=== PATIENT | female | born 1965 | race African-American/Black ===

== ENCOUNTER → 2017-08-03 15:04 | Outpatient (CLI) | payer MEDICARE, MEDICAID ==
[2016-04-09 09:20] VITALS: BMI 46.3
[~2017-08-03 15:04] MED LIST: ALDACTONE25 MG PO; ASPIRIN EC81 M1 PO; ATROVENT 0.02%2.5 ML UPD; BAYER CHEWABLE81 MG PO; BETAPACE 120 M120 MG PO; BYSTOLIC10 MG PO; CARDURA2 MG PO; CARDURA4 MG PO; COREG12.5 MG PO; COREG25 MG PO; COUMADIN2 MG PO; COUMADIN5 MG PO; COUMADIN7.5 MG PO; ELAVIL25 MG PO; K-DUR20 MEQ PO; LASIX20 MG PO; LASIX40 MG; LASIX40 MG PO; LEVOTHROID112 MCG PO; LIPITOR80 MG PO; METOPROLOL TART50 MG PO; MUCINEX600 MG PO; NITROQUICK0.4 MG SL; PLAVIX75 MG PO; PRINIVIL10 MG PO; PROAIR HFA8.5 GM INH; PROTONIX40 MG PO; PULMICORT0.5 MG/21 INH; SYNTHROID137 MCG PO; SYNTHROID75 MCG PO; TYLENOL W/CODEI1 TAB PO; VENTOLIN HFA18 GM INH; ZPAK PO
== END | disposition home or self-care (01) ==
LOC: D.CT 08-02 10:30
DX: G04 Encephalitis, myelitis and encephalomyelitis (principal)

== ENCOUNTER 2019-04-29 09:13 | Observation (INO) | payer MEDICARE, MEDICAID ==
[~2019-04-29] VITALS: Ht 162.6 cm; Wt 81.6 kg
[2019-04-29] VITALS (8 sets, daily range): BP systolic 144–171; BP diastolic 86–106; BMI 30.9
--- NOTE | ~2019-04-29 | HEMODYNAMI ---
PATIENT:AVTAR AMIN MEDICAL RECORD: [id number] : 61 [id number] ADMISSION DATE: 04/29/19 Generatedon:05/01/201916:38 Patient name: AVTAR AMIN Patient #: [id number] SSN: : 1965 Date of study: 05/01/2019 Page: Of Hemodynamic Procedure Report Patient Data Patient Demographics Procedure consent was obtained First Name: AVTAR Gender: Female Last Name: BRENNAN : 1965 Middle Initial: EDITH Age: 53 year(s) Patient #: [id number] Race: Black Additional ID: [id number] Contact details [address]: [address] [place] [address] State: [place] City: [facility] Zip code: [address] Past Medical History Allergies Allergen Reaction Date Comments Reported Other allergy 04/08/2016 Percocett, Darvocett, Oxycodone Iodine 04/08/2016 Other allergy 05/01/2019 IODINATE CONTRAST, OXYCODONE, PROPOXYPHENE Admission Admission Data Admission Date: 04/29/2019 Admission Time: 11:55 Arrival Date: 04/29/2019 Arrival Time: 11:55 Admit Source: Other Insurance Payor: Medicare Room #: D.2127 Height (in.): 64.17 BSA: 1.88 (m2) Height (cm.): 163 BMI: 30.86 (kg/m2) Weight (lbs.): 180.78 Weight (kg.): 82 Lab Results Lab Result Date: 04/30/2019 Lab Result Time: 0:00 Biochemistry Name Units Result Min Max BUN mg/dl 19 --(----)*- 7 18 Creatinine mg/dl 1.8 --(----)-* 0.6 1.3 CBC Name Units Result Min Max Hemoglobin g/dl 10.8 *-(----)-- 13.5 17.5 Procedure Procedure Types Cath Procedure Diagnostic Procedure [facility] w/Coronaries Procedure Description Procedure Date Procedure Date: 05/01/2019 Procedure Start Time: 16:24 Procedure End Time: 16:36 Procedure Staff Name Function J Luis Villegas MD Performing Physician Kerri Martinez RT Monitor Lemuel Das RT Scrub Odalys Noyola RN Nurse Procedure Data Cath Procedure Fluoroscopy Diagnostic fluoroscopy Total fluoroscopy Time: 1.2 time: 1.2 min min Diagnostic fluoroscopy Total fluoroscopy dose: 451 dose: 451 mGy mGy Contrast Material Contrast Material Type Amount (ml) Isovue 300 62 Entry Location Entry Primary Successful Side Size Upsize Upsize Entry Closure Succes sful Closure Location (Fr) 1 (Fr) 2 (Fr) Remarks Device Remarks Femoral Right 5 Fr Exoseal artery Estimated blood loss: 5 ml Diagnostic catheters Device Type Used For End Catheter Placement MULTIPACK JL 4.0 5Fr Procedure catheter MULTIPACK 3DRC 5Fr Procedure catheter MULTIPACK Pigtail 5 Fr Procedure catheter Procedure Complications No complications Procedure Medications Medication Administration Route Dosage Oxygen etCO2 Nasal cannula 2 l/min Lidocaine 2% added to field 20 Heparin Flush Bag added to field 2 bags (1000units/500ml NS) 0.9% NaCl I.V. 200 ml/hr Versed I.V. 1 mg Fentanyl I.V. 50 mcg Versed I.V. 1 mg Hemodynamics Rest BSA: 1.88 (m2) HGB: 10.8 (g/dl) O2 Consumption: Estimated: 184.15 (ml/min) O2 Co nsumption indexed: Estimated:97.95 (ml/min/m) Heart Rate: 74 (bpm) Pressure Samples Time Site Value (mmHg) Purpose Heart Use Rate(bpm) 16:30 LV 110/12,20 Snapshot 90 16:30 AO 114/77(90) Pullback 77 16:30 LV 105/8,21 Pullback 77 Gradients Valve Time Site 1 Site 2 Mean SEP/DFP Peak To Heart Use (mmHg) (sec/min) Peak Rate (mmHg) (bpm) Aortic 16:30 LV AO 0 6 0 77 105/8,21 114/77(90) Calculations Valve P-P Mean Valve Index Valve Source Name Gradient Area Flow (cm2) Aortic 0 0 0 0 Snapshots Pre Cath Intra NCS Post Cath Vital Signs Time Heart Resp SPO2 etCO2 NIBP (mmHg) Rhythm Pain Sedation Rate (ipm) (%) (mmHg) Status Level (bpm) 16:11:09 75 14 97 0 158/102(118) NSR 0 (11) 10(A) , No pain 16:15:33 73 18 98 35.9 158/96(117) NSR 0 (11) 10(A) , No pain 16:19:53 73 11 97 26.9 144/89(103) NSR 0 (11) 10(A) , No pain 16:24:19 74 13 94 29.9 139/77(104) NSR 0 (11) 9(A) , No pain 16:28:39 73 16 95 29.2 130/84(97) NSR 0 (11) 9(A) , No pain 16:32:55 71 13 94 30 137/80(104) NSR 0 (11) 10(A) , No pain 16:37:16 72 19 95 30.7 133/77(109) NSR 0 (11) 10(A) , No pain Medications Time Medication Route Dose Verified Delivered Reason Notes Eff ectiveness by by 16:15:41 Oxygen etCO2 2 J Luis J Luis used for Nasal l/min Bakari Villegas MD procedure cannula 16:22:50 Lidocaine 2% added 20ml J Luis J Luis for local to vial Bakari Villegas MD anesthetic field 16:22:56 Heparin Flush added 2 J Luis J Luis used for Bag to bags Bakari Villegas MD procedure (1000units/500ml field NS) 16:23:04 0.9% NaCl I.V. 200 J Luis J Luis Per ml/hr Bakari Villegas MD physician 16:23:13 Versed I.V. 1 mg J Luis J Luis Per Bakari Villegas MD physician 16:23:22 Fentanyl I.V. 50 J Luis J Luis for mcg Bakari Villegas MD sedation 16:28:37 Versed I.V. 1 mg J Luis J Luis Per Bakari Villegas MD physician Procedure Log Time Note 15:51:13 Signed procedure consent form obtained from patient. 15:51:14 Diagnostic Cath status Urgent 15:51:15 Time tracking: Regular hours (M-F 7:00 - 5:00) 15:51:19 Plan of Care:Hemodynamics will remain stable., Cardiac rhythm will remain stable., Comfort level will be maintained., Respiratory function will remain adequate., Patient/ family verbilizes understanding of procedure., Procedure tolerated without complication., Recovers from procedure without complications.. 15:51:20 Patient Height : 64.17 inches 15:51:20 Patient Weight : 180.78 lbs 15:51:21 Lemuel Das RT(R) sent for patient. Start room use. 16:04:56 Patient received from Med II to CCL 1 Alert and oriented. Tansferred to table in Supine position. 16:04:59 Warm blankets applied, and anastasia hugger turned on for patient comfort. 16:05:00 Correct patient and procedure confirmed by team. 16:05:01 ECG and BP/O2 sat monitors applied to patient. 16:09:46 Vital chart was started 16:11:43 Baseline sample Acquired. 16:11:47 Rhythm: sinus rhythm 16:11:48 Full Disclosure recording started 16:11:49 Pre-procedure instructions explained to patient. 16:11:49 Pre-op teaching completed and patient verbalized understanding. 16:11:51 Family in patients room. 16:11:53 Patient NPO since Midnight. 16:12:21 Patient allergic to Other allergyIODINATE CONTRAST, OXYCODONE, PROPOXYPHENE 16:12:23 Is patient on blood thinner?Yes 16:12:25 ACC The patient was administered the following blood thiners within the last 24 hours: ACCPlavix 16:12:28 Patient diabetic? No. 16:12:32 Patient not . Patient is over age 55. 16:12:35 Previous problem with sedation/anesthesia? No ? 16:12:37 Snore? Yes 16:12:38 Sleep apnea? Yes 16:12:39 Deviated septum? No 16:12:39 Opens mouth fully? Yes 16:12:41 Sticks out tongue? Yes 16:12:44 Airway obstruction? Yes ASTHMA 16:12:47 Dentures? No ? 16:12:53 Pre procedure: right dorsailis pedis pulse 1+ Palpable, but thready & weak; easily obliterated 16:12:56 Patient pain scale 0/10 ?. 16:13:00 IV patent on arrival in right hand with 0.9% NaCl at [facility]. 16:13:23 Lab results completed and on chart. 16:13:26 Right groin area was prepped with chlora-prep and draped in sterile fashion 16:13:27 Alarms reviewed by R. N. 16:13:27 Sharps counted by scrub and verified by R.N. 16:13:32 Use device set Femoral Dx 16:13:34 ACIST Syringe (23177) opened to sterile field. 16:13:34 Bag Decanter (2002S) opened to sterile field. 16:13:35 ACIST Hand Control (58541) opened to sterile field. 16:13:36 ACIST Manifold (16596) opened to sterile field. 16:13:37 Tegaderm 4 x 4 (1626W) opened to sterile field. 16:13:38 Medline Cath Pack ([id number]) opened to sterile field. 16:13:39 DIAGNOSTIC WIRE .035 260cm J wire (630151) opened to sterile field. 16:13:41 DIAGNOSTIC Multipack 5Fr catheter set ([id number]) opened to sterile field. 16:13:43 SHEATH 5FR [place] (DOE555) opened to sterile field. 16:15:41 Oxygen 2 l/min etCO2 Nasal cannula was administered by J Luis Villegas MD; used for procedure; 16:18:36 --------ALL STOP TIME OUT------ 16:18:37 Final Timeout: patient, procedure, and site verified with staff and physician. All members of the team are in agreement. 16:18:38 Right groin site verified by team. 16:18:41 Maximum allowable Isovue 300 dose 205ml. Physician notified. (300ml for normal creatinines. For patients with creatinine of 1.7 or higher multiply weight(kg) x 5 divided by creatinine.) 16:18:51 Fire Safety Assessment: A--An alcohol-based skin anteseptic being used preoperatively., C--Open oxygen or nitrous oxide is being used., D--An ESU, laser, or fiber-optic light is being used. 16:18:56 Physical assessment completed. ASA score P 3 - A patient with severe systemic disease as per J Luis Villegas MD. 16:18:59 Sedation plan: IV Moderate Sedation Medication:Versed, Fentanyl 16:22:50 Lidocaine 2% 20ml vial added to field was administered by J Luis Villegas MD; for local anesthetic; 16:22:56 Heparin Flush Bag (1000units/500ml NS) 2 bags added to field was administered by J Luis Villegas MD; used for procedure; 16:23:04 0.9% NaCl 200 ml/hr I.V. was administered by J Luis Villegas MD; Per physician; 16:23:13 Versed 1 mg I.V. was administered by J Luis Villegas MD; Per physician; 16:23:15 Procedure started. 16:23:17 Zero performed for pressure channel P1 16::22 Fentanyl 50 mcg I.V. was administered by J Luis Villegas MD; for sedation; 16:24:07 Local anesthetic to right femoral artery with Lidocaine 2% by J Luis Villegas MD.INITIAL ACCESS ONLY 16:24:40 A 5 Fr sheath was inserted into the Right Femoral artery 16:25:24 A MULTIPACK JL 4.0 5Fr catheter was advanced over the wire and used for Procedure. 16:27:04 LCA angiography performed. 16:27:07 Catheter exchanged over wire. 16:27:57 A MULTIPACK 3DRC 5Fr catheter was advanced over the wire and used for Procedure. 16:28:37 Versed 1 mg I.V. was administered by J Luis Villegas MD; Per physician; 16:28:38 RCA angiography performed. 16:28:39 Catheter exchanged over wire. 16:29:36 A MULTIPACK Pigtail 5 Fr catheter was advanced over the wire and used for Procedure. 16:30:04 LV gram done using GERBER 16:30:10 Injector settings: Ml/sec: 10, Volume: 20, 16:30:12 LV hemodynamics recorded. 16:30:27 EF : 20 % 16:30:50 Catheter removed. 16:30:52 EXOSEAL 5Fr (EX500) opened to sterile field. 16:32:04 Sheath removed intact; hemostasis achieved with Exoseal to the Right Femoral artery. 16:32:47 Procedure ended.(Physican Out) 16:33:43 Fluoroscopy time 01.20 minutes. 16:33:49 Fluoroscopy dose: 451 mGy 16:33:49 Flurop Dose total: 451 16:33:53 Contrast amount:Isovue 300 62ml. 16:33:55 Sharps counted by scrub and verified by R.N. 16:33:58 Post-op/insertion site Right Femoral artery dressed using a 4 x 4 and Tegaderm. 16:34:00 Post-procedure physical assessment completed. ASA score P 2 - A patient with mild systemic disease as per J Luis Villegas MD. 16:34:11 Post procedure rhythm: sinus rhythm 16:34:14 Estimated blood loss: 5 ml 16:34:15 Post procedure instruction explained to patient.Patient verbalizes understanding. 16:34:16 Patient needs reinforcement of post procedure teaching. 16:34:45 Procedure and supply charges have been captured, reviewed, submitted and are correct. 16:34:48 Procedure Complication : No complications 16:36:33 Vital chart was stopped 16:36:33 See physician's report for complete and final results. 16:36:35 Report given to PCU. 16:36:38 Patient transfered to PCU with Bed. 16:36:40 Procedure ended. 16:36:40 Full Disclosure recording stopped 16:36:50 End room use (Document Last) Device Usage Item Name Manufacture Quantity Catalog Hospital Part Current Minimal L ot# / Number Charge Number Stock Stock Serial# Code ACIST Acist 1 36465 431523 816639 998829 20 Syringe Medical (54228) Systems Inc Bag Microtek 1 2001S 893717 56180 378666 5 Decanter Medical Inc. (2001S) ACIST Hand Acist 1 81567 161559 848403 315341 5 Control Medical (93186) Systems Inc ACIST Acist 1 61297 825598 366741 565592 5 Manifold Medical (39693) Systems Inc Tegaderm 4 3M 1 1626W 103391 178619 964703 5 x 4 (1626W) Medline Medline 1 [id number] 435614 13378 521899 5 Cath Pack ([id number]) DIAGNOSTIC St Yung 1 868953 707376 376430 937595 30 WIRE .035 260cm J wire (522710) DIAGNOSTIC Cardinal 1 KD1619 988271 17628 170877 30 Multipack Health 5Fr catheter set (ZV7485) SHEATH 5FR Terumo 1 MPQ269 045046 153406 104117 5 [place] (RZB676) MULTIPACK Cardinal 1 886546 5 JL 4.0 5Fr Health catheter MULTIPACK Cardinal 1 894957 5 3DRC 5Fr Health catheter MULTIPACK Cardinal 1 342975 5 Pigtail 5 Health Fr catheter EXOSEAL 5Fr Cardinal 1 EX500 913914 155318 908263 10 (EX500) Health Signature Audit [place] Stage Time Signature Unsigned Intra-Procedure 05/01/2019 Kerri Martinez 4:38:16 PM RT(R) Signatures Monitor : Kerri Martienz Signature : RT Date : Time : [id number] [place] [address]
--- NOTE | 2019-04-29 09:45 | NUR ---
CP 05/16
--- NOTE | 2019-04-29 09:50 | NUR ---
CP 03/16
--- NOTE | 2019-04-29 10:00 | NUR ---
CP 01/14
[2019-04-29] MEDS ORDERED: METOPROLOL TART50 MG PO ×2 (10:01→14:38)
[2019-04-29] MEDS ORDERED: PLAVIX75 MG PO (10:01)
[2019-04-29 10:16] LABS: BASOPHILS 1.2 % (0-2); EOSINOPHILS 3.3 % (0-7); HEMATOCRIT 37.6 % (36.0-48.0); HEMOGLOBIN 11.9 g/dL (12-16); IMMATURE GRANULOCYTES 0.1 % (0-5); LYMPHOCYTES 21.8 % (15-50); MCH 25.8 pg (26.0-34.0); MCHC 31.6 g/dL (31.0-37.0); MCV 81.4 fL (80.0-100.0); MEAN PLATELET VOLUME 11.8 fL (7.4-10.4); MONOCYTES 4.4 % (2-11); NEUTROPHILS 69.2 % (40-80); RBC 4.62 10x6/uL (4.00-5.40); RDW 13.9 % (11.5-14.5); WBC 6.9 10x3/uL (4.8-10.8)
[2019-04-29 10:19] LABS: PLATELET COUNT 155 10x3/uL (130-400)
[2019-04-29 10:25] LABS: APTT 25.6 SECONDS (22.8-39.4); INR 1.14 (0.85-1.17); PROTIME 14.1 SECONDS (11.6-15.0)
[2019-04-29 10:32] LABS: ALBUMIN 3.5 g/dL (3.4-5.0); ALKALINE PHOSPHATASE 78 U/L (46-116); ALT (SGPT) 35 U/L (10-68); BILIRUBIN - TOTAL 0.62 mg/dL (0.2-1.3); CALC OSMOLALITY 282 mosm/kg (275-300); CALCIUM 9.3 mg/dL (8.5-10.1); CARBON DIOXIDE 30.1 mmol/L (21.0-32.0); CHLORIDE - SERUM 104 mmol/L (98-107); CREATININE - SERUM 1.7 mg/dL (0.6-1.3); GLUCOSE 84 mg/dL (74-106); POTASSIUM - SERUM 4.1 mmol/L (3.5-5.1); PROTEIN - SERUM 8.1 g/dL (6.4-8.2); SODIUM 142 mmol/L (136-145); UREA NITROGEN 16 mg/dL (7-18); eGFR NON AFRICAN AMERICAN 33 mL/min (90-120)
[2019-04-29 10:46] LABS: CKMB 1.9 U/L (0.0-3.6); CREATINE KINASE 387 UL (21-215)
[2019-04-29 10:49] LABS: TROPONIN-I 0.535 ng/mL (0.000-0.060)
--- NOTE | 2019-04-29 10:49 | NUR ---
ELEVATED TROPONIN CALLED BY LAB. GRACIELA HOOVER, INFORMED AT THIS TIME.
--- NOTE | 2019-04-29 11:23 | NUR ---
PT AND FAMILY UPDATED ON POC AT THIS. TIME.
[2019-04-29 12:57] LABS: CKMB 1.8 U/L (0.0-3.6); CREATINE KINASE 367 UL (21-215)
[2019-04-29 13:07] LABS: TROPONIN-I 0.547 ng/mL (0.000-0.060)
--- NOTE | 2019-04-29 13:54 | NUR ---
TRANSFER FROM ER BY W/C. SEBASTIANINTED TO ROOM. CALL LIGHT IN REACH. WILL CONT. PLAN OF CARE.
[2019-04-29] MEDS ORDERED: MELATONIN10 M1 PO (14:39)
--- NOTE | 2019-04-29 14:44 | NUR ---
RECIVED FROM ER TO ROOM 2126. ADMIT ASSESSMENT PER RN
--- NOTE | 2019-04-29 17:39 | NUR ---
WITHOUT CHANGES OR DISTRESS NOTED AT THIS TIME. DENIES NEEDS.
[2019-04-29 19:36] LABS: CREATINE KINASE 423 UL (21-215)
[2019-04-29 19:38] LABS: TROPONIN-I 0.516 ng/mL (0.000-0.060)
--- NOTE | 2019-04-29 19:59 | NUR ---
RECIEVED UP IN BED WITH SEVERAL FAMILY MEMBERS AT BEDSIDE. ALERT AND ORIENTED X4. IV TO RIGHT HAND SL.. PACEMAKER TO LEFT CHEST. TELEMETRY IN PLACE. DENIES ANY NEEDS AT THIS TIME.
[2019-04-30 00:11] VITALS: BP 133/78
[2019-04-30 00:55] LABS: CKMB 2.1 U/L (0.0-3.6); CREATINE KINASE 349 UL (21-215)
[2019-04-30 00:57] LABS: TROPONIN-I 0.481 ng/mL (0.000-0.060)
[2019-04-30 04:00] VITALS: BP 153/89
[2019-04-30 06:48] LABS: ALBUMIN 3.1 g/dL (3.4-5.0); ANION GAP 9.1 mmol/L (8-16); BILIRUBIN - TOTAL 0.49 mg/dL (0.2-1.3); CALCIUM 8.8 mg/dL (8.5-10.1); CARBON DIOXIDE 31.7 mmol/L (21.0-32.0); CREATININE - SERUM 1.8 mg/dL (0.6-1.3); MAGNESIUM - SERUM 1.9 mg/dL (1.8-2.4); POTASSIUM - SERUM 3.8 mmol/L (3.5-5.1); PROTEIN - SERUM 7.2 g/dL (6.4-8.2)
--- NOTE | 2019-04-30 07:10 | NUR ---
REPORT RECEIVED FORM VALVE REPAIRER AND PATIENT CARE ASSUMED. PATIENT IS LAYING ON RIGHT SIDE WITH EYES CLOSED AND BREATHING EVENLY. PATIENT IS STABLE AND VSS. WILL CONTINUE WITH PLAN OF CARE. SR UP X 2 BED IN LOW POSITION AND CALL LIGHT IN EACH.
[2019-04-30 07:35] LABS: BASOPHILS 1.1 % (0-2); EOSINOPHILS 5.9 % (0-7); HEMATOCRIT 34.7 % (36.0-48.0); HEMOGLOBIN 10.8 g/dL (12-16); IMMATURE GRANULOCYTES 0.1 % (0-5); LYMPHOCYTES 27.4 % (15-50); MCH 25.4 pg (26.0-34.0); MCHC 31.1 g/dL (31.0-37.0); MCV 81.6 fL (80.0-100.0); MEAN PLATELET VOLUME 11.9 fL (7.4-10.4); MONOCYTES 5.5 % (2-11); PLATELET COUNT 145 10x3/uL (130-400); RBC 4.25 10x6/uL (4.00-5.40); RDW 13.9 % (11.5-14.5); WBC 7.2 10x3/uL (4.8-10.8)
[2019-04-30 09:01] VITALS: BP 140/85
--- NOTE | 2019-04-30 10:58 | NUR ---
PATIENT RESTING QUIETLY IN BED . PATIENT DENIES ANY NEEDS OR PAIN. ASSESSMENT COMPLETED. WILL CONTINUE TO MONITOR. SR UP X 2 BED IN LOW POSITION AND CALL LIGHT IN REACH.
[2019-04-30 11:41] VITALS: BP 117/64
--- NOTE | 2019-04-30 13:45 | NUR ---
RECIEVED CALL TO PREOP. PATIENT IS STABLE AND VSS. PATIENT DENIES ANY NEEDS OR PAIN. PATIENT HAS SEVERE ALLERGY TO IODINE DYE. PATIENT HAD NOT RECEIVED SOLU-MEDROL PROPHYLACTICALLY. DR GREEN MADE THE DECISION TO CX CATH FOR TODAY AND START PROPHYLACTICE TREATMENT. PATIENT AND FAMILY VERBALIZED UNDERSTANDING. GAVE PATIENT SOLU MEDROL 60MG IV PER ORDER. WILL CONTINUE TO MONITOR PATIENT.
[2019-04-30 19:22] LABS: % SATURATION 15 % (15-55); IRON 43 ug/dl (35-150); TOTAL IRON BIND CAPACITY 271 ug/dl (260-445); UNSAT IRON BIND CAPACITY 228 ug/dl (150-375)
--- NOTE | 2019-04-30 19:32 | NUR ---
RECIEVED RESTING IN BED WITH EYES CLOSED. EASILY AROUSES WITH VERBAL STIMULI. IV TO LEFT HAND SL. PACEMAKER TO LEFT CHEST. TELEMETRY IN PLACE. DENIES ANY NEEDS AT THIS TIME.
[2019-04-30 20:00] VITALS: BP 107/78
[2019-05-01] VITALS (7 sets, daily range): BP systolic 100–155; BP diastolic 70–94
[2019-05-01 05:55] LABS: BASOPHILS 0 % (0-2); EOSINOPHILS 0.1 % (0-7); HEMATOCRIT 36.9 % (36.0-48.0); HEMOGLOBIN 11.7 g/dL (12-16); IMMATURE GRANULOCYTES 0.1 % (0-5); LYMPHOCYTES 9.9 % (15-50); MCH 25.4 pg (26.0-34.0); MCHC 31.7 g/dL (31.0-37.0); MCV 80.2 fL (80.0-100.0); MEAN PLATELET VOLUME 11.8 fL (7.4-10.4); MONOCYTES 0.9 % (2-11); PLATELET COUNT 153 10x3/uL (130-400); RDW 13.7 % (11.5-14.5); WBC 7.8 10x3/uL (4.8-10.8)
[2019-05-01 06:05] LABS: ALBUMIN 3.1 g/dL (3.4-5.0); ANION GAP 12.7 mmol/L (8-16); BILIRUBIN - TOTAL 0.58 mg/dL (0.2-1.3); CALCIUM 9.1 mg/dL (8.5-10.1); CARBON DIOXIDE 26.4 mmol/L (21.0-32.0); MAGNESIUM - SERUM 1.9 mg/dL (1.8-2.4); POTASSIUM - SERUM 4.1 mmol/L (3.5-5.1); PROTEIN - SERUM 7.4 g/dL (6.4-8.2)
--- NOTE | 2019-05-01 07:00 | NUR ---
RECEIVED REPORT. ASSUMED CARE OF PATIENT. PATIENT RESTING IN BED. RESP EVEN AND UNLABORD. CALL LIGHT WITHIN REACH. DENIES NEEDS. ASKED PATIENT IF SHE WOULD LIKE A LIGHT BREAKFAST SINCE HER CATH IS NOT UNTIL THIS AFTERNOON SO SHE WOULD NOT HAVE TO BE NPO ALL DAY. PATIENT AGREED. NO DISTRESS.
--- NOTE | 2019-05-01 07:15 | NUR ---
ABLE TO GET PATIENT DIET CHANGED TO CLEAR LIQUIDS SINCE HEART CATH IS NOT UNTIL AFTERNOON.
--- NOTE | 2019-05-01 10:42 | NUR ---
MEDICATED FOR HEADACHE AFTER RECEIVING NEW ORDER FOR TYLENOL.
--- NOTE | 2019-05-01 14:10 | NUR ---
RESTING IN BED. SOLUMEDROL ADMINISTERED. CALL LIGHT WITHIN REACH. PATIENT WONDERING WHAT TIME HER CATH WITH BE. THIS MICROBIOLOGICAL LABORATORY TECHNICIAN IS NOT SURE. NO DISTRESS. FAMILY AT BEDSIDE.
--- NOTE | 2019-05-01 15:49 | NUR ---
PREOP MEDS ADMINISTERED AT THIS TIME ORDERED.
--- NOTE | 2019-05-01 16:00 | NUR ---
PATIENT LEFT VIA BED FOR CLOTH SPREADER AT THIS TIME. NO DISTRESS.
--- NOTE | 2019-05-01 16:57 | NUR ---
RECEIVED BACK TO UNIT FROM CORPORATION SECRETARY. NO DISTRESS. PERIPHERAL PULSES PATENT. NO S/S HEMATOMA TO RIGHT GROIN. NO FAMILY AT BEDSIDE AT THIS TIME. SAYS HER ARTERIES ARE CLEAR, IT IS THE EF OF 20% THAT IS CAUSING PROBLEMS AND HE WILL ADJUST MEDICATIONS IN HOPES OF IMPROVING EF. BP 120/84, PULSE 70. NO DISTRESS.
--- NOTE | 2019-05-01 17:15 | NUR ---
RESTING WELL. VS STABLE. NO S/S HEMATOMA FORMATION. PERIPHERAL PULSES PATENT. NO DISTRESS. EYES CLOSED. RESP EVEN AND UNLABORED. NO FAMILY AT BEDSIDE.
--- NOTE | 2019-05-01 17:45 | NUR ---
CONTINUE RESTING WITH EYES CLOSED IN STABLE CONDITTION. NO HEMATOMA FORMATION TO RIGHT GROIN. PERIPHERAL PULSES PATENT. BP 138/86. IV FLUIDS INFUSING ORDERED. NO DISTRESS. CALL LIGHT WITHIN REACH.
--- NOTE | 2019-05-01 18:15 | NUR ---
PATIENT AWAKE AND LYING IN SUPINE. PATIENT SIPPING WATER. CALL LIGHT WITHIN REACH. NO DISTRESS. DENIES NEEDS. NO FAMILY AT BEDSIDE. INFORMED PATIENT SHE WOULD BE ABLE TO GET UP IN ABOUT 45 MINUTES AND SHE WOULD BE ABLE TO GO HOME TONIGHT ABOUT 8PM. PATIENT VERBALIZED HER UNDERSTANDING.
--- NOTE | 2019-05-01 19:35 | NUR ---
REPORT RECIEVED AND ROUNDING COMPLETE. PT LAYING IN BED SLIGHTLY ELEVATED. SIT UP TIME IS AT 1900. RIGHT CATH GROIN SOFT AND DRESSING CLEAN DRY AND INTACT. PRINCE WARNER STATES PT CAN NO GO HOME TONIGHT. AUSTEN VARELA EXPLAINED THIS TO PT AND FAMILY. PT HAS NO OTHER NEEDS AT THIS TIME, CALL LIGHT WITHIN REACH AND BED IN LOWEST POSITION.
--- NOTE | 2019-05-01 23:23 | NUR ---
I have reviewed this patient and I concur with the Shift Assessment completed by the Licensed Practical Nurse today this shift.
[2019-05-02 04:00] VITALS: BP 141/81
--- NOTE | 2019-05-02 04:57 | NUR ---
I have reviewed this patient and I concur with the Shift Assessment completed by the Licensed Practical Nurse today this shift.
[2019-05-02 06:49] LABS: BASOPHILS 0 % (0-2); EOSINOPHILS 0 % (0-7); HEMATOCRIT 34.7 % (36.0-48.0); HEMOGLOBIN 11.1 g/dL (12-16); IMMATURE GRANULOCYTES 0.3 % (0-5); LYMPHOCYTES 5.8 % (15-50); MCH 25.7 pg (26.0-34.0); MCV 80.3 fL (80.0-100.0); MEAN PLATELET VOLUME 11.3 fL (7.4-10.4); MONOCYTES 2.7 % (2-11); NEUTROPHILS 91.2 % (40-80); PLATELET COUNT 156 10x3/uL (130-400); RBC 4.32 10x6/uL (4.00-5.40); RDW 13.9 % (11.5-14.5)
[2019-05-02 06:54] LABS: WBC 14.6 10x3/uL (4.8-10.8)
[2019-05-02 07:27] LABS: ALBUMIN 3.2 g/dL (3.4-5.0); ANION GAP 12.7 mmol/L (8-16); BILIRUBIN - TOTAL 0.68 mg/dL (0.2-1.3); CALCIUM 8.6 mg/dL (8.5-10.1); CARBON DIOXIDE 26.2 mmol/L (21.0-32.0); PHOSPHOROUS 3.9 mg/dL (2.5-4.9); POTASSIUM - SERUM 3.9 mmol/L (3.5-5.1); PROTEIN - SERUM 7.4 g/dL (6.4-8.2)
--- NOTE | 2019-05-02 07:29 | NUR ---
ROUNDING DONE WITH PATIENT AROUSEING EASILY WE WALK IN. LAYING ON LEFT SIDE, RIGHT GROIN DRESSING FROM [facility] YESTERDAY, C/D/I AND SITE IS SOFT. ON ROOM AIR. ON HEART MONITOR SHOWING SR, HR 64. PATIENT HAS A LEFT PACEMAKER. RIGHT HAND PIV SEEN WITH SALINE LOCK. WILL MONITOR.
--- NOTE | 2019-05-02 07:37 | NUR ---
ON EP, K+ IS 4.3.
[2019-05-02 09:14] LABS: FOLATE (FOLIC ACID) - SERUM 5.7 ng/mL (>3.0)
[2019-05-02 09:47] VITALS: BP 138/73
[2019-05-02 14:07] VITALS: Ht 162.6 cm; Wt 81.6 kg
--- NOTE | 2019-05-02 14:48 | NUR ---
SITTING ON SIDE OF BED VISITNG WITH FAMILY.
[2019-05-02 17:47] VITALS: BP 140/61
[2019-05-02 17:56] VITALS: BP 109/55
--- NOTE | 2019-05-02 18:39 | NUR ---
NO STOOL FOR THIS SHIFT. WILL LET THE NEXT ONE KNOW.
--- NOTE | 2019-05-02 18:43 | MORECARE ---
CASE MANAGEMENT DISCHARGE SUMMARY PATIENT: AVTAR AMIN UNIT: [id number] ADM DATE: 04/29/19 AGE: 53 : [birth year] SEX: F ROOM/BED: D.2899 AUTHOR: KADE DELONG PHYSICIAN: REFERRING PHYSICIAN: VLAD VELASCO MD DATE OF SERVICE: 05/02/19 Discharge Plan Patient Name: AVTAR AMIN Facility: [facility]:[place] : 1965 Planned Disposition: Home Anticipated Discharge Date: Discharge Date: Expected LOS: Initial Reviewer: [email or web address] Initial Review Date: 04/29/2019 Generated: 05/02/19 7:43 pm Coverage Notice Reviewer: [email or web address] Andrea Delcid Notice Issued Date-Time: 04/30/2019 15:06 Notice Type: Medicare Outpatient Observation Notice Notice Delivered To: Patient Relationship to Patient: Self Operator Cavity Pump Name: Delivery Method: HAND - Hand Delivered Christine Days: Prior Verbal Notification: Recipient Understood Notice: Yes Recipient Signature: Med Rec Note Co-signed by Attending: Coverage Notice Comment: Patient Name: AVTAR AMIN Page [phone] at 1843 All edits/amendments must be made on the electronic document DICTATION DATE: 05/02/191841 DATABASE DESIGNER: LAY 05/02/191841 RPT#: [id number] DC DATE: STATUS: ADM IN [place] [address] [place] [address] END OF REPORT
--- NOTE | 2019-05-02 18:50 | MORECARE ---
CASE MANAGEMENT DISCHARGE SUMMARY PATIENT: AVTAR AMIN UNIT: [id number] ADM DATE: 04/29/19 AGE: 53 : 61 SEX: F ROOM/BED: D.7399 AUTHOR: KADE DELONG PHYSICIAN: REFERRING PHYSICIAN: VLAD VELASCO MD DATE OF SERVICE: 05/02/19 Discharge Plan Patient Name: AVTAR AMIN Facility: [facility]:[place] : 1965 Planned Disposition: Home Anticipated Discharge Date: Discharge Date: Expected LOS: Initial Reviewer: [email or web address] Initial Review Date: 04/29/2019 Generated: 05/02/19 7:50 pm Comments DCP- Discharge Planning Updated by [email or web address]: Kassandracathleen Haile on 05/02/19 5:[address] CM VISITED WITH THE PATIENT AFTER RECEIVING AN ORDER FOR HOME HEALTH FOR PHYSICAL THERAPY. THE PATIENT WAS RESTING IN BED. HER ROOM IS DARK. SHE HAD NOT EATEN HER DINNER SHE STATES SHE DID NOT FEEL WELL. CM ADVISED THE DOCTOR HAD ORDERED HOME HEALTH FOR PHYSICAL THERAPY. SHE STATED SHE WAS NOT AWARE. SHE WILL ACCEPT HOME HEALTH. SHE WANTS TO DISCUSS WITH HER DAUGHTER. CM LEFT THE HOME HEALTH PROVIDER LIST WITH THE PATIENT. EXPLAINED I WOULD REVISIT WHEN SHE FELT BETTER. SHE LIVES W/ HER DAUGHTER CHRISTINA LINDSEY. THERE IS ONE STEP TO ENTER THE HOME. THE PATIENT NEEDS ASSIST TO ENTER THE HOUSE. THERE IS NO RAILING. SHE HAS A STANDARD WALKER AND SHOWER CHAIR. SHE IS EXPECTING TO GET A WHEELCHAIR WHEN SHE CHANGES INSURANCE NEXT MONTH. SHE WILL HAVE A NEW PCP-SHE CAN NOT REMEMBER HIS NAME AT THIS TIME. PHARMACY- [facility] TO FOLLOW UP FOR HOME HEALTH AND TO COMPLETE THE ASSESSMENT. Coverage Notice Reviewer: [email or web address] - Carolina Delcid Notice Issued Date-Time: 04/30/2019 15:06 Notice Type: Medicare Outpatient Observation Notice Notice Delivered To: Patient Relationship to Patient: Self Food Services Director Name: Delivery Method: HAND - Hand Delivered Christine Days: Prior Verbal Notification: Recipient Understood Notice: Yes Recipient Signature: Med Rec Note Co-signed by Attending: Coverage Notice Comment: Last DP export: 05/02/19 5:43 p Patient Name: AVTAR AMIN Page [phone] at 1850 All edits/amendments must be made on the electronic document DICTATION DATE: 05/02/191849 BARK SCALER: LAY 05/02/191849 RPT#: [id number] DC DATE: STATUS: ADM IN [facility] [address] [place] [address] END OF REPORT
--- NOTE | 2019-05-02 19:17 | NUR ---
EVENING ROUNDS MADE. PT LAYING IN BED RESTING. PT DENIES PAIN AT THIS TIME. NO FURTHER CONCERNS. BED LOWERED AND LOCKED. CL IN REACH. WILL CTM.
[2019-05-02 20:00] VITALS: BP 115/76
--- NOTE | 2019-05-02 22:50 | NUR ---
PT C/O PAIN IN HEAD AND NECK. TYLENOL GIVEN PO. NO FURTHER COMPLAINTS AT THIS TIME. WILL CTM.
[2019-05-03 00:30] VITALS: BP 127/73
--- NOTE | 2019-05-03 04:21 | NUR ---
I have reviewed this patient and I concur with the Shift Assessment completed by the Licensed Practical Nurse today this shift.
[2019-05-03 04:30] VITALS: BP 118/72
[2019-05-03 05:12] LABS: BASOPHILS 0 % (0-2); EOSINOPHILS 0 % (0-7); HEMATOCRIT 36.8 % (36.0-48.0); HEMOGLOBIN 11.5 g/dL (12-16); IMMATURE GRANULOCYTES 0.2 % (0-5); LYMPHOCYTES 9.6 % (15-50); MCH 25.4 pg (26.0-34.0); MCHC 31.3 g/dL (31.0-37.0); MCV 81.4 fL (80.0-100.0); MONOCYTES 1.1 % (2-11); NEUTROPHILS 89.1 % (40-80); PLATELET COUNT 160 10x3/uL (130-400); RBC 4.52 10x6/uL (4.00-5.40); RDW 14.3 % (11.5-14.5)
[2019-05-03 05:27] LABS: WBC 10.8 10x3/uL (4.8-10.8)
[2019-05-03 05:47] LABS: ALBUMIN 3.4 g/dL (3.4-5.0); ANION GAP 13.2 mmol/L (8-16); BILIRUBIN - TOTAL 0.42 mg/dL (0.2-1.3); CALCIUM 8.5 mg/dL (8.5-10.1); PHOSPHOROUS 3.9 mg/dL (2.5-4.9); POTASSIUM - SERUM 4.2 mmol/L (3.5-5.1); PROTEIN - SERUM 7.8 g/dL (6.4-8.2)
[2019-05-03 07:31] VITALS: BP 131/84
[2019-05-03] MEDS ORDERED: PREDNISONE10 MG PO (10:33)
--- NOTE | 2019-05-03 16:03 | MORECARE ---
CASE MANAGEMENT DISCHARGE SUMMARY PATIENT: AVTAR AMIN UNIT: [id number] ADM DATE: 04/29/19 AGE: 53 : 61 SEX: F ROOM/BED: D.9006 AUTHOR: BALJEET,DOC PHYSICIAN: REFERRING PHYSICIAN: VLAD VELASCO MD DATE OF SERVICE: 05/03/19 Discharge Plan Patient Name: AVTAR AMIN Facility: [facility]:[place] : 1965 Planned Disposition: Home Anticipated Discharge Date: 05/03/19 Discharge Date: 05/03/2019 Expected LOS: 4 Initial Reviewer: [id number] Initial Review Date: 04/29/2019 Generated: 05/03/19 5:02 pm Comments DCP- Discharge Planning Updated by [id number]: Christo Duckworth on 05/03/19 3:[address] Patient Name: AVTAR AMIN Encounter No: [id number] : 1965 Primary Insurance: [facility] MEDICARE SOLUTIONS Anticipated DC Date: 05-03-2019 Planned Disposition: Home DCP follow-up note: CM RECEIVED HOME HEALTH ORDER, MET WITH PT IN ROOM AND DISCUSSED HOME HEALTH. PT HAS NO PRIMARY DOCTOR AND HOPES TO ESTABLISH WITH A NEW DOCTOR IN MAY WHEN HER NEW INSURANCE IS IN EFFECT. PT CANNOT TELL CM NAME OR DOCTORS LOCATION. CM EXPLAINED THAT HOME HEALTH CANNOT BE ORDERED PT DOES NOT HAVE A DOCTOR TO FOLLOW THE HOME HEALTH. PT REPORTS UNDERSTANDING, DENIES NEEDS, REPROTS FAMILY TO PICK HER UP SHORTLY. CM NOTIFIED SUPERVISING ARCHITECT NURSE. Christo Duckworth, CASE MANAGEMENT DCP- Discharge Planning Updated by [id number]: Kassandra Haile on 05/02/19 5:[address] CM VISITED WITH THE PATIENT AFTER RECEIVING AN ORDER FOR HOME HEALTH FOR PHYSICAL THERAPY. THE PATIENT WAS RESTING IN BED. HER ROOM IS DARK. SHE HAD NOT EATEN HER DINNER SHE STATES SHE DID NOT FEEL WELL. CM ADVISED THE DOCTOR HAD ORDERED HOME HEALTH FOR PHYSICAL THERAPY. SHE STATED SHE WAS NOT AWARE. SHE WILL ACCEPT HOME HEALTH. SHE WANTS TO DISCUSS WITH HER DAUGHTER. CM LEFT THE HOME HEALTH PROVIDER LIST WITH THE PATIENT. EXPLAINED I WOULD REVISIT WHEN SHE FELT BETTER. SHE LIVES W/ HER DAUGHTER CHRISTINA LINDSEY. THERE IS ONE STEP TO ENTER THE HOME. THE PATIENT NEEDS ASSIST TO ENTER THE HOUSE. THERE IS NO RAILING. SHE HAS A STANDARD WALKER AND SHOWER CHAIR. SHE IS EXPECTING TO GET A WHEELCHAIR WHEN SHE CHANGES INSURANCE NEXT MONTH. SHE WILL HAVE A NEW PCP-SHE CAN NOT REMEMBER HIS NAME AT THIS TIME. [facility]ARMACY- [facility] TO FOLLOW UP FOR HOME HEALTH AND TO COMPLETE THE ASSESSMENT. Coverage Notice Reviewer: [id number] Andrea Delcid Notice Issued Date-Time: 04/30/2019 15:06 Notice Type: Medicare Outpatient Observation Notice Notice Delivered To: Patient Relationship to Patient: Self Keyboard Instrument Repairer Name: Delivery Method: HAND - Hand Delivered Christine Days: Prior Verbal Notification: Recipient Understood Notice: Yes Recipient Signature: Med Rec Note Co-signed by Attending: Coverage Notice Comment: Last DP export: 05/02/19 5:50 p Patient Name: AVTAR AMIN Page [id number] at 1603 All edits/amendments must be made on the electronic document DICTATION DATE: 05/03/19 160 HEDGE TRIMMER: LAY 05/03/19 160 RPT#: [id number] DC DATE:05/03/19 STATUS: DIS IN [facility] [address] [place] [address] END OF REPORT
== END 2019-05-03 14:02 | disposition home or self-care (01) ==
LOC: D.ER 09:13 → OBSVTIME 11:55 → D.M2 11:55
PROVIDERS: Emergency Medicine; Family Medicine; ADMIT Internal Medicine Nephrology; ATTEND Internal Medicine Nephrology
DX: I21.4 Non-ST elevation (NSTEMI) myocardial infarction (principal); I25.110 Atherosclerotic heart disease of native coronary artery with unstable angina pectoris; I10 Essential (primary) hypertension; E78.5 Hyperlipidemia, unspecified; N17.9 Acute kidney failure, unspecified; G47.33 Obstructive sleep apnea (adult) (pediatric); E03.9 Hypothyroidism, unspecified; D64.9 Anemia, unspecified; M79.7 Fibromyalgia; Z95.0 Presence of cardiac pacemaker; I48.91 Unspecified atrial fibrillation

== ENCOUNTER 2019-05-04 23:28 | Inpatient (IN) | payer MEDICARE, MEDICAID ==
[~2019-05-04] VITALS: Ht 162.6 cm; Wt 82.5 kg
[~2019-05-04 23:28] MED LIST changes: +MELATONIN10 M1 PO; +PREDNISONE10 MG PO
[2019-05-04 23:56] LABS: BASOPHILS 0.3 % (0-2); EOSINOPHILS 1.4 % (0-7); HEMATOCRIT 34.8 % (36.0-48.0); IMMATURE GRANULOCYTES 0.3 % (0-5); LYMPHOCYTES 30.6 % (15-50); MCH 25.8 pg (26.0-34.0); MCHC 31.6 g/dL (31.0-37.0); MCV 81.5 fL (80.0-100.0); MEAN PLATELET VOLUME 11.6 fL (7.4-10.4); MONOCYTES 6.4 % (2-11); PLATELET COUNT 140 10x3/uL (130-400); RBC 4.27 10x6/uL (4.00-5.40); RDW 14.6 % (11.5-14.5); WBC 10.1 10x3/uL (4.8-10.8)
[2019-05-05 00:08] LABS: APTT 23.6 SECONDS (22.8-39.4); INR 1.2 (0.85-1.17); PROTIME 14.6 SECONDS (11.6-15.0)
[2019-05-05 00:09] LABS: D-DIMER-QUANTITATIVE 1.95 ug/mLFEU (0.20-0.54)
[2019-05-05 00:18] LABS: ALBUMIN 3.1 g/dL (3.4-5.0); ALKALINE PHOSPHATASE 61 U/L (46-116); ALT (SGPT) 76 U/L (10-68); BILIRUBIN - TOTAL 0.26 mg/dL (0.2-1.3); CALC OSMOLALITY 291 mosm/kg (275-300); CALCIUM 8.2 mg/dL (8.5-10.1); CARBON DIOXIDE 27.5 mmol/L (21.0-32.0); CHLORIDE - SERUM 110 mmol/L (98-107); CREATININE - SERUM 1.6 mg/dL (0.6-1.3); GLUCOSE 88 mg/dL (74-106); PROTEIN - SERUM 6.9 g/dL (6.4-8.2); SODIUM 144 mmol/L (136-145); UREA NITROGEN 28 mg/dL (7-18); eGFR NON AFRICAN AMERICAN 35 mL/min (90-120)
[2019-05-05 00:22] LABS: POTASSIUM - SERUM 3.5 mmol/L (3.5-5.1)
--- NOTE | 2019-05-05 00:22 | NUR ---
PT ASSISTED UP TO BEDSIDE COMMODE.
[2019-05-05 00:35] LABS: CREATINE KINASE 209 UL (21-215); PRO BNP 1855 pg/mL (0-125)
[2019-05-05 00:41] LABS: TROPONIN-I 0.945 ng/mL (0.000-0.060)
[2019-05-05] MEDS ORDERED: NORVASC5 MG PO (01:05)
[2019-05-05 01:30] VITALS: BP 147/83
--- NOTE | 2019-05-05 01:33 | NUR ---
PT TO RADIOLOGY
--- NOTE | 2019-05-05 02:20 | NUR ---
PT RETURNED FROM RADIOLOGY.
--- NOTE | 2019-05-05 03:21 | NUR ---
PT ASSISTED UP TO BEDSIDE COMMODE.
[2019-05-05 03:30] VITALS: BP 135/93
[2019-05-05 04:45] VITALS: BP 156/90
[2019-05-05 08:03] VITALS: BP 151/90
--- NOTE | 2019-05-05 08:30 | NUR ---
ROUNDING DONE WITH PATIENT GETTING OFF BSC, DENIES NEEDS. OBESE ABDOMEN. RIGHT FA PIV SEEN WITH SALINE LOCK. ON HEART MONITOR SHOWING SR, HR 77. ON ROOM AIR. LEFT PACEMAKER SITE SEEN.
--- NOTE | 2019-05-05 10:00 | NUR ---
BILATERAL SCD'S ARE PLACED ON PATIENT AND EXPLAINED IN USE.
[2019-05-05 11:45] VITALS: BP 148/82
[2019-05-05 12:30] VITALS: Ht 162.6 cm; Wt 82.5 kg
--- NOTE | 2019-05-05 12:38 | NUR ---
PAGE INTO ROMANA LEAHY APN TO SEE ABOUT RE-STARTING PATIENT HOME MEDS R/T HTN. AWAITING CALL BACK.
--- NOTE | 2019-05-05 12:51 | NUR ---
YUNIER SANTIAGO TO CALL BACK AND STATES SHE WILL LOOK AT THE HOME MEDS.
[2019-05-05 15:43] VITALS: BP 126/85
--- NOTE | 2019-05-05 16:53 | NUR ---
DENIES NEEDS AT THIS TIME. SUPPER TRAY AT BEDSIDE.
[2019-05-05 18:56] LABS: CKMB 1.6 U/L (0.0-3.6); CREATINE KINASE 217 UL (21-215)
[2019-05-05 18:58] LABS: TROPONIN-I 0.944 ng/mL (0.000-0.060)
--- NOTE | 2019-05-05 19:25 | NUR ---
PATIENT RESTING IN BED WITH NO S/S OF DISTRESS AND DENIES NEEDS AT THIS TIME. BED IN LOWEST POSITION AND CL WITHIN REACH. ENCOURAGED THE PATIENT TO CALL IF SHE HAS NEEDS. WILL CONTINUE TO MONITOR.
[2019-05-05 22:37] LABS: CKMB 1.3 U/L (0.0-3.6); CREATINE KINASE 198 UL (21-215)
[2019-05-06] VITALS: BP 121/79
[2019-05-06 04:35] LABS: BASOPHILS 0.6 % (0-2); EOSINOPHILS 3.6 % (0-7); HEMATOCRIT 38.4 % (36.0-48.0); HEMOGLOBIN 12.3 g/dL (12-16); IMMATURE GRANULOCYTES 0.3 % (0-5); LYMPHOCYTES 28.5 % (15-50); MCH 25.8 pg (26.0-34.0); MCV 80.5 fL (80.0-100.0); MEAN PLATELET VOLUME 11.6 fL (7.4-10.4); MONOCYTES 6.2 % (2-11); NEUTROPHILS 60.8 % (40-80); PLATELET COUNT 142 10x3/uL (130-400); RBC 4.77 10x6/uL (4.00-5.40); RDW 14.2 % (11.5-14.5); WBC 10.1 10x3/uL (4.8-10.8)
[2019-05-06 05:08] LABS: ALBUMIN 3.1 g/dL (3.4-5.0); ALKALINE PHOSPHATASE 65 U/L (46-116); ALT (SGPT) 63 U/L (10-68); BILIRUBIN - TOTAL 0.55 mg/dL (0.2-1.3); CALC OSMOLALITY 286 mosm/kg (275-300); CALCIUM 8.8 mg/dL (8.5-10.1); CARBON DIOXIDE 30.3 mmol/L (21.0-32.0); CHLORIDE - SERUM 104 mmol/L (98-107); CKMB 1.5 U/L (0.0-3.6); CREATINE KINASE 181 UL (21-215); CREATININE - SERUM 1.6 mg/dL (0.6-1.3); GLUCOSE 99 mg/dL (74-106); MAGNESIUM - SERUM 1.7 mg/dL (1.8-2.4); POTASSIUM - SERUM 3.7 mmol/L (3.5-5.1); PROTEIN - SERUM 7.2 g/dL (6.4-8.2); SODIUM 142 mmol/L (136-145); TROPONIN-I 0.898 ng/mL (0.000-0.060); UREA NITROGEN 23 mg/dL (7-18); eGFR NON AFRICAN AMERICAN 35 mL/min (90-120)
--- NOTE | 2019-05-06 07:01 | NUR ---
AM ROUNDING DONE WITH NO COMPLAINTS FROM PATIENT. LEFT PACEMAKER SITE SEEN, ON HEART MONITOR SHOWING SR, HR 71. ON ROOM AIR. OBESE. RIGHT FA PIV SEEN WITH SALINE LOCK, ORANGE SWAB CAP IN PLACE. BILATERAL SCD'S ON AND IN USE. CALL LIGHT AT SIDE. WILL CPOC.
[2019-05-06 07:28] VITALS: BP 120/77
--- NOTE | 2019-05-06 08:43 | NUR ---
ASSSITED PATIENT OFF BSC AND INTO CHAIR FOR AM CARE OF WASHING UP AND LINEN CHANGE.
--- NOTE | 2019-05-06 09:25 | NUR ---
BACK TO BED PAST WASHING UP.
[2019-05-06 11:12] VITALS: BP 126/75
--- NOTE | 2019-05-06 12:06 | NUR ---
ASSSITED PATIENT TO CHAIR FOR LUNCH.
--- NOTE | 2019-05-06 12:49 | NUR ---
[facility]
--- NOTE | 2019-05-06 14:24 | NUR ---
ASSSITED BACK TO BED, SCD'S PLACED ON PATIENT.
[2019-05-06 15:37] VITALS: BP 127/78
--- NOTE | 2019-05-06 16:55 | NUR ---
THERE IS A DISCHARGE ORDER FOR [facility] BUT C.M. HAS ALREADY LEFT FOR THE DAY AND SO HOME HEALTH CAN NOT BE SET UP. I CALLED NICHOLE GARZACOMMUNITY ASSISTANT AND MADE HER AWARE OF THIS AND THAT ALSO PATIENT'S DAUGHTER IS ALSO 80 MILES AWAY. PATIENT IS TO SPEND THE NIGHT AND CAN BE DISCHARGED IN AM PER BIOTECHNICIAN.
--- NOTE | 2019-05-06 19:10 | NUR ---
PATIENT RESTING IN BED WITH NO S/S OF AND DENIES NEEDS AT THIS TIME. BED IN LOWEST POSITION AND CALL LIGHT WITHIN REACH. WILL CONTINUE TO MONITOR.
--- NOTE | 2019-05-06 20:16 | NUR ---
ASSISTED PATIENT TO AND FROM THE BSC WITH MINIMAL ASSISTANCE. BROUGHT PATIENT A BEDTIME SNACK PER HER REQUEST. PATIENT DENIES OTHER NEEDS AT THIS TIME. BED IN LOWEST POSITION AND CALL LIGHT WITHIN REACH. ENCOURAGED THE PATIENT TO CALL IF SHE HAS NEEDS. WILL CONTINUE TO MONITOR.
[2019-05-06 20:19] VITALS: BP 132/85
[2019-05-07] VITALS: BP 132/85
[2019-05-07 04:47] VITALS: BP 132/85
[2019-05-07 06:56] LABS: BASOPHILS 0.5 % (0-2); EOSINOPHILS 3.9 % (0-7); HEMATOCRIT 36.9 % (36.0-48.0); HEMOGLOBIN 11.6 g/dL (12-16); IMMATURE GRANULOCYTES 0.2 % (0-5); LYMPHOCYTES 22.8 % (15-50); MCH 25.6 pg (26.0-34.0); MCHC 31.4 g/dL (31.0-37.0); MCV 81.3 fL (80.0-100.0); MEAN PLATELET VOLUME 11.7 fL (7.4-10.4); MONOCYTES 6.3 % (2-11); NEUTROPHILS 66.3 % (40-80); RBC 4.54 10x6/uL (4.00-5.40); RDW 14.1 % (11.5-14.5); WBC 8.3 10x3/uL (4.8-10.8)
[2019-05-07 06:58] LABS: PLATELET COUNT 174 10x3/uL (130-400)
--- NOTE | 2019-05-07 07:03 | NUR ---
ROUNDING DONE WITH PATIENT LAYING ON LEFT SIDE, AROUSES EASILY. DENIES NEEDS AT THIS TIME. FOR DISCHARGE TODAY PAST HOME HEALTH SET UP WITH CM. LEFT PACEMAKER SITE SEEN. ON HEART MONITOR SHOWING PACED, HR 73. ON ROOM AIR. RIGHT FA PIV SEEN WITH SALINE LOCK. OBESE ABDOMEN. BILATERAL SCD'S ON AND IN USE.
[2019-05-07 07:08] LABS: ALBUMIN 3.2 g/dL (3.4-5.0); ANION GAP 10.3 mmol/L (8-16); BILIRUBIN - TOTAL 0.46 mg/dL (0.2-1.3); CALCIUM 9.1 mg/dL (8.5-10.1); CARBON DIOXIDE 31.6 mmol/L (21.0-32.0); CREATININE - SERUM 1.6 mg/dL (0.6-1.3); MAGNESIUM - SERUM 1.9 mg/dL (1.8-2.4); POTASSIUM - SERUM 3.9 mmol/L (3.5-5.1); PROTEIN - SERUM 7.3 g/dL (6.4-8.2)
[2019-05-07 07:42] VITALS: BP 119/80
--- NOTE | 2019-05-07 08:59 | MORECARE ---
CASE MANAGEMENT DISCHARGE SUMMARY PATIENT: AVTAR AMIN UNIT: [id number] ADM DATE: 05/05/19 AGE: 53 : 61 SEX: F ROOM/BED: D.1210 AUTHOR: KADE DELONG PHYSICIAN: REFERRING PHYSICIAN: MOE WALLACE DO DATE OF SERVICE: 05/07/19 Discharge Plan Patient Name: AVTAR AMIN Facility: [facility]:[place] : 1965 Planned Disposition: Home Anticipated Discharge Date: Discharge Date: Expected LOS: Initial Reviewer: DIANE Initial Review Date: 05/07/2019 Generated: 05/07/19 9:59 am Comments DCP- Discharge Planning Updated by DIANE: Tara Ellison on 05/07/19 7:[address] Patient Name: AVTAR AMIN Admission Status: ER Accout number: [id number] Admission Date: 05-05-2019 : 1965 Admission Diagnosis: Attending: MOE WALLACE Current LOS: 2 Anticipated DC Date: Planned Disposition: Primary Insurance: [facility] MEDICARE SOLUTIONS Discharge Planning Comments: PT ELIZ SIGNED FOR [facility] . INFORMATION SENT TO PROVIDER. DAUGHTER WILL PERSONAL CARE HOME ADMINISTRATOR TODAY AT DC Placement Interviewer: Tara Ellison Coverage Notice Reviewer: DIANE Ellison Notice Issued Date-Time: 05/07/2019 8:40 Notice Type: Patient Choice Letter Notice Delivered To: Patient Relationship to Patient: Self Assistant Business Manager Name: Delivery Method: HAND - Hand Delivered Christine Days: Prior Verbal Notification: Recipient Understood Notice: Yes Recipient Signature: Yes Med Rec Note Co-signed by Attending: Coverage Notice Comment: Reviewer: [id number] Ellison Notice Issued Date-Time: 05/07/2019 8:40 Notice Type: IM Discharge Notice Notice Delivered To: Patient Relationship to Patient: Self Assistant Business Manager Name: Delivery Method: HAND - Hand Delivered Christine Days: Prior Verbal Notification: Recipient Understood Notice: Yes Recipient Signature: Yes Med Rec Note Co-signed by Attending: Coverage Notice Comment: Patient Name: AVTAR AMIN Page 18719 at 0859 All edits/amendments must be made on the electronic document DICTATION DATE: 05/07/19858 DIRECTOR EQUIPMENT: LAY 05/07/1961 RPT#: [id number] DC DATE: STATUS: ADM IN [facility] [address] [place] [address] END OF REPORT
--- NOTE | 2019-05-07 10:21 | NUR ---
SALINE LOCK REMOVED WITH CATH TIP INTACT. VERBAL AND WRITTEN DISCHARGE INSTRUCTIONS GIVEN TO PATIENT AND DAUGHTER. DAUGHTER IS ASKING WHEN HOME HEALTH WILL TAKE EFFECT SINCE SHE IS NO LONGER A PATIENT WITH DR WHALEN. I TOLD HER THAT SHE NEEDED TO TALK TO DR WALLACE SHE STATES SHE WILL ESTABLISH WITH HIM. I ASKED WHY SHE NEEDED HOME HEALTH AND SHE STATES, "TO HELP GET HER UP AND MAKE HER MEALS". I TOLD THE DAUGHTER THAT I DID NOT THINK THAT HOME HEALTH DID THAT. DISCHARGED HOME VIA WHEELCHAIR.
--- NOTE | 2019-05-07 11:23 | MORECARE ---
CASE MANAGEMENT DISCHARGE SUMMARY PATIENT: AVTAR AMIN UNIT: [id number] ADM DATE: 05/05/19 AGE: 53 : 61 SEX: F ROOM/BED: D.1210 AUTHOR: KADE DELONG PHYSICIAN: REFERRING PHYSICIAN: MOE WALLACE DO DATE OF SERVICE: 05/07/19 Discharge Plan Patient Name: AVTAR AMIN Facility: [facility]:[place] : 1965 Planned Disposition: Home Anticipated Discharge Date: Discharge Date: 05/07/2019 Expected LOS: Initial Reviewer: [id number] Initial Review Date: 05/07/2019 Generated: 05/07/19 12:23 pm Comments DCP- Discharge Planning Updated by DIANE: Tara Ellison on 05/07/19 7:[address] Patient Name: AVTAR AMIN Admission Status: ER Accout number: [id number] Admission Date: 05-05-2019 : 1965 Admission Diagnosis: Attending: MOE WALLACE Current LOS: 2 Anticipated DC Date: Planned Disposition: Primary Insurance: [facility] MEDICARE SOLUTIONS Discharge Planning Comments: PT ELIZ SIGNED FOR [facility] . INFORMATION SENT TO PROVIDER. DAUGHTER WILL AUTOMOTIVE DESIGNER TODAY AT DC Explosive Expert: Tara Ellison Coverage Notice Reviewer: [id number] Ellison Notice Issued Date-Time: 05/07/2019 8:40 Notice Type: Patient Choice Letter Notice Delivered To: Patient Relationship to Patient: Self Accounts Payable Lead Name: Delivery Method: HAND - Hand Delivered Christine Days: Prior Verbal Notification: Recipient Understood Notice: Yes Recipient Signature: Yes Med Rec Note Co-signed by Attending: Coverage Notice Comment: Reviewer: [id number] Andrea Ellison Notice Issued Date-Time: 05/07/2019 8:40 Notice Type: IM Discharge Notice Notice Delivered To: Patient Relationship to Patient: Self Accounts Payable Lead Name: Delivery Method: HAND - Hand Delivered Christine Days: Prior Verbal Notification: Recipient Understood Notice: Yes Recipient Signature: Yes Med Rec Note Co-signed by Attending: Coverage Notice Comment: Last DP export: 05/07/19 7:59 am Patient Name: AVTAR AMIN Page [phone] at 1123 All edits/amendments must be made on the electronic document DICTATION DATE: 05/07/19 112 MAMMOGRAPHY SUPERVISOR: LAY 05/07/19 112 RPT#: [id number] DC DATE:05/07/19 STATUS: DIS [facility] [address] [place] [address] END OF REPORT
== END 2019-05-07 10:35 | disposition home health service (06) | DRG 292 ==
LOC: D.ER 23:28 → D.M3 05-05 03:27
PROVIDERS: Family Medicine; ADMIT Family Medicine; ATTEND Family Medicine
DX: I11.0 Hypertensive heart disease with heart failure (principal); N17.9 Acute kidney failure, unspecified; J44.1 Chronic obstructive pulmonary disease with (acute) exacerbation; I42.9 Cardiomyopathy, unspecified; I50.23 Acute on chronic systolic (congestive) heart failure; E78.5 Hyperlipidemia, unspecified; Z95.0 Presence of cardiac pacemaker; G47.33 Obstructive sleep apnea (adult) (pediatric); E03.9 Hypothyroidism, unspecified; D64.9 Anemia, unspecified; M79.7 Fibromyalgia; I07.1 Rheumatic tricuspid insufficiency; E83.42 Hypomagnesemia; I48.0 Paroxysmal atrial fibrillation; I25.10 Atherosclerotic heart disease of native coronary artery without angina pectoris

== ENCOUNTER 2019-06-05 21:24 | Emergency (ER) | payer MEDICARE, MEDICAID ==
[~2019-06-05] VITALS: Ht 162.6 cm; Wt 81.8 kg
[~2019-06-05 21:24] MED LIST changes: +NORVASC5 MG PO
[2019-06-05 21:34] VITALS: Ht 162.6 cm; Wt 81.8 kg
[2019-06-05 22:24] LABS: BASOPHILS 0.9 % (0-2); EOSINOPHILS 2.1 % (0-7); HEMATOCRIT 34.3 % (36.0-48.0); HEMOGLOBIN 10.9 g/dL (12-16); IMMATURE GRANULOCYTES 0.1 % (0-5); LYMPHOCYTES 22.9 % (15-50); MCH 25.7 pg (26.0-34.0); MCHC 31.8 g/dL (31.0-37.0); MCV 80.9 fL (80.0-100.0); MEAN PLATELET VOLUME 12.2 fL (7.4-10.4); MONOCYTES 6.8 % (2-11); NEUTROPHILS 67.2 % (40-80); PLATELET COUNT 175 10x3/uL (130-400); RBC 4.24 10x6/uL (4.00-5.40); RDW 16.1 % (11.5-14.5); WBC 6.8 10x3/uL (4.8-10.8)
[2019-06-05 22:42] LABS: ALBUMIN 3.1 g/dL (3.4-5.0); BILIRUBIN - TOTAL 0.81 mg/dL (0.2-1.3); CALCIUM 8.2 mg/dL (8.5-10.1); CARBON DIOXIDE 26.5 mmol/L (21.0-32.0); CREATININE - SERUM 2.2 mg/dL (0.6-1.3); POTASSIUM - SERUM 3.5 mmol/L (3.5-5.1); PROTEIN - SERUM 6.6 g/dL (6.4-8.2)
[2019-06-05 22:59] LABS: TROPONIN-I 0.567 ng/mL (0.000-0.060)
[2019-06-05 23:36] LABS: APPEARANCE CLEAR (CLEAR); BILIRUBIN NEGATIVE (NEGATIVE); COLOR YELLOW (YELLOW); GLUCOSE NEGATIVE (NEGATIVE); KETONE NEGATIVE (NEGATIVE); NITRITE NEGATIVE (NEGATIVE); PROTEIN 3+ mg/dL (NEGATIVE); UROBILINOGEN NORMAL (NORMAL)
[2019-06-05 23:41] LABS: BACTERIA MODERATE /hpf (NONE SEEN); EPITHELIAL CELLS 0-5 /hpf (0-5); HYALINE CAST 0-5 /lpf (NONE SEEN); MUCUS <1+ /lpf (NONE SEEN); RED CELLS - URINE NONE SEEN /hpf (0-5); WHITE CELLS - URINE 0-5 /hpf (0-5)
[2019-06-05] MEDS ORDERED: PROTONIX40 MG PO (23:43)
[2019-06-06 01:11] VITALS: BP 151/95
== END 2019-06-06 00:53 | disposition home or self-care (01) ==
LOC: D.ER 21:24
PROVIDERS: Family Medicine
DX: K21.9 Gastro-esophageal reflux disease without esophagitis (principal)

== ENCOUNTER 2019-06-17 20:06 | Inpatient (IN) | payer MEDICARE, MEDICAID ==
[~2019-06-17] VITALS: Ht 162.6 cm; Wt 10182.7 kg
[2019-06-17 20:48] LABS: BASOPHILS 1.1 % (0-2); EOSINOPHILS 1.7 % (0-7); HEMATOCRIT 36.3 % (36.0-48.0); HEMOGLOBIN 11.5 g/dL (12-16); IMMATURE GRANULOCYTES 0.1 % (0-5); LYMPHOCYTES 25.4 % (15-50); MCH 25.8 pg (26.0-34.0); MCHC 31.7 g/dL (31.0-37.0); MCV 81.4 fL (80.0-100.0); MEAN PLATELET VOLUME 11.5 fL (7.4-10.4); MONOCYTES 7.6 % (2-11); NEUTROPHILS 64.1 % (40-80); PLATELET COUNT 147 10x3/uL (130-400); RBC 4.46 10x6/uL (4.00-5.40); RDW 16.7 % (11.5-14.5); WBC 8.4 10x3/uL (4.8-10.8)
[2019-06-17 21:12] LABS: ALBUMIN 3.2 g/dL (3.4-5.0); ANION GAP 11.9 mmol/L (8-16); BILIRUBIN - TOTAL 0.79 mg/dL (0.2-1.3); CALCIUM 8.7 mg/dL (8.5-10.1); CARBON DIOXIDE 25.1 mmol/L (21.0-32.0); CREATININE - SERUM 1.8 mg/dL (0.6-1.3); PROTEIN - SERUM 6.8 g/dL (6.4-8.2)
[2019-06-17 21:29] LABS: TROPONIN-I 0.469 ng/mL (0.000-0.060)
--- NOTE | 2019-06-17 22:51 | NUR ---
DAUGHTER RAYMOND [phone]
--- NOTE | 2019-06-17 23:24 | NUR ---
PT ARRIVED TO FLOOR BY BED, REPORT TAKEN FROM RAHEL NEWMAN RN. PT STATES SHE HAS HAD INCREASING WEAKNESS OVER THE PAST SEVERAL DAYS. PT STATES SHE IS A PRIOR SMOKER AND ALSO HAS A HISTORY OF ASTHMA. THE PT APPEARS TO BE SHORT OF BREATH WITH EXERTION BUT DENIES HAVING DIFFICULTY BREATHING WHILE AT REST. PT WAS ORIENTED TO ROOM AND INTRODUCED TO THE NURSE. BEDSIDE COMMODE WAS BROUGHT INTO THE ROOM. VITALS CURRENTLY STABLE. CALL LIGHT IS IN REACH. WILL CTM.
[2019-06-18] VITALS: BP 107/60
[2019-06-18 00:17] LABS: APPEARANCE HAZY (CLEAR); BILIRUBIN NEGATIVE (NEGATIVE); COLOR YELLOW (YELLOW); GLUCOSE NEGATIVE (NEGATIVE); KETONE NEGATIVE (NEGATIVE); NITRITE NEGATIVE (NEGATIVE); PROTEIN NEGATIVE (NEGATIVE); SPECIFIC GRAVITY 1.005 (1.005-1.020); UROBILINOGEN NORMAL (NORMAL)
[2019-06-18 01:56] VITALS: BP 154/96; BMI 34.4
--- NOTE | 2019-06-18 02:21 | NUR ---
ORDERED ECG PERFORMED AND PLACED ON CHART.
[2019-06-18 02:42] LABS: CKMB 1.5 U/L (0.0-3.6); CREATINE KINASE 312 UL (21-215)
[2019-06-18 02:49] LABS: TROPONIN-I 0.623 ng/mL (0.000-0.060)
--- NOTE | 2019-06-18 02:55 | NUR ---
ADMISSION ASSESSMENT COMPLETED. BUMEX DRIP INFUSING. PT ALERT/ORIENTED. PLAN OF CARE INITIATED.
[2019-06-18 04:00] VITALS: BP 139/93
[2019-06-18 06:16] LABS: PROTIME 15.5 SECONDS (11.6-15.0)
[2019-06-18 06:17] LABS: APTT 24.9 SECONDS (22.8-39.4); D-DIMER-QUANTITATIVE < 0.27 ug/mLFEU (0.20-0.54); INR 1.24 (0.85-1.17)
[2019-06-18 08:30] VITALS: BP 161/94
[2019-06-18 10:21] LABS: CKMB 1.7 U/L (0.0-3.6); CREATINE KINASE 333 UL (21-215)
[2019-06-18 10:24] LABS: TROPONIN-I 0.534 ng/mL (0.000-0.060)
[2019-06-18 12:06] VITALS: BP 138/78
[2019-06-18 15:18] LABS: % SATURATION 22 % (15-55); IRON 71 ug/dl (35-150); TOTAL IRON BIND CAPACITY 317 ug/dl (260-445); UNSAT IRON BIND CAPACITY 246 ug/dl (150-375)
[2019-06-18 16:04] VITALS: BP 121/82
--- NOTE | 2019-06-18 19:47 | NUR ---
PT SITTING UP IN BED WATCHING TV. CL IN REACH. DENIES NEEDS OR PAIN AT THIS TIME. BED IN LOW SIDE RAILS X2. A/O X4. LUNGS CLEAR. BOWEL ACTIVE X4. RESP EVEN AND UNLABORED. WILL CONTINUE TO MONITOR.
--- NOTE | 2019-06-19 03:28 | NUR ---
I have reviewed this patient and I concur with the Shift Assessment completed by the Licensed Practical Nurse today this shift.
[2019-06-19 04:00] VITALS: BP 109/83
--- NOTE | 2019-06-19 05:40 | NUR ---
PT DETECTIVE INVESTIGATOR LIGHT NEEDING TO USE BATHROOM. ASSISTED TO SIDE OF BED BUT PT WAS HAVING MUSCLE JERKS AND STATED SHE COULD NOT STAND. PT URINATED IN BED WHILE TRYING TO GET OUT OF BED. THEN PT TRIED ONE MORE TIME AND HAD EXTREME MUSCLE JERKS THAT WERE UNCONTROLABLE AT THIS TIME AND LASTED LONGER THEN PREVIOUS ONES. PT STATED SHE NEVER HAD THIS BEFORE UNTIL THE LAST 24 HRS. WILL LEAVE NOTE FOR DOC. PT THINKS IT WAS FROM THE AMBIEN SHE RECIEVED YESTERDAY DUE TO NEVER TAKING IT PREVIOUSLY.
[2019-06-19 07:57] VITALS: BP 123/57
[2019-06-19 08:19] LABS: CALCIUM 8.1 mg/dL (8.5-10.1)
[2019-06-19 08:23] LABS: ANION GAP 9.2 mmol/L (8-16); CARBON DIOXIDE 36.5 mmol/L (21.0-32.0)
[2019-06-19 08:26] LABS: POTASSIUM - SERUM 2.7 mmol/L (3.5-5.1)
[2019-06-19 08:42] LABS: HEMATOCRIT 37.1 % (36.0-48.0); MCH 25.5 pg (26.0-34.0); MCHC 32.3 g/dL (31.0-37.0); PLATELET COUNT 144 10x3/uL (130-400); RBC 4.71 10x6/uL (4.00-5.40); RDW 15.7 % (11.5-14.5); WBC 7.4 10x3/uL (4.8-10.8)
[2019-06-19 08:43] LABS: MCV 78.8 fL (80.0-100.0)
--- NOTE | 2019-06-19 09:50 | NUR ---
PT AND HER DAUGHTER ARE REFUSING COREG. DAUGHTER STATES DR IN LR TOLD THEM THAT IS WHAT CAUSED HER HEART ATTACK. DR. MENJIVAR NOTIFIED.
[2019-06-19 10:12] LABS: ANISOCYTOSIS 1+; EOSINOPHILS 4 % (0-7); LYMPHOCYTES 14 % (15-50); MONOCYTES 7 % (2-11); NEUTROPHILS 74 % (40-80); PLATELET ESTIMATE NORMAL; ROULEAUX OCC
--- NOTE | 2019-06-19 12:34 | NUR ---
I have reviewed this patient and I concur with the Shift Assessment completed by the Licensed Practical Nurse today this shift.
[2019-06-19 13:25] VITALS: Ht 162.6 cm; Wt 10182.7 kg
[2019-06-19 16:52] VITALS: BP 98/54
--- NOTE | 2019-06-19 17:24 | NUR ---
I have reviewed this patient and I concur with the Shift Assessment completed by the Licensed Practical Nurse today this shift.
--- NOTE | 2019-06-19 19:05 | NUR ---
AWAKE AND WATCHES ME WITHOUT ANSWERING MY QUESTIONS. LCTA SKIN WARM AND DRY BED LOW AND LOCKED AND CALL LIGHT IS WITH PT IV TO LEFT FA AT KEEP OPEN RATE
[2019-06-19 20:00] VITALS: BP 114/68
--- NOTE | 2019-06-19 21:11 | NUR ---
FAMILY IS IN ROOM DEMANDING A BOTELLO CATH SO PT WILL NOT HAVE TO GET UP AND ALSO UPSET THAT PT RECIEVED SLEEPING AID FAMILY IS INFORMING ME THAT I WAS TO CALL THEM BEFORE I DO ANY MEDS OR TREATMENTS ON PT PT IS A AND OX4 WITH NO POA. IM GOING TO ALERT LITHOGRAPHIC PLATE MAKER APPRENTICE OF SITUATION
--- NOTE | 2019-06-19 23:05 | NUR ---
FAMILY HAS LEFT AND PT IS RESTING WITH EYES CLOSED NO MUSCLE TWITCH AT ALL OBSERVED DURING SLEEP
[2019-06-20 04:00] VITALS: BP 120/70
[2019-06-20 05:34] LABS: BASOPHILS 0.6 % (0-2); EOSINOPHILS 2.3 % (0-7); HEMATOCRIT 37.8 % (36.0-48.0); IMMATURE GRANULOCYTES 0.1 % (0-5); LYMPHOCYTES 23.3 % (15-50); MCH 25.3 pg (26.0-34.0); MCHC 31.7 g/dL (31.0-37.0); MCV 79.7 fL (80.0-100.0); MEAN PLATELET VOLUME 11.6 fL (7.4-10.4); NEUTROPHILS 65.7 % (40-80); PLATELET COUNT 170 10x3/uL (130-400); RBC 4.74 10x6/uL (4.00-5.40); RDW 15.7 % (11.5-14.5); WBC 7.3 10x3/uL (4.8-10.8)
[2019-06-20 06:15] LABS: ANION GAP 12.4 mmol/L (8-16); CALCIUM 8.4 mg/dL (8.5-10.1); CARBON DIOXIDE 35.7 mmol/L (21.0-32.0); CREATININE - SERUM 2.2 mg/dL (0.6-1.3); MAGNESIUM - SERUM 1.4 mg/dL (1.8-2.4)
[2019-06-20 06:21] LABS: POTASSIUM - SERUM 3.1 mmol/L (3.5-5.1)
--- NOTE | 2019-06-20 07:20 | NUR ---
INITIAL ROUNDING, BEDSIDE SHIFT REPORT COMPLETED. PATIENT HAS STATED "I FEEL LIKE I AM GOING TO PASS OUT, SECOND TIME SHE SAID THIS SINCE 704. VITAL SIGNS TAKEN AGAIN, ALL WNL AND O2 AT 100% ON ROOM AIR. MYA, PANEL ASSEMBLER IN THE ROOM TALKING WITH THE PATIENT. WHITE BOARD UPDATED. CALL LIGHT IN REACH
[2019-06-20 08:30] VITALS: BP 115/58
--- NOTE | 2019-06-20 09:00 | NUR ---
THE HAMMER HEATERSONIYA Black JUST CLEANED THE PATIENT AND CHANGED THE LINENS, POSITIONED THE PATIENT FOR BREAKFAST AND THEN ASSISTED THE PATIENT WITH EATING THE MEAL. THE PATIENT IS CURRENTLY WATCHING CARTOONS ON THE TV WHILE HOUSE KEEPING IS CLEANING THE ROOM
--- NOTE | 2019-06-20 11:09 | NUR ---
CALLED AND SPOKE WITH DR VELASCO TO CONFIRM THE NEW MAG 2 GM IV DOSE. THIS NURSE INFORMED HIM THAT THE PATIENT HAD RECIEVED 800 MG OF MAG SINCE 629 TODAY. VERBAL ORDER TO GIVE THE ORDERED 2 GM MAG IV DOSE NOW.
[2019-06-20 11:57] LABS: CREATINE KINASE 572 UL (21-215); T4 THYROXIN - FREE 0.62 ng/dL (0.76-1.46)
[2019-06-20 11:59] LABS: CKMB 1.2 U/L (0.0-3.6)
[2019-06-20 12:30] LABS: THYROID STIMULATING HORMONE 175.11 uIU/mL (0.36-3.74)
[2019-06-20 12:59] VITALS: BP 118/62
--- NOTE | 2019-06-20 14:23 | NUR ---
UNABLE TO COLLECT THE URINE SAMPLE, THE PATIENT HAS BEEN INCONT THREE TIME THUS FAR ON THIS SHIFT.
[2019-06-20 16:04] VITALS: BP 107/80
[2019-06-20 17:34] LABS: MAGNESIUM - SERUM 2.3 mg/dL (1.8-2.4); POTASSIUM - SERUM 3.6 mmol/L (3.5-5.1)
--- NOTE | 2019-06-20 17:53 | NUR ---
REPOSITIONED THE PATIENT ONTO HER LEFT SIDE USING PILLOWS FOR SUPPORT
--- NOTE | 2019-06-20 19:51 | NUR ---
ROUND COMPLETED. AAOX3, WITH FREQUENT GENERALIZED JERKING. PT STATES SHE HAS HAD THIS EPISODES AT HOME COUPLE OF TIME, BUT ITS NOT INTENSE THIS. SHE STATES SHE BELIEVES A MEDICATION SHE WAS GIVEN IN "[place]" MUST HAVE TRIGGERED THE JERKING/TWITCHES. LEGS APPEARS SWOLLEN, BUT PROPPED UP IN BED. BUMEX AND DOBUTAMIN INFUSING AT THIS TIME. WILL CTM. CL WITHIN REACH. BED IN LOW. SR UP X2.
[2019-06-21] VITALS: BP 114/66
--- NOTE | 2019-06-21 00:30 | NUR ---
NOTIFIED EXPLOSIVE EXPERT PRINCE ABOUT PT'S UNCONTROLLED JERKING. EXPLOSIVE EXPERT STATES ELECTROLYTES HAVE WILEY EVALUATED AND TSH LEVEL APPEARS HIGH. STATES HE FEELS THATS WHAT IS CAUSING THE JERKING. PO SYNTYHROID WAS ORDERED BY PT'S PROVIDER. PT IN BED AT THIS TIME. DENIES ANY FURTHER NEEDS. WILL CTM.
[2019-06-21 04:00] VITALS: BP 106/64
[2019-06-21 05:39] LABS: BASOPHILS 0.6 % (0-2); EOSINOPHILS 1.9 % (0-7); HEMATOCRIT 38.8 % (36.0-48.0); HEMOGLOBIN 12.5 g/dL (12-16); IMMATURE GRANULOCYTES 0.3 % (0-5); LYMPHOCYTES 20.8 % (15-50); MCH 25.7 pg (26.0-34.0); MCHC 32.2 g/dL (31.0-37.0); MCV 79.8 fL (80.0-100.0); MEAN PLATELET VOLUME 11.9 fL (7.4-10.4); MONOCYTES 6.6 % (2-11); NEUTROPHILS 69.8 % (40-80); PLATELET COUNT 151 10x3/uL (130-400); RBC 4.86 10x6/uL (4.00-5.40); RDW 15.7 % (11.5-14.5)
[2019-06-21 05:45] LABS: WBC 10.4 10x3/uL (4.8-10.8)
[2019-06-21 05:54] LABS: ANION GAP 11.3 mmol/L (8-16); CARBON DIOXIDE 35.3 mmol/L (21.0-32.0); CREATININE - SERUM 2.5 mg/dL (0.6-1.3); POTASSIUM - SERUM 3.6 mmol/L (3.5-5.1)
--- NOTE | 2019-06-21 07:24 | NUR ---
PT RESTING SUPINE IN BED WITH EYES CLOSED, BREATHING EVEN AND UNLABORED. NO S/S OF DISTRESS NOTED. WILL CTM.
--- NOTE | 2019-06-21 08:19 | NUR ---
ADMNISTERED MEDICATION AT THIS TIME. NO TROUBLE SWALLOWING. HELPED PT RE-POSITION IN BED. DENIES OTHER NEEDS AT THIS TIME. WILL CTM.
--- NOTE | 2019-06-21 08:43 | NUR ---
PT MOVED TO A BED THAT HAS A SCALE BUILT IN. BED ZEROED OUT WITH SCD MACHINE ON. WEIGHT IS 243.9.
--- NOTE | 2019-06-21 08:44 | NUR ---
MOVED PT TO WEIGHT BED TO GET DAILY ACCURATE WEIGHT. BED WAS ZEROED OUT WITH SCD MACHINE ON IT. PT WAS MOVED TO BED AND WEIGHED, PT WIEGHT IS 243.9LBS.
[2019-06-21 09:23] VITALS: BP 166/92; BP 99/47
--- NOTE | 2019-06-21 11:21 | NUR ---
PT RESTING COMFORTABLY IN BED WITH EYES CLOSED. BREATHING EVEN AND UNLABORED. NO S/S OF DISTRESS. PT HAS UNCONTROLLABLE JERKING THROUGHOUT HER BODY. BED IN LOWEST POSITION, BED RAILS X2, CALL LIGHT WITHIN REACH. WILL CTM.
[2019-06-21 13:30] VITALS: BP 122/104
--- NOTE | 2019-06-21 13:43 | NUR ---
PT IV OUT WITH CATHETER TIP INTACT. 2X2 AND TAPE PLACED OVER INCISION SITE. PT SHEETS AND GOWN CHANGED. RELIABILITY TECHNICIANS AT BEDSIDE BATHING PT. DENIES ANY NEEDS AT THIS TIME. WILL CTM.
--- NOTE | 2019-06-21 14:01 | NUR ---
Rehab Note- Acute Inpatient Rehab prescreen order received. Spoke with ARLEEN Stacy. Will need an OT Eval for preAuth process due to the patient's insurnace being [employer]. Will continue to follow at this time. Thank you for this referral! Shynan Feliciano RN Clinical Liaison, [facility]
--- NOTE | 2019-06-21 16:02 | NUR ---
PT RESTING UP RIGHT IN BED. NO S/S OF DISTRESS. VERY MINIMAL JERKING NOTED AT THIS TIME. BED DENIES ANY NEEDS AT THIS TIME. WILL CTM.
--- NOTE | 2019-06-21 17:08 | MORECARE ---
CASE MANAGEMENT DISCHARGE SUMMARY PATIENT: AVTAR AMIN UNIT: [id number] ADM DATE: 06/17/19 AGE: 53 : 61 SEX: F ROOM/BED: D.2103 AUTHOR: KADE DELONG PHYSICIAN: REFERRING PHYSICIAN: VLAD VELASCO MD DATE OF SERVICE: 06/21/19 Discharge Plan Patient Name: AVTAR AMIN Facility: [facility]:[place] : 1965 Planned Disposition: Inpatient Rehab Anticipated Discharge Date: Discharge Date: Expected LOS: 0 Initial Reviewer: [id number] Initial Review Date: 06/21/2019 Generated: 06/21/19 6:07 pm DCPIA - Discharge Planning Initial Assessment Updated by CAM: Christo Duckworth on 06/21/19 5:02 pm * Is the patient Alert and Oriented? Yes * How many steps to enter\exit or inside your home? 1 BIG ONE * PCP CANNOT REMEMBER 'S NAME * Pharmacy [facility] * Preadmission Environment Home with Family * ADLs Independent * Equipment Cane Walker * Other Equipment NO MEDICAL EQUIPMENT PROVIDER PREFERNECE * List name and contact numbers for known caregivers / representatives who currently or will assist patient after discharge: SHERRY GRAHAMR, * Verbal permission to speak to the caregivers and representatives has been obtained from the patient. Yes * Community resources currently utilized None * Please name any agencies selected above. NONE * Additional services required to return to the preadmission environment? Yes * Can the patient safely return to the preadmission environment? Yes * Has this patient been hospitalized within the prior 30 days at any hospital? No Coverage Notice Reviewer: [id number] - Christo Duckworth Notice Issued Date-Time: 06/21/2019 9:40 Notice Type: IM Discharge Notice Notice Delivered To: Patient Relationship to Patient: Tree Planter Name: Delivery Method: HAND - Hand Delivered Christine Days: Prior Verbal Notification: Recipient Understood Notice: Yes Recipient Signature: Yes Med Rec Note Co-signed by Attending: Coverage Notice Comment: Patient Name: AVTAR AMIN Page [phone] at 1708 All edits/amendments must be made on the electronic document DICTATION DATE: 06/21/191706 ADMITTING COUNSELOR: LAY 06/21/191706 RPT#: [id number] DC DATE: STATUS: ADM IN [facility] [address] [place] [address] END OF REPORT
--- NOTE | 2019-06-21 17:16 | MORECARE ---
CASE MANAGEMENT DISCHARGE SUMMARY PATIENT: AVTAR AMIN UNIT: [id number] ADM DATE: 06/17/19 AGE: 53 : 61 SEX: F ROOM/BED: D.2103 AUTHOR: BALJEET,DOC PHYSICIAN: REFERRING PHYSICIAN: VLAD VELASCO MD DATE OF SERVICE: 06/21/19 Discharge Plan Patient Name: AVTAR AMIN Facility: [facility]:[place] : 1965 Planned Disposition: Inpatient Rehab Anticipated Discharge Date: Discharge Date: Expected LOS: 0 Initial Reviewer: [id number] Initial Review Date: 06/21/2019 Generated: 06/21/19 6:15 pm Comments DCP- Discharge Planning Updated by [id number]: Christo Duckworth on 06/21/19 4:[address] Patient Name: AVTAR AMIN Admission Status: ER Accout number: [id number] Admission Date: 06-17-2019 : 1965 Admission Diagnosis:SHORTNESS OF BREATH Attending: VLAD VELASCO Current LOS: 4 Anticipated DC Date: Planned Disposition: Inpatient Rehab Primary Insurance: [employer] CHOICE PPO MCR [employer] PLANNED EXTERNAL PROVIDER: [facility] Discharge Planning Comments: CM MET WITH PT IN ROOM TO DISCUSS DISCHARGE PLANNING AND NEEDS. PT REPORTS LIVING AT HOME INDEPENDENTLY WITH ADULT DAUGHTER WHO HAS TO HELP PT UP INTO THE HOUSE THEY HAVE ONE BIG STEP UP WITH NO HAND RAIL. PT HAS A STANDARD WALKER AND CANE WITH NO MEDICAL EQUIPMENT PROVIDER PREFERNCE. PT HAS NO OUTSIDE SERVICES ASSISTING IN THE HOME. CM DISCUSSED AVAILABILITY OF HOME HEALTH, REHAB SERVICES AND MEDICAL EQUIPMENT. PT WOULD LIKE REHAB AT [facility] IF POSSIBLE. PT REPORTS HER DAUGHTER WILL PICK HER UP FOR DISCHARGE HOME. IMPORTANT MESSAGE FROM MEDICARE PROVIDED AND EXPLAINED. CM SPOKE TO MARY OF [facility] WHO WILL SCREEN PT FOR ADMISSION AND SUBMIT TO PT'S INSURANCE FOR AUTHORIZATION ONCE THE OCCUPATIONAL THERAPY EVALUATION IS COMPLETED AND DOCUMENTED. CM TO CONTINUE TO FOLLOW AND ASSIST NEEDED. Shellac Polisher: Christo Duckworth DCPIA - Discharge Planning Initial Assessment Updated by [id number]: Christo Duckworth on 06/21/19 5:02 pm * Is the patient Alert and Oriented? Yes * How many steps to enter\exit or inside your home? 1 BIG ONE * PCP CANNOT REMEMBER DR'S NAME * Pharmacy [facility]. * Preadmission Environment Home with Family * ADLs Independent * Equipment Cane Walker * Other Equipment NO MEDICAL EQUIPMENT PROVIDER PREFERNECE * List name and contact numbers for known caregivers / representatives who currently or will assist patient after discharge: VANDANA LINDSEY, DTR, * Verbal permission to speak to the caregivers and representatives has been obtained from the patient. Yes * Community resources currently utilized None * Please name any agencies selected above. NONE * Additional services required to return to the preadmission environment? Yes * Can the patient safely return to the preadmission environment? Yes * Has this patient been hospitalized within the prior 30 days at any hospital? No Coverage Notice Reviewer: [id number] Andrea Duckworth Notice Issued Date-Time: 06/21/2019 9:40 Notice Type: IM Discharge Notice Notice Delivered To: Patient Relationship to Patient: College Sports Assistant Name: Delivery Method: HAND - Hand Delivered Christine Days: Prior Verbal Notification: Recipient Understood Notice: Yes Recipient Signature: Yes Med Rec Note Co-signed by Attending: Coverage Notice Comment: Last DP export: 06/21/19 4:08 p Patient Name: AVTAR AMIN Page [id number] at 1716 All edits/amendments must be made on the electronic document DICTATION DATE: 06/21/191714 SOLAR SALES ESTIMATOR: LAY 06/21/191714 RPT#: [id number] DC DATE: STATUS: ADM IN [facility] [address] [place] [address] END OF REPORT
[2019-06-21 17:29] VITALS: BP 109/60
--- NOTE | 2019-06-21 19:10 | NUR ---
REPORT RECEIVED, WILL CONTINUE POC. PATIENT IS A&OX4. SHE'S JERKING QUITE A BIT ESPECIALLY WHEN TOUCHED. NO S/SX OF DISTRESS NOTED. PATIENT SAID SHE IS REFUSING KLONOPINE LATER DUE TO HER BELIEVEING IT CAUSES BLURRED VISION. SHE DOES NOT HAVE AN IV BUT WILL NEED ONE FOR MEDS DURING THE NIGHT. PATIENT DENIES FURTHER NEEDS AT THIS TIME. CL IN REACH, BED LOCKED AND LOWERED. WILL CTM.
[2019-06-21 20:00] VITALS: BP 103/66
[2019-06-22] VITALS: BP 126/66
--- NOTE | 2019-06-22 02:05 | NUR ---
22G IV TO LT HAND INSERTED X4 ATTEMPTS. IV PATENT, SL, DRSG C/D/I. PATIENT TOLERATED IT WELL CAN BE EXPECTED. IV BUMEX ADMINISTER PER ORDERS. PATIENT REQUESTED ICE CREAM, PROMPTLY GIVEN. PATIENT DENIES FURTHER NEEDS AT THIS TIME. WILL CTM.
--- NOTE | 2019-06-22 02:37 | NUR ---
DOBUTAMINE RESTARTED PER ORDERS (DECREASED BY 1/2) SINCE AN IV WAS SUCCESSFULLY STARTED. PATIENT WAS A HARD STICK. PATIENT DENIES FURTHER NEEDS AT THIS TIME. CL IN REACH, BED LOCKED AND LOWERED. WILL CTM.
[2019-06-22 04:00] VITALS: BP 109/63
[2019-06-22 05:44] LABS: BASOPHILS 0.9 % (0-2); HEMATOCRIT 38.1 % (36.0-48.0); HEMOGLOBIN 12.2 g/dL (12-16); IMMATURE GRANULOCYTES 0.1 % (0-5); LYMPHOCYTES 26.6 % (15-50); MCH 25.5 pg (26.0-34.0); MCV 79.5 fL (80.0-100.0); MEAN PLATELET VOLUME 11.8 fL (7.4-10.4); MONOCYTES 7.6 % (2-11); NEUTROPHILS 61.8 % (40-80); PLATELET COUNT 171 10x3/uL (130-400); RBC 4.79 10x6/uL (4.00-5.40); RDW 15.3 % (11.5-14.5); WBC 7.9 10x3/uL (4.8-10.8)
[2019-06-22 05:49] LABS: ANION GAP 9.6 mmol/L (8-16); CALCIUM 8.6 mg/dL (8.5-10.1); CARBON DIOXIDE 34.4 mmol/L (21.0-32.0); CREATININE - SERUM 2.7 mg/dL (0.6-1.3); MAGNESIUM - SERUM 1.9 mg/dL (1.8-2.4)
--- NOTE | 2019-06-22 08:21 | NUR ---
REQUESTS MED FOR PAIN IN LOWER BACK 05/16. MEDICATED WITH TYLENOL 325MG X 2. NO OTHER REQUESTS VOICED. IV OF DOBUTAMINE INFUSING WELL TO RIGHT HAND WITH NO REDNESS OR EDEMA NOTED. ASSESSMENT COMPLETED AND WILL CONTINUE POC. BED IN LOW POSITION AND CALL LIGHT IN REACH.
[2019-06-22 09:58] VITALS: BP 97/67
--- NOTE | 2019-06-22 12:41 | NUR ---
Nutrition Follow-up: Pt reports decreased PO intake 2/2 hands shaking. Does not want Ensure. 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 Encouraged pt to alert staff if she needs assistance eating; pt v/u. Micro food preferences within diet restrictions. RD following.
[2019-06-22 13:46] VITALS: BP 84/56
--- NOTE | 2019-06-22 15:52 | NUR ---
Rehab Note- Awaiting OT Eval for PreAuth process with [employer] insurance. Will continue to follow at this time. THank you for this referral! Shyann Feliciano RN Clinical Liaison, [facility] Rehab
--- NOTE | 2019-06-22 16:42 | NUR ---
I have reviewed this patient and I concur with the Shift Assessment completed by the Licensed Practical Nurse today this shift.
[2019-06-22 17:59] VITALS: BP 91/58
--- NOTE | 2019-06-22 19:16 | NUR ---
RECEIVED REPORT FROM DAY SHIFT. PT CARE ASSUMED. PT LYING IN BED WITH EYES CLOSED, RR EVEN AND NONLABORED, NO S/S OF DISTRESS, EASILY AROUSED BY VOICE. INTRODUCED SELF AND WROTE NAME ON BOARD. DENIES PAIN AND ANY OTHER NEEDS AT THIS TIME. BED IN LOWEST POSITION, SR X2, CALL LIGHT WITHIN REACH. WILL CONTINUE TO MONITOR.
[2019-06-22 20:00] VITALS: BP 98/58
--- NOTE | 2019-06-22 20:00 | NUR ---
EVENING ROUNDS COMPLETED. VSS, AAOX3, NO S/S OF DISTRESS. AT THE TIME PT HAD MINIMAL OF NO JERKING. STATES SHE IS FEELING A LITTLE BETTER TONIGHT. DENIES ANY FURTHER NEEDS AT THIS TIME. WILL CTM. CL WITHIN REACH.
[2019-06-23] VITALS: BP 95/51
--- NOTE | 2019-06-23 00:35 | NUR ---
PT BP HAS BEEN RUNNING LOW. R.ARM BP 77/44, R.LEG 95/64, L.ARM 79/35. NOTIFIED JUSTIN MORRISON. HE ORDERED 250CC'S NS BOLUS NOW, AND TO REASSESS BP, THEN GIVE HIM A CALL BACK. PT IN NO FORM DISTRESS @ THIS TIME, ONLY STATES SHE FEELS WEAK. WILL CTM.
--- NOTE | 2019-06-23 01:34 | NUR ---
AFTER 250CC BOLUS NS WAS ADMINISTRED BP IS NOW 117/59. JUSTIN MORRISON NOTIED. PT CURRENTLY RESTING IN BED WITH NO S/S OF DISTRESS. WILL CTM.
[2019-06-23 03:43] LABS: BASOPHILS 1.4 % (0-2); EOSINOPHILS 4.6 % (0-7); HEMATOCRIT 37.2 % (36.0-48.0); HEMOGLOBIN 11.7 g/dL (12-16); IMMATURE GRANULOCYTES 0.1 % (0-5); LYMPHOCYTES 28.9 % (15-50); MCH 25.4 pg (26.0-34.0); MCHC 31.5 g/dL (31.0-37.0); MCV 80.9 fL (80.0-100.0); MEAN PLATELET VOLUME 11.7 fL (7.4-10.4); MONOCYTES 7.6 % (2-11); NEUTROPHILS 57.4 % (40-80); PLATELET COUNT 155 10x3/uL (130-400); RDW 15.8 % (11.5-14.5); WBC 7.4 10x3/uL (4.8-10.8)
[2019-06-23 03:51] LABS: ANION GAP 11.1 mmol/L (8-16); CALCIUM 8.9 mg/dL (8.5-10.1); CARBON DIOXIDE 33.3 mmol/L (21.0-32.0); CREATININE - SERUM 2.7 mg/dL (0.6-1.3); MAGNESIUM - SERUM 1.9 mg/dL (1.8-2.4); POTASSIUM - SERUM 3.4 mmol/L (3.5-5.1)
[2019-06-23 04:00] VITALS: BP 97/58
--- NOTE | 2019-06-23 07:00 | NUR ---
RECEIVED REPORT. ASSUMED CARE OF PATIENT. CALL LIGHT WITHIN REACH. RESTING WITH EYES CLOSED, SOFT SNORING NOTED.RESP EVEN AND UNLABORED. NO DISTRESS.
--- NOTE | 2019-06-23 08:56 | NUR ---
K+ ADMINISTERED PER ELECTROLYTE PROTOCOL AT THIS TIME. ORDER PLACED FOR LAB TO REDRAW AT 1300.
[2019-06-23 09:58] VITALS: BP 91/66
[2019-06-23 14:51] VITALS: BP 91/55
--- NOTE | 2019-06-23 16:36 | NUR ---
ASSISTED PATIENT OOB TO BED SIDE COMMODE. NO DISTRESS. LINEN CHANGED AT THIS TIME. ASSISTED PATIENT BACK TO BED. PATIENT ATTENTION TOWARD CELLPHONE AT THIS TIME.
[2019-06-23 17:15] VITALS: BP 100/66
--- NOTE | 2019-06-23 19:58 | NUR ---
EVENING ROUNDS COMPLETED. REPORT RECEIVED. PT SITTING UP IN BED WITH EYES CLOSED, RR EVEN AND UNLABORED. NO S/S OF DISTRESS NOTED. 79 SINUS ON TELEMETRY. BED IN LOW POSITION. CALL LIGHT IN REACH. WILL CTM.
[2019-06-23 20:00] VITALS: BP 104/63
[2019-06-24] VITALS: BP 102/63
--- NOTE | 2019-06-24 02:01 | NUR ---
I have reviewed this patient and I concur with the Shift Assessment completed by the Licensed Practical Nurse today this shift.
[2019-06-24 03:41] LABS: BASOPHILS 1.2 % (0-2); HEMATOCRIT 36.3 % (36.0-48.0); HEMOGLOBIN 11.3 g/dL (12-16); IMMATURE GRANULOCYTES 0.1 % (0-5); LYMPHOCYTES 37.2 % (15-50); MCH 25.5 pg (26.0-34.0); MCHC 31.1 g/dL (31.0-37.0); MCV 81.8 fL (80.0-100.0); MEAN PLATELET VOLUME 11.3 fL (7.4-10.4); MONOCYTES 8.7 % (2-11); NEUTROPHILS 47.8 % (40-80); PLATELET COUNT 147 10x3/uL (130-400); RBC 4.44 10x6/uL (4.00-5.40); RDW 15.8 % (11.5-14.5); WBC 7.6 10x3/uL (4.8-10.8)
[2019-06-24 03:45] LABS: ANION GAP 9.2 mmol/L (8-16); CALCIUM 8.8 mg/dL (8.5-10.1); CARBON DIOXIDE 33.7 mmol/L (21.0-32.0); CREATININE - SERUM 2.6 mg/dL (0.6-1.3); MAGNESIUM - SERUM 1.9 mg/dL (1.8-2.4); POTASSIUM - SERUM 3.9 mmol/L (3.5-5.1)
[2019-06-24 04:00] VITALS: BP 99/65
--- NOTE | 2019-06-24 04:00 | NUR ---
I have reviewed this patient and I concur with the Shift Assessment completed by the Licensed Practical Nurse today this shift.
--- NOTE | 2019-06-24 07:00 | NUR ---
RECEIVED REPORT. ASSUMED CARE OF PATIENT. CALL LIGHT WITHIN REACH. RESTING PEACEFULLY WITH EYES CLOSED. RESP EVEN AND UNLABORED. NO DISTRESS.
[2019-06-24 08:47] VITALS: BP 106/67
--- NOTE | 2019-06-24 09:24 | EC ---
PATIENT:AVTAR AMIN DATE OF SERVICE: 06/17/19 SEX: F MEDICAL RECORD: [id number] DATE OF : [birth year] LOCATION:D.M2 D.210 AGE OF PATIENT: 53 ADMISSION DATE: 06/17/19 REFERRING PHYSICIAN: INTERPRETING PHYSICIAN: BROOK MENJIVAR MD ECHOCARDIOGRAM REPORT ECHO CHARGES 5 ECHO LIMITED Date: 06/18/19 1 DOPPLER ECHO COLOR FLOW 2 DOPPLER ECHO PULSE CLINICAL DIAGNOSIS: CHF - H/O MVR ECHOCARDIOGRAPHIC MEASUREMENTS (adult normal given) AC root (d.<3.7cm) 0 cm LV Septum d (<1.2 cm> 0 cm Valve Excursion 0 cm LV Septum (systole) 0 cm Left Atria (s.<4.0cm> 0 cm LVPW d(<1.2cm) 0 cm RV (d.<2.3cm) 0 cm LVPW (sytole) 0 cm LV diastole(<5.6CM) 0 cm MV E-F(>70mm/sec) 0 cm LV systole 0 cm LVOT Diameter 0 cm MV exc.(>10mm) 0 cm Est.ejection fraction (50-75%) % DOPPLER: LVIT 0 cm/sec A 0 cm/sec E 0 cm/sec LA 0 cm/sec RVSP 48.0 mmHg LVOT 0 cm/sec AOP1/2T 0 m/s Asc. Ao 0 cm/sec RVOT 0 cm/sec RA 0 cm/sec PA 0 cm/sec AV Gradient Peak 0 mmHg AV Mean 0 mmHg AV Area 0 cm MV Gradient Peak 0 mmHg MV Mean 0 mmHg MV Area 0 cm COMMENTS: LIMITED STUDY (2-D,COLOR,DOPPLER) COMPLETE ECHO DONE ON 04/30/19 Dealmaker: 1 MARY ELLEN MEDINAOE Pediatric Licensed Practical Nurse: 3 Dr. Mata TAPE# PACS Pericardial Effusion N DATE OF SERVICE: This is a limited 2D, color flow only. No LVH. LV internal dimensions appeared dilated. LV is globally hypokinetic with reduced EF, estimated EF 20% to 25%. Aortic valve is tricuspid with good valve excursion. 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 Right-sided chambers appear upper limits of normal to about to mildly dilated. Moderate TR. RV systolic pressure is estimated greater than or equal to 48 mmHg via the continuity equation. TRANSINT:[id number] Voice Confirmation ID: [id number] DOCUMENT ID: [id number] ECHOCARDIOGRAM REPORT [id number] AVTAR MAIN,BROOK Black MD at 0924 CC: [id number] DICTATION DATE: 06/19/19 0846 ENERGY EFFICIENCY FINANCE MANAGER: 06/19/19 1135 ADM IN [place] [id number] [place] [address]
--- NOTE | 2019-06-24 11:15 | NUR ---
PATIENT SITTING TO CHAIR AT BEDSIDE, AWAITING NOON MEAL. NO DISTRESS. CALL LIGHT WITHIN REACH.
--- NOTE | 2019-06-24 11:57 | NUR ---
DIETARY REQUEST PLACED FOR PATIENT AT THIS TIME. NO DISTRESS.
[2019-06-24 12:20] VITALS: BP 121/71
--- NOTE | 2019-06-24 13:40 | NUR ---
ASSISTED PATIENT BACK TO BED FROM BEDSIDE CHAIR. PATIENT IS TIRED. SODA PROVIDED UPON REQUEST. CALL LIGHT WITHIN REACH. NO DISTRESS.
--- NOTE | 2019-06-24 16:35 | NUR ---
SITTING IN BED WITH ATTENTION TOWARD CELL PHONE. JUICE PROVIDED UPON REQUEST, CRANAPPLE. NO DISTRESS. CALL LIGHT WITHIN REACH.
[2019-06-24 17:33] VITALS: BP 116/77
[2019-06-24 20:00] VITALS: BP 101/61
--- NOTE | 2019-06-24 20:16 | NUR ---
EVENING ROUNDS COMPLETED. REPORT RECEIVED. PT SITTING UP IN BED WITH EYES OPEN, RR EVEN AND UNLABORED. BED IN LOW POSITION. NO S/S OF DISTRESS NOTED. 82 NS ON TELEMETRY. INTRODUCED SELF TO PT. PT DENIES FURTHER NEEDS AT THIS TIME. PT'S DAUGHTER APPROACHED ME OUTSIDE OF ROOM AND ASKED IF SHE WAS BEING GIVEN KLONOPIN TO WHICH I REPLIED IT WAS ORDERED. THE DAUGHTER THEN STATED TO ME THAT SHE WAS NOT TO BE GIVEN THIS MEDICATION SHE WAS CONCERNED THAT IT WOULD SEND HER MOTHER INTO PREMATURE DEMENTIA. I STATED THAT I WAS NOT AWARE OF THIS BUT THAT I WOULD HOLD THE MEDICATION AND PASS ON THIS MESSAGE TO THE ONCOMING SHIFT.
[2019-06-25] VITALS: BP 97/53
--- NOTE | 2019-06-25 02:56 | NUR ---
I have reviewed this patient and I concur with the Shift Assessment completed by the Licensed Practical Nurse today this shift.
[2019-06-25 04:00] VITALS: BP 107/66
[2019-06-25 04:04] LABS: BASOPHILS 1.1 % (0-2); EOSINOPHILS 4.9 % (0-7); HEMATOCRIT 35.8 % (36.0-48.0); HEMOGLOBIN 11.2 g/dL (12-16); IMMATURE GRANULOCYTES 0.1 % (0-5); LYMPHOCYTES 31.8 % (15-50); MCH 25.5 pg (26.0-34.0); MCHC 31.3 g/dL (31.0-37.0); MCV 81.5 fL (80.0-100.0); MEAN PLATELET VOLUME 11.5 fL (7.4-10.4); MONOCYTES 7.3 % (2-11); NEUTROPHILS 54.8 % (40-80); PLATELET COUNT 161 10x3/uL (130-400); RBC 4.39 10x6/uL (4.00-5.40); RDW 15.6 % (11.5-14.5)
[2019-06-25 04:09] LABS: ANION GAP 9.4 mmol/L (8-16); CALCIUM 8.9 mg/dL (8.5-10.1); CARBON DIOXIDE 32.2 mmol/L (21.0-32.0); CREATININE - SERUM 2.3 mg/dL (0.6-1.3); MAGNESIUM - SERUM 1.7 mg/dL (1.8-2.4); POTASSIUM - SERUM 3.6 mmol/L (3.5-5.1)
--- NOTE | 2019-06-25 05:22 | NUR ---
1.7 SERUM MAGNESIUM TREATED ORDERED PER ELECTROLYTE PROTOCOL.
[2019-06-25 08:44] VITALS: BP 101/61
[2019-06-25 13:50] VITALS: BP 93/52
--- NOTE | 2019-06-25 14:51 | NUR ---
REhab Note- Received call back from Kassandra with [facility] for a denial for an inpatient acute rehab stay. Spoke with ARLEEN Stacy. A peer to peer can be set up prior to Jun 29 @ 1100CST by calling [phone]. Thank you for this referral! Shyann Feliciano RN Clinical Liaison, [facility] Rehab
--- NOTE | 2019-06-25 15:07 | NUR ---
OT NOTE: PT COMPLETED ADL MOB WITH SBA/CGA. PT COMPLETED SIT TO STAND WITH SBA/CGA. PT COMPLETED TOILETING WITH SPV. PT COMPLETED HYGIENE TASKS WITH SPV/SBA. PT DID VERY WELL. PT EXHIBITED INCREASED POTENTIAL FOR INDEPENDENT FUNCTIONING. THANK YOU,JAREK SAMS
--- NOTE | 2019-06-25 16:54 | MORECARE ---
CASE MANAGEMENT DISCHARGE SUMMARY PATIENT: AVTAR AMIN UNIT: [id number] ADM DATE: 06/17/19 AGE: 53 : 61 SEX: F ROOM/BED: D.2100 AUTHOR: KADE DELONG PHYSICIAN: REFERRING PHYSICIAN: VLAD VELASCO MD DATE OF SERVICE: 06/25/19 Discharge Plan Patient Name: AVTAR AMIN Facility: [facility]:[place] : 1965 Planned Disposition: Home with Home Health Anticipated Discharge Date: 06/26/19 Discharge Date: Expected LOS: 9 Initial Reviewer: [id number] Initial Review Date: 06/21/2019 Generated: 06/25/19 5:54 pm Comments DCP- Discharge Planning Updated by CAM: Christo Duckworth on 06/25/19 3:[address] Patient Name: AVTAR AMIN Encounter No: [id number] : 1965 Primary Insurance: [employer] PPO [facility] Anticipated DC Date: 06-26-2019 Planned Disposition: Home with Home Health External Planned Provider: [facility] DCP follow-up note: CM RECEIVED CALL FROM MARY OF INPATIENT REHAB, PT'S INSURANCE DECLINED INPATIENT REHAB PT HAS NO NEED OF DAILY MEDICAL CARE. CM SPOKE TO PT IN ROOM, DISCUSSED [facility], MEDICAL EQUIPMENT FOR HOME USE AND HOME HEALTH. PT WOULD LIKE HOME HEALTH WITH [facility] IN THAT ORDER; PT DENIES FURTHER DISCHARGE NEEDS AT THIS TIME AND PLANS TO DISCHARGE HOME WITH DAUGHTER. PT DECLINES [facility], REPORTS PRIMARY CARE IS DR. WALLACE. CHOICE FOR [facility] AND [facility] SIGNED. IMPORTANT MESSAGE FROM MEDICARE PROVIDED AND EXPLAINED. PT PLANS TO DISCHARGE HOME WITH DAUGHTER AND [facility]. CM TO ARRANGE HOME HEALTH WITH PHYSICIAN AGREEMENT AND ORDERS. Christo Duckworth. CASE MANAGEMENT DCP- Discharge Planning Updated by [id number]: Christo Duckworth on 06/21/19 4:[address] Patient Name: AVTAR AMNI Admission Status: ER Accout number: [id number] Admission Date: 06-17-2019 : 1965 Admission Diagnosis:SHORTNESS OF BREATH Attending: VLAD VELASCO Current LOS: 4 Anticipated DC Date: Planned Disposition: Inpatient Rehab Primary Insurance: [employer] CHOICE PPO [employer] PLANNED EXTERNAL PROVIDER: [facility] INPATIENT [facility] Discharge Planning Comments: CM MET WITH PT IN ROOM TO DISCUSS DISCHARGE PLANNING AND NEEDS. PT REPORTS LIVING AT HOME INDEPENDENTLY WITH ADULT DAUGHTER WHO HAS TO HELP PT UP INTO THE HOUSE THEY HAVE ONE BIG STEP UP WITH NO HAND RAIL. PT HAS A STANDARD WALKER AND CANE WITH NO MEDICAL EQUIPMENT PROVIDER PREFERNCE. PT HAS NO OUTSIDE SERVICES ASSISTING IN THE HOME. CM DISCUSSED AVAILABILITY OF HOME HEALTH, REHAB SERVICES AND MEDICAL EQUIPMENT. PT WOULD LIKE REHAB AT [place] IF POSSIBLE. PT REPORTS HER DAUGHTER WILL PICK HER UP FOR DISCHARGE HOME. IMPORTANT MESSAGE FROM MEDICARE PROVIDED AND EXPLAINED. CM SPOKE TO MARY OF [facility] INPATIENT REH[facility] WHO WILL SCREEN PT FOR ADMISSION AND SUBMIT TO PT'S INSURANCE FOR AUTHORIZATION ONCE THE OCCUPATIONAL THERAPY EVALUATION IS COMPLETED AND DOCUMENTED. CM TO CONTINUE TO FOLLOW AND ASSIST NEEDED. Fitter Mechanic: Christo Duckworth DCPIA - Discharge Planning Initial Assessment Updated by [id number]: Christo Duckworth on 06/21/19 5:02 pm * Is the patient Alert and Oriented? Yes * How many steps to enter\exit or inside your home? 1 BIG ONE * PCP CANNOT REMEMBER DR'S NAME * [facility]acy [email or web address]. * Preadmission Environment Home with Family * ADLs Independent * Equipment Cane Walker * Other Equipment NO MEDICAL EQUIPMENT PROVIDER PREFERNECE * List name and contact numbers for known caregivers / representatives who currently or will assist patient after discharge: VANDANA LINDSEY, DTR, * Verbal permission to speak to the caregivers and representatives has been obtained from the patient. Yes * Community resources currently utilized None * Please name any agencies selected above. NONE * Additional services required to return to the preadmission environment? Yes * Can the patient safely return to the preadmission environment? Yes * Has this patient been hospitalized within the prior 30 days at any hospital? No Coverage Notice Reviewer: [id number] Andrea Duckworth Notice Issued Date-Time: 06/21/2019 9:40 Notice Type: IM Discharge Notice Notice Delivered To: Patient Relationship to Patient: Home Sales Consultant Name: Delivery Method: HAND - Hand Delivered Christine Days: Prior Verbal Notification: Recipient Understood Notice: Yes Recipient Signature: Yes Med Rec Note Co-signed by Attending: Coverage Notice Comment: Reviewer: [id number] Duckworth Notice Issued Date-Time: 06/25/2019 16:30 Notice Type: Patient Choice Letter Notice Delivered To: Patient Relationship to Patient: Home Sales Consultant Name: Delivery Method: HAND - Hand Delivered Christine Days: Prior Verbal Notification: Recipient Understood Notice: Yes Recipient Signature: Med Rec Note Co-signed by Attending: Coverage Notice Comment: [facility] Reviewer: [id number] Andrea Duckworth Notice Issued Date-Time: 06/25/2019 16:30 Notice Type: IM Discharge Notice Notice Delivered To: Patient Relationship to Patient: Home Sales Consultant Name: Delivery Method: HAND - Hand Delivered Christine Days: Prior Verbal Notification: Recipient Understood Notice: Yes Recipient Signature: Yes Med Rec Note Co-signed by Attending: Coverage Notice Comment: Last DP export: 06/21/19 4:16 p Patient Name: AVTAR AMIN Page [id number] at 1654 All edits/amendments must be made on the electronic document DICTATION DATE: 06/25/191652 SPORTS ANCHOR: LAY 06/25/191652 RPT#: [id number] DC DATE: STATUS: ADM IN [facility] [address] [place] [address] END OF REPORT
--- NOTE | 2019-06-25 19:00 | NUR ---
PATIENT LAYING IN BED. NO COMPLAINTS AT THIS TIME. NO DISTRESS NOTED.
[2019-06-25 20:00] VITALS: BP 101/66
[2019-06-26 00:10] VITALS: BP 114/61
[2019-06-26 04:00] VITALS: BP 110/56
[2019-06-26 05:17] LABS: EOSINOPHILS 5.9 % (0-7); HEMATOCRIT 35.2 % (36.0-48.0); IMMATURE GRANULOCYTES 0.2 % (0-5); LYMPHOCYTES 38.5 % (15-50); MCH 25.3 pg (26.0-34.0); MCHC 31.3 g/dL (31.0-37.0); MCV 81.1 fL (80.0-100.0); MEAN PLATELET VOLUME 11.9 fL (7.4-10.4); NEUTROPHILS 47.4 % (40-80); PLATELET COUNT 163 10x3/uL (130-400); RBC 4.34 10x6/uL (4.00-5.40); RDW 15.4 % (11.5-14.5); WBC 6.3 10x3/uL (4.8-10.8)
[2019-06-26 05:36] LABS: ANION GAP 11.6 mmol/L (8-16); CARBON DIOXIDE 32.2 mmol/L (21.0-32.0); CREATININE - SERUM 2.1 mg/dL (0.6-1.3); MAGNESIUM - SERUM 1.7 mg/dL (1.8-2.4); POTASSIUM - SERUM 3.8 mmol/L (3.5-5.1)
--- NOTE | 2019-06-26 07:56 | NUR ---
RESTING NO C/O PAIN. RESP EVEM AND UNLABORED. CL IN REACH.
[2019-06-26 07:59] VITALS: BP 120/65
[2019-06-26 09:21] VITALS: BP 91/62
--- NOTE | 2019-06-26 09:46 | NUR ---
AMBULATING IN ODOM WITH PT.
--- NOTE | 2019-06-26 10:30 | NUR ---
SITING UP IN ROOM IN CHAIR.
[2019-06-26] MEDS ORDERED: COREG12.5 MG PO (11:51)
[2019-06-26] MEDS ORDERED: LISINOPRIL5 MG PO (11:51)
[2019-06-26] MEDS ORDERED: BUMEX2 MG PO (11:52)
[2019-06-26] MEDS ORDERED: LEVOTHYROXINE150 MCG PO (11:52)
[2019-06-26] MEDS ORDERED: K-TAB10 MEQ PO (11:53)
[2019-06-26 13:54] VITALS: BP 99/56
--- NOTE | 2019-06-26 13:56 | NUR ---
DC'D SL WITH CATH INTACT. NO CHANGE IN ASSESSMENT. WILL DC HOME TODAY.
--- NOTE | 2019-06-26 15:03 | NUR ---
OT NOTE: PT COMPLETED BED MOB WITH SBA. PT COMPLETED EOB SITTING WITH SPV. PT COMPLETED SIT TO STAND WITH SBA. PT CONPLETED HYGIENE TASKS WITH SBA. PT STATED SHE IS GOING HOME TODAY. THANK YOU, JAREK SAMS
--- NOTE | 2019-06-26 15:19 | MORECARE ---
CASE MANAGEMENT DISCHARGE SUMMARY PATIENT: AVTAR AMIN UNIT: [id number] ADM DATE: 06/17/19 AGE: 53 : 61 SEX: F ROOM/BED: D.2103 AUTHOR: KADE DELONG PHYSICIAN: REFERRING PHYSICIAN: VLAD VELASCO MD DATE OF SERVICE: 06/26/19 Discharge Plan Patient Name: AVTAR AMIN Facility: [facility]:[place] : 1965 Planned Disposition: Home Anticipated Discharge Date: 06/26/19 Discharge Date: Expected LOS: 9 Initial Reviewer: [id number] Initial Review Date: 06/21/2019 Generated: 06/26/19 4:19 pm Comments DCP- Discharge Planning Updated by CAM: Christo Duckworth on 06/25/19 3:[address] Patient Name: AVTAR AMIN Encounter No: [id number] : 1965 Primary Insurance: [employer] PPO [facility] Anticipated DC Date: 06-26-2019 Planned Disposition: Home with Home Health External Planned Provider: [facility] DCP follow-up note: CM RECEIVED CALL FROM MARY OF INPATIENT REHAB, PT'S INSURANCE DECLINED INPATIENT REHAB PT HAS NO NEED OF DAILY MEDICAL CARE. CM SPOKE TO PT IN ROOM, DISCUSSED NURSING HOME REHAB, MEDICAL EQUIPMENT FOR HOME USE AND HOME HEALTH. PT WOULD LIKE HOME HEALTH WITH [facility] OR [facility] IN THAT ORDER; PT DENIES FURTHER DISCHARGE NEEDS AT THIS TIME AND PLANS TO DISCHARGE HOME WITH DAUGHTER. PT DECLINES NURSING HOME REHAB SERVICES, REPORTS PRIMARY CARE IS DR. WALLACE. CHOICE FOR [facility] SIGNED. IMPORTANT MESSAGE FROM MEDICARE PROVIDED AND EXPLAINED. PT PLANS TO DISCHARGE HOME WITH DAUGHTER AND [facility]. CM TO ARRANGE HOME HEALTH WITH PHYSICIAN AGREEMENT AND ORDERS. Christo Duckworth. CASE MANAGEMENT DCP- Discharge Planning Updated by [id number]: Christo Duckworth on 06/21/19 4:[address] Patient Name: AVTAR AMIN Admission Status: ER Accout number: [id number] Admission Date: 06-17-2019 : 1965 Admission Diagnosis:SHORTNESS OF BREATH Attending: VLAD VELASCO Current LOS: 4 Anticipated DC Date: Planned Disposition: Inpatient Rehab Primary Insurance: [employer] CHOICE PPO [employer] PLANNED EXTERNAL PROVIDER: [facility] Discharge Planning Comments: CM MET WITH PT IN ROOM TO DISCUSS DISCHARGE PLANNING AND NEEDS. PT REPORTS LIVING AT HOME INDEPENDENTLY WITH ADULT DAUGHTER WHO HAS TO HELP PT UP INTO THE HOUSE THEY HAVE ONE BIG STEP UP WITH NO HAND RAIL. PT HAS A STANDARD WALKER AND CANE WITH NO MEDICAL EQUIPMENT PROVIDER PREFERNCE. PT HAS NO OUTSIDE SERVICES ASSISTING IN THE HOME. CM DISCUSSED AVAILABILITY OF HOME HEALTH, REHAB SERVICES AND MEDICAL EQUIPMENT. PT WOULD LIKE REHAB AT [place] IF POSSIBLE. PT REPORTS HER DAUGHTER WILL PICK HER UP FOR DISCHARGE HOME. IMPORTANT MESSAGE FROM MEDICARE PROVIDED AND EXPLAINED. CM SPOKE TO MARY OF [facility] INPATIENT [facility] WHO WILL SCREEN PT FOR ADMISSION AND SUBMIT TO PT'S INSURANCE FOR AUTHORIZATION ONCE THE OCCUPATIONAL THERAPY EVALUATION IS COMPLETED AND DOCUMENTED. CM TO CONTINUE TO FOLLOW AND ASSIST NEEDED. Study Director: Christo Duckworth DCPIA - Discharge Planning Initial Assessment Updated by [id number]: Christo Duckworth on 06/21/19 5:02 pm * Is the patient Alert and Oriented? Yes * How many steps to enter\exit or inside your home? 1 BIG ONE * PCP CANNOT REMEMBER 'S NAME * Pharmacy [facility]. * Preadmission Environment Home with Family * ADLs Independent * Equipment Cane Walker * Other Equipment NO MEDICAL EQUIPMENT PROVIDER PREFERNECE * List name and contact numbers for known caregivers / representatives who currently or will assist patient after discharge: VANDANA LINDSEY, DTR, * Verbal permission to speak to the caregivers and representatives has been obtained from the patient. Yes * Community resources currently utilized None * Please name any agencies selected above. NONE * Additional services required to return to the preadmission environment? Yes * Can the patient safely return to the preadmission environment? Yes * Has this patient been hospitalized within the prior 30 days at any hospital? No Coverage Notice Reviewer: [id number] Duckworth Notice Issued Date-Time: 06/21/2019 9:40 Notice Type: IM Discharge Notice Notice Delivered To: Patient Relationship to Patient: Tissue Recovery Technician Name: Delivery Method: HAND - Hand Delivered Christine Days: Prior Verbal Notification: Recipient Understood Notice: Yes Recipient Signature: Yes Med Rec Note Co-signed by Attending: Coverage Notice Comment: Reviewer: [id number] Duckworth Notice Issued Date-Time: 06/25/2019 16:30 Notice Type: Patient Choice Letter Notice Delivered To: Patient Relationship to Patient: Tissue Recovery Technician Name: Delivery Method: HAND - Hand Delivered Christine Days: Prior Verbal Notification: Recipient Understood Notice: Yes Recipient Signature: Med Rec Note Co-signed by Attending: Coverage Notice Comment: [facility] Reviewer: [id number] Andrea Duckworth Notice Issued Date-Time: 06/25/2019 16:30 Notice Type: IM Discharge Notice Notice Delivered To: Patient Relationship to Patient: Tissue Recovery Technician Name: Delivery Method: HAND - Hand Delivered Christine Days: Prior Verbal Notification: Recipient Understood Notice: Yes Recipient Signature: Yes Med Rec Note Co-signed by Attending: Coverage Notice Comment: Last DP export: 06/25/19 3:54 p Patient Name: AVTAR AMIN Page [id number] at 1519 All edits/amendments must be made on the electronic document DICTATION DATE: 06/26/191518 BALL ROLLING MACHINE OPERATOR: LAY 06/26/199 RPT#: [id number] DC DATE: STATUS: ADM IN [facility] [address] [place] [address] END OF REPORT
--- NOTE | 2019-06-26 15:30 | MORECARE ---
CASE MANAGEMENT DISCHARGE SUMMARY PATIENT: AVTAR AMIN UNIT: [id number] ADM DATE: 06/17/19 AGE: 53 : 61 SEX: F ROOM/BED: D.2103 AUTHOR: KADE DELONG PHYSICIAN: REFERRING PHYSICIAN: VLAD VELASCO MD DATE OF SERVICE: 06/26/19 Discharge Plan Patient Name: AVTAR AMIN Facility: [facility]:[place] : 1965 Planned Disposition: Home Anticipated Discharge Date: 06/26/19 Discharge Date: Expected LOS: 9 Initial Reviewer: [id number] Initial Review Date: 06/21/2019 Generated: 06/26/19 4:29 pm Comments DCP- Discharge Planning Updated by CAM: Christo Duckworth on 06/25/19 3:[address] Patient Name: AVTAR AMIN Encounter No: [id number] : 1965 Primary Insurance: [employer] PPO [facility] Anticipated DC Date: 06-26-2019 Planned Disposition: Home with Home Health External Planned Provider: [facility] DCP follow-up note: CM RECEIVED CALL FROM MARY OF INPATIENT REHAB, PT'S INSURANCE DECLINED INPATIENT REHAB PT HAS NO NEED OF DAILY MEDICAL CARE. CM SPOKE TO PT IN ROOM, DISCUSSED ASSISTED REHAB, MEDICAL EQUIPMENT FOR HOME USE AND HOME HEALTH. PT WOULD LIKE HOME HEALTH WITH [facility] IN THAT ORDER; PT DENIES FURTHER DISCHARGE NEEDS AT THIS TIME AND PLANS TO DISCHARGE HOME WITH DAUGHTER. PT DECLINES ASSISTED REHAB SERVICES, REPORTS PRIMARY CARE IS DR. WALLACE. CHOICE FOR [facility] SIGNED. IMPORTANT MESSAGE FROM MEDICARE PROVIDED AND EXPLAINED. PT PLANS TO DISCHARGE HOME WITH DAUGHTER AND [facility]. CM TO ARRANGE HOME HEALTH WITH PHYSICIAN AGREEMENT AND ORDERS. Christo Duckworth. CASE MANAGEMENT DCP- Discharge Planning Updated by [id number]: Christo Duckworth on 06/21/19 4:[address] Patient Name: AVTAR AMIN Admission Status: ER Accout number: [id number] Admission Date: 06-17-2019 : 1965 Admission Diagnosis:SHORTNESS OF BREATH Attending: VLAD VELASCO Current LOS: 4 Anticipated DC Date: Planned Disposition: Inpatient Rehab Primary Insurance: [employer] CHOICE PPO [facility] [facility] PLANNED EXTERNAL PROVIDER: [facility] Discharge Planning Comments: CM MET WITH PT IN ROOM TO DISCUSS DISCHARGE PLANNING AND NEEDS. PT REPORTS LIVING AT HOME INDEPENDENTLY WITH ADULT DAUGHTER WHO HAS TO HELP PT UP INTO THE HOUSE THEY HAVE ONE BIG STEP UP WITH NO HAND RAIL. PT HAS A STANDARD WALKER AND CANE WITH NO MEDICAL EQUIPMENT PROVIDER PREFERNCE. PT HAS NO OUTSIDE SERVICES ASSISTING IN THE HOME. CM DISCUSSED AVAILABILITY OF HOME HEALTH, REHAB SERVICES AND MEDICAL EQUIPMENT. PT WOULD LIKE REHAB AT [place] IF POSSIBLE. PT REPORTS HER DAUGHTER WILL PICK HER UP FOR DISCHARGE HOME. IMPORTANT MESSAGE FROM MEDICARE PROVIDED AND EXPLAINED. CM SPOKE TO MARY OF [facility] WHO WILL SCREEN PT FOR ADMISSION AND SUBMIT TO PT'S INSURANCE FOR AUTHORIZATION ONCE THE OCCUPATIONAL THERAPY EVALUATION IS COMPLETED AND DOCUMENTED. CM TO CONTINUE TO FOLLOW AND ASSIST NEEDED. Tire Service Technician: Christo Duckworth DCPIA - Discharge Planning Initial Assessment Updated by [email or web address]: Christo Duckworth on 06/21/19 5:02 pm * Is the patient Alert and Oriented? Yes * How many steps to enter\exit or inside your home? 1 BIG ONE * PCP CANNOT REMEMBER 'S NAME * Pharmacy [facility]. * Preadmission Environment Home with Family * ADLs Independent * Equipment Cane Walker * Other Equipment NO MEDICAL EQUIPMENT PROVIDER PREFERNECE * List name and contact numbers for known caregivers / representatives who currently or will assist patient after discharge: VANDANA LINDSEY, DTR, * Verbal permission to speak to the caregivers and representatives has been obtained from the patient. Yes * Community resources currently utilized None * Please name any agencies selected above. NONE * Additional services required to return to the preadmission environment? Yes * Can the patient safely return to the preadmission environment? Yes * Has this patient been hospitalized within the prior 30 days at any hospital? No Coverage Notice Reviewer: [id number] Duckworth Notice Issued Date-Time: 06/21/2019 9:40 Notice Type: IM Discharge Notice Notice Delivered To: Patient Relationship to Patient: Small Business Director Name: Delivery Method: HAND - Hand Delivered Christine Days: Prior Verbal Notification: Recipient Understood Notice: Yes Recipient Signature: Yes Med Rec Note Co-signed by Attending: Coverage Notice Comment: Reviewer: [id number] Duckworth Notice Issued Date-Time: 06/25/2019 16:30 Notice Type: Patient Choice Letter Notice Delivered To: Patient Relationship to Patient: Small Business Director Name: Delivery Method: HAND - Hand Delivered Christine Days: Prior Verbal Notification: Recipient Understood Notice: Yes Recipient Signature: Med Rec Note Co-signed by Attending: Coverage Notice Comment: [facility] Reviewer: [id number] Andrea Duckworth Notice Issued Date-Time: 06/25/2019 16:30 Notice Type: IM Discharge Notice Notice Delivered To: Patient Relationship to Patient: Small Business Director Name: Delivery Method: HAND - Hand Delivered Christine Days: Prior Verbal Notification: Recipient Understood Notice: Yes Recipient Signature: Yes Med Rec Note Co-signed by Attending: Coverage Notice Comment: Last DP export: 06/26/19 2:19 p Patient Name: AVTAR AMIN Page 64931 at 1530 All edits/amendments must be made on the electronic document DICTATION DATE: 06/26/19 1529 COMMUNITY DEVELOPMENT PLANNER: LAY 06/26/19 1529 RPT#: [id number] DC DATE: STATUS: ADM IN [facility] [address] [place] [address] END OF REPORT
--- NOTE | 2019-06-26 16:55 | MORECARE ---
CASE MANAGEMENT DISCHARGE SUMMARY PATIENT: AVTAR AMIN UNIT: [id number] ADM DATE: 06/17/19 AGE: 53 : 61 SEX: F ROOM/BED: D.2103 AUTHOR: BALJEET,DOC PHYSICIAN: REFERRING PHYSICIAN: VLAD VELASCO MD DATE OF SERVICE: 06/26/19 Discharge Plan Patient Name: AVTAR AMIN Facility: [facility]:[place] : 1965 Planned Disposition: Home Anticipated Discharge Date: 06/26/19 Discharge Date: Expected LOS: 9 Initial Reviewer: [id number] Initial Review Date: 06/21/2019 Generated: 06/26/19 5:55 pm Comments DCP- Discharge Planning Updated by [id number]: Christo Duckworth on 06/26/19 3:[address] Patient Name: AVTAR AMIN Encounter No: [id number] : 1965 Primary Insurance: [employer] CHOICE PPO [facility] [facility] Anticipated DC Date: 06-26-2019 Planned Disposition: Home DCP follow-up note: CM RECEIVED DISCHARGE ORDER, PT DOES NOT HAVE PRIMARY CARE DOCTOR TO SIGN ORDERS FOR HOME HEALTH. CM MET WITH PT IN ROOM, SPOKE TO RAYMOND, PT'S DAUGHTER VIA PHONE AT PT'S DIRECTION. PT'S DAUGHTER REPORTS PT HAS NO PRIMARY DOCTOR AND IS TRYING TO GET IN WITH DR. WALLACE. PT'S LAST DOCTOR IN [place] WAS DR. SANZ OVER ONE YEAR AGO. CM DISCUSSED [facility], PT CONTINUES TO DECLINE AND WANTS TO GO HOME. PT'S DAUGHTER WILL GRUBBER PT AND TRY TO GET HER IN TO A PRIMARY CARE DOCTOR. PRIVATE WEALTH ADVISOR NURSE NOTIFIED. Christo Duckworth, CASE MANAGEMENT DCP- Discharge Planning Updated by [id number]: Christo Duckworth on 06/25/19 3:[address] Patient Name: AVTAR AMIN Encounter No: [id number] : 1965 Primary Insurance: [employer] CHOICE PPO [facility] [facility] Anticipated DC Date: 06-26-2019 Planned Disposition: Home with Home Health External Planned Provider: [facility] DCP follow-up note: CM RECEIVED CALL FROM MARY OF INPATIENT REHAB, PT'S INSURANCE DECLINED INPATIENT REHAB PT HAS NO NEED OF DAILY MEDICAL CARE. CM SPOKE TO PT IN ROOM, DISCUSSED [facility], MEDICAL EQUIPMENT FOR HOME USE AND HOME HEALTH. PT WOULD LIKE HOME HEALTH WITH [facility] IN THAT ORDER; PT DENIES FURTHER DISCHARGE NEEDS AT THIS TIME AND PLANS TO DISCHARGE HOME WITH DAUGHTER. PT DECLINES [facility], REPORTS PRIMARY CARE IS DR. WALLACE. CHOICE FOR [facility] SIGNED. IMPORTANT MESSAGE FROM MEDICARE PROVIDED AND EXPLAINED. PT PLANS TO DISCHARGE HOME WITH DAUGHTER AND [facility]. CM TO ARRANGE HOME HEALTH WITH PHYSICIAN AGREEMENT AND ORDERS. Christo Duckworth. CASE MANAGEMENT DCP- Discharge Planning Updated by [email or web address]: Christo Duckworth on 06/21/19 4:[address] Patient Name: AVTAR AMIN Admission Status: ER Accout number: [id number] Admission Date: 06-17-2019 : 1965 Admission Diagnosis:SHORTNESS OF BREATH Attending: VLAD VELASCO Current LOS: 4 Anticipated DC Date: Planned Disposition: Inpatient Rehab Primary Insurance: [employer] CHOICE PPO [facility] PLANNED EXTERNAL PROVIDER: [facility] Discharge Planning Comments: CM MET WITH PT IN ROOM TO DISCUSS DISCHARGE PLANNING AND NEEDS. PT REPORTS LIVING AT HOME INDEPENDENTLY WITH ADULT DAUGHTER WHO HAS TO HELP PT UP INTO THE HOUSE THEY HAVE ONE BIG STEP UP WITH NO HAND RAIL. PT HAS A STANDARD WALKER AND CANE WITH NO MEDICAL EQUIPMENT PROVIDER PREFERNCE. PT HAS NO OUTSIDE SERVICES ASSISTING IN THE HOME. CM DISCUSSED AVAILABILITY OF HOME HEALTH, REHAB SERVICES AND MEDICAL EQUIPMENT. PT WOULD LIKE REHAB AT [place] IF POSSIBLE. PT REPORTS HER DAUGHTER WILL PICK HER UP FOR DISCHARGE HOME. IMPORTANT MESSAGE FROM MEDICARE PROVIDED AND EXPLAINED. CM SPOKE TO MARY OF [facility] WHO WILL SCREEN PT FOR ADMISSION AND SUBMIT TO PT'S INSURANCE FOR AUTHORIZATION ONCE THE OCCUPATIONAL THERAPY EVALUATION IS COMPLETED AND DOCUMENTED. CM TO CONTINUE TO FOLLOW AND ASSIST NEEDED. Pecan Gatherer: Christo Duckworth DCPIA - Discharge Planning Initial Assessment Updated by [email or web address]: Christo Duckworth on 06/21/19 5:02 pm * Is the patient Alert and Oriented? Yes * How many steps to enter\exit or inside your home? 1 BIG ONE * PCP CANNOT REMEMBER 'S NAME * Pharmacy [facility]. * Preadmission Environment Home with Family * ADLs Independent * Equipment Cane Walker * Other Equipment NO MEDICAL EQUIPMENT PROVIDER PREFERNECE * List name and contact numbers for known caregivers / representatives who currently or will assist patient after discharge: VANDANA LINDSEY, DTR, * Verbal permission to speak to the caregivers and representatives has been obtained from the patient. Yes * Community resources currently utilized None * Please name any agencies selected above. NONE * Additional services required to return to the preadmission environment? Yes * Can the patient safely return to the preadmission environment? Yes * Has this patient been hospitalized within the prior 30 days at any hospital? No Coverage Notice Reviewer: CAM Duckworth Notice Issued Date-Time: 06/21/2019 9:40 Notice Type: IM Discharge Notice Notice Delivered To: Patient Relationship to Patient: Assembler Dc Field Yoke Name: Delivery Method: HAND - Hand Delivered Christine Days: Prior Verbal Notification: Recipient Understood Notice: Yes Recipient Signature: Yes Med Rec Note Co-signed by Attending: Coverage Notice Comment: Reviewer: CAM Dcukworth Notice Issued Date-Time: 06/25/2019 16:30 Notice Type: Patient Choice Letter Notice Delivered To: Patient Relationship to Patient: Assembler Dc Field Yoke Name: Delivery Method: HAND - Hand Delivered Christine Days: Prior Verbal Notification: Recipient Understood Notice: Yes Recipient Signature: Med Rec Note Co-signed by Attending: Coverage Notice Comment: [facility] Reviewer: CAM Duckworth Notice Issued Date-Time: 06/25/2019 16:30 Notice Type: IM Discharge Notice Notice Delivered To: Patient Relationship to Patient: Assembler Dc Field Yoke Name: Delivery Method: HAND - Hand Delivered Christine Days: Prior Verbal Notification: Recipient Understood Notice: Yes Recipient Signature: Yes Med Rec Note Co-signed by Attending: Coverage Notice Comment: Last DP export: 06/26/19 2:30 p Patient Name: AVTAR AMIN Page 22700 at 1655 All edits/amendments must be made on the electronic document DICTATION DATE: 06/26/191654 SEWER SYSTEM SUPERVISOR: LAY 06/26/191654 RPT#: [id number] DC DATE: STATUS: ADM IN [facility] [address] [place] [address] END OF REPORT
--- NOTE | 2019-06-26 17:11 | NUR ---
NO CHANGE IN ASSESSMENT. DAUGHTER HAS BEEN CALLED TO COME PICK PATIENT UP FOR DC HOME.
== END 2019-06-26 18:28 | disposition home health service (06) | DRG 292 ==
LOC: D.ER 20:06 → D.M2 22:15
PROVIDERS: Emergency Medicine; ADMIT Internal Medicine Nephrology; ATTEND Internal Medicine Nephrology
DX: I11.0 Hypertensive heart disease with heart failure (principal); N39.0 Urinary tract infection, site not specified; J44.1 Chronic obstructive pulmonary disease with (acute) exacerbation; N17.9 Acute kidney failure, unspecified; I16.1 Hypertensive emergency; I50.23 Acute on chronic systolic (congestive) heart failure; I25.10 Atherosclerotic heart disease of native coronary artery without angina pectoris; I25.5 Ischemic cardiomyopathy; D50.9 Iron deficiency anemia, unspecified; E83.42 Hypomagnesemia; E78.5 Hyperlipidemia, unspecified; I48.0 Paroxysmal atrial fibrillation; E03.9 Hypothyroidism, unspecified; M79.7 Fibromyalgia; Z86.711 Personal history of pulmonary embolism; Z86.73 Personal history of transient ischemic attack (TIA), and cerebral infarction without residual deficits

== ENCOUNTER → 2019-07-11 12:57 | Outpatient (CLI) | payer MEDICARE, MEDICAID ==
[2019-06-19 13:25] VITALS: BMI 45.1
[~2019-07-11 12:57] MED LIST changes: +BUMEX2 MG PO; +K-TAB10 MEQ PO; +LEVOTHYROXINE150 MCG PO; +LISINOPRIL5 MG PO
[2019-07-11 13:34] LABS: ANION GAP 11.7 mmol/L (8-16); CALCIUM 8.8 mg/dL (8.5-10.1); CARBON DIOXIDE 32.1 mmol/L (21.0-32.0); CREATININE - SERUM 1.8 mg/dL (0.6-1.3); POTASSIUM - SERUM 3.8 mmol/L (3.5-5.1)
== END | disposition home or self-care (01) ==
LOC: D.LABREF 12:57
PROVIDERS: ATTEND Family Medicine Adult Medicine
DX: I50.9 Heart failure, unspecified (principal); N17.9 Acute kidney failure, unspecified

== ENCOUNTER 2019-12-05 16:40 | Inpatient (IN) | payer MEDICARE, MEDICAID ==
[~2019-12-05] VITALS: Ht 162.6 cm; Wt 105.9 kg
[2019-12-05 18:07] LABS: BASOPHILS 0.9 % (0-2); EOSINOPHILS 5.5 % (0-7); HEMATOCRIT 36.4 % (36.0-48.0); HEMOGLOBIN 11.1 g/dL (12-16); IMMATURE GRANULOCYTES 0.2 % (0-5); LYMPHOCYTES 20.4 % (15-50); MCH 24.1 pg (26.0-34.0); MCHC 30.5 g/dL (31.0-37.0); MCV 79.1 fL (80.0-100.0); MEAN PLATELET VOLUME 10.8 fL (7.4-10.4); MONOCYTES 7.1 % (2-11); NEUTROPHILS 65.9 % (40-80); PLATELET COUNT 186 10x3/uL (130-400); RDW 15.3 % (11.5-14.5); WBC 8.2 10x3/uL (4.8-10.8)
[2019-12-05 18:19] LABS: CALC OSMOLALITY 291 mosm/kg (275-300); CALCIUM 8.3 mg/dL (8.5-10.1); CHLORIDE - SERUM 111 mmol/L (98-107); CREATININE - SERUM 1.4 mg/dL (0.6-1.3); GLUCOSE 91 mg/dL (74-106); SODIUM 145 mmol/L (136-145); UREA NITROGEN 21 mg/dL (7-18); eGFR NON AFRICAN AMERICAN 41 mL/min (90-120)
[2019-12-05 18:20] LABS: APTT 26.5 SECONDS (22.8-39.4); INR 1.15 (0.85-1.17); PROTIME 14.6 SECONDS (11.6-15.0)
[2019-12-05 18:26] VITALS: BP 173/101
[2019-12-05 18:39] VITALS: BP 170/99
[2019-12-05 18:49] LABS: ALBUMIN 3.2 g/dL (3.4-5.0); ALKALINE PHOSPHATASE 110 U/L (30-120); ALT (SGPT) 33 U/L (10-68); CKMB 1.8 U/L (0.0-3.6); CREATINE KINASE 200 UL (21-215); PROTEIN - SERUM 7.7 g/dL (6.4-8.2)
[2019-12-05 18:54] LABS: TROPONIN-I 0.612 ng/mL (0.000-0.060)
[2019-12-05 21:53] LABS: CREATINE KINASE 132 UL (21-215)
[2019-12-05 21:54] LABS: TROPONIN-I 0.508 ng/mL (0.000-0.060)
[2019-12-05] MEDS ORDERED: LEVOXYL137 MCG PO (22:16)
[2019-12-05 23:38] VITALS: BP 137/71; BMI 40.2
[2019-12-06] VITALS: BP 113/70
--- NOTE | 2019-12-06 01:16 | NUR ---
SPOKE WITH QUALITY CONTROL MICROBIOLOGIST REGARDING MEDICATIONS NEEDING TO BE PULLED FROM PYXIS.
[2019-12-06 04:00] VITALS: BP 148/88
[2019-12-06 04:37] LABS: BASOPHILS 0.8 % (0-2); EOSINOPHILS 5.4 % (0-7); HEMATOCRIT 32.6 % (36.0-48.0); HEMOGLOBIN 9.7 g/dL (12-16); IMMATURE GRANULOCYTES 0.3 % (0-5); LYMPHOCYTES 27.2 % (15-50); MCH 23.7 pg (26.0-34.0); MCHC 29.8 g/dL (31.0-37.0); MCV 79.7 fL (80.0-100.0); MEAN PLATELET VOLUME 10.7 fL (7.4-10.4); MONOCYTES 7.3 % (2-11); PLATELET COUNT 157 10x3/uL (130-400); RBC 4.09 10x6/uL (4.00-5.40); RDW 15.4 % (11.5-14.5); WBC 6.4 10x3/uL (4.8-10.8)
[2019-12-06 05:24] LABS: ALBUMIN 2.7 g/dL (3.4-5.0); ALKALINE PHOSPHATASE 100 U/L (30-120); ALT (SGPT) 27 U/L (10-68); BILIRUBIN - TOTAL 0.32 mg/dL (0.2-1.3); CALC OSMOLALITY 287 mosm/kg (275-300); CALCIUM 8.1 mg/dL (8.5-10.1); CARBON DIOXIDE 29.8 mmol/L (21.0-32.0); CHLORIDE - SERUM 109 mmol/L (98-107); CKMB 1.4 U/L (0.0-3.6); CREATINE KINASE 156 UL (21-215); CREATININE - SERUM 1.4 mg/dL (0.6-1.3); GLUCOSE 85 mg/dL (74-106); MAGNESIUM - SERUM 1.9 mg/dL (1.8-2.4); PHOSPHOROUS 3.8 mg/dL (2.5-4.9); POTASSIUM - SERUM 3.8 mmol/L (3.5-5.1); PRO BNP 1622 pg/mL (0-125); PROTEIN - SERUM 6.5 g/dL (6.4-8.2); SODIUM 144 mmol/L (136-145); UREA NITROGEN 18 mg/dL (7-18); eGFR NON AFRICAN AMERICAN 41 mL/min (90-120)
[2019-12-06 05:32] LABS: TROPONIN-I 0.603 ng/mL (0.000-0.060)
--- NOTE | 2019-12-06 08:09 | NUR ---
ASSESSMENT DONE. DENIES NEEDS
[2019-12-06 09:08] VITALS: BP 147/92
[2019-12-06 09:55] LABS: CKMB 1.5 U/L (0.0-3.6); CREATINE KINASE 166 UL (21-215)
[2019-12-06 09:58] LABS: TROPONIN-I 0.569 ng/mL (0.000-0.060)
--- NOTE | 2019-12-06 10:23 | NUR ---
I have reviewed this patient and I concur with the Shift Assessment completed by the Licensed Practical Nurse today this shift.
[2019-12-06 10:49] VITALS: Ht 162.6 cm; Wt 105.9 kg
[2019-12-06 12:51] VITALS: BP 127/84
[2019-12-06 13:28] LABS: % SATURATION 13 % (15-55); IRON 34 ug/dl (35-150); TOTAL IRON BIND CAPACITY 244 ug/dl (260-445); UNSAT IRON BIND CAPACITY 210 ug/dl (150-375)
--- NOTE | 2019-12-06 14:33 | NUR ---
PT HAS HAD RESP. CUP AND URINE CUP IN ROOM TOLD WE NEED SAMPLES. 4 TIMES. TOLD WE WILL HAVE TO CATH IF CANT GET SAMPLE.
[2019-12-06 16:40] VITALS: BP 140/89
[2019-12-06 19:33] LABS: APPEARANCE CLEAR (CLEAR); COLOR STRAW (YELLOW)
[2019-12-06 19:34] LABS: BILIRUBIN NEGATIVE (NEGATIVE); GLUCOSE NEGATIVE (NEGATIVE); KETONE NEGATIVE (NEGATIVE); NITRITE NEGATIVE (NEGATIVE); PROTEIN NEGATIVE (NEGATIVE); SPECIFIC GRAVITY 1.015 (1.005-1.020); UROBILINOGEN NORMAL (NORMAL)
[2019-12-06 20:30] VITALS: BP 152/81
[2019-12-07 00:45] VITALS: BP 133/91
[2019-12-07 04:48] VITALS: BP 149/94
[2019-12-07 06:38] LABS: BASOPHILS 0.8 % (0-2); EOSINOPHILS 3.9 % (0-7); HEMATOCRIT 37.3 % (36.0-48.0); HEMOGLOBIN 11.3 g/dL (12-16); IMMATURE GRANULOCYTES 0.3 % (0-5); LYMPHOCYTES 24.2 % (15-50); MCH 23.8 pg (26.0-34.0); MCHC 30.3 g/dL (31.0-37.0); MCV 78.5 fL (80.0-100.0); MEAN PLATELET VOLUME 11.7 fL (7.4-10.4); MONOCYTES 6.1 % (2-11); NEUTROPHILS 64.7 % (40-80); PLATELET COUNT 188 10x3/uL (130-400); RBC 4.75 10x6/uL (4.00-5.40); RDW 15.3 % (11.5-14.5); WBC 6.6 10x3/uL (4.8-10.8)
[2019-12-07 07:10] LABS: ANION GAP 14.8 mmol/L (8-16); CALCIUM 8.3 mg/dL (8.5-10.1); CARBON DIOXIDE 25.6 mmol/L (21.0-32.0); CREATININE - SERUM 1.7 mg/dL (0.6-1.3)
[2019-12-07 07:12] LABS: POTASSIUM - SERUM 4.4 mmol/L (3.5-5.1)
[2019-12-07 09:18] VITALS: BP 168/97
[2019-12-07 13:18] VITALS: BP 142/84
[2019-12-07 17:12] VITALS: BP 159/93
--- NOTE | 2019-12-07 20:00 | NUR ---
IV INFILITRATED. ATTEMPTED IV ACCESS X 2. UNSUCCESSFUL. CALLED ER FOR HELP WITH IV. 2 ANTIBIOTIC UNABLE TO INFUSE AT THIS TIME
[2019-12-07 20:19] VITALS: BP 136/97
--- NOTE | 2019-12-08 | NUR ---
RECEIVED REPORT, WILL ASSUME CARE OF PT, SLEEPING, BED IS LOW, SRX2, CALL LIGHT IN REACH, WILL CONTINUE PLAN OF CARE
[2019-12-08 00:21] VITALS: BP 151/78
--- NOTE | 2019-12-08 02:20 | NUR ---
CYRIL RN RESITED 22G, LHAND, GAVE ROCEPHIN AND ZITHROMAX
[2019-12-08 05:29] VITALS: BP 129/81
[2019-12-08 06:27] LABS: EOSINOPHILS 4.9 % (0-7); HEMATOCRIT 34.3 % (36.0-48.0); HEMOGLOBIN 10.3 g/dL (12-16); LYMPHOCYTES 23.1 % (15-50); MCH 23.4 pg (26.0-34.0); MCV 77.8 fL (80.0-100.0); MEAN PLATELET VOLUME 10.7 fL (7.4-10.4); MONOCYTES 7.9 % (2-11); NEUTROPHILS 63.1 % (40-80); PLATELET COUNT 181 10x3/uL (130-400); RBC 4.41 10x6/uL (4.00-5.40); WBC 6.7 10x3/uL (4.8-10.8)
[2019-12-08 06:53] LABS: ANION GAP 17.4 mmol/L (8-16); CALCIUM 8.3 mg/dL (8.5-10.1); CARBON DIOXIDE 23.4 mmol/L (21.0-32.0); CREATININE - SERUM 1.6 mg/dL (0.6-1.3); POTASSIUM - SERUM 3.8 mmol/L (3.5-5.1)
--- NOTE | 2019-12-08 07:00 | NUR ---
RECEIVED REPORT. ASSUMED CARE OF PATIENT. RESTING WITH EYES CLOSED. EASILY AROUSED. DENIES NEEDS. CALL LIGHT WITHIN REACH. SR ON TELEMETRY WITH RATE OF 67. NO DISTRESS.
[2019-12-08 09:15] VITALS: BP 141/79
[2019-12-08] MEDS ORDERED: ZITHROMAX500 MG PO (09:36)
[2019-12-08] MEDS ORDERED: COREG12.5 MG PO (09:37)
[2019-12-08] MEDS ORDERED: OMNICEF300 MG PO (09:37)
--- NOTE | 2019-12-08 11:05 | NUR ---
TELEMERTY REMOVED. 22 GAUGE IV REMOVED FROM RIGHT HAND. PRESSURE HELD. NO BLEEDING FROM SITE. 2X2 GAUZE APPLIED AND SECURED WITH BANDAID. CATHETER TIP INTACT. TOLERATED IV REMOVAL WELL.
--- NOTE | 2019-12-08 11:54 | NUR ---
PATIENT LEFT UNIT VIA WHEELCHAIR IN NO DISTRESS. PATIENT DISCHARGED TO HOME. PATIENT LEFT UNIT WITH ALL PERSONAL BELONGINGS INCLUDING HER CELL PHONE.
[2019-12-08 12:06] VITALS: BP 134/71
--- NOTE | 2019-12-08 16:51 | MORECARE ---
CASE MANAGEMENT DISCHARGE SUMMARY PATIENT: AVTAR AMIN UNIT: [id number] ADM DATE: 12/05/19 AGE: 54 : 61 SEX: F ROOM/BED: D.2126 AUTHOR: KADE DELONG PHYSICIAN: REFERRING PHYSICIAN: VLAD VELASCO MD DATE OF SERVICE: 12/08/19 Discharge Plan Patient Name: AVTAR AMIN Facility: [facility]:[place] : 1965 Planned Disposition: Home or Self Care Anticipated Discharge Date: Discharge Date: 12/08/2019 Expected LOS: Initial Reviewer: [id number] Initial Review Date: 12/05/2019 Generated: 12/08/19 5:51 pm Patient Name: AVTAR AMIN Page 73526 at 1651 All edits/amendments must be made on the electronic document DICTATION DATE: 12/08/191650 AUTO DAMAGE TRAINEE: LAY 12/08/191650 RPT#: [id number] DC DATE:12/08/19 STATUS: DIS IN [facility] [address] [place] [address] END OF REPORT
--- NOTE | 2019-12-08 17:04 | MORECARE ---
CASE MANAGEMENT DISCHARGE SUMMARY PATIENT: AVTAR AMIN UNIT: [id number] ADM DATE: 12/05/19 AGE: 54 : 61 SEX: F ROOM/BED: D.6206 AUTHOR: BALJEET,DOC PHYSICIAN: REFERRING PHYSICIAN: VLAD VELASCO MD DATE OF SERVICE: 12/08/19 Discharge Plan Patient Name: AVTAR AMIN Facility: [facility]:[place] : 1965 Planned Disposition: Home or Self Care Anticipated Discharge Date: Discharge Date: 12/08/2019 Expected LOS: Initial Reviewer: [email or web address] Initial Review Date: 12/05/2019 Generated: 12/08/19 6:04 pm Comments DCP- Discharge Planning Updated by [id number]: Ban Hernández on 12/08/19 4:[address] Patient Name: AVTAR AMIN Admission Status: ER Accout number: [id number] Admission Date: 12-05-2019 : 1965 Admission Diagnosis: Attending: VLAD VELASCO Current LOS: 3 Anticipated DC Date: Planned Disposition: Home or Self Care Primary Insurance: [employer] CHOICE PPO MCR [facility] Discharge Planning Comments: CM met with patient to complete initial dc planning assessment. CM educated patient on the CM role and verbal consent given by patient to complete assessment. Patient lives at home with her daughter where she is independent with her care. At discharge patient plans to return home and feels this is a safe discharge. CM discussed availability of home health, rehab services, and medical equipment. Her daughter will be her sweeper driver home. Patient has a walker. Patient denied known discharge needs at this time. D/C IMM signed 12/08/19 @ 0955 CM will continue to follow and will assist as needed with dc plans/needs. Car Tracer: Ban Hernández DCPIA - Discharge Planning Initial Assessment Updated by [email or web address]: Ban Hernández on 12/08/19 5:00 pm * Is the patient Alert and Oriented? Yes * How many steps to enter\exit or inside your home? * PCP CAN'T REMEMBER NAME * Pharmacy [facility] * Preadmission Environment Home with Family * ADLs Independent * Other Equipment WALKER * List name and contact numbers for known caregivers / representatives who currently or will assist patient after discharge: RAYMOND LINDSEY - SOHA - [phone] * Verbal permission to speak to the caregivers and representatives has been obtained from the patient. Yes * Community resources currently utilized None * Additional services required to return to the preadmission environment? No * Can the patient safely return to the preadmission environment? Yes * Has this patient been hospitalized within the prior 30 days at any hospital? No Last DP export: 12/08/19 3:51 pm Patient Name: AVTAR AMIN Page 72389 at 1704 All edits/amendments must be made on the electronic document DICTATION DATE: 12/08/191703 TUB ATTENDANT: LAY 12/08/191703 RPT#: [id number] DC DATE:12/08/19 STATUS: DIS IN [facility] [address] [place] [address] END OF REPORT
== END 2019-12-08 12:00 | disposition home or self-care (01) | DRG 193 ==
LOC: D.ER 16:40 → D.M2 19:51
PROVIDERS: Family Medicine; ADMIT Internal Medicine Nephrology; ATTEND Internal Medicine Nephrology
DX: J18.9 Pneumonia, unspecified organism (principal); I50.23 Acute on chronic systolic (congestive) heart failure; J44.1 Chronic obstructive pulmonary disease with (acute) exacerbation; J44.0 Chronic obstructive pulmonary disease with (acute) lower respiratory infection; N17.9 Acute kidney failure, unspecified; J98.11 Atelectasis; I25.10 Atherosclerotic heart disease of native coronary artery without angina pectoris; I07.1 Rheumatic tricuspid insufficiency; I11.0 Hypertensive heart disease with heart failure; E87.6 Hypokalemia; D50.9 Iron deficiency anemia, unspecified; E78.5 Hyperlipidemia, unspecified; I48.0 Paroxysmal atrial fibrillation; E03.9 Hypothyroidism, unspecified; I25.5 Ischemic cardiomyopathy; Z95.0 Presence of cardiac pacemaker; Z86.711 Personal history of pulmonary embolism

== ENCOUNTER 2020-02-06 20:41 | Inpatient (IN) | payer MEDICARE, MEDICAID ==
[~2020-02-06] VITALS: Ht 162.6 cm; Wt 101.2 kg
[~2020-02-06 20:41] MED LIST changes: +LEVOXYL137 MCG PO; +OMNICEF300 MG PO; +ZITHROMAX500 MG PO
[2020-02-06 22:26] LABS: EOSINOPHILS 2.5 % (0-7); HEMATOCRIT 39.7 % (36.0-48.0); IMMATURE GRANULOCYTES 0.4 % (0-5); LYMPHOCYTES 18.9 % (15-50); MCH 24.3 pg (26.0-34.0); MCHC 30.2 g/dL (31.0-37.0); MCV 80.5 fL (80.0-100.0); MEAN PLATELET VOLUME 10.9 fL (7.4-10.4); MONOCYTES 5.4 % (2-11); NEUTROPHILS 71.8 % (40-80); PLATELET COUNT 204 10x3/uL (130-400); RBC 4.93 10x6/uL (4.00-5.40); RDW 16.4 % (11.5-14.5); WBC 8.3 10x3/uL (4.8-10.8)
[2020-02-06 22:43] LABS: CALC OSMOLALITY 285 mosm/kg (275-300); CALCIUM 8.6 mg/dL (8.5-10.1); CARBON DIOXIDE 23.8 mmol/L (21.0-32.0); CHLORIDE - SERUM 107 mmol/L (98-107); CREATININE - SERUM 2.1 mg/dL (0.6-1.3); GLUCOSE 102 mg/dL (74-106); POTASSIUM - SERUM 4.2 mmol/L (3.5-5.1); SODIUM 141 mmol/L (136-145); UREA NITROGEN 27 mg/dL (7-18); eGFR NON AFRICAN AMERICAN 26 mL/min (90-120)
[2020-02-06 22:45] LABS: BILIRUBIN NEGATIVE (NEGATIVE); GLUCOSE NEGATIVE (NEGATIVE); KETONE NEGATIVE (NEGATIVE); NITRITE NEGATIVE (NEGATIVE); UROBILINOGEN NORMAL (NORMAL)
[2020-02-06 22:48] LABS: BACTERIA FEW /hpf (NEGATIVE); RED CELLS - URINE 0-5 /hpf (0-5)
[2020-02-06 22:49] LABS: APTT 25.8 SECONDS (22.8-39.4); INR 1.26 (0.85-1.17); PROTIME 15.7 SECONDS (11.6-15.0)
[2020-02-06 22:57] LABS: D-DIMER-QUANTITATIVE 4.62 ug/mLFEU (0.20-0.54)
[2020-02-06 23:04] LABS: ALBUMIN 3.4 g/dL (3.4-5.0); ALKALINE PHOSPHATASE 120 U/L (30-120); ALT (SGPT) 41 U/L (10-68); BILIRUBIN - TOTAL 1.51 mg/dL (0.2-1.3); C-REACTIVE PROTEIN 1.4 mg/dL (0.0-0.9); CKMB 1.4 U/L (0.0-3.6); CREATINE KINASE 190 UL (21-215); FERRITIN 38 ng/mL (3-244); PRO BNP 5784 pg/mL (0-125); PROTEIN - SERUM 7.4 g/dL (6.4-8.2)
[2020-02-06 23:37] LABS: ERYTHROCYTE SEDIMENTATION RATE 2 mm/hr (0-30)
[2020-02-07 00:52] VITALS: BP 134/98; BMI 38.3
[2020-02-07 04:00] VITALS: BP 142/104
--- NOTE | 2020-02-07 05:32 | NUR ---
REPORTED TO RN THAT PATIENT BP WAS 145/105 L ARM. AWAITING CALL BACK FROM [facility].
--- NOTE | 2020-02-07 05:43 | NUR ---
MANUAL BP TAKEN 128/90.
[2020-02-07 06:23] LABS: EOSINOPHILS 2.1 % (0-7); HEMATOCRIT 40.6 % (36.0-48.0); IMMATURE GRANULOCYTES 0.1 % (0-5); LYMPHOCYTES 28.8 % (15-50); MCHC 29.6 g/dL (31.0-37.0); MCV 81.4 fL (80.0-100.0); MEAN PLATELET VOLUME 11.4 fL (7.4-10.4); MONOCYTES 6.3 % (2-11); NEUTROPHILS 61.7 % (40-80); PLATELET COUNT 206 10x3/uL (130-400); RBC 4.99 10x6/uL (4.00-5.40); RDW 16.7 % (11.5-14.5); WBC 7.3 10x3/uL (4.8-10.8)
[2020-02-07 07:00] LABS: ALBUMIN 3.6 g/dL (3.4-5.0); ALKALINE PHOSPHATASE 123 U/L (30-120); ALT (SGPT) 42 U/L (10-68); BILIRUBIN - TOTAL 1.79 mg/dL (0.2-1.3); CALC OSMOLALITY 285 mosm/kg (275-300); CALCIUM 8.6 mg/dL (8.5-10.1); CARBON DIOXIDE 25.1 mmol/L (21.0-32.0); CHLORIDE - SERUM 107 mmol/L (98-107); CKMB 1.8 U/L (0.0-3.6); CREATINE KINASE 203 UL (21-215); CREATININE - SERUM 2.2 mg/dL (0.6-1.3); GLUCOSE 91 mg/dL (74-106); MAGNESIUM - SERUM 1.9 mg/dL (1.8-2.4); POTASSIUM - SERUM 4.3 mmol/L (3.5-5.1); PRO BNP 6402 pg/mL (0-125); PROTEIN - SERUM 7.2 g/dL (6.4-8.2); SODIUM 141 mmol/L (136-145); UREA NITROGEN 27 mg/dL (7-18); eGFR NON AFRICAN AMERICAN 24 mL/min (90-120)
[2020-02-07 07:01] LABS: THYROID STIMULATING HORMONE 63.08 uIU/mL (0.36-3.74); TROPONIN-I 0.831 ng/mL (0.000-0.060)
[2020-02-07 10:54] VITALS: BP 125/86
[2020-02-07 11:56] LABS: CKMB 1.4 U/L (0.0-3.6); CREATINE KINASE 189 UL (21-215)
[2020-02-07 12:00] LABS: TROPONIN-I 0.752 ng/mL (0.000-0.060)
[2020-02-07 13:32] VITALS: Ht 162.6 cm; Wt 101.2 kg
--- NOTE | 2020-02-07 14:15 | MORECARE ---
CASE MANAGEMENT DISCHARGE SUMMARY PATIENT: AVTAR AMIN UNIT: [id number] ADM DATE: 02/06/20 AGE: 54 : 61 SEX: F ROOM/BED: D.2489 AUTHOR: KADE DELONG PHYSICIAN: REFERRING PHYSICIAN: BROOK SPARKS MD DATE OF SERVICE: 02/07/20 Discharge Plan Patient Name: AVTAR AMIN Facility: [facility]:[place] : 1965 Planned Disposition: Home Anticipated Discharge Date: Discharge Date: Expected LOS: Initial Reviewer: [email or web address] Initial Review Date: 02/07/2020 Generated: 02/07/20 3:15 pm Patient Name: AVTAR AMIN Page 53173 at 1415 All edits/amendments must be made on the electronic document DICTATION DATE: 02/07/20 1415 EDITORIAL DIRECTOR: LAY 02/07/20 1415 RPT#: [id number] DC DATE: STATUS: ADM IN [facility] [address] [place] [address] END OF REPORT
--- NOTE | 2020-02-07 14:23 | MORECARE ---
CASE MANAGEMENT DISCHARGE SUMMARY PATIENT: AVTAR AMIN UNIT: [id number] ADM DATE: 02/06/20 AGE: 54 : 61 SEX: F ROOM/BED: D.9134 AUTHOR: KADE DELONG PHYSICIAN: REFERRING PHYSICIAN: BROOK SPARKS MD DATE OF SERVICE: 02/07/20 Discharge Plan Patient Name: AVTAR AMIN Facility: [facility]:[place] : 1965 Planned Disposition: Home Anticipated Discharge Date: Discharge Date: Expected LOS: Initial Reviewer: [email or web address] Initial Review Date: 02/07/2020 Generated: 02/07/20 3:23 pm Last DP export: 02/07/20 1:15 pm Patient Name: AVTAR AMIN Page 28109 at 1423 All edits/amendments must be made on the electronic document DICTATION DATE: 02/07/20 1423 CRIMINAL JUSTICE DEPARTMENT CHAIR: DM 02/07/20 1423 RPT#: [id number] DC DATE: STATUS: ADM IN [facility] [address] [place] [address] END OF REPORT
--- NOTE | 2020-02-07 14:30 | MORECARE ---
CASE MANAGEMENT DISCHARGE SUMMARY PATIENT: AVTAR AMIN UNIT: [id number] ADM DATE: 02/06/20 AGE: 54 : 61 SEX: F ROOM/BED: D.3035 AUTHOR: KADE DELONG PHYSICIAN: REFERRING PHYSICIAN: BROOK SPARKS MD DATE OF SERVICE: 02/07/20 Discharge Plan Patient Name: AVTAR AMIN Facility: [facility]:[place] : 1965 Planned Disposition: Home Anticipated Discharge Date: Discharge Date: Expected LOS: Initial Reviewer: [email or web address] Initial Review Date: 02/07/2020 Generated: 02/07/20 3:30 pm DCPIA - Discharge Planning Initial Assessment Updated by [email or web address]: Christo Duckworth on 02/07/20 2:27 pm * Is the patient Alert and Oriented? Yes * How many steps to enter\exit or inside your home? * PCP DR PACHECO * Pharmacy [facility] ON [address] * Preadmission Environment Home with Family * ADLs Independent * Equipment Shower Chair Walker * Other Equipment NO MEDICAL EQUIPMENT PROVIDER PREFERENCE * List name and contact numbers for known caregivers / representatives who currently or will assist patient after discharge: SLY LINDSEY, MARISOL LINDSEY R, * Verbal permission to speak to the caregivers and representatives has been obtained from the patient. Yes * Community resources currently utilized None * Please name any agencies selected above. NONE * Additional services required to return to the preadmission environment? No * Can the patient safely return to the preadmission environment? Yes * Has this patient been hospitalized within the prior 30 days at any hospital? Yes Last DP export: 02/07/20 1:23 pm Patient Name: AVTAR AMIN Page 67717 at 1430 All edits/amendments must be made on the electronic document DICTATION DATE: 02/07/20 1430 SILVICULTURE TEACHER: LAY 02/07/20 1430 RPT#: [id number] DC DATE: STATUS: ADM IN [facility] [address] [place] [address] END OF REPORT
--- NOTE | 2020-02-07 14:53 | MORECARE ---
CASE MANAGEMENT DISCHARGE SUMMARY PATIENT: AVTAR AMIN UNIT: [id number] ADM DATE: 02/06/20 AGE: 54 : 61 SEX: F ROOM/BED: D.8516 AUTHOR: BALJEET,DOC PHYSICIAN: REFERRING PHYSICIAN: BROOK SPARKS MD DATE OF SERVICE: 02/07/20 Discharge Plan Patient Name: AVTAR AMIN Facility: [facility]:[place] : 1965 Planned Disposition: Home Anticipated Discharge Date: Discharge Date: Expected LOS: Initial Reviewer: [email or web address] Initial Review Date: 02/07/2020 Generated: 02/07/20 3:53 pm Comments DCP- Discharge Planning Updated by [email or web address]: Christo Duckworth on 02/07/20 1:[address] Patient Name: AVTAR AMIN Admission Status: ER Accout number: [id number] Admission Date: 02-06-2020 : 1965 Admission Diagnosis:WEAKNESS Attending: DOLORES Current LOS: 1 Anticipated DC Date: Planned Disposition: Home Primary Insurance: [employer] CHOICE PPO [employer] Discharge Planning Comments: CM MET WITH PT IN ROOM TO DISCUSS DISCHARGE PLANNING AND NEEDS. PT REPORTS LIVING AT HOME INDEPENDENTLY WITH HER ADULT DAUGHTER. PT HAS STANDARD WALKER AND SHOWER CHAIR WITH NO MEDICAL EQUIPMENT PROVIDEER. PT HAS NO OUTSIDE SERVICES ASSISTING IN THE HOME. CM DISCUSSED AVAILABILITY OF HOME HEALTH, REHAB SERVICES AND MEDICAL EQUIPMENT. PT DENIES DISCHARGE NEEDS, REPORTS HER DAUGHTER WILL PICK HER UP FOR DISCHARGE HOME. PT PLANS TO DISCHARGE HOME WITH FAMILY, HAS NO ANTICIPATED DISCHARGE NEEDS. FAMILY TO TRANSPORT HOME. CM TO FOLLOW AND ASSIST IF NEEDED. Power Engineer: Christo Duckworth DCPIA - Discharge Planning Initial Assessment Updated by [email or web address]: Christo Duckworth on 02/07/20 2:27 pm * Is the patient Alert and Oriented? Yes * How many steps to enter\exit or inside your home? * PCP DR PACHECO * Pharmacy [facility] [address] * Preadmission Environment Home with Family * ADLs Independent * Equipment Shower Chair Walker * Other Equipment NO MEDICAL EQUIPMENT PROVIDER PREFERENCE * List name and contact numbers for known caregivers / representatives who currently or will assist patient after discharge: SLY LINDSEY, MARISOL CÉSAR, DTR, * Verbal permission to speak to the caregivers and representatives has been obtained from the patient. Yes * Community resources currently utilized None * Please name any agencies selected above. NONE * Additional services required to return to the preadmission environment? No * Can the patient safely return to the preadmission environment? Yes * Has this patient been hospitalized within the prior 30 days at any hospital? Yes Last DP export: 02/07/20 1:30 pm Patient Name: AVTAR AMIN Page 62161 at 1453 All edits/amendments must be made on the electronic document DICTATION DATE: 02/07/201452 FRYLINE ATTENDANT: LAY 02/07/201452 RPT#: [id number] DC DATE: STATUS: ADM IN [facility] [address] [place] [address] END OF REPORT
--- NOTE | 2020-02-07 18:58 | NUR ---
PO DILTIZEM GIVEN PER DR. MIRANDA. WILL D/C CARDIZEN DRIP IN 2 HOURS PER ORDER.
--- NOTE | 2020-02-07 19:45 | NUR ---
D/C CARDIZEM DRIP BP 89/57 HR 54.
[2020-02-07 20:00] VITALS: BP 89/57
--- NOTE | 2020-02-07 20:20 | NUR ---
PATIENT C/O UPPER GASTRIC PAIN. NOTIFIED PRINCE DOWNS APN. GI COCKTAIL ORDERED.
--- NOTE | 2020-02-07 20:30 | NUR ---
PATIENT C/O PAIN. NOTIFIED PRINCE DOWNS APN. MOM, MORPHINE, AND CE ORDERED.
[2020-02-08] VITALS: BP 112/57
[2020-02-08 00:28] LABS: CKMB 1.2 U/L (0.0-3.6); CREATINE KINASE 152 UL (21-215)
[2020-02-08 00:29] LABS: TROPONIN-I 0.658 ng/mL (0.000-0.060)
[2020-02-08 04:00] VITALS: BP 99/63
[2020-02-08 05:29] LABS: ALBUMIN 2.8 g/dL (3.4-5.0); ANION GAP 12.1 mmol/L (8-16); BILIRUBIN - TOTAL 1.12 mg/dL (0.2-1.3); CALCIUM 8.1 mg/dL (8.5-10.1); CARBON DIOXIDE 24.6 mmol/L (21.0-32.0); MAGNESIUM - SERUM 1.9 mg/dL (1.8-2.4); PHOSPHOROUS 5.3 mg/dL (2.5-4.9); POTASSIUM - SERUM 4.7 mmol/L (3.5-5.1); PROTEIN - SERUM 6.3 g/dL (6.4-8.2)
[2020-02-08 05:31] LABS: CREATININE - SERUM 3.5 mg/dL (0.6-1.3)
[2020-02-08 05:33] LABS: BASOPHILS 0.7 % (0-2); EOSINOPHILS 1.6 % (0-7); HEMATOCRIT 36.8 % (36.0-48.0); HEMOGLOBIN 10.8 g/dL (12-16); IMMATURE GRANULOCYTES 0.3 % (0-5); LYMPHOCYTES 14.8 % (15-50); MCH 23.9 pg (26.0-34.0); MCHC 29.3 g/dL (31.0-37.0); MCV 81.4 fL (80.0-100.0); MEAN PLATELET VOLUME 10.6 fL (7.4-10.4); MONOCYTES 6.8 % (2-11); NEUTROPHILS 75.8 % (40-80); PLATELET COUNT 175 10x3/uL (130-400); RBC 4.52 10x6/uL (4.00-5.40); WBC 7.7 10x3/uL (4.8-10.8)
--- NOTE | 2020-02-08 07:15 | NUR ---
RECEIVED PT IN BED EYES CLOSED RESP UNLABORED SKIN W/D COLOR WNL NAD NOTED WILL CONTINUE TO MONITOR
[2020-02-08 09:00] VITALS: BP 89/65
[2020-02-08 12:00] VITALS: BP 98/60
--- NOTE | 2020-02-08 12:33 | NUR ---
IN BED HOB 50 DEGREES PT EATING LUNCH MORPHINE 2 MG AND ZOFRAN 4 MG GIVEN SIVP FOR C/O OF LOW BACK PAIN 06/16
--- NOTE | 2020-02-08 14:15 | NUR ---
RESTING QUIETLY EYES CLOSED RESP UNLABORED SKIN W/D NAD NOTED
--- NOTE | 2020-02-08 14:37 | MORECARE ---
CASE MANAGEMENT DISCHARGE SUMMARY PATIENT: AVTAR AMIN UNIT: [id number] ADM DATE: 02/06/20 AGE: 54 : 61 SEX: F ROOM/BED: D.1398 AUTHOR: BALJEET,DOC PHYSICIAN: REFERRING PHYSICIAN: BROOK SPARKS MD DATE OF SERVICE: 02/08/20 Discharge Plan Patient Name: AVTAR AMIN Facility: [facility]:[place] : 1965 Planned Disposition: Home Anticipated Discharge Date: Discharge Date: Expected LOS: Initial Reviewer: [email or web address] Initial Review Date: 02/07/2020 Generated: 02/08/20 3:37 pm Comments DCP- Discharge Planning Updated by [email or web address]: Christo Duckworth on 02/08/20 1:[address] Interdisciplinary Team Meeting Note: Patient was admitted on 02-06-2020 with a diagnosis of WEAKNESS. Interdisciplinary Team Meetings were held . In attendance were: Manager Gift Dietary Provider Nursing Physical Therapy Post Acute Occupational Therapy Speech Therapy IDT recommendation for Discharge Plan: DISCONTINUED CARDIZEM DRIP, CREATINE ELEVATED, NEPHROLOGY CONSULTED. ROOM AIR. PLAN DISCHARGE HOME WITH DAUGHTER, NO ANTICIPATED NEEDS. Anticipated Discharge date: ALETHEA PISANO DCP- Discharge Planning Updated by [email or web address]: Christo Duckworth on 02/07/20 1:[address] Patient Name: AVTAR AMIN Admission Status: ER Accout number: [id number] Admission Date: 02-06-2020 : 1965 Admission Diagnosis:WEAKNESS Attending: DOLORES Current LOS: 1 Anticipated DC Date: Planned Disposition: Home Primary Insurance: [employer] CHOICE PPO MCR ADVANT Discharge Planning Comments: CM MET WITH PT IN ROOM TO DISCUSS DISCHARGE PLANNING AND NEEDS. PT REPORTS LIVING AT HOME INDEPENDENTLY WITH HER ADULT DAUGHTER. PT HAS STANDARD WALKER AND SHOWER CHAIR WITH NO MEDICAL EQUIPMENT PROVIDEER. PT HAS NO OUTSIDE SERVICES ASSISTING IN THE HOME. CM DISCUSSED AVAILABILITY OF HOME HEALTH, REHAB SERVICES AND MEDICAL EQUIPMENT. PT DENIES DISCHARGE NEEDS, REPORTS HER DAUGHTER WILL PICK HER UP FOR DISCHARGE HOME. PT PLANS TO DISCHARGE HOME WITH FAMILY, HAS NO ANTICIPATED DISCHARGE NEEDS. FAMILY TO TRANSPORT HOME. CM TO FOLLOW AND ASSIST IF NEEDED. Manager Gift: Christo Duckworth DCPIA - Discharge Planning Initial Assessment Updated by [id number]: Christo Duckworth on 02/07/20 2:27 pm * Is the patient Alert and Oriented? Yes * How many steps to enter\exit or inside your home? * PCP DR PACHECO * Pharmacy [facility] [address] * Preadmission Environment Home with Family * ADLs Independent * Equipment Shower Chair Walker * Other Equipment NO MEDICAL EQUIPMENT PROVIDER PREFERENCE * List name and contact numbers for known caregivers / representatives who currently or will assist patient after discharge: SLY LINDSEY, MARISOL LINDSEY DTR, * Verbal permission to speak to the caregivers and representatives has been obtained from the patient. Yes * Community resources currently utilized None * Please name any agencies selected above. NONE * Additional services required to return to the preadmission environment? No * Can the patient safely return to the preadmission environment? Yes * Has this patient been hospitalized within the prior 30 days at any hospital? Yes Last DP export: 02/07/20 1:53 pm Patient Name: AVTAR AMIN Page 15307 at 1437 All edits/amendments must be made on the electronic document DICTATION DATE: 02/08/20 1437 BREAKER OFF: LAY 02/08/20 1437 RPT#: [id number] DC DATE: STATUS: ADM IN [facility] [address] [place] [address] END OF REPORT
[2020-02-08 17:21] VITALS: BP 90/65
--- NOTE | 2020-02-08 20:10 | NUR ---
REPORT RECIEVED AND INITIAL ROUNDS COMPLETED. PT RESTING IN BED WITH FLAT AFFECT. PACED/60 PER TELEMETRY. NS @ 50ML/HR INFUSING TO LEFT A/C. NONLABORED RESPIRATIONS ON ROOM AIR. MONITOR BP AND CPOC. NO REPORTS OF CHEST PAIN.
[2020-02-08 20:30] VITALS: BP 92/61
--- NOTE | 2020-02-08 22:03 | NUR ---
HOLDING MELATONIN, PT HAS BEEN SLEEPING SOUNDLY SINCE INITIAL ROUNDS, WILL AROUSE TO VERBAL STIMULI. NO C/O PAIN OR DISCOMFORT. WILL MONITOR.
[2020-02-09 01:00] VITALS: BP 101/72
--- NOTE | 2020-02-09 01:11 | NUR ---
RESTING IN BED. VERY LITTLE TO SAY. BP STABLE. PACED 60 PER TELEMETRY. IVF INFUSING.
[2020-02-09 04:30] VITALS: BP 98/64
--- NOTE | 2020-02-09 04:35 | NUR ---
AWAKE AND NOW TALKING TO NURSE. C/O NAUSEA AND FEELING POORLY. MEDICATED WITH ZOFRAN IV. ASSISTED UP TO VOID IN BSC. URINE SPECIMEN COLLECTED AND SENT TO LAB. PT ASSISTED BACK TO BED. SHEETS STRAIGHTENED AND PT NOW RESTING. WILL MONITOR RESPONSE TO ZOFRAN.
[2020-02-09 05:49] LABS: PROTEIN - URINE 71.2 mg/dL (0.0-11.9)
[2020-02-09 05:51] LABS: CREATININE - URINE 284.3 mg/dL (30-125); PRO/CRE RATIO URINE 0.3 mg/g
[2020-02-09 06:59] LABS: BASOPHILS 0.4 % (0-2); HEMATOCRIT 37.4 % (36.0-48.0); HEMOGLOBIN 10.8 g/dL (12-16); IMMATURE GRANULOCYTES 0.1 % (0-5); LYMPHOCYTES 12.2 % (15-50); MCH 23.7 pg (26.0-34.0); MCHC 28.9 g/dL (31.0-37.0); MCV 82.2 fL (80.0-100.0); MEAN PLATELET VOLUME 10.3 fL (7.4-10.4); NEUTROPHILS 78.3 % (40-80); PLATELET COUNT 171 10x3/uL (130-400); RBC 4.55 10x6/uL (4.00-5.40); RDW 17.8 % (11.5-14.5); WBC 6.7 10x3/uL (4.8-10.8)
[2020-02-09 07:15] LABS: ALBUMIN 2.8 g/dL (3.4-5.0); BILIRUBIN - TOTAL 0.82 mg/dL (0.2-1.3); CARBON DIOXIDE 24.7 mmol/L (21.0-32.0); MAGNESIUM - SERUM 2.2 mg/dL (1.8-2.4); PHOSPHOROUS 6.5 mg/dL (2.5-4.9); POTASSIUM - SERUM 4.7 mmol/L (3.5-5.1); PROTEIN - SERUM 6.5 g/dL (6.4-8.2); URIC ACID 10.3 mg/dL (2.6-7.2)
--- NOTE | 2020-02-09 07:15 | NUR ---
RECEIVED PT IN BED EYES CLOSED RESP UNLABORED SKIN W/D COLOR WNL NAD NOTED
[2020-02-09 07:16] LABS: CREATININE - SERUM 4.6 mg/dL (0.6-1.3)
[2020-02-09 08:00] VITALS: BP 94/68
[2020-02-09 12:00] VITALS: BP 98/64
[2020-02-09 16:00] VITALS: BP 100/62
--- NOTE | 2020-02-09 18:38 | NUR ---
22 GAUGE IV PLACED TO RIGHT THUMB X 1 STICK. GOOD BLOOD RETURN, EASY FLUSH. TAPED, DATED AND SECURED. TOLERATED IV PLACEMENT WELL.
[2020-02-09 20:00] VITALS: BP 96/75
--- NOTE | 2020-02-09 20:00 | NUR ---
REPORT RECIEVED AND INITIAL ROUNDS COMPLETED. PT ALERT/ORIENTED AND MORE VERBAL AND INTERACTIVE TODAY THAN YESTERDAY. IVF INCREASED TO 75ML/HR TO NEW IV SITE IN RIGHT THUMB AREA. ASSISTED PT UP TO USE BSC TO VOID. PERSONAL CARE PROVIDED, THEN PATIENT BACK TO BED. CALL LIGHT IN REACH.
--- NOTE | 2020-02-09 21:37 | NUR ---
BEDTIME MED GIVEN. REVIEW PLAN OF CARE. FALL PRECAUTIONS IN PLACE. PT SAYING SHE IS TIRED AND READY TO GO TO SLEEP. CALL LIGHT IN REACH.
--- NOTE | 2020-02-09 22:00 | NUR ---
ASSISTED PATIENT TO TAKE SHOWER/WASH HAIR, CHANGE INTO NEW GOWN. COMPLETE LINEN CHANGE AND ROOM LABORER WRECKING AND SALVAGING DONE AT THIS TIME.
[2020-02-10 04:00] VITALS: BP 107/70
--- NOTE | 2020-02-10 04:17 | NUR ---
ASSISTED UP TO BSC TO VOID. VSS. IVF INFUSING. NO OTHER NEEDS. CPOC.
[2020-02-10 06:24] LABS: BASOPHILS 0.7 % (0-2); EOSINOPHILS 1.2 % (0-7); HEMOGLOBIN 10.6 g/dL (12-16); IMMATURE GRANULOCYTES 0.3 % (0-5); LYMPHOCYTES 18.1 % (15-50); MCH 24.1 pg (26.0-34.0); MCHC 29.4 g/dL (31.0-37.0); MCV 81.8 fL (80.0-100.0); MEAN PLATELET VOLUME 10.2 fL (7.4-10.4); MONOCYTES 8.9 % (2-11); NEUTROPHILS 70.8 % (40-80); PLATELET COUNT 170 10x3/uL (130-400); RDW 17.5 % (11.5-14.5); WBC 6.7 10x3/uL (4.8-10.8)
[2020-02-10 06:39] LABS: ALBUMIN 2.8 g/dL (3.4-5.0); ANION GAP 13.7 mmol/L (8-16); BILIRUBIN - TOTAL 0.68 mg/dL (0.2-1.3); CALCIUM 8.2 mg/dL (8.5-10.1); CARBON DIOXIDE 22.8 mmol/L (21.0-32.0); CREATININE - SERUM 4.4 mg/dL (0.6-1.3); MAGNESIUM - SERUM 2.3 mg/dL (1.8-2.4); PHOSPHOROUS 5.3 mg/dL (2.5-4.9); POTASSIUM - SERUM 4.5 mmol/L (3.5-5.1); PROTEIN - SERUM 6.3 g/dL (6.4-8.2)
--- NOTE | 2020-02-10 07:49 | NUR ---
RECIEVE REPORT. RESTING IN BED WITH EYES CLOSED. NO SIGNS OF DISTRESS. CONTINUE PLAN OF CARE AND SAFETY PRECAUTIONS.
[2020-02-10 08:37] VITALS: BP 112/66
--- NOTE | 2020-02-10 15:13 | NUR ---
ALERT AND ORIENTED X4. SITTING UP IN BED WATCHING TV. SINUS PACED 61 ON TELEMETRY. ASSIST OOB TO BEDSIDE COMMODE. MINIMAL ASSISTANCE REQUIRED. LINEN CHANGE COMPLETE. DENIES ANY NEEDS AT THIS TIME. CONTINUE PLAN OF CARE AND SAFETY PRECAUTIONS.
[2020-02-10 16:34] VITALS: BP 127/73
[2020-02-10 17:07] LABS: BILIRUBIN NEGATIVE (NEGATIVE); GLUCOSE NEGATIVE (NEGATIVE); KETONE NEGATIVE (NEGATIVE); NITRITE NEGATIVE (NEGATIVE); UROBILINOGEN NORMAL (NORMAL)
[2020-02-10 17:09] LABS: BACTERIA MODERATE /hpf (NEGATIVE); HYALINE CAST 0-5 /lpf (NONE SEEN); RED CELLS - URINE 0-5 /hpf (0-5); WHITE CELLS - URINE 0-5 /hpf (NEGATIVE)
--- NOTE | 2020-02-10 19:30 | NUR ---
REPORT RECIEVED AND INITIAL ROUNDS COMPLETED. PT RESTING IN BED. NO DISTRESS. IVF INFUSING. CPOC.
--- NOTE | 2020-02-10 20:50 | NUR ---
BEDTIME MEDS GIVEN. TYLENOL GIVEN FOR GENERALIZED PAIN. CALL LIGHT IN REACH.
[2020-02-10 21:00] VITALS: BP 130/64
[2020-02-11 04:00] VITALS: BP 134/68
[2020-02-11 05:35] LABS: ALBUMIN 2.9 g/dL (3.4-5.0); ANION GAP 13.5 mmol/L (8-16); BILIRUBIN - TOTAL 0.42 mg/dL (0.2-1.3); CALCIUM 8.2 mg/dL (8.5-10.1); CREATININE - SERUM 3.5 mg/dL (0.6-1.3); MAGNESIUM - SERUM 2.4 mg/dL (1.8-2.4); PHOSPHOROUS 4.2 mg/dL (2.5-4.9); POTASSIUM - SERUM 4.5 mmol/L (3.5-5.1); PROTEIN - SERUM 6.5 g/dL (6.4-8.2)
[2020-02-11 06:06] LABS: HEMATOCRIT 34.9 % (36.0-48.0); HEMOGLOBIN 10.6 g/dL (12-16); MCH 24.4 pg (26.0-34.0); MCHC 30.4 g/dL (31.0-37.0); MCV 80.2 fL (80.0-100.0); MEAN PLATELET VOLUME 10.9 fL (7.4-10.4); PLATELET COUNT 197 10x3/uL (130-400); RBC 4.35 10x6/uL (4.00-5.40); RDW 16.7 % (11.5-14.5)
[2020-02-11 06:59] LABS: LYMPHOCYTES 20 % (15-50); MONOCYTES 2 % (2-11); NEUTROPHILS 78 % (40-80); PLATELET ESTIMATE NORMAL
[2020-02-11 08:00] VITALS: BP 128/89
[2020-02-11 12:00] VITALS: BP 136/90
--- NOTE | 2020-02-11 14:49 | NUR ---
Nutrition follow-up: Diet: Low sodium PO intake ~50% of last 6 meals Labs reviewed Wt: 222# Renal function improving per physician Will continue to provide food choices and honor food preferences within diet restrictions. RDN following.
[2020-02-11 16:00] VITALS: BP 123/88
--- NOTE | 2020-02-11 19:27 | NUR ---
PATIENT IS ALERT AND ORIENTED, RESTING COMFORTABLY IN CHAIR. PATIENT REQUESTED ASSISTANCE TO BEDSIDE COMMODE. PATIENT ASSISTED. RESPIRATIONS ARE EVEN AND UNLABORED. NO S/S OF DISTRESS. CALL LIGHT WITHIN REACH. WILL CPOC.
[2020-02-11 20:43] VITALS: BP 123/71
[2020-02-12 05:29] LABS: BASOPHILS 1.3 % (0-2); EOSINOPHILS 2.9 % (0-7); HEMATOCRIT 35.5 % (36.0-48.0); HEMOGLOBIN 10.5 g/dL (12-16); IMMATURE GRANULOCYTES 0.1 % (0-5); LYMPHOCYTES 19.5 % (15-50); MCH 24.2 pg (26.0-34.0); MCHC 29.6 g/dL (31.0-37.0); MEAN PLATELET VOLUME 10.1 fL (7.4-10.4); MONOCYTES 10.9 % (2-11); NEUTROPHILS 65.3 % (40-80); PLATELET COUNT 180 10x3/uL (130-400); RBC 4.33 10x6/uL (4.00-5.40); RDW 17.9 % (11.5-14.5); WBC 6.9 10x3/uL (4.8-10.8)
[2020-02-12 05:54] LABS: ALBUMIN 2.8 g/dL (3.4-5.0); ANION GAP 13.8 mmol/L (8-16); BILIRUBIN - TOTAL 0.47 mg/dL (0.2-1.3); CARBON DIOXIDE 22.4 mmol/L (21.0-32.0); MAGNESIUM - SERUM 2.2 mg/dL (1.8-2.4); PHOSPHOROUS 3.6 mg/dL (2.5-4.9); POTASSIUM - SERUM 4.2 mmol/L (3.5-5.1); PROTEIN - SERUM 6.5 g/dL (6.4-8.2)
[2020-02-12 05:58] LABS: CREATININE - SERUM 2.6 mg/dL (0.6-1.3)
--- NOTE | 2020-02-12 08:23 | NUR ---
ADMINISTERED MORNING MEDICATIONS, NO DIFFICULTY SWALLOWING. ADMINSTRED LOVENOX TO LOWER LEFT ABDOMINAL QUADRANT. TOLERATED WELL. PT IS UP RIGHT EATING BREAKFAST. DENIES ANY NEEDS AT THIS TIME.
[2020-02-12 09:42] VITALS: BP 146/87
[2020-02-12 11:21] VITALS: BP 103/73
[2020-02-12] MEDS ORDERED: OMNICEF300 MG PO (14:15)
[2020-02-12] MEDS ORDERED: COREG 3.1253.125 MG PO (14:15)
[2020-02-12] MEDS ORDERED: CARDIZEM CD240 MG PO (14:15)
--- NOTE | 2020-02-12 16:28 | NUR ---
IV AND TELEMETRY DCD. DC PLANS GIVEN. UNDERSTANDING VOICED. ESCORTED TO CAR BY W/C.
--- NOTE | 2020-02-12 17:28 | MORECARE ---
CASE MANAGEMENT DISCHARGE SUMMARY PATIENT: AVTAR AMIN UNIT: [id number] ADM DATE: 02/06/20 AGE: 54 : 61 SEX: F ROOM/BED: D.3917 AUTHOR: BALJEET,DOC PHYSICIAN: REFERRING PHYSICIAN: BROOK SPARKS MD DATE OF SERVICE: 02/12/20 Discharge Plan Patient Name: AVTAR AMIN Facility: [facility]:[place] : 1965 Planned Disposition: Home Anticipated Discharge Date: Discharge Date: 02/12/2020 Expected LOS: Initial Reviewer: [email or web address] Initial Review Date: 02/07/2020 Generated: 02/12/20 6:27 pm DCP- Discharge Planning Updated by [email or web address]: Christo Duckworth on 02/08/20 1:[address] Interdisciplinary Team Meeting Note: Patient was admitted on 02-06-2020 with a diagnosis of WEAKNESS. Interdisciplinary Team Meetings were held . In attendance were: Hoop Driving Machine Operator Helper Dietary Provider Nursing Physical Therapy Post Acute Occupational Therapy Speech Therapy IDT recommendation for Discharge Plan: DISCONTINUED CARDIZEM DRIP, CREATINE ELEVATED, NEPHROLOGY CONSULTED. ROOM AIR. PLAN DISCHARGE HOME WITH DAUGHTER, NO ANTICIPATED NEEDS. Anticipated Discharge date: ALETHEA PISANO DCP- Discharge Planning Updated by [email or web address]: Christo Duckworth on 02/07/20 1:[address] Patient Name: AVTAR AMIN Admission Status: ER Accout number: [id number] Admission Date: 02-06-2020 : 1965 Admission Diagnosis:WEAKNESS Attending: DOLORES Current LOS: 1 Anticipated DC Date: Planned Disposition: Home Primary Insurance: [employer] CHOICE PPO MCR ADVANT Discharge Planning Comments: CM MET WITH PT IN ROOM TO DISCUSS DISCHARGE PLANNING AND NEEDS. PT REPORTS LIVING AT HOME INDEPENDENTLY WITH HER ADULT DAUGHTER. PT HAS STANDARD WALKER AND SHOWER CHAIR WITH NO MEDICAL EQUIPMENT PROVIDEER. PT HAS NO OUTSIDE SERVICES ASSISTING IN THE HOME. CM DISCUSSED AVAILABILITY OF HOME HEALTH, REHAB SERVICES AND MEDICAL EQUIPMENT. PT DENIES DISCHARGE NEEDS, REPORTS HER DAUGHTER WILL PICK HER UP FOR DISCHARGE HOME. PT PLANS TO DISCHARGE HOME WITH FAMILY, HAS NO ANTICIPATED DISCHARGE NEEDS. FAMILY TO TRANSPORT HOME. CM TO FOLLOW AND ASSIST IF NEEDED. Hoop Driving Machine Operator Helper: Christo Duckworth DCPIA - Discharge Planning Initial Assessment Updated by [email or web address]: Christo Duckworth on 02/07/20 2:27 pm * Is the patient Alert and Oriented? Yes * How many steps to enter\exit or inside your home? * PCP DR PACHECO * Pharmacy [facility] [address] * Preadmission Environment Home with Family * ADLs Independent * Equipment Shower Chair Walker * Other Equipment NO MEDICAL EQUIPMENT PROVIDER PREFERENCE * List name and contact numbers for known caregivers / representatives who currently or will assist patient after discharge: SLY LINDSEY, MARISOL LINDSEY DTR, * Verbal permission to speak to the caregivers and representatives has been obtained from the patient. Yes * Community resources currently utilized None * Please name any agencies selected above. NONE * Additional services required to return to the preadmission environment? No * Can the patient safely return to the preadmission environment? Yes * Has this patient been hospitalized within the prior 30 days at any hospital? Yes Last DP export: 02/08/20 1:37 pm Patient Name: AVTAR AMIN Page 99813 at 1728 All edits/amendments must be made on the electronic document DICTATION DATE: 02/12/201726 PASSENGER BRAKEMAN: LAY 02/12/201726 RPT#: [id number] MA DATE:02/12/20 STATUS: DIS IN [facility] [address] [place] [address] END OF REPORT
== END 2020-02-12 16:29 | disposition home or self-care (01) | DRG 280 ==
LOC: D.ER 20:41 → D.M2 23:33
PROVIDERS: Family Medicine; Internal Medicine Nephrology; ADMIT Family Medicine; ATTEND Family Medicine
DX: I21.4 Non-ST elevation (NSTEMI) myocardial infarction (principal); N17.0 Acute kidney failure with tubular necrosis; I50.23 Acute on chronic systolic (congestive) heart failure; I48.0 Paroxysmal atrial fibrillation; I24.8 Other forms of acute ischemic heart disease; I11.0 Hypertensive heart disease with heart failure; E80.6 Other disorders of bilirubin metabolism; E78.5 Hyperlipidemia, unspecified; J44.9 Chronic obstructive pulmonary disease, unspecified; G47.33 Obstructive sleep apnea (adult) (pediatric); E03.9 Hypothyroidism, unspecified; K21.9 Gastro-esophageal reflux disease without esophagitis; Z95.0 Presence of cardiac pacemaker; Z86.73 Personal history of transient ischemic attack (TIA), and cerebral infarction without residual deficits; R82.81 Pyuria; M79.7 Fibromyalgia; I95.9 Hypotension, unspecified

== ENCOUNTER 2020-02-14 00:32 | Inpatient (IN) | payer MEDICARE, MEDICAID ==
[~2020-02-14] VITALS: Ht 162.6 cm; Wt 117.9 kg
[2020-02-14] VITALS (8 sets, daily range): BP systolic 133–172; BP diastolic 84–101; Ht 162.6 cm; Wt 117.9 kg
[~2020-02-14 00:32] MED LIST changes: +CARDIZEM CD240 MG PO; +COREG 3.1253.125 MG PO
[2020-02-14 01:01] LABS: BASOPHILS 0.8 % (0-2); HEMATOCRIT 35.6 % (36.0-48.0); HEMOGLOBIN 10.4 g/dL (12-16); IMMATURE GRANULOCYTES 0.1 % (0-5); LYMPHOCYTES 16.3 % (15-50); MCH 24.2 pg (26.0-34.0); MCHC 29.2 g/dL (31.0-37.0); MEAN PLATELET VOLUME 9.9 fL (7.4-10.4); MONOCYTES 9.9 % (2-11); NEUTROPHILS 68.9 % (40-80); PLATELET COUNT 177 10x3/uL (130-400); RBC 4.29 10x6/uL (4.00-5.40); RDW 18.6 % (11.5-14.5); WBC 7.5 10x3/uL (4.8-10.8)
[2020-02-14 01:11] LABS: CHLORIDE - SERUM 109 mmol/L (98-107); GLUCOSE 90 mg/dL (74-106); POTASSIUM - SERUM 4.3 mmol/L (3.5-5.1); SODIUM 141 mmol/L (136-145)
[2020-02-14 01:13] LABS: APTT 26.3 SECONDS (22.8-39.4); CALC OSMOLALITY 284 mosm/kg (275-300); CARBON DIOXIDE 28.3 mmol/L (21.0-32.0); CREATININE - SERUM 1.9 mg/dL (0.6-1.3); INR 1.37 (0.85-1.17); PROTIME 16.8 SECONDS (11.6-15.0); UREA NITROGEN 23 mg/dL (7-18); eGFR NON AFRICAN AMERICAN 29 mL/min (90-120)
[2020-02-14 01:32] LABS: ALBUMIN 2.8 g/dL (3.4-5.0); ALKALINE PHOSPHATASE 99 U/L (30-120); ALT (SGPT) 38 U/L (10-68); BILIRUBIN - TOTAL 0.41 mg/dL (0.2-1.3); CKMB 1.2 U/L (0.0-3.6); CREATINE KINASE 136 UL (21-215); PRO BNP 2164 pg/mL (0-125); PROTEIN - SERUM 6.6 g/dL (6.4-8.2)
[2020-02-14 01:38] LABS: TROPONIN-I 0.542 ng/mL (0.000-0.060)
--- NOTE | 2020-02-14 01:45 | NUR ---
PT STATES CP 5/10 LEFT SIDED CHEST AND SOB BEFORE 1ST SL NITRO.
--- NOTE | 2020-02-14 01:51 | NUR ---
PT RATES CP 0/10 AT THIS TIME AFTER 1ST SL NITRO. PT REPORTS SOSA. EDP NOTIFIED.
--- NOTE | 2020-02-14 02:35 | NUR ---
BLANKET PROVIDED FOR COMFORT, VSS. DENIES NEEDS AT THIS TIME. WILL CONTINUE TO MONITOR.
--- NOTE | 2020-02-14 04:00 | NUR ---
REC'D PT FROM ER, PT ASSISTED INTO BATHROOM IN PTS ROOM, PT TOLERATED WELL AND ASSISTED INTO CV BED. MONITORS HOOKED UP, ON AND WORKING, PT AWAKE AND ALERT. SEE FLOW SHEET FOR FURTHER DETAILS. WILL CONTINUE TO OBSERVE.
--- NOTE | 2020-02-14 05:50 | NUR ---
PATIENT TRANSFERED TO [facility]. PATIENT IS ALERT AND ORIENTED, RESTING COMFORTABLY IN BED. RESPIRATIONS ARE EVEN AND UNLABORED. PATIENT REMAINS ON 2 L NC FOR COMFORT. NO S/S OF DISTRESS. NO C/O PAIN. CALL LIGHT WITHIN REACH. WILL CPOC.
--- NOTE | 2020-02-14 13:00 | NUR ---
ECHO COMPLETED AT BS.
[2020-02-14 13:01] LABS: T4 THYROXIN - FREE 1.06 ng/dL (0.76-1.46); THYROID STIMULATING HORMONE 49.82 uIU/mL (0.36-3.74)
[2020-02-14 16:50] LABS: BILIRUBIN NEGATIVE (NEGATIVE); GLUCOSE NEGATIVE (NEGATIVE); KETONE NEGATIVE (NEGATIVE); NITRITE NEGATIVE (NEGATIVE); SPECIFIC GRAVITY 1.005 (1.005-1.020); UROBILINOGEN NORMAL (NORMAL)
--- NOTE | 2020-02-14 16:56 | NUR ---
URINE SPECIMEN COLLECTED AND TAKEN TO LAB. WILL MONITOR.
--- NOTE | 2020-02-14 19:16 | NUR ---
RECEIVED BEDSIDE REPORT. PATIENT IS ALERT AND ORIENTED, RESTING COMFORTABLY IN BED. RESPIRATIONS ARE EVEN AND UNLABORED. NO S/S OF DISTRESS. NO C/O PAIN. CALL LIGHT WITHIN REACH. WILL CPOC.
[2020-02-15 04:00] VITALS: BP 174/89
[2020-02-15 07:26] LABS: HEMATOCRIT 35.6 % (36.0-48.0); HEMOGLOBIN 10.4 g/dL (12-16); IMMATURE GRANULOCYTES 0.1 % (0-5); LYMPHOCYTES 18.2 % (15-50); MCH 24.2 pg (26.0-34.0); MCHC 29.2 g/dL (31.0-37.0); MCV 82.8 fL (80.0-100.0); MEAN PLATELET VOLUME 9.8 fL (7.4-10.4); MONOCYTES 10.5 % (2-11); NEUTROPHILS 65.2 % (40-80); PLATELET COUNT 174 10x3/uL (130-400); RDW 17.6 % (11.5-14.5); WBC 7.3 10x3/uL (4.8-10.8)
[2020-02-15 07:40] LABS: ANION GAP 10.9 mmol/L (8-16); CALCIUM 8.6 mg/dL (8.5-10.1); CARBON DIOXIDE 29.4 mmol/L (21.0-32.0); CREATININE - SERUM 1.6 mg/dL (0.6-1.3); POTASSIUM - SERUM 4.3 mmol/L (3.5-5.1)
--- NOTE | 2020-02-15 08:58 | EC ---
PATIENT:AVTAR AMIN DATE OF SERVICE: 02/14/20 SEX: F MEDICAL RECORD: [id number] DATE OF : [birth year] LOCATION:D.M2 D.212 AGE OF PATIENT: 54 ADMISSION DATE: 02/14/20 REFERRING PHYSICIAN: INTERPRETING PHYSICIAN: BROOK MENJIVAR MD ECHOCARDIOGRAM REPORT ECHO CHARGES 4 ECHO COMPLETE Date: 02/14/20 CLINICAL DIAGNOSIS: CHF H/O MVR ECHOCARDIOGRAPHIC MEASUREMENTS (adult normal given) AC root (d.<3.7cm) 3.1 cm LV Septum d (<1.2 cm> 1.6 cm Valve Excursion 1.6 cm LV Septum (systole) 1.9 cm Left Atria (s.<4.0cm> 4.7 cm LVPW d(<1.2cm) 1.3 cm RV (d.<2.3cm) 4.0 cm LVPW (sytole) 1.9 cm LV diastole(<5.6CM) 6.8 cm MV E-F(>70mm/sec) cm LV systole 3.7 cm LVOT Diameter 1.7 cm MV exc.(>10mm) cm Est.ejection fraction (50-75%) % DOPPLER: LVIT cm/sec A cm/sec E 187 cm/sec LA cm/sec RVSP 48.0 mmHg LVOT 83.0 cm/sec AOP1/2T m/s Asc. Ao 146 cm/sec RVOT 81.0 cm/sec RA cm/sec PA 64.0 cm/sec AV Gradient Peak 8.5 mmHg AV Mean 5.1 mmHg AV Area 1.3 cm MV Gradient Peak 20.0 mmHg MV Mean 7.5 mmHg MV Area cm COMMENTS: Executive Compensation Analyst: Bhumika MEDINAOE Performance Improvement Consultant: 3 Dr. Mata TAPE# PACS Pericardial Effusion N DATE OF SERVICE: Adequate 2D, color flow imaging, spectral Doppler, and M-Mode. No LVH. LV internal dimension is dilated. LV is globally hypokinetic with reduced EF, estimated EF 20% to 25%. Aortic valve is tricuspid. No evidence of stenosis by Doppler interrogation. Left atrium is dilated. 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 Right-sided chambers appear dilated as well. Severe TR. RV systolic pressure is estimated greater than or equal to 48 mmHg via the continuity equation. ECHOCARDIOGRAM REPORT [id number] AVTAR AMIN TRANSINT:[id number] Voice Confirmation ID: [id number] DOCUMENT ID: [id number] BROOK MENJIVAR MD at 0858 CC: [id number] DICTATION DATE: 02/14/20 1533 REDEVELOPMENT MANAGER: 02/14/20 1559 ADM IN [place] [place] [id number] [place] [address]
[2020-02-15 10:08] VITALS: BP 157/64
[2020-02-15] MEDS ORDERED: XARELTO20 MG PO (14:03)
[2020-02-15] MEDS ORDERED: AMIODARONE HCL200 MG PO (14:04)
[2020-02-15] MEDS ORDERED: ALDACTONE25 MG PO (14:04)
[2020-02-15] MEDS ORDERED: COREG6.25 MG PO (14:05)
--- NOTE | 2020-02-15 17:25 | MORECARE ---
CASE MANAGEMENT DISCHARGE SUMMARY PATIENT: AVTAR AMIN UNIT: [id number] ADM DATE: 02/14/20 AGE: 54 : 61 SEX: F ROOM/BED: D.5787 AUTHOR: BALJEET,DOC PHYSICIAN: REFERRING PHYSICIAN: VLAD VELASCO MD DATE OF SERVICE: 02/15/20 Discharge Plan Patient Name: AVTAR AMIN Facility: [facility]:[place] : 1965 Planned Disposition: Home Anticipated Discharge Date: 02/15/20 Discharge Date: Expected LOS: 1 Initial Reviewer: [email or web address] Initial Review Date: 02/15/2020 Generated: 02/15/20 6:24 pm Comments DCP- Discharge Planning Updated by [id number]: Christo Duckworth on 02/15/20 4:[address] Patient Name: AVTAR AMIN Admission Status: ER Accout number: [id number] Admission Date: 02-14-2020 : 1965 Admission Diagnosis: Attending: VLAD VELASCO Current LOS: 1 Anticipated DC Date: 02-15-2020 Planned Disposition: Home Primary Insurance: [employer] CHOICE PPO MCR ADVANT Discharge Planning Comments: CM MET WITH PT IN ROOM TO DISCUSS DISCHARGE PLANNING AND NEEDS. PT REPORTS LIVING AT HOME INDEPENDENTLY WITH HER ADULT DAUGHTER. PT HAS SHOWER CHAIR AND WALKER WITH NO MEDICAL EQUIPMENT PROVIDER PREFERENCE. PT HAS NO OUTSIDE SERVICES ASSISTING IN THE HOME. CM DISCUSSED AVAILABILITY OF HOME HEALTH, REHAB SERVICES AND MEDICAL EQUIPMENT. PT DENIES DISCHARGE NEEDS, REPORTS HER DAUGHTER WILL PICK HER UP FOR DISCHARGE HOME. Electronic Data Interchange Specialist: Christo Duckworth DCPIA - Discharge Planning Initial Assessment Updated by [email or web address]: Christo Duckworth on 02/15/20 5:18 pm * Is the patient Alert and Oriented? Yes * How many steps to enter\exit or inside your home? NONE * PCP DR. PACHECO * Pharmacy [facility] [address] * Preadmission Environment Home with Family * ADLs Independent * Equipment Shower Chair Walker * Other Equipment NO MEDICAL EQUIPMENT PROVIDER PREFERENCE * List name and contact numbers for known caregivers / representatives who currently or will assist patient after discharge: RAYMOND LINDSEY DTR, * Verbal permission to speak to the caregivers and representatives has been obtained from the patient. N/A * Community resources currently utilized None * Please name any agencies selected above. NONE * Additional services required to return to the preadmission environment? No * Can the patient safely return to the preadmission environment? Yes * Has this patient been hospitalized within the prior 30 days at any hospital? Yes Patient Name: AVTAR AMIN Page 42701 at 1725 All edits/amendments must be made on the electronic document DICTATION DATE: 02/15/201723 WIRE TEMPERER: LAY 02/15/201723 RPT#: [id number] DC DATE: STATUS: ADM IN [facility] [address] [place] [address] END OF REPORT
--- NOTE | 2020-02-15 18:10 | NUR ---
REVIEWED DISCHARGE INSTRUCTIONS WITH PT STATES UNDERSTANDING COPY GIVEN DCD SALINE LOCK TO RFA WITH IV CATHETER INTCT SITE FREE OF REDNESS OR EDEMA PT DISCHARGED HOME IN STABLE CONDITION WITH ALL PERSONAL BELONGINGS LEFT UNIT VIA W/C
== END 2020-02-15 18:10 | disposition home or self-care (01) | DRG 280 ==
LOC: D.ER 00:32 → D.M2 02:07 → D.CVICU 02:07 → D.M2 05:49
PROVIDERS: Emergency Medicine; ADMIT Internal Medicine Nephrology; ATTEND Internal Medicine Nephrology
DX: I48.20 Chronic atrial fibrillation, unspecified (principal); I21.4 Non-ST elevation (NSTEMI) myocardial infarction; I50.23 Acute on chronic systolic (congestive) heart failure; N17.9 Acute kidney failure, unspecified; Z68.41 Body mass index [BMI] 40.0-44.9, adult; I11.0 Hypertensive heart disease with heart failure; I25.5 Ischemic cardiomyopathy; D50.9 Iron deficiency anemia, unspecified; I25.10 Atherosclerotic heart disease of native coronary artery without angina pectoris; J44.9 Chronic obstructive pulmonary disease, unspecified; E03.9 Hypothyroidism, unspecified; K21.9 Gastro-esophageal reflux disease without esophagitis; E78.5 Hyperlipidemia, unspecified; E66.01 Morbid (severe) obesity due to excess calories; Z79.01 Long term (current) use of anticoagulants; Z95.0 Presence of cardiac pacemaker; Z86.73 Personal history of transient ischemic attack (TIA), and cerebral infarction without residual deficits

== ENCOUNTER 2020-02-25 11:36 | Inpatient (IN) | payer MEDICARE, MEDICAID ==
[~2020-02-25] VITALS: Ht 162.6 cm; Wt 103.0 kg
--- NOTE | ~2020-02-25 | HEMODYNAMI ---
PATIENT:AVTAR AMIN MEDICAL RECORD: [id number] : 61 LOCATION:[facility] [id number] ADMISSION DATE: 02/26/20 Generatedon:02/26/202014:34 Patient name: AVTAR AMIN Patient #: [id number] SSN: : 1965 Date of study: 02/26/2020 Page: Of Hemodynamic Procedure Report Patient Data Patient Demographics Procedure consent was obtained First Name: AVTAR Gender: Female Last Name: BRENNAN : 1965 Middle Initial: EDITH Age: 54 year(s) Patient #: [id number] Race: Black Additional ID: [id number] Contact details Address: [address] [place] [address] State: [place] City: [facility] [place] Zip code: [address] Past Medical History Allergies Allergen Reaction Date Comments Reported Other allergy 04/08/2016 Percocett, Darvocett, Oxycodone Iodine 04/08/2016 Other allergy 05/01/2019 IODINATE CONTRAST, OXYCODONE, PROPOXYPHENE Other allergy 02/26/2020 IODINATED CONTRAST, OXYCODONE Admission Admission Data Admission Date: 02/26/2020 Admission Time: 13:33 Room #: D.2121 Height (in.): 64 BSA: 2.06 (m2) Height (cm.): 162.56 BMI: 38.98 (kg/m2) Weight (lbs.): 227.08 Weight (kg.): 103 Lab Results Lab Result Date: 02/26/2020 Lab Result Time: 0:00 Biochemistry Name Units Result Min Max BUN mg/dl 38 --(----)-* 7 18 Creatinine mg/dl 2.3 --(----)-* 0.6 1.3 eGFR ml/min 28 *-(----)-- 90 120 AM CBC Name Units Result Min Max Hematocrit % 36.8 *-(----)-- 42 54 Hemoglobin g/dl 10.8 *-(----)-- 13.5 17.5 Procedure Procedure Types Cath Procedure Diagnostic Procedure JESSICA Procedure Description Procedure Date Procedure Date: 02/26/2020 Procedure Start Time: 14:08 Procedure End Time: 14:33 Procedure Staff Name Function Pb Castro MD Performing Physician Kerri Martinez RT Monitor Kamlesh Heath RN Nurse Kyle Boswell Heel Finisher Agustín Dickinson Jr, CRNA Additional personnel Procedure Data Cath Procedure Fluoroscopy Diagnostic fluoroscopy Total fluoroscopy Time: 0 time: 0 min min Diagnostic fluoroscopy Total fluoroscopy dose: 0 dose: 0 mGy mGy Estimated blood loss: 0 ml Procedure Complications No complications Hemodynamics Rest BSA: 2.06 (m2) HGB: 10.8 (g/dl) O2 Consumption: Estimated: 227.69 (ml/min) O2 Consumption indexed: Estimated:110.53 (ml/min/m) Heart Rate: 109 (bpm) Snapshots Pre Cath Intra NCS Post Cath Vital Signs Time Heart Resp SPO2 etCO2 NIBP (mmHg) Rhythm Pain Sedation Rate (ipm) (%) (mmHg) Status Level (bpm) 13:21:51 108 25 37.4 Measuring NSR 0 (11) 10(A) , No pain 13:23:15 108 25 54 38.1 Time NSR 0 (11) 10(A) Exceeded , No pain 13:28:06 109 22 100 38.2 143/99(127) NSR 0 (11) 10(A) , No pain 13:32:24 109 14 99 38.2 151/102(137) NSR 0 (11) 10(A) , No pain 13:36:46 109 15 99 30.7 157/100(122) NSR 0 (11) 10(A) , No pain 13:41:04 108 32 98 32.2 157/95(122) NSR 0 (11) 10(A) , No pain 13:45:29 107 19 98 35.9 157/107(121) NSR 0 (11) 10(A) , No pain 13:49:53 108 13 98 36.7 159/106(125) NSR 0 (11) 10(A) , No pain 13:54:15 108 13 98 35.2 164/104(124) NSR 0 (11) 10(A) , No pain 13:58:37 107 13 99 34.4 153/104(131) NSR 0 (11) 10(A) , No pain 14:03:01 107 13 100 35.2 159/100(136) NSR 0 (11) 10(A) , No pain 14:07:23 107 13 100 29.2 151/97(120) NSR 0 (11) 10(A) , No pain 14:11:46 104 20 100 0 125/83(104) NSR 0 (11) 10(A) , No pain 14:15:58 97 46 82 0 99/79(92) NSR 0 (11) 10(A) , No pain 14:20:05 98 17 95 35.2 98/74(91) NSR 0 (11) 10(A) , No pain 14:24:03 102 19 98 33.7 108/73(87) NSR 0 (11) 10(A) , No pain 14:28:17 102 20 92 32.2 96/71(81) NSR 0 (11) 10(A) , No pain 14:32:25 103 22 90 29.2 108/74(91) NSR 0 (11) 10(A) , No pain Procedure Log Time Note 12:43:45 Informed consent obtained and on chart 12:45:06 Procedure Status Cardioversion, JESSICA. 12:45:08 Time tracking: Regular hours (M-F 7:00 - 5:00) 12:45:13 Plan of Care:Hemodynamics will remain stable., Cardiac rhythm will remain stable., Comfort level will be maintained., Respiratory function will remain adequate., Patient/ family verbilizes understanding of procedure., Procedure tolerated without complication., Recovers from procedure without complications.. 12:45:54 H&P Date Dictated: 02/25/2020 ER History on chart.. 13:05:51 Kamlesh Heath RN sent for patient. Start room use. 13:16:08 Patient arrived from Med II to CCL 1. Patient remains on bed/stretcher for procedure. 13:16:09 Warm blankets applied, and anastasia hugger turned on for patient comfort. 13:16:10 Correct patient and procedure confirmed by team. 13:16:11 ECG and BP/O2 sat monitors applied to patient. 13:20:02 Vital chart was started 13:21:20 Baseline sample Acquired. 13:21:29 Rhythm: atrial fibrillation 13:22:16 Full Disclosure recording started 13:22:17 Pre-procedure instructions explained to patient. 13:22:17 Pre-op teaching completed and patient verbalized understanding. 13:22:19 Family unavailable. 13:23:33 Patient NPO since Midnight. 13:24:01 Patient allergic to Other allergyIODINATED CONTRAST, OXYCODONE 13:24:04 Is patient on blood thinner?Yes 13:24:07 ACC The patient was administered the following blood thiners within the last 24 hours: Xarelto 13:24:14 Patient not . Patient is over age 55. 13:24:16 Previous problem with sedation/anesthesia? No ? 13:24:18 Snore? Yes 13:24:19 Sleep apnea? Yes 13:24:20 Deviated septum? No 13:24:21 Opens mouth fully? Yes 13:24:23 Sticks out tongue? Yes 13:24:25 Airway obstruction? No ? 13:24:27 Dentures? No ? 13:24:40 IV patent on arrival in right forearm with 0.9% NaCl at [facility]. 13:25:13 Lab Result : BUN 38 mg/dl 13:25:13 Lab Result : Creatinine 2.3 mg/dl 13:25:13 Lab Result : eGFR AM 28 ml/min 13:25:13 Lab Result : Hemoglobin 10.8 g/dl 13:25:13 Lab Result : Hematocrit 36.8 % 13:25:17 Lab results completed and on chart. 13:25:26 Alarms reviewed by Payam Zaldivar 13:25:39 Patient Height : 64 inches 13:25:43 Patient Weight : 227.08 lbs 13:35:17 Agustín Dickinson Jr, CRNA present and monitoring patient for TIVA. 14:07:54 --------ALL STOP TIME OUT------ 14:07:55 Final Timeout: patient, procedure, and site verified with staff and physician. All members of the team are in agreement. 14:08:00 Physical assessment completed. ASA score P 2 - A patient with mild systemic disease as per Pb Castro MD. 14:08:05 Sedation plan: TIVA Medication:Propofol 14:08:23 Kyle Boswell Guest Services Director present for JESSICA. 14:08:44 Procedure started. 14:10:34 JESSICA started. 14:18:41 JESSICA completed. 14:19:09 Procedure ended.(Physican Out) 14:19:21 Fluoroscopy time 00.00 minutes. 14:20:06 Fluoroscopy dose: 0 mGy 14:20:06 Flurop Dose total: 0 14:20:08 Dose Area Product 0 mGy/cm. 14:20:14 Post-procedure physical assessment completed. ASA score P 2 - A patient with mild systemic disease as per Pb Castro MD. 14:20:17 Post procedure rhythm: unchanged. 14:20:21 JESSICA Findings: JESSICA w/ cardioversion: left atrial clot noted (will not proceed with cardioversion) 14:20:29 Estimated blood loss: 0 ml 14:20:30 Post procedure instruction explained to patient.Patient verbalizes understanding. 14:20:31 Patient needs reinforcement of post procedure teaching. 14:20:36 Procedure type changed to Cath procedure, Diagnostic procedure, JESSICA 14:21:21 Procedure and supply charges have been captured, reviewed, submitted and are correct. 14:21:25 Procedure Complication : No complications 14:21:29 Operative report dictated upon procedure completion. 14:21:29 See physician's report for complete and final results. 14:22:07 Report given to Med II. 14:22:09 Patient transfered to Med II with Bed. 14:33:50 Vital chart was stopped 14:33:51 Procedure ended. 14:33:51 Full Disclosure recording stopped 14:33:57 End room use (Document Last) Signature Audit [place] Stage Time Signature Unsigned Intra-Procedure 02/26/2020 Kerri Martinez 2:34:08 PM RT(R) Intra-Procedure 02/26/2020 Kamlesh Heath 2:34:31 PM RN Intra-Procedure 02/26/2020 Pb Palumbo 2:34:54 PM Filipe DICKINSON [facility] [address] [facility] [place] [address]
[~2020-02-25 11:36] MED LIST changes: +AMIODARONE HCL200 MG PO; +COREG6.25 MG PO; +XARELTO20 MG PO
[2020-02-25 12:05] LABS: BASOPHILS 1.2 % (0-2); EOSINOPHILS 2.3 % (0-7); HEMATOCRIT 39.8 % (36.0-48.0); HEMOGLOBIN 11.8 g/dL (12-16); IMMATURE GRANULOCYTES 0.1 % (0-5); LYMPHOCYTES 17.3 % (15-50); MCH 24.2 pg (26.0-34.0); MCHC 29.6 g/dL (31.0-37.0); MCV 81.7 fL (80.0-100.0); MEAN PLATELET VOLUME 10.4 fL (7.4-10.4); MONOCYTES 7.9 % (2-11); NEUTROPHILS 71.2 % (40-80); PLATELET COUNT 160 10x3/uL (130-400); RBC 4.87 10x6/uL (4.00-5.40); RDW 17.1 % (11.5-14.5); WBC 7.4 10x3/uL (4.8-10.8)
[2020-02-25 12:13] LABS: ANION GAP 12.2 mmol/L (8-16); CALCIUM 9.4 mg/dL (8.5-10.1); CARBON DIOXIDE 26.4 mmol/L (21.0-32.0); CREATININE - SERUM 2.1 mg/dL (0.6-1.3); POTASSIUM - SERUM 4.6 mmol/L (3.5-5.1)
[2020-02-25 12:34] LABS: ALBUMIN 3.4 g/dL (3.4-5.0); BILIRUBIN - TOTAL 1.22 mg/dL (0.2-1.3); PROTEIN - SERUM 7.6 g/dL (6.4-8.2)
[2020-02-25 12:35] LABS: TROPONIN-I 0.693 ng/mL (0.000-0.060)
[2020-02-25 13:33] LABS: BILIRUBIN NEGATIVE (NEGATIVE); GLUCOSE NEGATIVE (NEGATIVE); KETONE NEGATIVE (NEGATIVE); NITRITE NEGATIVE (NEGATIVE); SPECIFIC GRAVITY 1.025 (1.005-1.020); UROBILINOGEN NORMAL (NORMAL)
[2020-02-25 13:36] LABS: BACTERIA MODERATE /hpf (NEGATIVE); EPITHELIAL CELLS 0-5 /hpf (0-5); HYALINE CAST 0-5 /lpf (NONE SEEN); RED CELLS - URINE 0-5 /hpf (0-5); WHITE CELLS - URINE 0-5 /hpf (NEGATIVE)
[2020-02-25 15:51] LABS: MAGNESIUM - SERUM 1.9 mg/dL (1.8-2.4)
[2020-02-25 15:54] LABS: THYROID STIMULATING HORMONE 65.89 uIU/mL (0.36-3.74)
--- NOTE | 2020-02-25 16:30 | NUR ---
BEKAH COMPLETE 1630PM.
--- NOTE | 2020-02-25 17:37 | NUR ---
ARRIVE TO ROOM VIA STRETCHER FROM ER. ALERT AND ORIENTED X4. REFUSE SCDs. TAKES XARELTO. 111 A-FLUTTER ON TELEMETRY. CONSENTS FOR CARDIOVERSION SIGNED ON CHART. CONTINUE ADMISSION PROCESS AND SAFETY PRECAUTIONS.
[2020-02-25 17:45] VITALS: BP 151/404; BMI 39.0
[2020-02-25 18:27] VITALS: BP 124/95
[2020-02-25 19:14] LABS: CKMB 1.8 U/L (0.0-3.6); CREATINE KINASE 116 UL (21-215)
--- NOTE | 2020-02-25 19:28 | NUR ---
RECEIVED BEDSIDE REPORT. PATIENT IS ALERT AND ORIENTED, RESTING COMFORTABLY IN BED. RESPIRATION ARE EVEN AND UNLABORED. NO S/S OF DISTRESS. NO C/O PAIN. NEEDS MET. CALL LIGHT WITHIN REACH. WILL CPOC.
[2020-02-25 22:09] VITALS: BP 136/94
[2020-02-26 00:54] VITALS: BP 141/100
--- NOTE | 2020-02-26 01:03 | NUR ---
IV IN RIGHT HAND INFILTRATED. NEW IV RIGHT FOREARM.
[2020-02-26 01:35] LABS: CKMB 1.9 U/L (0.0-3.6); CREATINE KINASE 112 UL (21-215)
[2020-02-26 01:36] LABS: TROPONIN-I 0.691 ng/mL (0.000-0.060)
[2020-02-26 04:32] LABS: BASOPHILS 1.5 % (0-2); EOSINOPHILS 2.8 % (0-7); HEMATOCRIT 36.8 % (36.0-48.0); HEMOGLOBIN 10.8 g/dL (12-16); IMMATURE GRANULOCYTES 0.2 % (0-5); MCH 24.2 pg (26.0-34.0); MCHC 29.3 g/dL (31.0-37.0); MCV 82.5 fL (80.0-100.0); MEAN PLATELET VOLUME 11.2 fL (7.4-10.4); MONOCYTES 9.3 % (2-11); NEUTROPHILS 60.2 % (40-80); PLATELET COUNT 155 10x3/uL (130-400); RBC 4.46 10x6/uL (4.00-5.40); RDW 17.4 % (11.5-14.5); WBC 6.1 10x3/uL (4.8-10.8)
[2020-02-26 04:42] LABS: ANION GAP 14.4 mmol/L (8-16); CALCIUM 8.5 mg/dL (8.5-10.1); CARBON DIOXIDE 23.7 mmol/L (21.0-32.0); CREATININE - SERUM 2.3 mg/dL (0.6-1.3); POTASSIUM - SERUM 5.1 mmol/L (3.5-5.1)
[2020-02-26 05:05] VITALS: BP 131/74
[2020-02-26 09:31] VITALS: BP 112/73
[2020-02-26 12:23] VITALS: BP 149/86
--- NOTE | 2020-02-26 13:09 | NUR ---
CONSENTS SIGNED. LEAVING FOR FIRE CAPTAIN BY BED.
--- NOTE | 2020-02-26 15:12 | NUR ---
BACK FROM JESSICA. VS WNL. WILL MONITOR.
[2020-02-26 19:40] VITALS: BP 140/90
[2020-02-27] VITALS: BP 137/98
[2020-02-27 04:00] VITALS: BP 146/91
[2020-02-27 05:31] LABS: BASOPHILS 1.5 % (0-2); EOSINOPHILS 2.5 % (0-7); HEMATOCRIT 36.3 % (36.0-48.0); HEMOGLOBIN 10.6 g/dL (12-16); IMMATURE GRANULOCYTES 0.3 % (0-5); LYMPHOCYTES 15.7 % (15-50); MCH 24.3 pg (26.0-34.0); MCHC 29.2 g/dL (31.0-37.0); MCV 83.1 fL (80.0-100.0); MEAN PLATELET VOLUME 11.3 fL (7.4-10.4); MONOCYTES 8.6 % (2-11); NEUTROPHILS 71.4 % (40-80); PLATELET COUNT 178 10x3/uL (130-400); RBC 4.37 10x6/uL (4.00-5.40); RDW 17.6 % (11.5-14.5); WBC 7.2 10x3/uL (4.8-10.8)
[2020-02-27 06:00] LABS: ANION GAP 14.4 mmol/L (8-16); CALCIUM 8.4 mg/dL (8.5-10.1); CARBON DIOXIDE 24.7 mmol/L (21.0-32.0); CREATININE - SERUM 2.5 mg/dL (0.6-1.3); POTASSIUM - SERUM 5.1 mmol/L (3.5-5.1)
[2020-02-27 09:11] VITALS: BP 139/83
[2020-02-27 10:15] VITALS: Ht 162.6 cm; Wt 103.0 kg
[2020-02-27 17:12] VITALS: BP 137/57
--- NOTE | 2020-02-27 19:04 | NUR ---
REPORT RECIEVED AND ROUNDING COMPLETE. PATIENT LAYING ON BED IN SUPINE POSITION. PATIENT HAS NO PIV AND DAY NURSE STATES DR. QUINTANA AND CHANGED MEDS TO PO. PATIENT STATES SOB BUT THAT IS NOTHING NEW FOR HER, STATES ITS A LITTLE BETTER. PATIENT SHOWS NO S/SX OF DISTRESS AT THIS TIME. STATES SHE HAS NO NEEDS AND ASKED ME TO AUTOMOBILE LIGHTS ASSEMBLER HER LIGHTS. CALL LIGHT WITHIN REACH AND BED IN LOWEST LOCKED POSITION.
[2020-02-27 20:00] VITALS: BP 134/100
--- NOTE | 2020-02-27 21:19 | NUR ---
PATIENT COMPLAINS OF ITCHING AND IRRATION IN GROIN FOLDS TALKED WITH PRINCE ANDERSON AND HE GAVE NEW ORDERS, WILL FOLLOW ORDERS.
[2020-02-27 23:44] VITALS: BP 131/89
[2020-02-28 04:00] VITALS: BP 149/106
[2020-02-28 05:59] LABS: BASOPHILS 0.8 % (0-2); EOSINOPHILS 2.4 % (0-7); HEMATOCRIT 35.6 % (36.0-48.0); HEMOGLOBIN 10.7 g/dL (12-16); IMMATURE GRANULOCYTES 0.2 % (0-5); LYMPHOCYTES 18.5 % (15-50); MCH 24.7 pg (26.0-34.0); MCHC 30.1 g/dL (31.0-37.0); MEAN PLATELET VOLUME 10.6 fL (7.4-10.4); MONOCYTES 10.5 % (2-11); NEUTROPHILS 67.6 % (40-80); PLATELET COUNT 185 10x3/uL (130-400); RBC 4.34 10x6/uL (4.00-5.40); RDW 17.5 % (11.5-14.5); WBC 6.3 10x3/uL (4.8-10.8)
[2020-02-28 06:19] LABS: ANION GAP 15.8 mmol/L (8-16); CALCIUM 8.5 mg/dL (8.5-10.1); CARBON DIOXIDE 23.8 mmol/L (21.0-32.0); CREATININE - SERUM 2.4 mg/dL (0.6-1.3); POTASSIUM - SERUM 4.6 mmol/L (3.5-5.1)
--- NOTE | 2020-02-28 07:10 | NUR ---
REPORT RECEIVED FROM VENDING MACHINE ATTENDANT AND PATIENT CARE ASSUMED. PATIENT LAYING IN BED ON BACK AWAKE ALERT AND ORIENTED X 4. PATIENT IS STABLE AND VSS. PATIENT DENIES ANY NEEDS OR PAIN. WILL CONTINUE WITH PLAN OF CARE. SR UP X 2 BED IN LOW POSITION AND CALL LIGHT IN REACH.
[2020-02-28 08:45] VITALS: BP 150/97
--- NOTE | 2020-02-28 11:10 | NUR ---
PATIENT UP TO SHOWER AND COMPLETE LINEN CHANGE. PATIENT TO BS CHAIR FOR LUNCH. CALL LIGHT IN REACH.
--- NOTE | 2020-02-28 13:00 | NUR ---
PATIENT BCK TO BED WITH ASSISTANCE. PATIENT IS STABLE AND VSS. PATIENT DENIES ANY NEEDS OR PAIN. WILL CONTINUE TO MONITOR. SR UP X 2 BED IN LOW POSITION AND CALL LIGHT IN REACH.
--- NOTE | 2020-02-28 13:35 | TEE ---
PATIENT:AVTAR AMIN MEDICAL RECORD: [id number] LOCATION:D. D.212 AGE OF PATIENT: 54 ADMISSION DATE: 02/26/20 SEX: F REFERRING PHYSICIAN: INTERPRETING PHYSICIAN: BROOK MENJIVAR MD TRANSESOPHAGEAL ECHOCARDIOGRAM Date: 02/26/20 JESSICA CHARGE Y INDICATIONS: PRE CARDIOVERSION R/O LA APPENDAGE CLOT PREMEDICATIONS: PATIENT'S RESPONSE PROCEDURE DOPPLER MEASUREMENTS: LVIT LA PA RA LVOT RVOT Asc. Ao AV Gradient Peak AV Mean AV Area MV Gradient Peak MV Mean MV Area INTERPRETATION: (PROBE DEPTH 30 AND ZERO DEGREE) Doppler: 2-D: COLOR FLOW DOPPLER NORMAL SALINE STUDY: MISCELLANOUS: DIAGNOSIS: PLAN: Hop Worker:3 Dr. Mata Rag Inspector: Bhumika LICEA COMMENTS: DATE OF SERVICE: 02/26/2020 TRANSESOPHAGEAL NOTE DESCRIPTION OF PROCEDURE: After general sedation via TIVA via anesthesia, transesophageal Omniplane probe was placed in the esophagus and proximal stomach without difficulty. FINDINGS: LVH is present. LV internal dimensions appear normal. LV is TRANSESOPHAGEAL ECHOCARDIOGRAM REPORT [id number] AVTAR AMIN LY globally hypokinetic with more marked septal hypokinesis. Overall, LV function reduced 20% to 25%. Prosthetic tissue mitral valve is noted with good valve excursion and no significant MR. Left atrium appears dilated. Left atrial appendage is well visualized and this does appear to show thrombus in several different views. Aortic valve is tricuspid. No significant stenosis. Right side chambers are dilated. Her pacemaker lead noted in the RV apex in good position. There is a probable severe TR by color flow imaging. At the end of procedure, probe was turned posteriorly. This showed no atherosclerotic debris in the descending aorta. TRANSINT:[id number] Voice Confirmation ID: [id number] DOCUMENT ID: [id number] at 1335 CC: [id number] DICTATION DATE: 02/26/20 1440 COLLECTIONS REPRESENTATIVE: 02/26/[address] [facility] [address] [place] [address]
--- NOTE | 2020-02-28 13:51 | MORECARE ---
CASE MANAGEMENT DISCHARGE SUMMARY PATIENT: AVTAR AMIN UNIT: [id number] ADM DATE: 02/26/20 AGE: 54 : 61 SEX: F ROOM/BED: D.[facility] AUTHOR: KADE DELONG PHYSICIAN: REFERRING PHYSICIAN: VLAD VELASCO MD DATE OF SERVICE: 02/28/20 Discharge Plan Patient Name: AVTAR AMIN Facility: [facility]:[place] : 1965 Planned Disposition: Home Anticipated Discharge Date: Discharge Date: Expected LOS: Initial Reviewer: [email or web address] Initial Review Date: 02/28/2020 Generated: 02/28/20 2:51 pm Patient Name: AVTAR AMIN Page 16751 at 1351 All edits/amendments must be made on the electronic document DICTATION DATE: 02/28/20 1351 SILK SCREEN ETCHER: LAY 02/28/20 1351 RPT#: [id number] DC DATE: STATUS: ADM IN [facility] [address] [place] [address] END OF REPORT
--- NOTE | 2020-02-28 13:59 | MORECARE ---
CASE MANAGEMENT DISCHARGE SUMMARY PATIENT: AVTAR AMIN UNIT: [id number] ADM DATE: 02/26/20 AGE: 54 : 61 SEX: F ROOM/BED: D.4190 AUTHOR: BALJEET,DOC PHYSICIAN: REFERRING PHYSICIAN: VLAD VELASCO MD DATE OF SERVICE: 02/28/20 Discharge Plan Patient Name: AVTAR AMIN Facility: [facility]:[place] : 1965 Planned Disposition: Home Anticipated Discharge Date: Discharge Date: Expected LOS: Initial Reviewer: [email or web address] Initial Review Date: 02/28/2020 Generated: 02/28/20 2:58 pm Comments DCP- Discharge Planning Updated by [email or web address]: Milagro Childers on 02/28/20 12:[address] Patient Name: AVTAR AMIN Admission Status: ER Accout number: [id number] Admission Date: 02-26-2020 : 1965 Admission Diagnosis: Attending: VLAD VELASCO Current LOS: 2 Anticipated DC Date: Planned Disposition: Home Primary Insurance: [employer] CHOICE PPO MCR ADVANT Discharge Planning Comments: CM met with patient to complete initial dc planning assessment. CM educated patient on the CM role and verbal consent given by patient to complete assessment. Patient lives at home with an adult daughter. At discharge patient plans to return and feels this is a safe discharge. CM discussed availability of home health, rehab services, and medical equipment. Patient denied known discharge needs at this time. CM will continue to follow and will assist as needed with dc plans/needs. Sap Senior Developer: Milagro Childers DCPIA - Discharge Planning Initial Assessment Updated by [email or web address]: Milagro Childers on 02/28/20 1:54 pm * Is the patient Alert and Oriented? Yes * How many steps to enter\exit or inside your home? 0/0 * PCP Dr. Calles * Pharmacy [facility] on [address] * Preadmission Environment Home with Family * ADLs Partial Dependent * Partial ADLs (Assistance needed) Ambulation * Equipment Shower Chair Walker * List name and contact numbers for known caregivers / representatives who currently or will assist patient after discharge: Felice [facility] - [phone] * Verbal permission to speak to the caregivers and representatives has been obtained from the patient. Yes * Community resources currently utilized None * Additional services required to return to the preadmission environment? No * Can the patient safely return to the preadmission environment? Yes * Has this patient been hospitalized within the prior 30 days at any hospital? Yes Last DP export: 02/28/20 12:51 p Patient Name: AVTAR AMIN Page 21307 at 1359 All edits/amendments must be made on the electronic document DICTATION DATE: 02/28/20 1358 TEAROOM HOSTESS: DM 02/28/20 1358 RPT#: [id number] DC DATE: STATUS: ADM IN [facility] [address] [place] [address] END OF REPORT
[2020-02-28 14:15] VITALS: BP 137/77
[2020-02-28 18:16] VITALS: BP 143/72
[2020-02-28 20:00] VITALS: BP 135/90
[2020-02-29] VITALS: BP 122/87
--- NOTE | 2020-02-29 02:57 | NUR ---
I have reviewed this patient and I concur with the Shift Assessment completed by the Licensed Practical Nurse today this shift.
[2020-02-29 04:00] VITALS: BP 147/90
--- NOTE | 2020-02-29 04:14 | NUR ---
RESTING WITH EYES CLOSED, RESPERATIONS EVEN, NO S/S DISTRESS NOTED.
[2020-02-29 05:56] LABS: BASOPHILS 0.7 % (0-2); EOSINOPHILS 3.3 % (0-7); HEMATOCRIT 36.4 % (36.0-48.0); HEMOGLOBIN 10.6 g/dL (12-16); IMMATURE GRANULOCYTES 0.2 % (0-5); LYMPHOCYTES 20.3 % (15-50); MCHC 29.1 g/dL (31.0-37.0); MCV 82.5 fL (80.0-100.0); MEAN PLATELET VOLUME 10.6 fL (7.4-10.4); MONOCYTES 12.4 % (2-11); NEUTROPHILS 63.1 % (40-80); PLATELET COUNT 214 10x3/uL (130-400); RBC 4.41 10x6/uL (4.00-5.40); RDW 17.9 % (11.5-14.5); WBC 6.1 10x3/uL (4.8-10.8)
[2020-02-29 06:26] LABS: ANION GAP 14.5 mmol/L (8-16); CALCIUM 8.1 mg/dL (8.5-10.1); CARBON DIOXIDE 23.9 mmol/L (21.0-32.0); CREATININE - SERUM 2.2 mg/dL (0.6-1.3); POTASSIUM - SERUM 4.4 mmol/L (3.5-5.1)
--- NOTE | 2020-02-29 07:00 | NUR ---
BEDSIDE REPORT RECEIVED. SHIFT ASSESSMENT COMPLETED PER FLOWSHEET, SEE FLOWSHEET FOR INFORMATION. PT C/O OF PAIN IN BACK RATING8/10. PAIN MEDICATION GIVEN PER ORDER. WILL CONT TO MONITOR.
[2020-02-29 08:36] VITALS: BP 165/106
[2020-02-29] MEDS ORDERED: TIAZAC/CARDIZEM CD PO (12:09)
--- NOTE | 2020-02-29 13:11 | MORECARE ---
CASE MANAGEMENT DISCHARGE SUMMARY PATIENT: AVTAR AMIN UNIT: [id number] ADM DATE: 02/26/20 AGE: 54 : 61 SEX: F ROOM/BED: D.9472 AUTHOR: KADE DELONG PHYSICIAN: REFERRING PHYSICIAN: VLAD VELASCO MD DATE OF SERVICE: 02/29/20 Discharge Plan Patient Name: AVTAR AMIN Facility: [facility]:[place] : 1965 Planned Disposition: Home Anticipated Discharge Date: Discharge Date: Expected LOS: Initial Reviewer: [email or web address] Initial Review Date: 02/28/2020 Generated: 02/29/20 2:11 pm Comments DCP- Discharge Planning Updated by [email or web address]: Milagro Childers on 02/29/20 12:[address] Patient Name: AVTAR AMIN Encounter No: [id number] : 1965 Primary Insurance: [employer] CHOICE PPO MCR ADVANT Anticipated DC Date: Planned Disposition: Home External Planned Provider: : DCP follow-up note: Patient in agreement with discharge plan. No changes to plan. Case management will follow and assist as needed. Milagro Childers DCP- Discharge Planning Updated by [email or web address]: Milagro Childers on 02/28/20 12:[address] Patient Name: AVTAR AMIN Admission Status: ER Accout number: [id number] Admission Date: 02-26-2020 : 1965 Admission Diagnosis: Attending: VLAD VELASCO Current LOS: 2 Anticipated DC Date: Planned Disposition: Home Primary Insurance: HU[employer] CHOICE PPO MCR ADVANT Discharge Planning Comments: CM met with patient to complete initial dc planning assessment. CM educated patient on the CM role and verbal consent given by patient to complete assessment. Patient lives at home with an adult daughter. At discharge patient plans to return and feels this is a safe discharge. CM discussed availability of home health, rehab services, and medical equipment. Patient denied known discharge needs at this time. CM will continue to follow and will assist as needed with dc plans/needs. Oil Transport Driver: Milagro Childers DCPIA - Discharge Planning Initial Assessment Updated by [email or web address]: Milagro Childers on 02/28/20 1:54 pm * Is the patient Alert and Oriented? Yes * How many steps to enter\exit or inside your home? 0/0 * PCP Dr. Calles * Pharmacy [facility] on [address] * Preadmission Environment Home with Family * ADLs Partial Dependent * Partial ADLs (Assistance needed) Ambulation * Equipment Shower Chair Walker * List name and contact numbers for known caregivers / representatives who currently or will assist patient after discharge: Felice [facility] - [phone] * Verbal permission to speak to the caregivers and representatives has been obtained from the patient. Yes * Community resources currently utilized None * Additional services required to return to the preadmission environment? No * Can the patient safely return to the preadmission environment? Yes * Has this patient been hospitalized within the prior 30 days at any hospital? Yes Coverage Notice Reviewer: [email or web address] Andrea Childers Notice Issued Date-Time: 02/29/2020 13:05 Notice Type: IM Discharge Notice Notice Delivered To: Patient Relationship to Patient: Self Humid System Operator Name: Delivery Method: HAND - Hand Delivered Christine Days: Prior Verbal Notification: Recipient Understood Notice: Yes Recipient Signature: Yes Med Rec Note Co-signed by Attending: Coverage Notice Comment: IMM explained, signed, given, copy placed in Mr Last DP export: 02/28/20 12:59 p Patient Name: AVTAR AMIN Page 89096 at 1311 All edits/amendments must be made on the electronic document DICTATION DATE: 02/29/20 1311 SUPERVISOR AUDIT CLERKS: LAY 02/29/20 1311 RPT#: [id number] DC DATE: STATUS: ADM IN [facility] [address] [place] [address] END OF REPORT
[2020-02-29 13:18] VITALS: BP 154/98
--- NOTE | 2020-02-29 17:00 | NUR ---
PT DISCHARGED TO PERSONAL VEHICLE VIA WHEELCHAIR. PT DENIES ANY ACUTE NEEDS OR DISTRESS AT THIS TIME. PT DENIED ANY QUESTIONS ABOUT DISCHARGE TEACHING.
--- NOTE | 2020-03-02 16:10 | MORECARE ---
CASE MANAGEMENT DISCHARGE SUMMARY PATIENT: AVTAR AMIN UNIT: [id number] ADM DATE: 02/26/20 AGE: 54 : 61 SEX: F ROOM/BED: D.1085 AUTHOR: KADE DELONG PHYSICIAN: REFERRING PHYSICIAN: VLAD VELASCO MD DATE OF SERVICE: 03/02/20 Discharge Plan Patient Name: AVTAR AMIN Facility: [facility]:[place] : 1965 Planned Disposition: Home Anticipated Discharge Date: Discharge Date: 02/29/2020 Expected LOS: Initial Reviewer: [email or web address] Initial Review Date: 02/28/2020 Generated: 03/02/20 5:09 pm Comments DCP- Discharge Planning Updated by [email or web address]: Milagro Childers on 02/29/20 12:[address] Patient Name: AVTAR AMIN Encounter No: [id number] : 1965 Primary Insurance: [employer] CHOICE PPO MCR ADVANT Anticipated DC Date: Planned Disposition: Home External Planned Provider: : DCP follow-up note: Patient in agreement with discharge plan. No changes to plan. Case management will follow and assist as needed. Milagro Childers DCP- Discharge Planning Updated by [email or web address]: Milagro Childers on 02/28/20 12:[address] Patient Name: AVTAR AMIN Admission Status: ER Accout number: [id number] Admission Date: 02-26-2020 : 1965 Admission Diagnosis: Attending: VLAD VELASCO Current LOS: 2 Anticipated DC Date: Planned Disposition: Home Primary Insurance: HU[employer]NA CHOICE PPO MCR ADVANT Discharge Planning Comments: CM met with patient to complete initial dc planning assessment. CM educated patient on the CM role and verbal consent given by patient to complete assessment. Patient lives at home with an adult daughter. At discharge patient plans to return and feels this is a safe discharge. CM discussed availability of home health, rehab services, and medical equipment. Patient denied known discharge needs at this time. CM will continue to follow and will assist as needed with dc plans/needs. Learning Coach: Milagro Childers DCPIA - Discharge Planning Initial Assessment Updated by [email or web address]: Milagro Childers on 02/28/20 1:54 pm * Is the patient Alert and Oriented? Yes * How many steps to enter\exit or inside your home? 0/0 * PCP Dr. Calles * Pharmacy [facility] on [address] * Preadmission Environment Home with Family * ADLs Partial Dependent * Partial ADLs (Assistance needed) Ambulation * Equipment Shower Chair Walker * List name and contact numbers for known caregivers / representatives who currently or will assist patient after discharge: Felice [facility] - [phone] * Verbal permission to speak to the caregivers and representatives has been obtained from the patient. Yes * Community resources currently utilized None * Additional services required to return to the preadmission environment? No * Can the patient safely return to the preadmission environment? Yes * Has this patient been hospitalized within the prior 30 days at any hospital? Yes Coverage Notice Reviewer: [email or web address] Andrea Childers Notice Issued Date-Time: 02/29/2020 13:05 Notice Type: IM Discharge Notice Notice Delivered To: Patient Relationship to Patient: Self Private Branch Exchange Installer Name: Delivery Method: HAND - Hand Delivered Christine Days: Prior Verbal Notification: Recipient Understood Notice: Yes Recipient Signature: Yes Med Rec Note Co-signed by Attending: Coverage Notice Comment: IMM explained, signed, given, copy placed in Mr Last DP export: 02/29/20 12:11 p Patient Name: AVTAR AMIN Page 58570 at 1610 All edits/amendments must be made on the electronic document DICTATION DATE: 03/02/20 1610 LODE MINER BLASTING: LAY 03/02/20 1610 RPT#: [id number] DC DATE:02/29/20 STATUS: DIS IN [facility] [address] [place] [address] END OF REPORT
== END 2020-02-29 17:00 | disposition home or self-care (01) | DRG 280 ==
LOC: D.OPS 11:36 → D.ER 11:36 → D.M2 11:36 → EDSTATUS 15:09 → D.M2 15:09 → D.OPS 02-26 13:32 → D.M2 02-26 13:33
PROVIDERS: Emergency Medicine; ADMIT Internal Medicine Nephrology; ATTEND Internal Medicine Nephrology
DX: I48.92 Unspecified atrial flutter (principal); I50.23 Acute on chronic systolic (congestive) heart failure; I21.4 Non-ST elevation (NSTEMI) myocardial infarction; N39.0 Urinary tract infection, site not specified; N17.9 Acute kidney failure, unspecified; I11.0 Hypertensive heart disease with heart failure; E78.5 Hyperlipidemia, unspecified; I25.10 Atherosclerotic heart disease of native coronary artery without angina pectoris; I48.91 Unspecified atrial fibrillation; J44.9 Chronic obstructive pulmonary disease, unspecified; E03.9 Hypothyroidism, unspecified; I25.5 Ischemic cardiomyopathy; E66.01 Morbid (severe) obesity due to excess calories; Z68.39 Body mass index [BMI] 39.0-39.9, adult; K21.9 Gastro-esophageal reflux disease without esophagitis; D50.9 Iron deficiency anemia, unspecified; Z79.01 Long term (current) use of anticoagulants; I07.1 Rheumatic tricuspid insufficiency; M79.7 Fibromyalgia; Z86.711 Personal history of pulmonary embolism; Z86.73 Personal history of transient ischemic attack (TIA), and cerebral infarction without residual deficits

== ENCOUNTER 2020-03-05 01:56 | Emergency (ER) | payer MEDICARE, MEDICAID ==
[~2020-03-05] VITALS: Ht 162.6 cm; Wt 101.4 kg
[~2020-03-05 01:56] MED LIST changes: +TIAZAC/CARDIZEM CD PO
[2020-03-05 02:01] VITALS: Ht 162.6 cm; Wt 101.4 kg
[2020-03-05 03:13] VITALS: BP 130/84
== END 2020-03-05 03:13 | disposition home or self-care (01) ==
LOC: D.ER 01:56
DX: S09.90XA Unspecified injury of head, initial encounter (principal); Z79.01 Long term (current) use of anticoagulants; I48.20 Chronic atrial fibrillation, unspecified; J45.909 Unspecified asthma, uncomplicated; I10 Essential (primary) hypertension; Z95.0 Presence of cardiac pacemaker; Z86.73 Personal history of transient ischemic attack (TIA), and cerebral infarction without residual deficits; K21.9 Gastro-esophageal reflux disease without esophagitis; W19.XXXA Unspecified fall, initial encounter; Y93.9 Activity, unspecified; Y92.9 Unspecified place or not applicable; R07.9 Chest pain, unspecified

== ENCOUNTER 2020-03-14 00:13 | Inpatient (IN) | payer MEDICARE, MEDICAID ==
[2020-03-14] VITALS (8 sets, daily range): BP systolic 112–139; BP diastolic 67–92; Ht 162.6 cm; Wt 111.2 kg
[~2020-03-14] VITALS: Ht 162.6 cm; Wt 111.2 kg
[2020-03-14 00:46] LABS: BASOPHILS 0.8 % (0-2); EOSINOPHILS 3.2 % (0-7); HEMATOCRIT 35.6 % (36.0-48.0); HEMOGLOBIN 10.6 g/dL (12-16); MCH 24.1 pg (26.0-34.0); MCHC 29.8 g/dL (31.0-37.0); MCV 80.9 fL (80.0-100.0); MEAN PLATELET VOLUME 9.8 fL (7.4-10.4); MONOCYTES 11.2 % (2-11); NEUTROPHILS 66.8 % (40-80); RDW 17.2 % (11.5-14.5); WBC 7.1 10x3/uL (4.8-10.8)
[2020-03-14 00:47] LABS: PLATELET COUNT 164 10x3/uL (130-400)
[2020-03-14 00:58] LABS: ANION GAP 11.1 mmol/L (8-16); CALCIUM 8.2 mg/dL (8.5-10.1); CARBON DIOXIDE 27.9 mmol/L (21.0-32.0); CREATININE - SERUM 2.3 mg/dL (0.6-1.3)
[2020-03-14 01:03] LABS: APTT 40.6 SECONDS (22.8-39.4)
[2020-03-14 01:18] LABS: D-DIMER-QUANTITATIVE 7.48 ug/mLFEU (0.20-0.54); INR 6.09 (0.85-1.17); PROTIME 52.8 SECONDS (11.6-15.0)
[2020-03-14 01:21] LABS: ALBUMIN 2.9 g/dL (3.4-5.0); BILIRUBIN - TOTAL 1.08 mg/dL (0.2-1.3); MAGNESIUM - SERUM 1.5 mg/dL (1.8-2.4); PROTEIN - SERUM 6.8 g/dL (6.4-8.2); THYROID STIMULATING HORMONE 37.08 uIU/mL (0.36-3.74)
[2020-03-14 01:25] LABS: TROPONIN-I 0.54 ng/mL (0.000-0.060)
[2020-03-14 02:11] LABS: T4 THYROXIN - FREE 1.12 ng/dL (0.76-1.46)
--- NOTE | 2020-03-14 02:45 | NUR ---
PATIENT TO THE FLOOR VIA WHEELCHAIR. CALL LIGHT WITHIN REACH AND BED IN LOWEST LOCKED POSITION.
--- NOTE | 2020-03-14 04:21 | NUR ---
PATIENT STATES SHE IS HAVING A HARD TIME BREATHING, HER O2 STATS ARE 100% AND VITALS ARE STABLE. PATIENT STATES SHE ISNT IN ANY PAIN JUST TIGHTNESS IN HER CHEST. LUNGS ARE DIMINISHED BUT CLEAR. TALKED WITH PRINCE WARNER, GAVE NEW ORDERS, WILL FOLLOW ORDERS.
[2020-03-14 05:04] LABS: APTT 43.9 SECONDS (22.8-39.4)
[2020-03-14 05:12] LABS: BASOPHILS 0.6 % (0-2); EOSINOPHILS 2.5 % (0-7); HEMATOCRIT 35.5 % (36.0-48.0); HEMOGLOBIN 10.5 g/dL (12-16); IMMATURE GRANULOCYTES 0.3 % (0-5); LYMPHOCYTES 19.2 % (15-50); MCH 24.2 pg (26.0-34.0); MCHC 29.6 g/dL (31.0-37.0); MEAN PLATELET VOLUME 10.2 fL (7.4-10.4); MONOCYTES 10.5 % (2-11); NEUTROPHILS 66.9 % (40-80); PLATELET COUNT 173 10x3/uL (130-400); RBC 4.33 10x6/uL (4.00-5.40); RDW 17.3 % (11.5-14.5); WBC 6.9 10x3/uL (4.8-10.8)
[2020-03-14 05:35] LABS: ALBUMIN 2.8 g/dL (3.4-5.0); ALKALINE PHOSPHATASE 97 U/L (30-120); ALT (SGPT) 26 U/L (10-68); BILIRUBIN - TOTAL 1.05 mg/dL (0.2-1.3); CALC OSMOLALITY 292 mosm/kg (275-300); CALCIUM 8.4 mg/dL (8.5-10.1); CARBON DIOXIDE 28.9 mmol/L (21.0-32.0); CHLORIDE - SERUM 108 mmol/L (98-107); CREATINE KINASE 119 UL (21-215); CREATININE - SERUM 2.2 mg/dL (0.6-1.3); GLUCOSE 92 mg/dL (74-106); MAGNESIUM - SERUM 1.5 mg/dL (1.8-2.4); PHOSPHOROUS 3.7 mg/dL (2.5-4.9); POTASSIUM - SERUM 3.8 mmol/L (3.5-5.1); PROTEIN - SERUM 6.7 g/dL (6.4-8.2); SODIUM 143 mmol/L (136-145); UREA NITROGEN 35 mg/dL (7-18); eGFR NON AFRICAN AMERICAN 24 mL/min (90-120)
[2020-03-14 05:39] LABS: INR 6.97 (0.85-1.17); PROTIME 58.6 SECONDS (11.6-15.0)
[2020-03-14 12:55] LABS: CKMB 0.8 U/L (0.0-3.6); CREATINE KINASE 115 UL (21-215)
[2020-03-14 12:59] LABS: TROPONIN-I 0.528 ng/mL (0.000-0.060)
[2020-03-14 14:44] LABS: GLUCOSE NEGATIVE (NEGATIVE); KETONE NEGATIVE (NEGATIVE); NITRITE NEGATIVE (NEGATIVE); SPECIFIC GRAVITY 1.015 (1.005-1.020); UROBILINOGEN 4 mg/dL (NORMAL)
[2020-03-14 14:45] LABS: BILIRUBIN NEGATIVE (NEGATIVE)
[2020-03-14 14:46] LABS: BACTERIA FEW /hpf (NEGATIVE); EPITHELIAL CELLS OCC /hpf (0-5); RED CELLS - URINE NONE SEEN /hpf (0-5); WHITE CELLS - URINE RARE /hpf (NEGATIVE)
--- NOTE | 2020-03-14 18:55 | NUR ---
BEDSIDE REPORT RECEIVED, PT CARE ASSUMED. INTRODUCED SELF AND WROTE NAME ON BOARD. ASSISTED PT FROM BSC TO BED, TOLERATED WELL. AAOX4, DENIES ANY NEEDS AT THIS TIME. BED IN LOWEST POSITION, SRX1, CALL LIGHT WITHIN REACH. WILL CONTINUE TO MONITOR.
--- NOTE | 2020-03-14 20:30 | NUR ---
ASSISTED PT TO BSC AND BACK TO BED, TOLERATED WELL. ADMINSITERED PM MEDS, PER ORDER. DENIES ANY NEEDS AT THIS TIME. BED IN LOWEST POSITION, SRX1, CALL LIGHT WITHIN REACH. WILL CONTINUE TO MONITOR.
[2020-03-15 00:01] VITALS: BP 131/88
[2020-03-15 04:00] VITALS: BP 146/87
[2020-03-15 06:14] LABS: HEMATOCRIT 34.7 % (36.0-48.0); HEMOGLOBIN 10.5 g/dL (12-16); LYMPHOCYTES 18.4 % (15-50); MCH 24.4 pg (26.0-34.0); MCHC 30.3 g/dL (31.0-37.0); MCV 80.5 fL (80.0-100.0); MEAN PLATELET VOLUME 10.6 fL (7.4-10.4); NEUTROPHILS 71.6 % (40-80); PLATELET COUNT 157 10x3/uL (130-400); RBC 4.31 10x6/uL (4.00-5.40); RDW 17.6 % (11.5-14.5); WBC 7.4 10x3/uL (4.8-10.8)
[2020-03-15 06:48] LABS: ANION GAP 12.9 mmol/L (8-16); CALCIUM 8.3 mg/dL (8.5-10.1); CARBON DIOXIDE 27.3 mmol/L (21.0-32.0); CREATININE - SERUM 2.3 mg/dL (0.6-1.3); MAGNESIUM - SERUM 1.4 mg/dL (1.8-2.4); PHOSPHOROUS 3.8 mg/dL (2.5-4.9); POTASSIUM - SERUM 4.2 mmol/L (3.5-5.1)
[2020-03-15 06:51] LABS: TROPONIN-I 0.416 ng/mL (0.000-0.060)
[2020-03-15 07:00] LABS: INR 2.75 (0.85-1.17); PROTIME 28.6 SECONDS (11.6-15.0)
--- NOTE | 2020-03-15 07:00 | NUR ---
RECEIVED REPORT. ASSUMED CARE OF PATIENT. CALL LIGHT WITHIN REACH. PATIENT OOB TO BEDSIDE COMMODE. NO DISTRESS. DENIES NEEDS.
[2020-03-15 08:03] VITALS: BP 140/87
--- NOTE | 2020-03-15 11:15 | NUR ---
RESTING WELL, SITTING UP IN BED. CALL LIGHT WITHIN REACH. NO DISTRESS.
[2020-03-15 11:56] VITALS: BP 107/68
--- NOTE | 2020-03-15 12:36 | NUR ---
DIET REQUEST PLACED FOR PATIENT.
--- NOTE | 2020-03-15 15:03 | NUR ---
MEDICATED FOR HEADACHE AT THIS TIME. NO DISTRESS.
[2020-03-15 15:49] VITALS: BP 119/59
--- NOTE | 2020-03-15 16:04 | NUR ---
PATIENT HAD A RUN OF VTAORALIA WHILE IN CT FOR CTA OF CHEST. CALLED CT TO CHECK ON PATIENT AND SPOKE WITH SONAL. SONAL STATES PATIENT SAYS SHE FEELS FINE AND DENIES ANY CHEST PAIN, DYSPNEA, OR SOB. PATIENT BACK TO UNIT SOON.
--- NOTE | 2020-03-15 18:55 | NUR ---
BEDSIDE REPORT RECEIVED, PT CARE ASSUMED. WROTE NAME ON BOARD. PT SITTING UP IN BED, TALKING ON THE PHONE, AAOX4. REQUESTING CUP OF ICE, PROVIDED. DENIES ANY OTHER NEEDS AT THIS TIME. BED IN LOWEST, SRX2, CALL LIGHT WITHIN REACH. WILL CTM.
[2020-03-15 20:00] VITALS: BP 122/59
[2020-03-16] VITALS: BP 119/73
[2020-03-16 06:43] LABS: HEMATOCRIT 36.3 % (36.0-48.0); HEMOGLOBIN 10.7 g/dL (12-16); LYMPHOCYTES 16.2 % (15-50); MCH 23.8 pg (26.0-34.0); MCHC 29.5 g/dL (31.0-37.0); MCV 80.8 fL (80.0-100.0); MEAN PLATELET VOLUME 11.2 fL (7.4-10.4); NEUTROPHILS 75.5 % (40-80); PLATELET COUNT 143 10x3/uL (130-400); RBC 4.49 10x6/uL (4.00-5.40); RDW 17.3 % (11.5-14.5); WBC 6.8 10x3/uL (4.8-10.8)
[2020-03-16 06:47] LABS: INR 1.66 (0.85-1.17); PROTIME 19.4 SECONDS (11.6-15.0)
[2020-03-16 07:00] LABS: ANION GAP 12.4 mmol/L (8-16); CALCIUM 8.2 mg/dL (8.5-10.1); CARBON DIOXIDE 28.7 mmol/L (21.0-32.0); CREATININE - SERUM 2.5 mg/dL (0.6-1.3); MAGNESIUM - SERUM 1.6 mg/dL (1.8-2.4); PHOSPHOROUS 3.9 mg/dL (2.5-4.9); POTASSIUM - SERUM 4.1 mmol/L (3.5-5.1)
--- NOTE | 2020-03-16 07:00 | NUR ---
RECEIVED REPORT. ASSUMED CARE OF PATIENT. PATIENT RESTING IN BED WITH EYES CLOSED. EASILY AROUSED. NO DISTRESS. ST ON TELEMETRY, RATE 101. CALL LIGHT WITHIN REACH.
[2020-03-16 08:06] VITALS: BP 115/65
--- NOTE | 2020-03-16 09:30 | NUR ---
SHOWER AND LINEN CHANGE COMPLETED. PATIENT TOLERATED SHOWER WELL. NO DISTRESS.
--- NOTE | 2020-03-16 11:26 | NUR ---
MEDICATED FOR HEADACHE AT THIS TIME. DISTRESS.
[2020-03-16 12:08] VITALS: BP 107/60
--- NOTE | 2020-03-16 14:41 | NUR ---
LEMON-HAMILTON SODA PROVIDED. NO DISTRESS.
[2020-03-16 15:43] VITALS: BP 104/50
--- NOTE | 2020-03-16 16:44 | NUR ---
ARACELY PROVIDED UPON REQUEST. NO DISTRESS.
--- NOTE | 2020-03-16 17:52 | NUR ---
MEDICATED FOR A HEADACHE AT THIS TIME. NO DISTRESS. PATIENT RESTING WITH EYES CLOSED AND COOL CLOTH TO FOREHEAD.
--- NOTE | 2020-03-16 18:55 | NUR ---
BEDSIDE REPORT RECEIVED, PT CARE ASSUMED. WROTE NAME ON BOARD. PT SITTING UP IN BED, CRYING AND RUBBING LEGS C/O LEG CRAMPS. SPOKE WITH DAUGHTER ON THE PHONE, QUESTIONS ANSWERED. MAGNESIUM LAB DRAW ORDERED. WARM COMPRESS APPLIED TO LEGS AND MASSAGED, REPOSITIONED FOR COMFORT. BED IN LOWEST, SRX1, CALL LIGHT AND CELLPHONE WITHIN REACH. WILL CTM.
[2020-03-16 20:00] VITALS: BP 115/62
[2020-03-17 00:01] VITALS: BP 108/84
[2020-03-17 04:00] VITALS: BP 111/81
[2020-03-17 06:08] LABS: INR 1.47 (0.85-1.17); PROTIME 17.7 SECONDS (11.6-15.0)
[2020-03-17 06:13] LABS: ANION GAP 10.4 mmol/L (8-16); CALCIUM 8.3 mg/dL (8.5-10.1); CARBON DIOXIDE 29.6 mmol/L (21.0-32.0); CREATININE - SERUM 2.6 mg/dL (0.6-1.3)
[2020-03-17 06:51] LABS: HEMATOCRIT 35.1 % (36.0-48.0); HEMOGLOBIN 10.4 g/dL (12-16); LYMPHOCYTES 15.9 % (15-50); MCH 23.9 pg (26.0-34.0); MCHC 29.6 g/dL (31.0-37.0); MCV 80.7 fL (80.0-100.0); MEAN PLATELET VOLUME 11.3 fL (7.4-10.4); NEUTROPHILS 72.3 % (40-80); PLATELET COUNT 155 10x3/uL (130-400); RBC 4.35 10x6/uL (4.00-5.40); RDW 17.2 % (11.5-14.5); WBC 6.2 10x3/uL (4.8-10.8)
--- NOTE | 2020-03-17 08:20 | NUR ---
AM MEDS GIVEN AT THIS TIME. PT IN BED, EATING BREAKFAST, DENIES ANY NEEDS AT THIS TIME. CALL LIGHT IN REACH, BEDSIDE RAILS X2, NAD NOTED, WILL CONTINUE TO MONITOR.
[2020-03-17 09:09] VITALS: BP 115/79
--- NOTE | 2020-03-17 10:00 | CN ---
PATIENT NAME:AVTAR AMIN MEDICAL RECORD: [id number] : 61 LOCATION:D. D.2122 ADMIT DATE: 03/14/20 ACCOUNT: [id number] CONSULTING PHYSICIAN: BROOK MENJIVAR MD REFERRING PHYSICIAN: VLAD VELASCO MD DATE OF CONSULTATION: 03/14/2020 HISTORY OF PRESENT ILLNESS: A 54-year-old female well known to us with a history of nonischemic cardiomyopathy, has a history of device placement, chronically elevated troponin, admitted with increasing dyspnea, generalized fatigue and malaise. Troponin and BMP are actually less than her previous admission. Lying flat in bed. TSH remains elevated. At this point, we are asked to see her concerning her cardiovascular status. PAST MEDICAL HISTORY: Includes; 1. History of cardiomyopathy. 2. Hypertension. 3. Atrial fibrillation, on Xarelto for cerebrovascular accident prophylaxis. 4. Hypothyroidism, on replacement. ALLERGIES: CONTRAST, PENICILLIN, PERCOCET, DARVOCET. MEDICATIONS: Include Synthroid 137 mcg every day, Protonix 40 every day, potassium 10 every day, Bumex 2 mg every morning, aspirin 81 every day, Aldactone 25 every day, carvedilol 6.25 b.i.d., amiodarone 200 b.i.d., Xarelto 20 every day. SOCIAL HISTORY: Nonsmoker, nondrinker. Easily able to take care of all her ADLs. REVIEW OF SYSTEMS: The patient reports easy bruising but reports no swollen glands. The patient reports no fever, no night sweats, no significant weight gain, no significant weight loss. No significant exercise tolerance. The patient reports no dry eyes, no irritation, no vision change. Patient reports no difficulty hearing and no ear pain. Patient reports no frequent nose bleeds or nose and sinus problems. Patient reports on arm pain on exertion. No shortness of breath while lying down. No history of heart murmur. Patient reports no cough, no wheezing or coughing up blood. Patient reports no abdominal pain, no vomiting. Normal appetite. No diarrhea and not vomiting blood. No nausea and no constipation. Patient reports no incontinence. No difficulty urinating. No hematuria. No increased frequency. Patient reports no muscle aches. No weakness, no arthralgias, no back pain. No swelling of the extremities. Patient reports no abnormal mole, no jaundice, no rashes. Reports no loss of consciousness. No weakness and no numbness. No seizures, dizziness, or headaches. The patient reports no depression, no sleep disturbance, feeling safe in a relationship and no alcohol abuse. Patient reports on fatigue. Reports no runny nose or sinus pressure. No itching, no hives, and no frequent sneezing. PHYSICAL EXAMINATION: GENERAL: Well-developed, well-nourished, no acute distress, actually lying flat in bed. VITAL SIGNS: Blood pressure 139/67, pulse 100 and regular. HEENT: Normocephalic, atraumatic. NECK: No JVD is noted. CONSULT REPORT [id number] AVTAR AMIN HEART: Regular. S3 gallop is noted. There is II/ systolic ejection murmur. LUNGS: Actually fairly good air excursion. ABDOMEN: Soft, nontender. EXTREMITIES: Pulses 2+. There is no edema. IMPRESSION AND PLAN: At this point in time, given elevated creatinine, we would try a combination of long-acting nitrates and hydralazine to see if this will improve her symptomatology. If creatinine remains stable, then certainly could challenge an ARB versus Entresto in the future. Further recommendations based on the above. TRANSINT:[id number] Voice Confirmation ID: [id number] DOCUMENT ID: [id number] BROOK MENJIVAR MD at 1000 CC: [id number] DICTATION DATE: 03/14/20 0831 AIR PURIFIER SERVICER: 03/14/20 1002 ADM IN [facility] [address] [place] [address]
--- NOTE | 2020-03-17 11:02 | NUR ---
HELPED PT TO BATHROOM AND BACK TO BED. ALSO PROVIDED PT WITH CUP OF ICE. PT DENIES ANY OTHER NEEDS AT THIS TIME. CALL LIGHT IN REACH, NAD NOTED, WILL CONTINUE TO MONITOR.
[2020-03-17 12:00] VITALS: BP 121/77
--- NOTE | 2020-03-17 12:04 | NUR ---
Nutrition Follow-up: Pt unavailable at time of visit. Chart reviewed. PO intake seems to be improving somewhat; noted pt ate ~90% of breakfast this AM. Diet: Cardiac PO intake: 52% avg x 7 meals Wt: 252.4# (03/17); 240# (03/14) Labs noted: Ca 8.3, Mg 1.6 Meds noted: Protonix, Bumex, Pepcid, Zofran, electrolyte protocol -Encourage PO intake and honor food preferences within diet restrictions. -Monitor wt; noted daily wts ordered. -RD following.
--- NOTE | 2020-03-17 15:01 | NUR ---
TYLENOL GIVEN FOR PAIN LEVEL OF 8/10. PT REFUSED TO TAKE APRESOLINE AND ISORDIL UNTIL SHE TALKS TO THE WORD PROCESSING SPECIALIST OR DOCTOR. STATES THAT SHE HAS BEEN DOING A LOT BETTER WALKING TODAY BECAUSE SHE HAS NOT BEEN TAKING IT.
[2020-03-17 16:00] VITALS: BP 133/81
[2020-03-17 18:06] LABS: ERYTHROCYTE SEDIMENTATION RATE 8 mm/hr (0-30)
--- NOTE | 2020-03-17 19:15 | NUR ---
RECEIVED REPORT, WILL ASSUME CARE OF PT, DENIES ANY NEEDS AT THIS TIME, BED IS LOW, SRX2, CALL LIGHT IN REACH, WILL CONTINUE PLAN OF CARE
[2020-03-17 20:35] LABS: BILIRUBIN NEGATIVE (NEGATIVE); GLUCOSE NEGATIVE (NEGATIVE); KETONE NEGATIVE (NEGATIVE); NITRITE NEGATIVE (NEGATIVE); UROBILINOGEN NORMAL (NORMAL)
[2020-03-17 20:40] LABS: CREATININE - URINE 61.8 mg/dL (30-125); PRO/CRE RATIO URINE 0.6 mg/g; PROTEIN - URINE 39.8 mg/dL (0.0-11.9)
[2020-03-17 20:48] VITALS: BP 122/79
[2020-03-18] VITALS (8 sets, daily range): BP systolic 112–143; BP diastolic 64–85
[2020-03-18 05:26] LABS: ANION GAP 10.6 mmol/L (8-16); CALCIUM 8.7 mg/dL (8.5-10.1); CARBON DIOXIDE 29.4 mmol/L (21.0-32.0); CREATININE - SERUM 2.7 mg/dL (0.6-1.3)
[2020-03-18 05:34] LABS: INR 1.41 (0.85-1.17); PROTIME 17.1 SECONDS (11.6-15.0)
[2020-03-18 05:48] LABS: HEMATOCRIT 35.7 % (36.0-48.0); HEMOGLOBIN 10.6 g/dL (12-16); LYMPHOCYTES 19.8 % (15-50); MCHC 29.7 g/dL (31.0-37.0); MCV 80.8 fL (80.0-100.0); MEAN PLATELET VOLUME 11.6 fL (7.4-10.4); NEUTROPHILS 66.1 % (40-80); PLATELET COUNT 162 10x3/uL (130-400); RBC 4.42 10x6/uL (4.00-5.40); RDW 17.5 % (11.5-14.5); WBC 6.1 10x3/uL (4.8-10.8)
--- NOTE | 2020-03-18 07:10 | NUR ---
REPORT RECEIVED FROM DOOR TECHNICIAN AND PATIENT CARE ASSUMED. PATTIENT LAYING IN BED ON BACK WITH EYES CLOSED AND BREATHING EVENLY. WILL CONTINUE WITH PLAN OF CARE. SR UPX 2 BED IN LOW POSITION AND CALL LIGHT IN REACH.
[2020-03-18 09:09] LABS: HEPATITIS C ANTIBODY <0.1 S/CO RAT (0.0-0.9)
--- NOTE | 2020-03-18 12:51 | NUR ---
PATIENT HAS BEEN UP TO BR X 2 AND HAD SHOWER. PATIENT IS STABLE AND VSS. PATIENT DENIES ANY NEEDS OR PAIN. WILL CONTINUE TO MONITOR. SR UP X 2 BED IN LOW POSITION AND CALL LIGHT IN REACH.
--- NOTE | 2020-03-18 17:02 | MORECARE ---
CASE MANAGEMENT DISCHARGE SUMMARY PATIENT: AVTAR AMIN UNIT: [id number] ADM DATE: 03/17/20 AGE: 54 : 61 SEX: F ROOM/BED: D.9 AUTHOR: KADE DELONG PHYSICIAN: REFERRING PHYSICIAN: VLAD VELASCO MD DATE OF SERVICE: 03/18/20 Discharge Plan Patient Name: AVTAR AMIN Facility: [facility]:[place] : 1965 Planned Disposition: Anticipated Discharge Date: Discharge Date: Expected LOS: Initial Reviewer: [email or web address] Initial Review Date: 03/14/2020 Generated: 03/18/20 6:02 pm External Providers External Provider: [employer] Next Contact Date: Service Request Date: Service Type: Resolution: Reviewer: Comments: Coverage Notice Reviewer: [email or web address] Andrea Childers Notice Issued Date-Time: 03/14/2020 15:51 Notice Type: Medicare Outpatient Observation Notice Notice Delivered To: Patient Relationship to Patient: Self Quartz Cutter Name: Delivery Method: HAND - Hand Delivered Christine Days: Prior Verbal Notification: Recipient Understood Notice: Yes Recipient Signature: Yes Med Rec Note Co-signed by Attending: Coverage Notice Comment: CLEMENTE explained, signed, given, copy placed in Mr Patient Name: AVTAR AMIN Page [phone] at 1702 All edits/amendments must be made on the electronic document DICTATION DATE: 03/18/201701 CONTINUOUS MINER: LAY 03/18/201701 RPT#: [id number] DC DATE: STATUS: ADM IN [facility] [address] [place] [address] END OF REPORT
--- NOTE | 2020-03-18 18:05 | NUR ---
PATIENT HAS URINATED SEVERAL TIMES TODAY NO BM. UNABLE TO COLLECT SPECIMEN.
--- NOTE | 2020-03-18 18:20 | NUR ---
ENTERED PATIENT ROOM. PATIENT NAKED LAYING ON BACK . PATIENT HAD PULLED OFF SUB STERNAL BANDAGE. NEW DRSG APPLIED. PATIENT MOANING. QUESTIONED IF IN PAIN. PATIENT CLEARLY SAID YES. ASKED WHERE PATIENT WITH GARBLED SPEECH STATED "ALL OVER." WILL CONTACT PROVIDER . SR UP X 2 BED IN LOW POSITION AND CALL LIGHT IN REACH.
--- NOTE | 2020-03-19 00:15 | NUR ---
PATIENT C/O OF INABILITY TO SLEEP. RECEIVED A ONE TIME ORDER OF 25MG BENYDRAL IV.
[2020-03-19 04:52] VITALS: BP 137/80
[2020-03-19 04:58] LABS: BASOPHILS 1.1 % (0-2); EOSINOPHILS 3.4 % (0-7); HEMATOCRIT 34.5 % (36.0-48.0); HEMOGLOBIN 10.2 g/dL (12-16); IMMATURE GRANULOCYTES 0.2 % (0-5); MCH 23.8 pg (26.0-34.0); MCHC 29.6 g/dL (31.0-37.0); MCV 80.6 fL (80.0-100.0); MEAN PLATELET VOLUME 10.3 fL (7.4-10.4); MONOCYTES 10.8 % (2-11); NEUTROPHILS 63.5 % (40-80); PLATELET COUNT 169 10x3/uL (130-400); RBC 4.28 10x6/uL (4.00-5.40); RDW 16.8 % (11.5-14.5); WBC 6.5 10x3/uL (4.8-10.8)
[2020-03-19 05:14] LABS: ANION GAP 10.9 mmol/L (8-16); CALCIUM 8.3 mg/dL (8.5-10.1); CARBON DIOXIDE 29.9 mmol/L (21.0-32.0); CREATININE - SERUM 3.2 mg/dL (0.6-1.3); POTASSIUM - SERUM 3.8 mmol/L (3.5-5.1)
[2020-03-19 05:27] LABS: INR 1.48 (0.85-1.17); PROTIME 17.8 SECONDS (11.6-15.0)
--- NOTE | 2020-03-19 07:20 | NUR ---
RECIEVE REPORT. RESTING IN BED WITH EYES CLOSED. NO SIGNS OF DISTRESS. SINUS RYTHM ON TELEMETRY. CONTINUE PLAN OF CARE AND SAFETY PRECAUTIONS.
[2020-03-19 08:58] VITALS: BP 132/77
--- NOTE | 2020-03-19 10:12 | NUR ---
Rehab Prescreening Consult recieved and the chart has been reviewed. She is [facility] and will require a preauth. Once the PT and the OT eval are completed [facility] will be contacted for an authorization. Cleopatra Floyd RN Clinical Liaison, Rehab
[2020-03-19 12:00] VITALS: BP 125/77
[2020-03-19 13:21] VITALS: BP 125/77
--- NOTE | 2020-03-19 18:10 | NUR ---
OT NOTE: PT COMPLETED BED TO BATHROOM ADL MOB WITH CGA. PT REQUIRED SBA FOR TOILET HYGIENE. PT REQUIRED SET UP FOR HAND HYGIENE AT EOB. PT REQUIRED MIN A FOR SIT TO SUPINE TO MANAGE LE. [phone] THANK YOU,JAREK SAMS
[2020-03-19 18:53] VITALS: BP 101/73
[2020-03-19 20:00] VITALS: BP 113/68
--- NOTE | 2020-03-19 20:08 | NUR ---
UP WITH ASSIST TO BR.
[2020-03-20] VITALS: BP 112/76; BP 120/69
--- NOTE | 2020-03-20 01:47 | NUR ---
UP WITH ASSIST TO BR.
[2020-03-20 04:00] VITALS: BP 124/77
[2020-03-20 04:55] LABS: BASOPHILS 1.1 % (0-2); EOSINOPHILS 4.1 % (0-7); HEMATOCRIT 35.6 % (36.0-48.0); HEMOGLOBIN 10.6 g/dL (12-16); IMMATURE GRANULOCYTES 0.2 % (0-5); LYMPHOCYTES 23.7 % (15-50); MCH 23.7 pg (26.0-34.0); MCHC 29.8 g/dL (31.0-37.0); MCV 79.6 fL (80.0-100.0); MONOCYTES 9.5 % (2-11); NEUTROPHILS 61.4 % (40-80); PLATELET COUNT 191 10x3/uL (130-400); RBC 4.47 10x6/uL (4.00-5.40); RDW 16.8 % (11.5-14.5); WBC 6.3 10x3/uL (4.8-10.8)
[2020-03-20 05:20] LABS: ALBUMIN 2.7 g/dL (3.4-5.0); ANION GAP 11.3 mmol/L (8-16); BILIRUBIN - TOTAL 1.12 mg/dL (0.2-1.3); CALCIUM 8.4 mg/dL (8.5-10.1); CARBON DIOXIDE 28.7 mmol/L (21.0-32.0); CREATININE - SERUM 3.2 mg/dL (0.6-1.3); MAGNESIUM - SERUM 1.9 mg/dL (1.8-2.4); PROTEIN - SERUM 6.5 g/dL (6.4-8.2)
--- NOTE | 2020-03-20 07:36 | NUR ---
ASSESSMENT DONE. DENIES NEEDS
[2020-03-20 09:32] VITALS: BP 130/77
--- NOTE | 2020-03-20 10:05 | NUR ---
I have reviewed this patient and I concur with the Shift Assessment completed by the Licensed Practical Nurse today this shift.
--- NOTE | 2020-03-20 13:07 | NUR ---
Nutrition Follow-up: Pt reports poor appetite and mild nausea. Ate ~25% of breakfast this AM. Declines nutrition supplements. Diet: Cardiac PO intake: 44% avg x 10 meals Wt: 244.7# (03/19); 252.4# (03/17) Last BM: 03/19 Labs noted: Ca 8.4, Alb 2.7 Meds noted: NS @ 30, Protonix, Pepcid, Zofran, electrolyte protocol -Encourage PO intake and honor food preferences within diet restrictions. -Pt may benefit from appetite stimulant. -Monitor wt; noted daily wts ordered. -RD following.
[2020-03-20 13:39] VITALS: BP 117/66
--- NOTE | 2020-03-20 14:18 | NUR ---
Rehab Note- Called [phone] with Human and did the automated prompt, never received fax verification, called back to automated system and did the verbal reading and noted to have Approved Auth #[id number] for beginning stay on 03/20/2020, call reference #[id number]. Notified ARLEEN Negro of auth approval at this time. Thank you for this referral! Shyann Feliciano RN Clinical Liaison, [facility] Rehab
[2020-03-20 16:00] VITALS: BP 125/78
--- NOTE | 2020-03-20 16:45 | NUR ---
WITHOUT CHANGES OR DISTRESS NOTED AT THIS TIME. DENIES NEEDS
[2020-03-20 20:00] VITALS: BP 110/74
--- NOTE | 2020-03-21 02:40 | NUR ---
PATIENT C/O EPIGASTRIC PAIN AND FEELING THE URGE TO COUGH PATIENT STATES "LIKE THERE IS SOMETHING IN MY THROAT" PAGED RESPIRATORY FOR BREATHING TX AND PRINCE DOWNS APN FOR GI COCKTAIL. ORDERS RECEIVED. GI COCKTAIL ADMINISTERED, RT AT BEDSIDE ADMINISTERED BREATHING TX.
[2020-03-21 04:00] VITALS: BP 107/73
[2020-03-21 06:49] LABS: HEMATOCRIT 34.2 % (36.0-48.0); HEMOGLOBIN 10.1 g/dL (12-16); IMMATURE GRANULOCYTES 0.2 % (0-5); LYMPHOCYTES 21.8 % (15-50); MCH 23.3 pg (26.0-34.0); MCHC 29.5 g/dL (31.0-37.0); MEAN PLATELET VOLUME 10.2 fL (7.4-10.4); MONOCYTES 9.6 % (2-11); NEUTROPHILS 64.4 % (40-80); PLATELET COUNT 171 10x3/uL (130-400); RBC 4.33 10x6/uL (4.00-5.40); RDW 16.6 % (11.5-14.5)
[2020-03-21 07:09] LABS: ALBUMIN 2.8 g/dL (3.4-5.0); ANION GAP 11.4 mmol/L (8-16); BILIRUBIN - TOTAL 1.15 mg/dL (0.2-1.3); CALCIUM 8.3 mg/dL (8.5-10.1); CARBON DIOXIDE 26.6 mmol/L (21.0-32.0); CREATININE - SERUM 3.2 mg/dL (0.6-1.3); PROTEIN - SERUM 6.1 g/dL (6.4-8.2)
[2020-03-21 07:43] VITALS: BP 140/78
[2020-03-21 11:39] LABS: SPE - ALPHA-1 GLOBULIN 0.2; SPE - ALPHA-2 GLOBULIN 0.6; SPE - BETA GLOBULIN 0.9; SPE - GAMMA GLOBULIN 1.2; SPE - M-SPIKE Not Observed
[2020-03-21 11:51] VITALS: BP 114/81
--- NOTE | 2020-03-21 11:57 | NUR ---
I have reviewed this patient and I concur with the Shift Assessment completed by the Licensed Practical Nurse today this shift.
[2020-03-21 12:44] LABS: INR 1.41 (0.85-1.17); PROTIME 17.1 SECONDS (11.6-15.0)
[2020-03-21] MEDS ORDERED: ISOSORBIDE DINI20 MG PO (14:03)
--- NOTE | 2020-03-23 09:16 | MORECARE ---
CASE MANAGEMENT DISCHARGE SUMMARY PATIENT: AVTAR AMIN UNIT: [id number] ADM DATE: 03/17/20 AGE: 54 : 61 SEX: F ROOM/BED: D.8372 AUTHOR: BALJEETDOC PHYSICIAN: REFERRING PHYSICIAN: VLAD VELASCO MD DATE OF SERVICE: 03/23/20 Discharge Plan Patient Name: AVTAR AMIN [facility] [facility] 1965 Planned Disposition: Inpatient Rehab Anticipated Discharge Date: Discharge Date: 03/21/2020 Expected LOS: 0 Initial Reviewer: [email or web address] Initial Review Date: 03/14/2020 Generated: 03/23/20 10:15 am Coverage Notice Reviewer: [email or web address] Andrea Childers Notice Issued Date-Time: 03/14/2020 15:51 Notice Type: Medicare Outpatient Observation Notice Notice Delivered To: Patient 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
== END 2020-03-21 20:05 | DRG 292 ==
LOC: D.ER 00:13 → D.M2 01:40 → OBSVTIME 01:40 → D.M2 01:40
PROVIDERS: Family Medicine; Internal Medicine Nephrology; ADMIT Internal Medicine Nephrology; ATTEND Internal Medicine Nephrology
DX: I11.0 Hypertensive heart disease with heart failure (principal); N17.9 Acute kidney failure, unspecified; I48.92 Unspecified atrial flutter; I25.5 Ischemic cardiomyopathy; I50.23 Acute on chronic systolic (congestive) heart failure; I25.10 Atherosclerotic heart disease of native coronary artery without angina pectoris; D50.9 Iron deficiency anemia, unspecified; E78.5 Hyperlipidemia, unspecified; K21.9 Gastro-esophageal reflux disease without esophagitis; E03.9 Hypothyroidism, unspecified; J44.9 Chronic obstructive pulmonary disease, unspecified; I48.0 Paroxysmal atrial fibrillation; Z95.0 Presence of cardiac pacemaker; Z86.73 Personal history of transient ischemic attack (TIA), and cerebral infarction without residual deficits

== ENCOUNTER 2020-03-21 20:00 | Inpatient (IN) | payer MEDICARE, MEDICAID ==
[~2020-03-21] VITALS: Ht 162.6 cm; Wt 114.8 kg
[~2020-03-21 20:00] MED LIST changes: +ISOSORBIDE DINI20 MG PO
[2020-03-21 21:34] VITALS: BP 125/82; BMI 43.5
[2020-03-22 07:36] LABS: BASOPHILS 0.7 % (0-2); EOSINOPHILS 3.6 % (0-7); HEMATOCRIT 34.1 % (36.0-48.0); HEMOGLOBIN 10.4 g/dL (12-16); IMMATURE GRANULOCYTES 0.2 % (0-5); LYMPHOCYTES 23.2 % (15-50); MCH 23.9 pg (26.0-34.0); MCHC 30.5 g/dL (31.0-37.0); MCV 78.4 fL (80.0-100.0); MEAN PLATELET VOLUME 10.1 fL (7.4-10.4); MONOCYTES 11.1 % (2-11); NEUTROPHILS 61.2 % (40-80); PLATELET COUNT 180 10x3/uL (130-400); RBC 4.35 10x6/uL (4.00-5.40); RDW 16.6 % (11.5-14.5); WBC 5.5 10x3/uL (4.8-10.8)
[2020-03-22 07:50] LABS: INR 1.48 (0.85-1.17); PROTIME 17.8 SECONDS (11.6-15.0)
[2020-03-22 07:53] LABS: ANION GAP 11.1 mmol/L (8-16); CALCIUM 8.6 mg/dL (8.5-10.1); CARBON DIOXIDE 27.1 mmol/L (21.0-32.0); CREATININE - SERUM 3.3 mg/dL (0.6-1.3); POTASSIUM - SERUM 4.2 mmol/L (3.5-5.1)
[2020-03-22 08:05] VITALS: BP 107/65
--- NOTE | 2020-03-22 08:13 | NUR ---
PATIENT IN BED WATCHING TV, HELPED TO B/R, DENIES ANY OTHER NEEDS AT THIS TIME, C/L AND FLUIDS IN REACH.
--- NOTE | 2020-03-22 10:08 | NUR ---
ASSESSMENT COMPLETE, DENIES ANY NEEDS AT THIS TIME, C/L AND FLUIDS IN REACH.
[2020-03-22 11:06] VITALS: Ht 162.6 cm; Wt 114.8 kg
--- NOTE | 2020-03-22 12:00 | NUR ---
I have reviewed this patient and I concur with the Shift Assessment completed by the Licensed Practical Nurse today this shift.
--- NOTE | 2020-03-22 12:00 | NUR ---
PATIENT RESTING IN BED WITH EYES CLOSED, RESP EVEN AND UNLABORED, NO S/S OF DISTRESS NOTED, C/L AND FLUIDS IN REACH.
--- NOTE | 2020-03-22 16:10 | NUR ---
AWAKE AND ALERT RESTING IN BED, GOT PT. CRACKERS, WATER AND JELLO, DENIES ANY OTHER NEEDS AT THIS TIME, C/L AND FLUIDS IN REACH.
--- NOTE | 2020-03-22 19:16 | NUR ---
PT LYING IN BED WATCHING TV. CL IN REACH. DENIES NEEDS OR PAIN AT THIS TIME. BED IN LOW SIDE RAILS X2. LUNGS CLEAR. BOWEL ACTIVE X4. A/O X4. RESP EVEN AND UNLABORED. WILL CONTINUE TO MONITOR.
[2020-03-22 19:55] VITALS: BP 113/54
--- NOTE | 2020-03-23 00:26 | NUR ---
I have reviewed this patient and I concur with the Shift Assessment completed by the Licensed Practical Nurse today this shift.
--- NOTE | 2020-03-23 01:30 | NUR ---
RESTING QUIETLY EYES CLOSED. CL IN REACH. NO DISTRESS NOTED. WCTM
--- NOTE | 2020-03-23 07:34 | NUR ---
PT RESTING IN BED WITH EYES OPEN CALL LIGHT IN REACH WILL MONITER
--- NOTE | 2020-03-23 07:54 | NUR ---
I have reviewed this patient and I concur with the Shift Assessment completed by the Licensed Practical Nurse today this shift.
[2020-03-23 09:28] VITALS: BP 168/87
--- NOTE | 2020-03-23 16:30 | NUR ---
PT RESTING IN BED WITH EYES OPEN CALL LIGHT IN REACH WILL MONITER
--- NOTE | 2020-03-23 19:25 | NUR ---
PT LYING IN BED WATCHING TV. CL IN REACH. DENIES NEEDS AT THIS TIME. BED IN LOW SIDE RAILS X2. A/O X4. LUNGS CLEAR. BOWEL ACTIVE X4. RESP EVEN AND UNLABORED. WILL CONTINUE TO MONITOR.
[2020-03-23 20:30] VITALS: BP 116/67
--- NOTE | 2020-03-24 05:05 | NUR ---
I have reviewed this patient and I concur with the Shift Assessment completed by the Licensed Practical Nurse today this shift.
[2020-03-24 06:48] LABS: BASOPHILS 1.1 % (0-2); EOSINOPHILS 3.9 % (0-7); HEMATOCRIT 34.2 % (36.0-48.0); HEMOGLOBIN 10.1 g/dL (12-16); IMMATURE GRANULOCYTES 0.4 % (0-5); LYMPHOCYTES 19.6 % (15-50); MCH 23.5 pg (26.0-34.0); MCHC 29.5 g/dL (31.0-37.0); MCV 79.5 fL (80.0-100.0); MEAN PLATELET VOLUME 10.5 fL (7.4-10.4); MONOCYTES 11.3 % (2-11); NEUTROPHILS 63.7 % (40-80); PLATELET COUNT 187 10x3/uL (130-400); RDW 16.9 % (11.5-14.5); WBC 5.4 10x3/uL (4.8-10.8)
[2020-03-24 06:56] LABS: ANION GAP 10.3 mmol/L (8-16); CALCIUM 8.5 mg/dL (8.5-10.1); CARBON DIOXIDE 28.1 mmol/L (21.0-32.0); POTASSIUM - SERUM 4.4 mmol/L (3.5-5.1)
--- NOTE | 2020-03-24 08:00 | NUR ---
PT RESTING IN BED WITH EYES OPEN PT COMPLAINS OF NASUEA WITH DRY HEAVING PT HAS BEEN GIVEN ZOFRAN ORDERED WILL NOTIFY DR PAGAN ON ARRIVIAL TO UNIT
--- NOTE | 2020-03-24 11:08 | NUR ---
PATIENT ADMITTED TO REHAB FROM ACUTE FLOOR. DR. WALLACE IS PATIENT PCP. DSICHARGE PLANS ARE TO RETURN HOME. WILL CONTINUE TO FOLLOW WITH PATIENT.
--- NOTE | 2020-03-24 11:53 | NUR ---
PATIENT IS A CLIENT OF [facility].
--- NOTE | 2020-03-24 18:49 | NUR ---
PT RESTING IN BED WITH EYES OPEN CALL LIGHT IN REACH NO PROBLEMS WILL MONITER
--- NOTE | 2020-03-24 19:45 | NUR ---
PT IS RESTING IN BED WATCHING TV. ALERT AND ORIENTED X 3. DENIES ACUTE PAIN OR DISCOMFORT AT THIS TIME. NO NEEDS VOICED. SR'S ARE UP X2 IN BED. CALL LIGHT AND BEDSIDE TABLE ARE WITHIN EASY REACH.
[2020-03-24 20:00] VITALS: BP 121/72
--- NOTE | 2020-03-24 22:23 | NUR ---
PT IS RESTING QUIETLY IN BED WITH EYES CLOSED. RESPS ARE EVEN AND UNLABORED. NO ACUTE DISTRESS NOTED.
--- NOTE | 2020-03-25 01:00 | NUR ---
PT IS RESTING QUIETLY IN BED WITH EYES CLOSED. NO DISTRESS NOTED.
--- NOTE | 2020-03-25 04:00 | NUR ---
PT IS RESTING QUIETLY IN BED WITH EYES CLOSED. RESPS ARE EVEN AND UNLABORED. NO ACUTE DISTRESS NOTED.
[2020-03-25 09:09] VITALS: BP 131/98
--- NOTE | 2020-03-25 09:18 | NUR ---
ALERT AND ORIENTED. NO DISTRESS NOTED. CL IN REACH.
--- NOTE | 2020-03-25 12:24 | NUR ---
NO CHANGE IN ASSESSMENT. EATING LUNCH.
--- NOTE | 2020-03-25 18:28 | NUR ---
RESTING WO C/O PAIN. RESP EVEN AND UNLABORED. CL IN REACH.
[2020-03-25 19:45] VITALS: BP 114/73
--- NOTE | 2020-03-25 19:45 | NUR ---
PATIENT RECEIVED SITING UP IN BED. ASSESSMENT & VITAL SIGNS DONE. NO C/O PAIN OR DISTRESS. BED LOW. CALL LIGHT WITHIN REACH. WILL CONTINUE TO MONITOR.
--- NOTE | 2020-03-25 23:59 | NUR ---
I have reviewed this patient and I concur with the Shift Assessment completed by the Licensed Practical Nurse today this shift.
--- NOTE | 2020-03-26 03:47 | NUR ---
PATIENT AWAKE SITTING UP IN BED. NO C/O PAIN OR DISTRESS. DRINKING COLA. BED LOW. CALL LIGHT WITHIN REACH. WILL CONTINUE TO MONITOR.
--- NOTE | 2020-03-26 07:21 | NUR ---
AWAKE AND ALERT SITTING UP IN BED,CL IN REACH.
[2020-03-26 08:00] VITALS: BP 135/87
--- NOTE | 2020-03-26 08:00 | NUR ---
REPORT RECIEVED AT BEDSIDE.INTRODUCTION DONE.CL IN REACH.BREAKFAST GIVEN.
[2020-03-26 08:56] LABS: BASOPHILS 0.6 % (0-2); EOSINOPHILS 4.2 % (0-7); HEMATOCRIT 33.6 % (36.0-48.0); HEMOGLOBIN 10.1 g/dL (12-16); IMMATURE GRANULOCYTES 0.2 % (0-5); LYMPHOCYTES 20.1 % (15-50); MCH 23.8 pg (26.0-34.0); MCHC 30.1 g/dL (31.0-37.0); MCV 79.2 fL (80.0-100.0); MEAN PLATELET VOLUME 10.6 fL (7.4-10.4); MONOCYTES 10.8 % (2-11); NEUTROPHILS 64.1 % (40-80); PLATELET COUNT 220 10x3/uL (130-400); RBC 4.24 10x6/uL (4.00-5.40); RDW 16.7 % (11.5-14.5); WBC 5.3 10x3/uL (4.8-10.8)
[2020-03-26 09:15] LABS: ANION GAP 9.3 mmol/L (8-16); CALCIUM 8.6 mg/dL (8.5-10.1); CARBON DIOXIDE 30.8 mmol/L (21.0-32.0); CREATININE - SERUM 2.9 mg/dL (0.6-1.3); POTASSIUM - SERUM 4.1 mmol/L (3.5-5.1)
--- NOTE | 2020-03-26 12:00 | NUR ---
EATING LUNCH FROM BED.CALL LIGHT IN REACH.
--- NOTE | 2020-03-26 14:09 | NUR ---
CARE TEAM MEETING: PATIENT ATTENDED HER MEETING. HER QUESTIONS AND CONCERNS WERE ADDRESSED. HER TEANTIVE DISCHARGE DATE IS 04/01/20. WILL CONTINUE TO FOLLOW WITH PATIENT.
--- NOTE | 2020-03-26 19:55 | NUR ---
PATIENT RECEIVED SITTING UP IN BED. ASSESSMENT & VITAL SIGNS DONE. NO C/O PAIN OR DISTRESS. BED LOW. CALL LIGHT WITHIN REACH. WILL CONTINUE TO MONITOR.
[2020-03-26 20:36] VITALS: BP 103/57
--- NOTE | 2020-03-27 04:29 | NUR ---
I have reviewed this patient and I concur with the Shift Assessment completed by the Licensed Practical Nurse today this shift.
--- NOTE | 2020-03-27 04:39 | NUR ---
PATIENT RESPIRATIONS 18 & EVEN. EYES CLOSED. SLEEP MEDICATION EFFECTIVE. BED LOW. CALL LIGHT WITHIN REACH. WILL CONTINUE TO MONITOR.
[2020-03-27 07:49] VITALS: BP 106/74
--- NOTE | 2020-03-27 08:00 | NUR ---
SHIFT ASSMT COMPLETED.
--- NOTE | 2020-03-27 15:35 | NUR ---
RESTING QUIETLY.CONTINUE POC.
--- NOTE | 2020-03-27 19:15 | NUR ---
PT UP TO TOILET C/O LFT HIP PAIN, PRN PAIN MED WITH MED PASS TO BE GIVEN, PT ZERO FALL RISK, TOILETS SELF, FLUIDS/CALL LIGHT WITHIN REACH
[2020-03-27 19:35] VITALS: BP 126/77
[2020-03-28 06:50] LABS: BASOPHILS 0.8 % (0-2); EOSINOPHILS 3.1 % (0-7); HEMATOCRIT 34.3 % (36.0-48.0); HEMOGLOBIN 10.3 g/dL (12-16); IMMATURE GRANULOCYTES 0.2 % (0-5); MCH 23.5 pg (26.0-34.0); MCV 78.3 fL (80.0-100.0); MEAN PLATELET VOLUME 9.8 fL (7.4-10.4); MONOCYTES 13.5 % (2-11); NEUTROPHILS 66.4 % (40-80); PLATELET COUNT 219 10x3/uL (130-400); RBC 4.38 10x6/uL (4.00-5.40); RDW 16.5 % (11.5-14.5); WBC 6.5 10x3/uL (4.8-10.8)
[2020-03-28 07:01] LABS: CALCIUM 8.9 mg/dL (8.5-10.1); CARBON DIOXIDE 32.5 mmol/L (21.0-32.0); CREATININE - SERUM 2.9 mg/dL (0.6-1.3); POTASSIUM - SERUM 4.5 mmol/L (3.5-5.1)
[2020-03-28 07:30] VITALS: BP 119/82
--- NOTE | 2020-03-28 07:30 | NUR ---
RESTING QUIETLY IN BED.ASSESSMENT COMPLETED AND VS TAKEN.DENIES NEEDS AT PRESENT TIME.CL IN EASY REACH,BED IN LOW POSITION.WILL CONTINUE WITH CURRENT PLAN OF CARE.
--- NOTE | 2020-03-28 08:15 | NUR ---
ZOFRAN 8MG PO GIVEN FOR C/O NAUSEA.SITTING UP IN BEDSIDE CHAIR.COOL WET CLOTH OFFERED AND REFUSED.
--- NOTE | 2020-03-28 09:13 | NUR ---
APPROXIMATELY 200ML EMESIS WITH UNDIGESTED FOOD. HERE AND INFORMED OF ZOFRAN 8MG GIVEN AT 0815 WITH POOR RESPONSE.
--- NOTE | 2020-03-28 14:00 | NUR ---
Nutrition follow-up: Diet: Regular PO Intake ~50% of meals Pt with nasuea, vomiting today after lunch. Labs reviewed Wt: 138# RDN following.
--- NOTE | 2020-03-28 19:44 | NUR ---
PT ASLEEP AROUSES EASILY TO VOICE, NO NEEDS NOTED, CONFUSED TO TIME, FALL NOT A FALL RISK, FLUIDS/CALL LIGHT WITHIN REACH
[2020-03-28 23:33] VITALS: BP 111/71
--- NOTE | 2020-03-29 02:44 | NUR ---
PT ASLEEP AROUSES EASILY, RESP EVEN UNLABORED, NO NEEDS NOTED, FLUIDS/CALL LIGHT WITHIN REACH
[2020-03-29 06:55] LABS: ALBUMIN 2.9 g/dL (3.4-5.0); ANION GAP 9.5 mmol/L (8-16); BILIRUBIN - DIRECT 0.24 mg/dL (0.00-0.30); BILIRUBIN - INDIRECT 0.73 mg/dL (0.00-1.00); BILIRUBIN - TOTAL 0.97 mg/dL (0.2-1.3); CALCIUM 8.9 mg/dL (8.5-10.1); CARBON DIOXIDE 32.9 mmol/L (21.0-32.0); POTASSIUM - SERUM 4.4 mmol/L (3.5-5.1); PROTEIN - SERUM 7.2 g/dL (6.4-8.2)
[2020-03-29 07:39] LABS: EOSINOPHILS 2.9 % (0-7); HEMATOCRIT 35.4 % (36.0-48.0); HEMOGLOBIN 10.9 g/dL (12-16); LYMPHOCYTES 18.4 % (15-50); MCH 24.1 pg (26.0-34.0); MCHC 30.8 g/dL (31.0-37.0); MCV 78.3 fL (80.0-100.0); MEAN PLATELET VOLUME 10.2 fL (7.4-10.4); MONOCYTES 10.1 % (2-11); NEUTROPHILS 67.6 % (40-80); PLATELET COUNT 229 10x3/uL (130-400); RBC 4.52 10x6/uL (4.00-5.40); RDW 16.3 % (11.5-14.5); WBC 6.3 10x3/uL (4.8-10.8)
[2020-03-29 07:40] VITALS: BP 131/85
--- NOTE | 2020-03-29 09:59 | NUR ---
LAYING IN BED RESTING QUIETLY. DENIES PAIN. CALL LIGHT IN REACH
--- NOTE | 2020-03-29 14:31 | NUR ---
LAYING IN BED WATCHING TV. DENIES NEEDS OR N/V. SIDE RAILS UP X2. BED IN LOWEST POSITION. CALL LIGHT IN REACH
[2020-03-29 20:05] VITALS: BP 109/75
--- NOTE | 2020-03-29 20:10 | NUR ---
PATIENT RECEIVED SITTING UP IN BED WATCHING TV. ASSESSMENT & VITAL SIGNS DONE. NO C/O PAIN OR DISTRESS. BED LOW. PHONE & CALL LIGHT WITHIN REACH. WILL CONTINUE TO MONITOR.
--- NOTE | 2020-03-29 23:12 | NUR ---
I have reviewed this patient and I concur with the Shift Assessment completed by the Licensed Practical Nurse today this shift.
--- NOTE | 2020-03-30 03:58 | NUR ---
PATIENT EYES CLOSED. RESPIRATIONS 18 & EVEN. BED LOW. CALL LIGHT WITHIN REACH. WILL CONTINUE TO MONITOR.
[2020-03-30 08:00] VITALS: BP 151/73
--- NOTE | 2020-03-30 09:55 | NUR ---
LAYING DOWN RESTING QUIETLY IN BED. SIDE RAILS UP X2. BED IN LOWEST POSITION. DENIES NEEDS OR C/O.
--- NOTE | 2020-03-30 12:51 | NUR ---
TALKING ON PHONE IN HER ROOM. SHE LIKES THE LIGHTS OUT AND DOOR CLOSED. NO N/V NOTED SO FAR TODAY. SHE IS EATING AND DRINKING
--- NOTE | 2020-03-30 16:54 | NUR ---
HAD DIFFICULTYL GETTING OFF TOILET BY HERSELF. STATES SHE IS WEAK AND COULD NOT PUSH SELF OFF TOILET. PT REQUIRED MINIMAL ASST TO STAND. SHE WALKED BY HERSELF TO BED. DENIES NEEDS OR PAIN. CALL LIGHT IN REACH
--- NOTE | 2020-03-30 19:40 | NUR ---
PATIENT RECEIVED LAYING IN BED WATCHING TV. VITAL SIGNS & ASSESSMENT DONE. NO C/O PAIN OR DISTRESS. BED LOW. CALL LIGHT WITHIN REACH. WILL CONTINUE TO MONITOR.
[2020-03-30 19:44] VITALS: BP 112/60
--- NOTE | 2020-03-31 01:34 | NUR ---
I have reviewed this patient and I concur with the Shift Assessment completed by the Licensed Practical Nurse today this shift.
--- NOTE | 2020-03-31 03:30 | NUR ---
PATIENT EYES CLOSED. RESPIRATIONS 18 & EVEN. BED LOW. CALL LIGHT WITHIN REACH. WILL CONTINUE TO MONITOR.
[2020-03-31 07:10] LABS: BASOPHILS 0.6 % (0-2); EOSINOPHILS 4.3 % (0-7); HEMATOCRIT 36.9 % (36.0-48.0); HEMOGLOBIN 11.4 g/dL (12-16); LYMPHOCYTES 25.6 % (15-50); MCH 23.8 pg (26.0-34.0); MCHC 30.9 g/dL (31.0-37.0); MCV 77.2 fL (80.0-100.0); MEAN PLATELET VOLUME 10.7 fL (7.4-10.4); MONOCYTES 10.8 % (2-11); NEUTROPHILS 58.7 % (40-80); PLATELET COUNT 240 10x3/uL (130-400); RBC 4.78 10x6/uL (4.00-5.40); RDW 16.2 % (11.5-14.5); WBC 6.3 10x3/uL (4.8-10.8)
[2020-03-31 07:45] LABS: ANION GAP 11.8 mmol/L (8-16); CALCIUM 9.6 mg/dL (8.5-10.1); CARBON DIOXIDE 30.5 mmol/L (21.0-32.0); POTASSIUM - SERUM 4.3 mmol/L (3.5-5.1)
[2020-03-31 08:00] VITALS: BP 125/47
--- NOTE | 2020-03-31 17:57 | NUR ---
LAYING ON BACK RESTING QUIETLY IN BED. AFFECT FLAT. DENIES NEEDS OR PAIN. CALL LIGHT IN REACH. BED IN LOWEST POSITION. SIDE RAILS UP X2. CALL LIGHT IN REACH
[2020-03-31 19:31] VITALS: BP 131/58
--- NOTE | 2020-03-31 19:48 | NUR ---
PT IS RESTING IN BED WITH EYES OPEN. ALERT AND ORIENTED X 3. DENIES ACUTE DISCOMFORT AT THIS TIME. NO NEEDS VOICED. VSS. SR'S ARE UP X 2 IN BED. CALL LIGHT AND BEDSIDE TABLE ARE WITHIN EASY REACH.
--- NOTE | 2020-03-31 22:09 | NUR ---
PT IS RESTING QUIETLY IN BED WITH EYES CLOSED. NO DISTRESS NOTED.
--- NOTE | 2020-03-31 23:34 | NUR ---
I have reviewed this patient and I concur with the Shift Assessment completed by the Licensed Practical Nurse today this shift.
--- NOTE | 2020-04-01 03:03 | NUR ---
RESTING IN BED WITH EYES CLOSED.
--- NOTE | 2020-04-01 05:59 | NUR ---
PT RESTING IN BED WITH EYES CLOSED. AWOKE EASILY TO VERBAL STIMULI. TOLERATED AM MEDS WITHOUT DIFFICULTY. NO NEEDS VOICED.
--- NOTE | 2020-04-01 08:00 | NUR ---
SHIFT ASSMT COMPLETED.BREAKFAST GIVEN.
[2020-04-01 08:04] VITALS: BP 105/62
--- NOTE | 2020-04-01 12:00 | NUR ---
WAITING ON DISCHARGE.EATING LUNCH.
--- NOTE | 2020-04-01 12:09 | NUR ---
I have reviewed this patient and I concur with the Shift Assessment completed by the Licensed Practical Nurse today this shift.
[2020-04-01] MEDS ORDERED: HYDROCODON-ACE1 EA10 PO (13:20)
[2020-04-01] MEDS ORDERED: ALDACTONE25 MG PO (13:20)
--- NOTE | 2020-04-01 14:15 | NUR ---
REVIEWED MEDS AND HOME CARE.MEDS CALLED TO [facility].DISCHARGED WITH DAUGHTER.
--- NOTE | 2020-04-01 14:18 | NUR ---
Visited with the patient re discharge home today. She lives with her daughter who will pick her up. She has a walker and a shower chair, she denies the need for add'l DME. She is a client with [facility] and they will resume her care with SN, PT and OT after discharge. Faxed order for HH, discharge instructions, med rec and progress notes to them per request. A follow up appointment has been made with her PCP Dr Calles for April 15, at 10:15, records have been faxed to Dr Calles's office per his request. Cleopatra Floyd RN Clinical Liaison, Rehab
--- NOTE | 2020-04-01 14:59 | RHP ---
PATIENT: AVTAR AMIN MEDICAL RECORD: [id number] ACCOUNT: [id number] [id number] 61 ADMISSION DATE: 03/21/20 REHABILITATION HISTORY AND PHYSICAL EXAMINATION POST ADMISSION PHYSICIAN EXAMINATION ADMITTING DIAGNOSIS: Ischemic cardiomyopathy. HISTORY OF PRESENT ILLNESS: The patient is a 54-year-old female patient presented to the ED with experiencing shortness of breath, exertional dyspnea for the past 2-3 days, got a history of ischemic cardiomyopathy with an EF of 25%. She had been hospitalized a few times secondary to shortness of breath. She was admitted last few times with atrial fibrillation with rapid ventricular response. She was actually in a normal sinus rhythm at this time. She has been on amiodarone for her atrial fib. The patient's TSH was noted to be 37.08, which is markedly out. Her INR was 6.09. Her D-dimer was actually elevated. The patient has got a history of hypertension, hyperlipidemia, CVA, coronary artery disease, coronary artery bypass grafting, CHF, pacemaker placement, PE and hypothyroidism. She has been progressing with physical and occupational therapy. She needs to be monitor closely and she is on telemetry for any type of medication adjustment. She is also having some respiratory treatments. She is on anticoagulant therapy and this needs to be managed appropriately. She has got a history of acute kidney injury with elevated creatinine, so she is on electrolyte protocol at this time. She has got weakness, balance deficits, decreased activity tolerance, decreased strength, gait disturbance, limited safety awareness. She is a risk for falls and cues for equipment. She has got low endurance, unsteady gait and balance, fatigues easily, inability to care for herself at home. These are all barriers to her discharge home. She would like to be able to go home at her prior level of functioning or better. She lives at home with her daughter and was independent with ADLs and mobility with use of a rolling walker. She is currently set up for mod assist for ADLs, mod assist for mobility. She and her family would like for her to return home at that level that she was at previously. COMORBIDITIES: Include weakness, hypertension, hyperlipidemia, paroxysmal atrial fib, ischemic cardiomyopathy, acute kidney injury, history of DVT, COPD, obstructive sleep apnea, fibromyalgia, ischemic cardiomyopathy with EF now of about 15%, [id number] heart failure. She has got a history of coronary artery disease and coronary artery bypass grafting and dyspnea. PAST MEDICAL HISTORY: Significant for CVA, got a history of pacemaker placement, atrial fib, valve replacement, asthma, acid reflux, weakness, CVA, DVT, ischemic cardiomyopathy. PAST SURGICAL HISTORY: Includes gallbladder surgery, hysterectomy, mitral valve repair, coronary artery bypass grafting and stents. ALLERGIES: ANY TYPE OF IODINATED CONTRAST, OXYCODONE, DARVOCET AND PENICILLIN. CURRENT MEDICATIONS: Include Bumex 2 mg daily, she is on Xarelto 20 mg at bedtime with dinner, she is on spironolactone 25 mg daily, aspirin chewable 81 mg daily, isosorbide 20 mg t.i.d., carvedilol 6.25 mg b.i.d. with meals, Protonix 40 mg b.i.d., Synthroid 112 mcg daily, Tylenol 650 every 4 hours p.r.n., Zofran 8 mg every 4 hours p.r.n., melatonin 9 mg at bedtime and amiodarone 200 mg b.i.d. HISTORY AND PHYSICAL [id number] AVTAR AMIN HABITS: No current alcohol or tobacco use. FAMILY HISTORY: Noncontributory. SOCIAL HISTORY: The patient hopes to return back home and get back to her prior level of functioning. REVIEW OF SYSTEMS: GENERAL: Does complain of weakness and fatigue. HEENT: Denies cold, cough, or congestion. CARDIOVASCULAR: Denies any chest pain. LUNGS: Does complain of shortness of breath with any type of activity. PHYSICAL EXAMINATION: VITAL SIGNS: Stable. She is afebrile. GENERAL: A morbidly obese female, in no distress upon exam. HEENT: Normal and atraumatic. Mucosa moist. NECK: Supple. No lymphadenopathy. LUNGS: Clear in upper layne with decreased breath sounds in the bases. HEART: Regular rate and rhythm. She does have a holosystolic murmur. ABDOMEN: Soft, benign and nondistended. Positive bowel sounds times 4. EXTREMITIES: No clubbing, cyanosis or edema. NEUROLOGIC: She is noted to have diffuse weakness. LABORATORY DATA: White count is 5.5, H&H of 10 and 34 and platelet count is noted to be 180. Her MCV is 78.4 consistent with an iron-deficient anemia. INR is 1.48. Sodium 137, potassium 4.2, BUN and creatinine of 31 and 3.3 and blood sugar is noted to be 95. ASSESSMENT: This is a 54-year-old female patient admitted to rehab with a working diagnosis of severely compromised ischemic cardiomyopathy. The patient has potential to make improvement. We instituted the following multidisciplinary therapies including, but not limited to physical, occupational, respiratory, speech, nutritional services, prosthetics and orthotics. Given her complex medical condition and risks for more complications, rehabilitation services cannot be provided at a low level of care such as skilled nurse facility. PLAN: 1. Admit to [facility] for intensive inpatient therapy to include the following disciplines; A. Physical therapy to improve gait, all transfer skills and bed mobility to a modified independent level. B. Occupational therapy to improve activities of daily living. C. Case management to assist with discharge planning and placement options. D. Nutrition to assist with nutritional needs. E. Rehabilitation nursing to assist in monitoring the patient's underlying medical conditions and to assist with any type of bowel or bladder management. 2. The patient's current medication and medical care will be continued. 3. The patient will be placed on standard fall precautions. 4. The patient's estimated length of stay is approximately 7-10 days. 5. We will discuss this patient during care team staff meeting this week. Continue on medications as appropriate, watch her blood sugars closely and I will see again in the a.m. on Tuesday. HISTORY AND PHYSICAL [id number] AVTAR AMIN TRANSINT:[id number] Voice Confirmation ID: [id number] DOCUMENT ID: [id number] MELISSA notes whether there has been none or any medical/functional change since admission: - No change since preadmission screen. MELISSA attests patient continues to be appropriate for IRF: - Continues to be appropriate. KIM PAGAN MD at 1459 CC: [id number] DICTATION DATE: 03/22/20 1147 ENGRAVING PRESS OPERATOR: 03/22/20 1241 ADM IN [facility] [address] [place] [address]
== END 2020-04-01 14:15 | disposition home health service (06) | DRG 302 ==
LOC: D.REHAB 20:00
PROVIDERS: ADMIT Emergency Medicine; ATTEND Emergency Medicine
DX: I25.5 Ischemic cardiomyopathy (principal); I50.23 Acute on chronic systolic (congestive) heart failure; N17.9 Acute kidney failure, unspecified; R53.1 Weakness; E78.5 Hyperlipidemia, unspecified; I48.0 Paroxysmal atrial fibrillation; J44.9 Chronic obstructive pulmonary disease, unspecified; G47.33 Obstructive sleep apnea (adult) (pediatric); M79.7 Fibromyalgia; I11.0 Hypertensive heart disease with heart failure; I25.10 Atherosclerotic heart disease of native coronary artery without angina pectoris; E66.01 Morbid (severe) obesity due to excess calories; D50.9 Iron deficiency anemia, unspecified; K21.9 Gastro-esophageal reflux disease without esophagitis; E03.9 Hypothyroidism, unspecified

== ENCOUNTER 2020-04-18 21:05 | Emergency (ER) | payer MEDICARE, MEDICAID ==
[~2020-04-18] VITALS: Ht 162.6 cm; Wt 101.4 kg
[~2020-04-18 21:05] MED LIST changes: +HYDROCODON-ACE1 EA10 PO
[2020-04-18 21:06] VITALS: Ht 162.6 cm; Wt 101.4 kg
[2020-04-18 21:39] LABS: BASOPHILS 1.2 % (0-2); EOSINOPHILS 3.2 % (0-7); HEMATOCRIT 36.2 % (36.0-48.0); HEMOGLOBIN 10.8 g/dL (12-16); IMMATURE GRANULOCYTES 0.3 % (0-5); LYMPHOCYTES 19.6 % (15-50); MCH 23.7 pg (26.0-34.0); MCHC 29.8 g/dL (31.0-37.0); MCV 79.4 fL (80.0-100.0); MEAN PLATELET VOLUME 10.6 fL (7.4-10.4); MONOCYTES 9.6 % (2-11); NEUTROPHILS 66.1 % (40-80); PLATELET COUNT 250 10x3/uL (130-400); RBC 4.56 10x6/uL (4.00-5.40); RDW 18.2 % (11.5-14.5); WBC 5.9 10x3/uL (4.8-10.8)
[2020-04-18 21:44] LABS: ANION GAP 12.4 mmol/L (8-16); CALCIUM 8.5 mg/dL (8.5-10.1); CARBON DIOXIDE 22.6 mmol/L (21.0-32.0); CREATININE - SERUM 2.3 mg/dL (0.6-1.3)
[2020-04-18 22:06] LABS: BILIRUBIN - TOTAL 1.15 mg/dL (0.2-1.3); PROTEIN - SERUM 7.2 g/dL (6.4-8.2)
[2020-04-18 22:10] LABS: NITRITE NEGATIVE (NEGATIVE); SPECIFIC GRAVITY 1.025 (1.005-1.020)
[2020-04-18 22:11] LABS: BILIRUBIN NEGATIVE (NEGATIVE); GLUCOSE NEGATIVE (NEGATIVE); KETONE NEGATIVE (NEGATIVE); UROBILINOGEN NORMAL (NORMAL)
[2020-04-18 22:12] LABS: BACTERIA MODERATE /hpf (NEGATIVE); RED CELLS - URINE OCC /hpf (0-5); WHITE CELLS - URINE 0-5 /hpf (NEGATIVE)
[2020-04-18 22:15] LABS: TROPONIN-I 0.593 ng/mL (0.000-0.060)
[2020-04-19 00:01] LABS: UDS - AMPHET NEGATIVE QUAL (NEGATIVE); UDS - BARB NEGATIVE QUAL (NEGATIVE); UDS - BENZO NEGATIVE QUAL (NEGATIVE); UDS - COCAINE NEGATIVE QUAL (NEGATIVE); UDS - OPIATE NEGATIVE QUAL (NEGATIVE); UDS - PCP NEGATIVE QUAL (NEGATIVE); UDS - THC NEGATIVE QUAL (NEGATIVE)
[2020-04-19] MEDS ORDERED: ZOFRAN ODT4 MG/UDTAB PO (00:51)
[2020-04-19 00:56] VITALS: BP 147/96
== END 2020-04-19 00:56 | disposition home or self-care (01) ==
LOC: D.ER 21:05
PROVIDERS: Family Medicine
DX: A08.4 Viral intestinal infection, unspecified (principal); I25.10 Atherosclerotic heart disease of native coronary artery without angina pectoris; I12.9 Hypertensive chronic kidney disease with stage 1 through stage 4 chronic kidney disease, or unspecified chronic kidney disease; N18.9 Chronic kidney disease, unspecified; J45.909 Unspecified asthma, uncomplicated; Z95.0 Presence of cardiac pacemaker; E07.9 Disorder of thyroid, unspecified; Z86.73 Personal history of transient ischemic attack (TIA), and cerebral infarction without residual deficits; K21.9 Gastro-esophageal reflux disease without esophagitis; R11.2 Nausea with vomiting, unspecified; R10.13 Epigastric pain

== ENCOUNTER 2020-05-02 20:25 | Emergency (ER) | payer MEDICARE, MEDICAID ==
[~2020-05-02] VITALS: Ht 157.5 cm; Wt 101.4 kg
[~2020-05-02 20:25] MED LIST changes: +ZOFRAN ODT4 MG/UDTAB PO
[2020-05-02 20:40] VITALS: Ht 157.5 cm; Wt 101.4 kg
[2020-05-02] MEDS ORDERED: XARELTO20 MG PO (20:44)
[2020-05-02] MEDS ORDERED: CARDIZEM120 MG PO (20:45)
[2020-05-02] MEDS ORDERED: POTASSIUM CHLO10 ME1 PO (20:46)
[2020-05-02] MEDS ORDERED: CARAFATE1 G PO (21:24)
[2020-05-02 21:29] LABS: BASOPHILS 0.5 % (0-2); EOSINOPHILS 3.6 % (0-7); HEMATOCRIT 35.8 % (36.0-48.0); IMMATURE GRANULOCYTES 0.2 % (0-5); LYMPHOCYTES 18.4 % (15-50); MCH 23.7 pg (26.0-34.0); MCHC 30.7 g/dL (31.0-37.0); MONOCYTES 8.8 % (2-11); NEUTROPHILS 68.5 % (40-80); RBC 4.65 10x6/uL (4.00-5.40); RDW 18.5 % (11.5-14.5); WBC 6.2 10x3/uL (4.8-10.8)
[2020-05-02 21:33] LABS: PLATELET COUNT 167 10x3/uL (130-400)
[2020-05-02 21:34] LABS: ANION GAP 13.3 mmol/L (8-16); CALCIUM 8.2 mg/dL (8.5-10.1); CARBON DIOXIDE 20.4 mmol/L (21.0-32.0); CREATININE - SERUM 2.3 mg/dL (0.6-1.3); POTASSIUM - SERUM 4.7 mmol/L (3.5-5.1)
[2020-05-02 22:19] LABS: ALBUMIN 3.1 g/dL (3.4-5.0); BILIRUBIN - TOTAL 1.09 mg/dL (0.2-1.3); PROTEIN - SERUM 7.1 g/dL (6.4-8.2)
[2020-05-02 22:27] LABS: TROPONIN-I 0.467 ng/mL (0.000-0.060)
[2020-05-02 23:15] VITALS: BP 124/89
== END 2020-05-02 22:39 | disposition home or self-care (01) ==
LOC: D.ER 20:25
PROVIDERS: Family Medicine
DX: R10.13 Epigastric pain (principal); Z86.73 Personal history of transient ischemic attack (TIA), and cerebral infarction without residual deficits; E07.9 Disorder of thyroid, unspecified; I10 Essential (primary) hypertension; Z95.0 Presence of cardiac pacemaker; J45.909 Unspecified asthma, uncomplicated; K21.9 Gastro-esophageal reflux disease without esophagitis

== ENCOUNTER 2020-05-10 20:30 | Inpatient (IN) | payer MEDICARE, MEDICAID ==
[~2020-05-10] VITALS: Ht 162.6 cm; Wt 105.9 kg
--- NOTE | ~2020-05-10 | HEMODYNAMI ---
PATIENT:AVTAR AMIN MEDICAL RECORD: [id number] : 61 [facility]# [id number] ADMISSION DATE: 05/10/20 Generatedon:05/12/202011:58 Patient name: AVTAR AMIN Patient #: [id number] SSN: [id number] : 1965 Date of study: 05/12/2020 Page: Of Hemodynamic Procedure Report Patient Data Patient Demographics Procedure consent was obtained First Name: AVTAR Gender: Female Last Name: BRENNAN : 1965 Middle Initial: EDITH Age: 54 year(s) Patient #: [id number] Race: Black SSN: [id number] Additional ID: [id number] Contact details Address: [address] [place] [address] State: [place] City: [facility] [place] [place] Zip code: [address] Past Medical History Allergies Allergen Reaction Date Comments Reported Other allergy 04/08/2016 Percocett, Darvocett, Oxycodone Iodine 04/08/2016 Other allergy 05/01/2019 IODINATE CONTRAST, OXYCODONE, PROPOXYPHENE Other allergy 02/26/2020 IODINATED CONTRAST, OXYCODONE Other allergy 05/12/2020 IODINE, OXYCODONE, PROPOXYPHENE, PCN, FRUIT Admission Admission Data Admission Date: 05/10/2020 Admission Time: 22:22 Arrival Date: 05/12/2020 Arrival Time: 0:00 Admit Source: Other Insurance Payor: Medicaid, Room #: D.2118 Medicare HIC #: [id number] Height (in.): 59.84 BSA: 1.95 (m2) Height (cm.): 152 BMI: 43.72 (kg/m2) Weight (lbs.): 222.67 Weight (kg.): 101 Lab Results Lab Result Date: 05/12/2020 Lab Result Time: 0:00 Biochemistry Name Units Result Min Max BUN mg/dl 34 --(----)-* 7 18 Creatinine mg/dl 2.5 --(----)-* 0.6 1.3 eGFR ml/min 26 *-(----)-- 90 120 NONAFRICAN CBC Name Units Result Min Max Hemoglobin g/dl 9.9 *-(----)-- 13.5 17.5 Procedure Procedure Types Cath Procedure Diagnostic Procedure [facility] w/[facility] Procedure Description Procedure Date Procedure Date: 05/12/2020 Procedure Start Time: 11:48 Procedure End Time: 11:57 Procedure Staff Name Function Pb Castro MD Performing Physician Bernie Trammell RT Monitor Kunal Collado RN Nurse Ema Prasad RT Scrub Procedure Data Cath Procedure Fluoroscopy Diagnostic fluoroscopy Total fluoroscopy Time: 1 time: 1 min min Diagnostic fluoroscopy Total fluoroscopy dose: 374 dose: 374 mGy mGy Contrast Material Contrast Material Type Amount (ml) Isovue 370 45 Entry Location Entry Primary Successful Side Size Upsize Upsize Entry Closure Hernandez ccessful Closure Location (Fr) 1 (Fr) 2 (Fr) Remarks Device Remarks Femoral Right 4 Fr Manual vein Compression Femoral Right 5 Fr Exoseal artery Estimated blood loss: 5 ml Diagnostic catheters Device Type Used For End Catheter Placement MULTIPACK JL 4.0 5Fr Procedure catheter MULTIPACK 3DRC 5Fr Procedure catheter MULTIPACK Pigtail 5 Fr Procedure catheter Procedure Complications No complications Procedure Medications Medication Administration Route Dosage Oxygen etCO2 Nasal cannula 2 l/min Lidocaine 2% added to field 20 Heparin Flush Bag added to field 2 bags (1000units/500ml NS) 0.9% NaCl I.V. 100 ml/hr Versed I.V. 1 mg Fentanyl I.V. 50 mcg Versed I.V. 1 mg Fentanyl I.V. 50 mcg Hemodynamics Rest BSA: 1.95 (m2) O2 Consumption: Estimated: 209.92 (ml/min) O2 Consumption indexed : Estimated:107.65 (ml/min/m) Heart Rate: 101 (bpm) Pressure Samples Time Site Value (mmHg) Purpose Heart Use Rate(bpm) 11:48 LV 58/-12,11 Snapshot 95 Snapshots Pre Cath Intra NCS Post Cath Vital Signs Time Heart Resp SPO2 etCO2 NIBP (mmHg) Rhythm Pain Sedation Rate (ipm) (%) (mmHg) Status Level (bpm) 11:26:20 101 28 94 0 139/98(109) NSR 0 (11) 10(A) , No pain 11:32:09 100 19 94 33.7 135/58(115) NSR 0 (11) 10(A) , No pain 11:36:33 99 19 100 35.9 139/90(101) NSR 0 (11) 10(A) , No pain 11:42:09 98 16 96 35.9 131/91(109) NSR 0 (11) 10(A) , No pain 11:46:29 97 16 100 38.1 142/96(109) NSR 0 (11) 9(A) , No pain 11:52:01 95 15 100 36.7 106/85(99) NSR 0 (11) 10(A) , No pain 11:56:13 100 40.4 122/87(102) NSR 0 (11) 10(A) , No pain Medications Time Medication Route Dose Verified Delivered Reason Notes Eff ectiveness by by 11:26:20 Oxygen etCO2 2 Pb Nikkyie used for Nasal l/min St Filipe Collado RN procedure cannula 11:26:36 Lidocaine 2% added 20ml Pb Pb for local to vial [facility] anesthetic field MD DICKINSON 11:26:42 Heparin Flush added 2 Pb Pb used for Bag to bags [facility] procedure (1000units/500ml field MD DICKINSON NS) 11:42:00 Versed I.V. 1 mg Pb Buffie for St Filipe Collado RN sedation 11:42:00 0.9% NaCl I.V. 100 Pb Nikkyie Per ml/hr St Filipe Collado RN physician 11:42:54 Versed I.V. 1 mg Pb Nikkyie for St Filipe Collado RN sedation 11:45:06 Fentanyl I.V. 50 Pb Buffie for mcg St Filipe Collado RN sedation 11:45:58 Fentanyl I.V. 50 Pb Buffie for mcg St Filipe Collado RN sedation Procedure Log Time Note 10:57:41 Arrival Date: 05/12/2020 12:00:00 AM 10:57:51 Admit Source: Other 10:57:57 Insurance Payor : Medicare, Medicaid 10:58:38 Patient Weight : 222.67 lbs 10:58:45 Patient Height : 59.84 inches 10:59:22 Lab Result : Hemoglobin 9.9 g/dl 10:59:22 Lab Result : eGFR NONAFRICAN 26 ml/min 10:59:22 Lab Result : BUN 34 mg/dl :59:22 Lab Result : Creatinine 2.5 mg/dl 10:59:30 Diagnostic Cath Status : Urgent 11:00:18 Procedure Status Urgent Heart Cath (IP). 11:00:22 Bernie Trammell RT(R) sent for patient. Start room use. 11:00:23 Time tracking: Regular hours (M-F 7:00 - 5:00) 11:00:28 Plan of Care:Hemodynamics will remain stable., Cardiac rhythm will remain stable., Comfort level will be maintained., Respiratory function will remain adequate., Patient/ family verbilizes understanding of procedure., Procedure tolerated without complication., Recovers from procedure without complications.. 11:11:14 H&P Date Dictated: 05/10/2020 Within 30 days and on chart.. 11:11:15 Pre-procedure instructions explained to patient. 11:11:16 Pre-op teaching completed and patient verbalized understanding. 11:11:18 Family unavailable. 11:11:20 Patient NPO since Midnight. 11:12:04 Patient allergic to Other allergyIODINE, OXYCODONE, PROPOXYPHENE, PCN, FRUIT 11:14:06 Lab results completed and on chart. 11:14:10 Stress Test: no; N/A ? 11:14:13 Risk of Mortality: 1.7 11:14:16 Risk of blood transfusion: 16.5 11:14:19 Risk of BOSSMAN: 16.7 11:14:21 Alarms reviewed by R. N. 11:14:22 Sharps counted by scrub and verified by R.N. 11:18:50 Patient received from Med II to CCL 1 Alert and oriented. Tansferred to table in Supine position. 11:18:52 Warm blankets applied, and anastasia hugger turned on for patient comfort. 11:18:54 Signed procedure consent form obtained from patient. 11:18:54 Correct patient and procedure confirmed by team. 11:18:55 ECG and BP/O2 sat monitors applied to patient. 11:22:01 Is the patient allergic to Iodine/contrast media? Yes. 11:22:02 Was the patient premedicated? Yes 11:22:03 Is patient on blood thinner?Yes 11:22:07 ACC The patient was administered the following blood thiners within the last 24 hours: Xarelto 11:22:09 Patient diabetic? No. 11:22:12 Patient not . Patient is over age 55. 11:22:16 Previous problem with sedation/anesthesia? No ? 11:22:17 Snore? Yes 11:22:18 Sleep apnea? No 11:22:20 Opens mouth fully? Yes 11:22:21 Deviated septum? No 11:22:22 Sticks out tongue? Yes 11:22:25 Airway obstruction? Yes ASTHMA 11:22:28 Dentures? No ? 11:22:58 Pre procedure: right dorsailis pedis pulse 1+ Palpable, but thready & weak; easily obliterated 11:23:01 Patient pain scale 0/10 ?. 11:23:11 IV patent on arrival in right wrist with 0.9% NaCl at [facility]. 11:23:15 Right groin area was prepped with chlora-prep and draped in sterile fashion 11:25:14 Vital chart was started 11:25:16 Full Disclosure recording started 11:25:25 Baseline sample Acquired. 11:25:32 Rhythm: sinus tachycardia 11:26:20 Oxygen 2 l/min etCO2 Nasal cannula was administered by Kunal Collado RN; used for procedure; Verbal order read back and verified. 11:26:36 Lidocaine 2% 20ml vial added to field was administered by Pb Castro MD; for local anesthetic; Verbal order read back and verified. 11:26:42 Heparin Flush Bag (1000units/500ml NS) 2 bags added to field was administered by Pb Castro MD; used for procedure; Verbal order read back and verified. 11:28:18 Use device set Femoral Dx 11:28:18 ACIST Syringe (22523) opened to sterile field. 11:28:19 Bag Decanter () opened to sterile field. 11:28:20 ACIST Hand Control (88753) opened to sterile field. 11:28:20 ACIST Manifold (28281) opened to sterile field. 11:28:21 Tegaderm 4 x 4 (1626W) opened to sterile field. 11:34:53 --------ALL STOP TIME OUT------ 11:34:56 Final Timeout: patient, procedure, and site verified with staff and physician. All members of the team are in agreement. 11:34:58 Right groin site verified by team. 11:35:02 Fire Safety Assessment: A--An alcohol-based skin anteseptic being used preoperatively., C--Open oxygen or nitrous oxide is being used., D--An ESU, laser, or fiber-optic light is being used. 11:35:05 Physical assessment completed. ASA score P 2 - A patient with mild systemic disease as per Pb Castro MD. 11:35:07 2) 60-89 Mildly reduced kidney function, and other findings (as for stage 1) point to kidney disease. 11:35:11 Maximum allowable contrast dose (3.7 X eGFR X 0.75)72 ml. 11:35:15 Sedation plan: IV Moderate Sedation Medication:Versed, Fentanyl 11:40:[address] Yung (663572) opened to sterile field. 11:40:03 EMERALD Guide Wire (685-321) opened to sterile field. 11:40:06 DIAGNOSTIC Multipack 5Fr catheter set ([id number]) opened to sterile field. 11:40:44 Local anesthetic to right femoral artery with Lidocaine 2% by Pb Castro MD.INITIAL ACCESS ONLY 11:41:07 IV Extension Set opened to sterile field. 11:41:16 A 4 Fr sheath was inserted into the Right Femoral vein 11:42:00 Versed 1 mg I.V. was administered by Kunal Collado RN; for sedation; Verbal order read back and verified. 11:42:00 0.9% NaCl 100 ml/hr I.V. was administered by Kunal Colldao RN; Per physician; Verbal order read back and verified. 11:42:49 SHEATH 5FR [place] (ZSB950) opened to sterile field. 11:42:54 Versed 1 mg I.V. was administered by Kunal Collado RN; for sedation; Verbal order read back and verified. 11:43:26 A 5 Fr sheath was inserted into the Right Femoral artery 11:43:56 Medline Cath Pack ([id number]) opened to sterile field. 11:44:04 A MULTIPACK JL 4.0 5Fr catheter was advanced over the wire and used for Procedure. 11:44:25 LCA angiography performed. 11:44:28 Injector settings: Ml/sec: 3, Volume: 6, 11:45:06 Fentanyl 50 mcg I.V. was administered by Kunal Collado RN; for sedation; Verbal order read back and verified. 11:45:49 Catheter removed. 11:45:58 Fentanyl 50 mcg I.V. was administered by Kunal Collado RN; for sedation; Verbal order read back and verified. 11:46:54 A MULTIPACK 3DRC 5Fr catheter was advanced over the wire and used for Procedure. 11:46:59 RCA angiography performed. 11:47:03 Injector settings: Ml/sec: 3, Volume: 6, 11:47:05 ACCDominant side:Right 11:47:07 Catheter removed. 11:47:12 A MULTIPACK Pigtail 5 Fr catheter was advanced over the wire and used for Procedure. 11:47:20 LV gram done using GERBER 11:47:36 Injector settings: Ml/sec: 5, Volume: 15, 11:48:02 LV hemodynamics recorded. 11:48:19 Procedure started. 11:48:22 LV hemodynamics recorded. 11:48:29 EF : 15 % 11:50:11 EXOSEAL 5Fr (EX500) opened to sterile field. 11:50:16 Catheter removed. 11:50:28 Sheath removed intact; hemostasis achieved with Exoseal to the Right Femoral artery. 11:51:45 Sheath removed intact; hemostasis achieved with Manual Compression to the Right Femoral vein. 11:51:55 Procedure ended.(Physican Out) 11:53:41 Fluoroscopy time 01.00 minutes. 11:53:45 Fluoroscopy dose: 374 mGy 11:53:45 Flurop Dose total: 374 11:53:51 Dose Area Product 27415 mGy/cm. 11:54:01 Contrast amount:Isovue 370 45ml. 11:54:04 Maximum allowable dose exceeded? No. 11:54:05 Sharps counted by scrub and verified by R.N. 11:54:13 Post-op/insertion site Right Femoral artery dressed using a 4 x 4 and Tegaderm. 11:54:19 Post-op/insertion site Right Femoral vein dressed using a 4 x 4 and Tegaderm. 11:54:25 Post right femoral artery:stable, soft, clean and dry 11:54:30 Post right femoral vein:stable, soft, clean and dry 11:54:32 Post Procedure Pulses reassessed and unchanged 11:54:35 Post procedure: right dorsailis pedis pulse 2+ Normal; easily identifiable; not easily obliterated. 11:54:39 Post-procedure physical assessment completed. ASA score P 2 - A patient with mild systemic disease as per Pb Castro MD. 11:54:42 Post procedure rhythm: unchanged. 11:54:45 Estimated blood loss: 5 ml 11:54:47 Post procedure instruction explained to patient.Patient verbalizes understanding. 11:54:47 Patient needs reinforcement of post procedure teaching. 11:57:15 Procedure and supply charges have been captured, reviewed, submitted and are correct. 11:57:19 Procedure Complication : No complications 11:57:23 Vital chart was stopped 11:57:29 [facility] Findings: mild to moderate CAD (<70%) 11:57:31 Operative report dictated upon procedure completion. 11:57:32 See physician's report for complete and final results. 11:57:34 Report given to [facility]. 11:57:37 Patient transfered to [facility] with Bed. 11:57:39 Procedure ended. 11:57:39 Full Disclosure recording stopped 11:57:44 End room use (Document Last) 11:58:04 End room use (Document Last) 11:58:18 End room use (Document Last) Device Usage Item Name Manufacture Quantity Catalog Hospital Part Current Minimal L ot# / Number Charge Number Stock Stock Serial# Code ACIST Acist 1 10876 145119 345487 641060 20 Syringe Medical (10701) Systems Inc Bag Microtek 1 898891 65842 615598 5 Decanter Medical Inc. () ACIST Hand Acist 1 71824 579093 949509 519266 5 Control Medical (77240) Systems Inc ACIST Acist 1 60788 699403 243538 832131 5 Manifold Medical (71115) Systems Inc Tegaderm 4 3M 1 1626W 423245 217718 430175 5 x 4 (1626W) SHEATH 4FR [facility] Yung 1 999280 151209 867728 [address] 5 [address] Yung (188735) EMERALD Cardinal 1 502-455 539046 045359 038637 5 Guide Wire Health (502455) DIAGNOSTIC Cardinal 1 IS3977 222339 43798 866168 30 Multipack Health 5Fr catheter set (LE6384) SHEATH 5FR Terumo 1 LRN977 333111 664813 402803 5 [place] (UMY334) Medline Medline 1 [id number] 389377 15600 411410 5 Cath Pack ([id number]) MULTIPACK Cardinal 1 734147 5 JL 4.0 5Fr Health catheter MULTIPACK Cardinal 1 407626 5 3DRC 5Fr Health catheter MULTIPACK Cardinal 1 850836 5 Pigtail 5 Health Fr catheter EXOSEAL 5Fr Cardinal 1 EX500 960069 742125 788186 10 (EX500) Health IV Hospira 1 20204-13 431497 35836 065344 5 Extension Set Signature Audit Kelly Stage Time Signature Unsigned Intra-Procedure 05/12/2020 Bernie Trammell 11:58:04 AM RT(R) Intra-Procedure 05/12/2020 Kunal Collado RN 11:58:18 AM Intra-Procedure 05/12/2020 Pb Palumbo 11:58:31 AM Filipe DICKINSON [id number] [place] [address]
[~2020-05-10 20:30] MED LIST changes: +CARAFATE1 G PO; +CARDIZEM120 MG PO; +POTASSIUM CHLO10 ME1 PO
[2020-05-10 20:41] VITALS: BP 109/61
[2020-05-10 20:54] LABS: BASOPHILS 0.8 % (0-2); EOSINOPHILS 4.4 % (0-7); HEMATOCRIT 34.9 % (36.0-48.0); HEMOGLOBIN 10.7 g/dL (12-16); IMMATURE GRANULOCYTES 0.2 % (0-5); LYMPHOCYTES 18.6 % (15-50); MCH 23.2 pg (26.0-34.0); MCHC 30.7 g/dL (31.0-37.0); MCV 75.7 fL (80.0-100.0); MONOCYTES 10.6 % (2-11); NEUTROPHILS 65.4 % (40-80); PLATELET COUNT 169 10x3/uL (130-400); RBC 4.61 10x6/uL (4.00-5.40); RDW 17.8 % (11.5-14.5); WBC 6.3 10x3/uL (4.8-10.8)
[2020-05-10 21:01] LABS: APTT 27.7 SECONDS (22.8-39.4); INR 1.46 (0.85-1.17); PROTIME 17.6 SECONDS (11.6-15.0)
[2020-05-10 21:14] LABS: ANION GAP 12.6 mmol/L (8-16); CARBON DIOXIDE 24.5 mmol/L (21.0-32.0); CREATININE - SERUM 2.9 mg/dL (0.6-1.3); POTASSIUM - SERUM 4.1 mmol/L (3.5-5.1)
[2020-05-10 21:30] VITALS: BP 131/92
[2020-05-10 21:34] LABS: ALBUMIN 3.1 g/dL (3.4-5.0); BILIRUBIN - TOTAL 1.2 mg/dL (0.2-1.3); MAGNESIUM - SERUM 1.3 mg/dL (1.8-2.4); PROTEIN - SERUM 6.9 g/dL (6.4-8.2)
[2020-05-10 21:35] LABS: TROPONIN-I 0.442 ng/mL (0.000-0.060)
[2020-05-10 22:00] VITALS: BP 139/93
[2020-05-10 23:02] VITALS: BP 144/96
--- NOTE | 2020-05-10 23:02 | NUR ---
PT FROM ER VIA STRETCHER, PT MOVED TO BED, RESP EVEN AND UNLABORED. NO DISTRESS NOTED, TELEMETRY PLACED ON PT AT THIS TIME.
[2020-05-11 04:45] VITALS: BP 114/79
[2020-05-11 05:23] LABS: HEMATOCRIT 35.5 % (36.0-48.0); HEMOGLOBIN 10.8 g/dL (12-16); MCH 23.4 pg (26.0-34.0); MCHC 30.4 g/dL (31.0-37.0); MCV 76.8 fL (80.0-100.0); PLATELET COUNT 165 10x3/uL (130-400); RBC 4.62 10x6/uL (4.00-5.40); RDW 18.2 % (11.5-14.5)
[2020-05-11 05:25] LABS: WBC 7.9 10x3/uL (4.8-10.8)
[2020-05-11 05:27] LABS: EOSINOPHILS 1 % (0-7); LYMPHOCYTES 23 % (15-50); MONOCYTES 12 % (2-11); NEUTROPHILS 64 % (40-80); PLATELET ESTIMATE NORMAL
[2020-05-11 06:06] LABS: CREATINE KINASE 101 UL (21-215)
[2020-05-11 06:09] LABS: TROPONIN-I 0.471 ng/mL (0.000-0.060)
--- NOTE | 2020-05-11 06:13 | NUR ---
ADMISSION ASSESSMENT COMPLETED BY RN. PT RESTING IN ROOM WITH NO DISTRESS.
[2020-05-11 08:31] VITALS: BP 130/90
[2020-05-11 10:51] LABS: CKMB 1.1 U/L (0.0-3.6); CREATINE KINASE 90 UL (21-215)
[2020-05-11 10:53] LABS: TROPONIN-I 0.446 ng/mL (0.000-0.060)
[2020-05-11 15:55] LABS: CKMB 1.3 U/L (0.0-3.6); CREATINE KINASE 98 UL (21-215)
[2020-05-11 15:57] LABS: TROPONIN-I 0.445 ng/mL (0.000-0.060)
[2020-05-11 17:57] LABS: % SATURATION 9 % (15-55); IRON 37 ug/dl (35-150); TOTAL IRON BIND CAPACITY 376 ug/dl (260-445); UNSAT IRON BIND CAPACITY 339 ug/dl (150-375)
--- NOTE | 2020-05-11 19:28 | NUR ---
INITIAL ROUNDS COMPLETED. PT RESTING WITH EYES CLOSED. RESP EVEN AND REGULAR. SR UP X2,CALL LIGHT WITHIN REACH.
[2020-05-11 20:30] VITALS: BP 129/88
--- NOTE | 2020-05-11 21:44 | NUR ---
PM MEDS GIVEN. PT DENIES ANY DISCOMFORT. CALL LIGHT WITHIN REACH.
--- NOTE | 2020-05-12 00:51 | NUR ---
PT RESTING WITH EYES CLOSED. RESP EVEN AND REGULAR. SR UP X2,CALL LIGHT WITHIN REACH.
--- NOTE | 2020-05-12 02:59 | NUR ---
PT RESTING WITH EYES CLOSED. RESP EVEN AND REGULAR. CALL LIGHT WITHIN REACH.
[2020-05-12 03:14] LABS: BILIRUBIN NEGATIVE (NEGATIVE); GLUCOSE NEGATIVE (NEGATIVE); KETONE NEGATIVE (NEGATIVE); NITRITE NEGATIVE (NEGATIVE); UROBILINOGEN NORMAL (NORMAL)
--- NOTE | 2020-05-12 04:18 | NUR ---
PT AWAKE; DENIES ANY DISCOMFORT. REINFORCED NPO THIS AM. PT STATED UNDESTANDING..
[2020-05-12 05:00] VITALS: BP 125/81
--- NOTE | 2020-05-12 05:51 | NUR ---
VSS THROUGHOUT NIGHT. NPO THIS AM PER DR MENJIVAR. NEEDS MET; WILL CONTINUE TO MONITOR.
[2020-05-12 07:08] LABS: ANION GAP 10.8 mmol/L (8-16); BASOPHILS 0.9 % (0-2); CALCIUM 8.4 mg/dL (8.5-10.1); CARBON DIOXIDE 26.2 mmol/L (21.0-32.0); CREATININE - SERUM 2.5 mg/dL (0.6-1.3); EOSINOPHILS 5.1 % (0-7); HEMATOCRIT 32.2 % (36.0-48.0); HEMOGLOBIN 9.9 g/dL (12-16); LYMPHOCYTES 21.9 % (15-50); MAGNESIUM - SERUM 1.4 mg/dL (1.8-2.4); MCH 23.5 pg (26.0-34.0); MCHC 30.7 g/dL (31.0-37.0); MCV 76.3 fL (80.0-100.0); MEAN PLATELET VOLUME 9.9 fL (7.4-10.4); MONOCYTES 11.1 % (2-11); PLATELET COUNT 156 10x3/uL (130-400); RBC 4.22 10x6/uL (4.00-5.40); RDW 17.9 % (11.5-14.5)
[2020-05-12 07:11] LABS: WBC 5.7 10x3/uL (4.8-10.8)
--- NOTE | 2020-05-12 07:15 | NUR ---
RECEIVED PT IN BED EYES CLOSED RESP UNLABORED SKIN W/D COLOR WNL NAD NOTED
[2020-05-12 08:30] VITALS: BP 132/81
[2020-05-12 09:26] LABS: CHOL - HDL RATIO 4.9 ratio (2.3-4.1); LDL-HDL RATIO 3.2 ratio (1.5-3.5)
--- NOTE | 2020-05-12 11:16 | NUR ---
PT TO BUS AND SYS INTEGRATION SENIOR MANAGER VIA BED
[2020-05-12 14:03] VITALS: BMI 38.3
[2020-05-12 16:50] VITALS: BP 159/102
--- NOTE | 2020-05-12 19:57 | NUR ---
REPORT RECIEVED AND ROUNDING COMLETE. PATIENT LAYING IN BED ASKING FOR ASSISTANCE TO BSC. WHEN ASSISTING PATIENT TO BSC SHE HAD SEVERAL EPISODES OF JURKING MUSCLE, CALEB STATES THIS IS NORMAL FOR HER BUT HAS BEEN HAPPENING MORE OF RECENT. ASSISTED TO THE BSC AND THEN BACK TO BED. NO DISTRESS NOTED. PATIENT HAS A LEFT WRIST PIV WITH FLUIDS RUNNING. PATIENT HAD A CLEAN CATH TODAY THROUGH THE RIGHT GROIN, DRESSING IS C/D/I. NO OTHER NEEDS AT THIS TIME. CALL LIGHT WITHIN REACH AND BED IN LOWEST LOCKED POSITION.
[2020-05-12 20:00] VITALS: BP 121/66
--- NOTE | 2020-05-12 20:03 | NUR ---
REPORT RECIEVED AND ROUNDING COMPLETE. PATIENT SITTING IN BED, NO DISTRESS NOTED. RIGHT WRIST PIV RUNNING FLUIDS, WEARING NASAL CANNULA WITH O2 GOING AT 2L. PATIENT IS A&O X4. PATIENT STATES SHES HAS NO NEEDS AT THIS TIME. CALL LIGHT WITHIN REACH AND BED IN LOWEST LOCKED POSITION.
[2020-05-13] VITALS (7 sets, daily range): BP systolic 106–132; BP diastolic 53–82
--- NOTE | 2020-05-13 05:31 | NUR ---
PATIENT'S ALARM REPEATLY KEPT GOING OFF, UPON FURTHER REVIEWED PIV HAS CLOTTED OFF. REMOVED LEFT WRIST/HAND PIV, CATH INTACT AND PLACED RIGHT FOREARM 1 STICK PATIENT TOLERATED WELL.
--- NOTE | 2020-05-13 06:18 | NUR ---
CALLED PHARMACY TO GET PROTONIX TIME CHANGED PATIENT STATES THAT THE DOCTOR TOLD HER NOT TO TAKE SYNTHROID AND PROTONIX TOGETHER.
[2020-05-13 06:31] LABS: BASOPHILS 0 % (0-2); EOSINOPHILS 0.2 % (0-7); HEMATOCRIT 31.7 % (36.0-48.0); HEMOGLOBIN 9.5 g/dL (12-16); IMMATURE GRANULOCYTES 0.2 % (0-5); LYMPHOCYTES 10.7 % (15-50); MCH 22.7 pg (26.0-34.0); MCV 75.7 fL (80.0-100.0); NEUTROPHILS 85.9 % (40-80); RBC 4.19 10x6/uL (4.00-5.40); RDW 17.9 % (11.5-14.5); WBC 6.1 10x3/uL (4.8-10.8)
[2020-05-13 06:40] LABS: PLATELET COUNT 201 10x3/uL (130-400)
[2020-05-13 07:00] LABS: ANION GAP 8.9 mmol/L (8-16); CALCIUM 8.3 mg/dL (8.5-10.1); CARBON DIOXIDE 27.1 mmol/L (21.0-32.0); CREATININE - SERUM 2.1 mg/dL (0.6-1.3); MAGNESIUM - SERUM 1.4 mg/dL (1.8-2.4)
--- NOTE | 2020-05-13 19:45 | NUR ---
RPEORT RECEIVED AND ROUNDING COMPLETE, PATIENT LAYING IN BED, ASSISTED PATIENT TOTHE BSC AND THE BACK TO BED. NO S/SX OF DISTRESS. NO OTHER NEEDS, CALL LIGHT WITHIN REACH AND BED IN LOWEST LOCKED POSITION.
[2020-05-14 04:34] VITALS: BP 125/86
[2020-05-14 05:25] LABS: ANION GAP 9.3 mmol/L (8-16); CALCIUM 8.2 mg/dL (8.5-10.1); CREATININE - SERUM 2.3 mg/dL (0.6-1.3); MAGNESIUM - SERUM 1.6 mg/dL (1.8-2.4); POTASSIUM - SERUM 4.3 mmol/L (3.5-5.1)
[2020-05-14 05:45] LABS: BASOPHILS 0.1 % (0-2); EOSINOPHILS 0.2 % (0-7); HEMOGLOBIN 9.8 g/dL (12-16); IMMATURE GRANULOCYTES 0.1 % (0-5); MCH 22.9 pg (26.0-34.0); MCHC 30.6 g/dL (31.0-37.0); MCV 74.8 fL (80.0-100.0); MONOCYTES 7.1 % (2-11); NEUTROPHILS 84.5 % (40-80); PLATELET COUNT 176 10x3/uL (130-400); RBC 4.28 10x6/uL (4.00-5.40); RDW 17.9 % (11.5-14.5)
[2020-05-14 05:53] LABS: WBC 9.5 10x3/uL (4.8-10.8)
[2020-05-14 09:00] VITALS: BP 128/91
[2020-05-14 11:00] VITALS: BP 124/55
--- NOTE | 2020-05-14 13:34 | NUR ---
Rehab Note- Acute Inpatient Rehab prescreen order received. The patient has [employer] insurance and will require a PreAuth prior to an acute inpatient rehab stay. The patient has a pending PT & OT Eval that will be needed for the PreAuth process. Will follow at this time and begin the PreAuth process. Thank you for this referral! Shyann Feliciano RN Clinical Liaison, [facility] Rehab
--- NOTE | 2020-05-14 13:50 | NUR ---
Nutrition Follow-up: Pt reports fair appetite. Denies N/V. 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 Diet: Cardiac PO intake: 50-100% Wt: 248.1# (05/14); 251# (05/13); 223# (05/10 - stated) Labs noted: Glu 107, Ca 8.2, Mg 1.6 Meds noted: Protonix, Carafate, Bumex, electrolyte protocol -Encourage PO intake and honor food preferences within diet restrictions. -Monitor wt; noted daily wts ordered. -RD following.
[2020-05-14 15:00] VITALS: BP 128/82
--- NOTE | 2020-05-14 16:51 | MORECARE ---
CASE MANAGEMENT DISCHARGE SUMMARY PATIENT: AVTAR AMIN UNIT: [id number] ADM DATE: 05/12/20 AGE: 54 : 61 SEX: F ROOM/BED: D.0521 AUTHOR: BALJEET,DOC PHYSICIAN: REFERRING PHYSICIAN: ROSE GRANT MD DATE OF SERVICE: 05/14/20 Discharge Plan Patient Name: AVTAR AMIN Facility: [facility]:[place] : 1965 Planned Disposition: Inpatient Rehab Anticipated Discharge Date: Discharge Date: Expected LOS: 0 Initial Reviewer: [id number] Initial Review Date: 05/10/2020 Generated: 05/14/20 5:50 pm DCPIA - Discharge Planning Initial Assessment Updated by [id number]: Tamica Ibarra on 05/14/20 4:51 pm * Is the patient Alert and Oriented? Yes * PCP Dr. Calles * Pharmacy [facility] * Preadmission Environment Home with Family * ADLs Partial Dependent * Partial ADLs (Assistance needed) Ambulation Bathing * Equipment Rolling Walker * Other Equipment Walker, Shower chair * List name and contact numbers for known caregivers / representatives who currently or will assist patient after discharge: Deisy Lozano (dtr) [phone] * Verbal permission to speak to the caregivers and representatives has been obtained from the patient. Yes * Community resources currently utilized Home Health * Please name any agencies selected above. [facility], nursing, aide, PT * Additional services required to return to the preadmission environment? Yes * Can the patient safely return to the preadmission environment? No * Has this patient been hospitalized within the prior 30 days at any hospital? No Coverage Notice Reviewer: [id number] Andrea Hernández Notice Issued Date-Time: 05/11/2020 17:00 Notice Type: Medicare Outpatient Observation Notice Notice Delivered To: Patient Relationship to Patient: Self Cull Grader Name: Delivery Method: HAND - Hand Delivered Christine Days: Prior Verbal Notification: Recipient Understood Notice: Yes Recipient Signature: Yes Med Rec Note Co-signed by Attending: Coverage Notice Comment: Reviewer: [id number] Andrea Ibarra Notice Issued Date-Time: 05/14/2020 16:21 Notice Type: Patient Choice Letter Notice Delivered To: Patient Relationship to Patient: Self Cull Grader Name: Avtar Amin Delivery Method: HAND - Hand Delivered Christine Days: Prior Verbal Notification: Recipient Understood Notice: Yes Recipient Signature: Yes Med Rec Note Co-signed by Attending: Coverage Notice Comment: Patient choice for [facility] and [facility] Reviewer: [id number] Andrea Ibarra Notice Issued Date-Time: 05/14/2020 16:21 Notice Type: IM Discharge Notice Notice Delivered To: Patient Relationship to Patient: Self Cull Grader Name: Avtar Amin Delivery Method: HAND - Hand Delivered Christine Days: Prior Verbal Notification: Recipient Understood Notice: Yes Recipient Signature: Yes Med Rec Note Co-signed by Attending: Coverage Notice Comment: DC IMM signed by patient Patient Name: AVTAR AMIN Page [id number] at 1651 All edits/amendments must be made on the electronic document DICTATION DATE: 05/14/201649 HEDGE FUND TRADER: LAY 05/14/201649 RPT#: [id number] DC DATE: STATUS: ADM IN [facility] [address] [place] [address] END OF REPORT
[2020-05-14 20:00] VITALS: BP 133/81
[2020-05-15 04:00] VITALS: BP 134/83
[2020-05-15 09:00] VITALS: BP 136/95
[2020-05-15 09:59] LABS: BASOPHILS 0.6 % (0-2); EOSINOPHILS 2.2 % (0-7); HEMATOCRIT 34.5 % (36.0-48.0); HEMOGLOBIN 10.7 g/dL (12-16); IMMATURE GRANULOCYTES 0.1 % (0-5); LYMPHOCYTES 18.6 % (15-50); MCH 23.6 pg (26.0-34.0); MCV 76.2 fL (80.0-100.0); MEAN PLATELET VOLUME 9.3 fL (7.4-10.4); MONOCYTES 9.1 % (2-11); NEUTROPHILS 69.4 % (40-80); RBC 4.53 10x6/uL (4.00-5.40); RDW 18.1 % (11.5-14.5)
[2020-05-15 10:03] LABS: PLATELET COUNT 219 10x3/uL (130-400); WBC 6.7 10x3/uL (4.8-10.8)
[2020-05-15 10:05] LABS: CALCIUM 8.5 mg/dL (8.5-10.1); CREATININE - SERUM 2.4 mg/dL (0.6-1.3); MAGNESIUM - SERUM 1.7 mg/dL (1.8-2.4)
--- NOTE | 2020-05-15 10:37 | NUR ---
UP WITH PT. TREMORS NOTED GETTING WORSE. REPORTED TO CONSUMER SALES REPRESENTATIVE.
[2020-05-15 11:00] VITALS: BP 107/59
--- NOTE | 2020-05-15 13:03 | NUR ---
TELEMETRY PACED 67.
--- NOTE | 2020-05-15 14:08 | NUR ---
OT NOTE: PT REQUIRED MAX A WITH BED TO [facility] T[facility]. PT COMPLETED SITTING BALANCE WITH SBA. PT REQUIRED TOTAL A WITH LB HYGIENE FOR ATTEMPTED BM. PT EXHIBITED SEVERE TREMORS. TILLEY NOTIFIED NURSING. PT REQUIRED EXTENSIVE ASSIST WITH TRANSFER SECONDARY TO EXTENSIVE TREMORS. [phone] THANK YOU,JAREK SAMS
[2020-05-15 15:00] VITALS: BP 128/80
--- NOTE | 2020-05-15 15:53 | NUR ---
Rehab Note- Have faxed in all clinicals to [facility] for review for review for PreAuth process, continue to await determination at this time. Will continue to follow. Thank you for this referral! Shyann Feliciano RN Clinical Liaison, [facility] Rehab
[2020-05-15 17:13] VITALS: Ht 162.6 cm; Wt 105.9 kg
--- NOTE | 2020-05-15 19:34 | NUR ---
RECEIVED BEDSIDE REPORT. PATIENT IS ALERT AND ORIENTED, RESTING COMFORTABLY IN BED. RESPIRATIONS ARE EVEN AND UNLABORED. NO S/S OF DISTRESS. NO C/O PAIN. CALL LIGHT WITHIN REACH. WILL CPOC.
[2020-05-15 21:11] VITALS: BP 126/80
[2020-05-16 00:32] VITALS: BP 116/78
[2020-05-16 04:51] VITALS: BP 117/70
[2020-05-16 05:55] LABS: BASOPHILS 0.3 % (0-2); EOSINOPHILS 2.8 % (0-7); HEMATOCRIT 32.6 % (36.0-48.0); HEMOGLOBIN 9.9 g/dL (12-16); IMMATURE GRANULOCYTES 0.2 % (0-5); LYMPHOCYTES 18.2 % (15-50); MCHC 30.4 g/dL (31.0-37.0); MCV 75.6 fL (80.0-100.0); MEAN PLATELET VOLUME 9.5 fL (7.4-10.4); MONOCYTES 11.4 % (2-11); NEUTROPHILS 67.1 % (40-80); PLATELET COUNT 214 10x3/uL (130-400); RBC 4.31 10x6/uL (4.00-5.40); RDW 17.8 % (11.5-14.5); WBC 5.7 10x3/uL (4.8-10.8)
[2020-05-16 06:28] LABS: ANION GAP 7.1 mmol/L (8-16); CALCIUM 8.2 mg/dL (8.5-10.1); CARBON DIOXIDE 33.6 mmol/L (21.0-32.0); CREATININE - SERUM 2.5 mg/dL (0.6-1.3); MAGNESIUM - SERUM 2.1 mg/dL (1.8-2.4); POTASSIUM - SERUM 3.7 mmol/L (3.5-5.1)
[2020-05-16 06:32] LABS: THYROID STIMULATING HORMONE 57.1 uIU/mL (0.36-3.74)
[2020-05-16 09:00] VITALS: BP 108/75
[2020-05-16 11:00] VITALS: BP 106/65
--- NOTE | 2020-05-16 11:10 | NUR ---
Rehab Note- Received call from Margie, Nurse reviewer with [facility], stated their medical records administrator had reviewed clinicals for inpatient acute rehab stay and has denied her an acute inpatient rehab stay. A Peer to Peer can be set up by May 21 1100CST by calling [phone]. Spoke with Marie Olmstead CM to notify her of denial. Thank you for this referral! Shyann Feliciano RN Clinical Liaison, [facility] Rehab
--- NOTE | 2020-05-16 12:07 | MORECARE ---
CASE MANAGEMENT DISCHARGE SUMMARY PATIENT: AVTAR AMIN UNIT: [id number] ADM DATE: 05/12/20 AGE: 54 : 61 SEX: F ROOM/BED: D.2385 AUTHOR: BALJEET,DOC PHYSICIAN: REFERRING PHYSICIAN: ROSE GRANT MD DATE OF SERVICE: 05/16/20 Discharge Plan Patient Name: AVTAR AMIN Facility: [facility]:[place] : 1965 Planned Disposition: Inpatient Rehab Anticipated Discharge Date: Discharge Date: Expected LOS: 0 Initial Reviewer: [id number] Initial Review Date: 05/10/2020 Generated: 05/16/20 1:06 pm Comments DCP- Discharge Planning Updated by [id number]: Tamica Ibarra on 05/16/20 11:[address] Patient's daughter, Felice IrwinPOA), called, update reported. Per Felice, her mother must go into a Rehab/Skilled facility for therapy and after that the patient will go to live with Felice Mio Boothe with [facility], patient's insurance denied her request for [facility]. CM will contact [facility] per patient request. DCPIA - Discharge Planning Initial Assessment Updated by [id number]: Tamica Ibarra on 05/14/20 4:51 pm * Is the patient Alert and Oriented? Yes * PCP Dr. Calles * Pharmacy [facility] * Preadmission Environment Home with Family * ADLs Partial Dependent * Partial ADLs (Assistance needed) Ambulation Bathing * Equipment Rolling Walker * Other Equipment Walker, Shower chair * List name and contact numbers for known caregivers / representatives who currently or will assist patient after discharge: Deisy Lozano (dtr) [phone] * Verbal permission to speak to the caregivers and representatives has been obtained from the patient. Yes * Community resources currently utilized Home Health * Please name any agencies selected above. [facility], nursing, aide, PT * Additional services required to return to the preadmission environment? Yes * Can the patient safely return to the preadmission environment? No * Has this patient been hospitalized within the prior 30 days at any hospital? No Coverage Notice Reviewer: [id number] Andrea Hernández Notice Issued Date-Time: 05/11/2020 17:00 Notice Type: Medicare Outpatient Observation Notice Notice Delivered To: Patient Relationship to Patient: Self Diet Technician Registered Name: Delivery Method: HAND - Hand Delivered Christine Days: Prior Verbal Notification: Recipient Understood Notice: Yes Recipient Signature: Yes Med Rec Note Co-signed by Attending: Coverage Notice Comment: Reviewer: [id number] Andrea Ibarra Notice Issued Date-Time: 05/14/2020 16:21 Notice Type: Patient Choice Letter Notice Delivered To: Patient Relationship to Patient: Self Diet Technician Registered Name: Avtar Amin Delivery Method: HAND - Hand Delivered Christine Days: Prior Verbal Notification: Recipient Understood Notice: Yes Recipient Signature: Yes Med Rec Note Co-signed by Attending: Coverage Notice Comment: [facility] Reviewer: [id number] Andrea Ibarra Notice Issued Date-Time: 05/14/2020 16:21 Notice Type: IM Discharge Notice Notice Delivered To: Patient Relationship to Patient: Self Diet Technician Registered Name: Avtar Amin Delivery Method: HAND - Hand Delivered Christine Days: Prior Verbal Notification: Recipient Understood Notice: Yes Recipient Signature: Yes Med Rec Note Co-signed by Attending: Coverage Notice Comment: DC IMM signed by patient Last DP export: 05/14/20 3:51 pm Patient Name: AVTAR AMIN Page [id number] at 1207 All edits/amendments must be made on the electronic document DICTATION DATE: 05/16/20 1206 CAR DESIGNER: LAY 05/16/20 1206 RPT#: [id number] DC DATE: STATUS: ADM IN [facility] [address] [place] [address] END OF REPORT
--- NOTE | 2020-05-16 12:20 | MORECARE ---
CASE MANAGEMENT DISCHARGE SUMMARY PATIENT: AVTAR AMIN UNIT: [id number] ADM DATE: 05/12/20 AGE: 54 : 61 SEX: F ROOM/BED: D.0458 AUTHOR: BALJEET,DOC PHYSICIAN: REFERRING PHYSICIAN: ROSE GRANT MD DATE OF SERVICE: 05/16/20 Discharge Plan Patient Name: AVTAR AMIN Facility: [facility]:[place] : 1965 Planned Disposition: Inpatient Rehab Anticipated Discharge Date: Discharge Date: Expected LOS: 0 Initial Reviewer: [id number] Initial Review Date: 05/10/2020 Generated: 05/16/20 1:20 pm Comments DCP- Discharge Planning Updated by [id number]: Tamica Ibarra on 05/16/20 11:[address] Patient's daughter, Felice Lozano (POA), called, update reported. Per Felice, her mother must go into a Rehab/Skilled facility for therapy and after that the patient will go to live with Felice Mio Boothe with [facility], patient's insurance denied her request for [facility]. CM will contact [facility] per patient request. DCPIA - Discharge Planning Initial Assessment Updated by [id number]: Tamica Ibarra on 05/14/20 4:51 pm * Is the patient Alert and Oriented? Yes * PCP Dr. Calles * Pharmacy [facility] * Preadmission Environment Home with Family * ADLs Partial Dependent * Partial ADLs (Assistance needed) Ambulation Bathing * Equipment Rolling Walker * Other Equipment Walker, Shower chair * List name and contact numbers for known caregivers / representatives who currently or will assist patient after discharge: Deisy Lozano (dtr) [phone] * Verbal permission to speak to the caregivers and representatives has been obtained from the patient. Yes * Community resources currently utilized Home Health * Please name any agencies selected above. [facility], nursing, aide, PT * Additional services required to return to the preadmission environment? Yes * Can the patient safely return to the preadmission environment? No * Has this patient been hospitalized within the prior 30 days at any hospital? No External Providers External Provider: [facility] Next Contact Date: Service Request Date: Service Type: Resolution: Reviewer: Comments: Coverage Notice Reviewer: [id number] Andrea Ibarra Notice Issued Date-Time: 05/14/2020 16:21 Notice Type: Patient Choice Letter Notice Delivered To: Patient Relationship to Patient: Self Air Bag Builder Name: Avtar Amin Delivery Method: HAND - Hand Delivered Christine Days: Prior Verbal Notification: Recipient Understood Notice: Yes Recipient Signature: Yes Med Rec Note Co-signed by Attending: Coverage Notice Comment: Patient choice for Rehab and [facility] Reviewer: [id number] Andrea Hernández Notice Issued Date-Time: 05/11/2020 17:00 Notice Type: Medicare Outpatient Observation Notice Notice Delivered To: Patient Relationship to Patient: Self Air Bag Builder Name: Delivery Method: HAND - Hand Delivered Christine Days: Prior Verbal Notification: Recipient Understood Notice: Yes Recipient Signature: Yes Med Rec Note Co-signed by Attending: Coverage Notice Comment: Reviewer: [id number] Andrea Ibarra Notice Issued Date-Time: 05/14/2020 16:21 Notice Type: IM Discharge Notice Notice Delivered To: Patient Relationship to Patient: Self Air Bag Builder Name: Avtar Amin Delivery Method: HAND - Hand Delivered Christine Days: Prior Verbal Notification: Recipient Understood Notice: Yes Recipient Signature: Yes Med Rec Note Co-signed by Attending: Coverage Notice Comment: DC IMM signed by patient Last DP export: 05/16/20 11:07 a Patient Name: AVTAR AMIN Page [id number] at 1220 All edits/amendments must be made on the electronic document DICTATION DATE: 05/16/20 1220 SHIRT FOLDER: LAY 05/16/20 1220 RPT#: [id number] DC DATE: STATUS: ADM IN [facility] [address] [place] [address] END OF REPORT
--- NOTE | 2020-05-16 14:17 | NUR ---
OT NOTE: PT EXHIBITED INCREASED TREMORS WITH SIDE ROLLING. PT COMPLETED POSITIONING IN BED WITH DEISY Black. PT COMPLETED FACE AND HAND HYGIENE WITH SETUP. PT STATED SHE HAS CONTINUED CONSTIPATION. [phone] THANK YOU,JAREK SAMS
[2020-05-16 15:00] VITALS: BP 121/66
--- NOTE | 2020-05-16 15:00 | NUR ---
RECEIVED BEDSIDE REPORT. PATIENT IS ALERT AND ORIENTED, RESTING COMFORTABLY IN BED. RESPIRTATIONS ARE EVEN AND UNLABORED. NO S/S OF DISTRESS. NO C/OPAIN. CALL LIGHT WITHIN REACH. WILL CPOC.
--- NOTE | 2020-05-16 16:06 | MORECARE ---
CASE MANAGEMENT DISCHARGE SUMMARY PATIENT: AVTAR AMIN UNIT: [id number] ADM DATE: 05/12/20 AGE: 54 : 61 SEX: F ROOM/BED: D.9542 AUTHOR: BALJEET,DOC PHYSICIAN: REFERRING PHYSICIAN: ROSE GRANT MD DATE OF SERVICE: 05/16/20 Discharge Plan Patient Name: AVTAR AMIN Facility: [facility]:[place] : 1965 Planned Disposition: Inpatient Rehab Anticipated Discharge Date: Discharge Date: Expected LOS: 0 Initial Reviewer: [id number] Initial Review Date: 05/10/2020 Generated: 05/16/20 5:05 pm Comments DCP- Discharge Planning Updated by [id number]: Tamica Ibarra on 05/16/20 3:[address] Grady with [facility] called and stated that their facility is out of network with the patient's insurance. DCP- Discharge Planning Updated by [id number]: Tamica Ibarra on 05/16/20 11:[address] Patient's daughter, Felice IrwinPOA), called, update reported. Per Felice, her mother must go into a Rehab/Skilled facility for therapy and after that the patient will go to live with Felice Mio Boothe with [facility], patient's insurance denied her request for [facility]. CM will contact [facility] per patient request. DCPIA - Discharge Planning Initial Assessment Updated by [id number]: Tamica Ibarra on 05/14/20 4:51 pm * Is the patient Alert and Oriented? Yes * PCP Dr. Calles * Pharmacy [facility] * Preadmission Environment Home with Family * ADLs Partial Dependent * Partial ADLs (Assistance needed) Ambulation Bathing * Equipment Rolling Walker * Other Equipment Walker, Shower chair * List name and contact numbers for known caregivers / representatives who currently or will assist patient after discharge: Deisy Lozano (dtr) [phone] * Verbal permission to speak to the caregivers and representatives has been obtained from the patient. Yes * Community resources currently utilized Home Health * Please name any agencies selected above. [facility], nursing, aide, PT * Additional services required to return to the preadmission environment? Yes * Can the patient safely return to the preadmission environment? No * Has this patient been hospitalized within the prior 30 days at any hospital? No Coverage Notice Reviewer: [id number] Andrea Hernández Notice Issued Date-Time: 05/11/2020 17:00 Notice Type: Medicare Outpatient Observation Notice Notice Delivered To: Patient Relationship to Patient: Self Formula Maker Name: Delivery Method: HAND - Hand Delivered Christine Days: Prior Verbal Notification: Recipient Understood Notice: Yes Recipient Signature: Yes Med Rec Note Co-signed by Attending: Coverage Notice Comment: Reviewer: [id number] Andrea Ibarra Notice Issued Date-Time: 05/14/2020 16:21 Notice Type: Patient Choice Letter Notice Delivered To: Patient Relationship to Patient: Self Formula Maker Name: Avtar Amin Delivery Method: HAND - Hand Delivered Christine Days: Prior Verbal Notification: Recipient Understood Notice: Yes Recipient Signature: Yes Med Rec Note Co-signed by Attending: Coverage Notice Comment: [facility] Reviewer: [id number] Andrea Ibarra Notice Issued Date-Time: 05/14/2020 16:21 Notice Type: IM Discharge Notice Notice Delivered To: Patient Relationship to Patient: Self Formula Maker Name: Avtar Amin Delivery Method: HAND - Hand Delivered Christine Days: Prior Verbal Notification: Recipient Understood Notice: Yes Recipient Signature: Yes Med Rec Note Co-signed by Attending: Coverage Notice Comment: DC IMM signed by patient Last DP export: 05/16/20 11:20 a Patient Name: AVTAR AMIN Page [id number] at 1606 All edits/amendments must be made on the electronic document DICTATION DATE: 05/16/20 1605 RETOUCHER PHOTOENGRAVING: LAY 05/16/20 1605 RPT#: [id number] DC DATE: STATUS: ADM IN [facility] [address] [place] [address] END OF REPORT
--- NOTE | 2020-05-16 17:31 | NUR ---
NEW IV LEFT WRIST.
--- NOTE | 2020-05-16 17:32 | MORECARE ---
CASE MANAGEMENT DISCHARGE SUMMARY PATIENT: AVTAR AMIN UNIT: [id number] ADM DATE: 05/12/20 AGE: 54 : 61 SEX: F ROOM/BED: D.4318 AUTHOR: BALJEET,DOC PHYSICIAN: REFERRING PHYSICIAN: ROSE GRANT MD DATE OF SERVICE: 05/16/20 Discharge Plan Patient Name: AVTAR AMIN Facility: [facility]:[place] : 1965 Planned Disposition: Inpatient Rehab Anticipated Discharge Date: Discharge Date: Expected LOS: 0 Initial Reviewer: [id number] Initial Review Date: 05/10/2020 Generated: 05/16/20 6:32 pm Comments DCP- Discharge Planning Updated by [id number]: Tamica Ibarra on 05/16/20 4:[address] Grady with [facility] called and stated that their facility is out of network with the patient's insurance. CM contacted [facility] to check with her facility, to see who is in network with patient's insurance. DCP- Discharge Planning Updated by [id number]: Tamica Ibarra on 05/16/20 11:[address] Patient's daughter, Felice Lozano (POA), called, update reported. Per Felice, her mother must go into a Rehab/Skilled facility for therapy and after that the patient will go to live with Felice Mio Boothe with [facility], patient's insurance denied her request for [facility]. [facility]. DCPIA - Discharge Planning Initial Assessment Updated by [email or web address]: Tamica Ibarra on 05/14/20 4:51 pm * Is the patient Alert and Oriented? Yes * PCP Dr. Calles * Pharmacy [facility] * Preadmission Environment Home with Family * ADLs Partial Dependent * Partial ADLs (Assistance needed) Ambulation Bathing * Equipment Rolling Walker * Other Equipment Walker, Shower chair * List name and contact numbers for known caregivers / representatives who currently or will assist patient after discharge: Deisy Marta (dtr) [phone] * Verbal permission to speak to the caregivers and representatives has been obtained from the patient. Yes * Community resources currently utilized Home Health * Please name any agencies selected above. [facility], nursing, aide, PT * Additional services required to return to the preadmission environment? Yes * Can the patient safely return to the preadmission environment? No * Has this patient been hospitalized within the prior 30 days at any hospital? No Coverage Notice Reviewer: [id number] Andrea Hernández Notice Issued Date-Time: 05/11/2020 17:00 Notice Type: Medicare Outpatient Observation Notice Notice Delivered To: Patient Relationship to Patient: Self Site Engineer Name: Delivery Method: HAND - Hand Delivered Christine Days: Prior Verbal Notification: Recipient Understood Notice: Yes Recipient Signature: Yes Med Rec Note Co-signed by Attending: Coverage Notice Comment: Reviewer: [id number] Andrea Ibarra Notice Issued Date-Time: 05/14/2020 16:21 Notice Type: Patient Choice Letter Notice Delivered To: Patient Relationship to Patient: Self Site Engineer Name: Avtar Amin Delivery Method: HAND - Hand Delivered Christine Days: Prior Verbal Notification: Recipient Understood Notice: Yes Recipient Signature: Yes Med Rec Note Co-signed by Attending: Coverage Notice Comment: Patient choice for Rehab and [facility] Reviewer: [id number] Andrea Ibarra Notice Issued Date-Time: 05/14/2020 16:21 Notice Type: IM Discharge Notice Notice Delivered To: Patient Relationship to Patient: Self Site Engineer Name: Avtar Amin Delivery Method: HAND - Hand Delivered Christine Days: Prior Verbal Notification: Recipient Understood Notice: Yes Recipient Signature: Yes Med Rec Note Co-signed by Attending: Coverage Notice Comment: DC IMM signed by patient Last DP export: 05/16/20 3:06 p Patient Name: AVTAR AMIN Page [phone] at 1732 All edits/amendments must be made on the electronic document DICTATION DATE: 05/16/201731 TRACKMOBILE OPERATOR: LAY 05/16/201731 RPT#: [id number] DC DATE: STATUS: ADM IN [facility] [address] [place] [address] END OF REPORT
--- NOTE | 2020-05-16 18:03 | MORECARE ---
CASE MANAGEMENT DISCHARGE SUMMARY PATIENT: AVTAR AMIN UNIT: [id number] ADM DATE: 05/12/20 AGE: 54 : 61 SEX: F ROOM/BED: D.8872 AUTHOR: BALJEET,DOC PHYSICIAN: REFERRING PHYSICIAN: ROSE GRANT MD DATE OF SERVICE: 05/16/20 Discharge Plan Patient Name: AVTAR AMIN Facility: [facility]:[place] : 1965 Planned Disposition: Inpatient Rehab Anticipated Discharge Date: Discharge Date: Expected LOS: 0 Initial Reviewer: [id number] Initial Review Date: 05/10/2020 Generated: 05/16/20 7:02 pm Comments DCP- Discharge Planning Updated by [email or web address]: Tamica Ibarra on 05/16/20 4:[address] Grady with [facility] called and stated that their facility is out of network with the patient's insurance. CM contacted Anny Lee to check with her facility, to see who is in network with patient's insurance. DCP- Discharge Planning Updated by [id number]: Tamica Ibarra on 05/16/20 11:[address] Patient's daughter, Felice Lozano (POA), called, update reported. Per Felice, her mother must go into a Rehab/Skilled facility for therapy and after that the patient will go to live with Felice Mio Boothe with [facility], patient's insurance denied her request for [facility]. CM will [facility] request. DCPIA - Discharge Planning Initial Assessment Updated by [email or web address]: Tamica Ibarra on 05/14/20 4:51 pm * Is the patient Alert and Oriented? Yes * PCP Dr. Calles * Pharmacy [facility] * Preadmission Environment Home with Family * ADLs Partial Dependent * Partial ADLs (Assistance needed) Ambulation Bathing * Equipment Rolling Walker * Other Equipment Walker, Shower chair * List name and contact numbers for known caregivers / representatives who currently or will assist patient after discharge: Deisy Marta (dtr) [phone] * Verbal permission to speak to the caregivers and representatives has been obtained from the patient. Yes * Community resources currently utilized Home Health * Please name any agencies selected above. [facility], nursing, aide, PT * Additional services required to return to the preadmission environment? Yes * Can the patient safely return to the preadmission environment? No * Has this patient been hospitalized within the prior 30 days at any hospital? No Coverage Notice Reviewer: [id number] Andrea Ibarra Notice Issued Date-Time: 05/14/2020 16:21 Notice Type: Patient Choice Letter Notice Delivered To: Patient Relationship to Patient: Self Pilot Steam Yacht Name: Avtar Amin Delivery Method: HAND - Hand Delivered Christine Days: Prior Verbal Notification: Recipient Understood Notice: Yes Recipient Signature: Yes Med Rec Note Co-signed by Attending: Coverage Notice Comment: [facility] Reviewer: [id number] Andrea Hernández Notice Issued Date-Time: 05/11/2020 17:00 Notice Type: Medicare Outpatient Observation Notice Notice Delivered To: Patient Relationship to Patient: Self Pilot Steam Yacht Name: Delivery Method: HAND - Hand Delivered Christine Days: Prior Verbal Notification: Recipient Understood Notice: Yes Recipient Signature: Yes Med Rec Note Co-signed by Attending: Coverage Notice Comment: Reviewer: [id number] Andrea Ibarra Notice Issued Date-Time: 05/14/2020 16:21 Notice Type: IM Discharge Notice Notice Delivered To: Patient Relationship to Patient: Self Pilot Steam Yacht Name: Avtar Amin Delivery Method: HAND - Hand Delivered Christine Days: Prior Verbal Notification: Recipient Understood Notice: Yes Recipient Signature: Yes Med Rec Note Co-signed by Attending: Coverage Notice Comment: DC IMM signed by patient Last DP export: 05/16/20 4:32 p Patient Name: AVTAR AMIN Page 19910 at 1803 All edits/amendments must be made on the electronic document DICTATION DATE: 05/16/201802 WASH OIL COOLER OPERATOR: LAY 05/16/201802 RPT#: [id number] DC DATE: STATUS: ADM IN [facility] [address] [place] [address] END OF REPORT
[2020-05-16 20:00] VITALS: BP 106/60
[2020-05-17] VITALS: BP 117/76
--- NOTE | 2020-05-17 07:15 | NUR ---
RECEIVED PT IN BED EYES CLOSED RESP UNLABORED SKIN W/D COLOR WNL NAD NOTED
[2020-05-17 09:00] VITALS: BP 123/78
[2020-05-17 10:31] LABS: HEMATOCRIT 34.4 % (36.0-48.0); HEMOGLOBIN 10.2 g/dL (12-16); LYMPHOCYTES 19.6 % (15-50); MCH 23.1 pg (26.0-34.0); MCHC 29.7 g/dL (31.0-37.0); MEAN PLATELET VOLUME 10.2 fL (7.4-10.4); NEUTROPHILS 68.5 % (40-80); PLATELET COUNT 238 10x3/uL (130-400); RBC 4.42 10x6/uL (4.00-5.40); RDW 18.6 % (11.5-14.5); WBC 6.3 10x3/uL (4.8-10.8)
[2020-05-17 10:34] LABS: MCV 77.8 fL (80.0-100.0)
[2020-05-17 10:47] LABS: ANION GAP 5.5 mmol/L (8-16); CALCIUM 8.9 mg/dL (8.5-10.1); CARBON DIOXIDE 35.2 mmol/L (21.0-32.0); CREATININE - SERUM 2.3 mg/dL (0.6-1.3); POTASSIUM - SERUM 3.7 mmol/L (3.5-5.1)
[2020-05-17 20:28] VITALS: BP 109/54
--- NOTE | 2020-05-17 21:10 | NUR ---
BEDTIME MEDS GIVEN. PT RESTING, WATCHING TV.
[2020-05-18 05:29] LABS: BASOPHILS 0.6 % (0-2); EOSINOPHILS 3.9 % (0-7); HEMATOCRIT 33.8 % (36.0-48.0); HEMOGLOBIN 10.1 g/dL (12-16); IMMATURE GRANULOCYTES 0.3 % (0-5); LYMPHOCYTES 20.4 % (15-50); MCH 23.1 pg (26.0-34.0); MCHC 29.9 g/dL (31.0-37.0); MCV 77.3 fL (80.0-100.0); MEAN PLATELET VOLUME 10.2 fL (7.4-10.4); MONOCYTES 8.8 % (2-11); PLATELET COUNT 232 10x3/uL (130-400); RBC 4.37 10x6/uL (4.00-5.40); RDW 17.8 % (11.5-14.5)
[2020-05-18 05:46] LABS: ANION GAP 9.5 mmol/L (8-16); CALCIUM 8.8 mg/dL (8.5-10.1); CARBON DIOXIDE 32.3 mmol/L (21.0-32.0); CREATININE - SERUM 2.5 mg/dL (0.6-1.3); POTASSIUM - SERUM 3.8 mmol/L (3.5-5.1)
[2020-05-18 10:06] VITALS: BP 103/49
--- NOTE | 2020-05-18 10:30 | NUR ---
UP AMBULATING HALLWAY WITH PT ASSIST.
[2020-05-18 12:45] VITALS: BP 84/48
[2020-05-18 18:06] VITALS: BP 139/85
--- NOTE | 2020-05-18 20:11 | NUR ---
1944 REPORT RECIEVED AND INITITAL ROUNDS COMPLETED. PT RESTING IN BED. CALL LIGHT IN REACH. NO DISTRESS. SEE ASSESSMENT.
[2020-05-18 21:30] VITALS: BP 126/82
--- NOTE | 2020-05-18 21:30 | NUR ---
PT AWAKE AND SITTING UP IN BED. ALERT. STATES SHE WALKED WITH PT TODAY AND FEELS BETTER. BEDTIME MEDS GIVEN. REQUESTED SANDWICH TRAY AND DRINK PROVIDED. PT NOW EATING AND WATCHING TV. CPOC.
[2020-05-19 04:29] VITALS: BP 132/76
[2020-05-19 06:55] LABS: HEMATOCRIT 34.1 % (36.0-48.0); HEMOGLOBIN 10.2 g/dL (12-16); LYMPHOCYTES 18.5 % (15-50); MCH 23.4 pg (26.0-34.0); MCHC 29.9 g/dL (31.0-37.0); MCV 78.2 fL (80.0-100.0); MEAN PLATELET VOLUME 9.9 fL (7.4-10.4); NEUTROPHILS 69.5 % (40-80); PLATELET COUNT 212 10x3/uL (130-400); RBC 4.36 10x6/uL (4.00-5.40); RDW 19.4 % (11.5-14.5); WBC 6.8 10x3/uL (4.8-10.8)
--- NOTE | 2020-05-19 07:15 | NUR ---
RECEIVED PT IN BED EYES CLOSED RESP UNLABORED SKIN W/D COLOR WNL WILL CONTINUE TO MONITOR NAD NOTED
[2020-05-19 07:17] LABS: ANION GAP 8.5 mmol/L (8-16); CARBON DIOXIDE 32.2 mmol/L (21.0-32.0); CREATININE - SERUM 2.5 mg/dL (0.6-1.3); POTASSIUM - SERUM 3.7 mmol/L (3.5-5.1)
--- NOTE | 2020-05-19 08:06 | CN ---
PATIENT NAME:AVTAR AMIN MEDICAL RECORD: [id number] : 61 LOCATION:DTrice D.2118 ADMIT DATE: 05/12/20 ACCOUNT: [id number] CONSULTING PHYSICIAN: BROOK MENJIVAR MD REFERRING PHYSICIAN: ROSE GRANT MD HISTORY OF PRESENT ILLNESS: A 54-year-old female with a history of cardiomyopathy, EF final portion of extent of coronary artery disease in the past with stenting to the LAD by Dr. Otto. Most recent angiography over a year ago, has been having intermittent problem with volume overload, EF of 20% to 25%. Mitigating factor is a chronic renal insufficiency with creatinine varying between 2.3-2.9, admitted with volume overload, chest pain, pressure, elevated cardiac enzymes. Again, difficult to fully delineate secondary to renal insufficiency and chronic elevated troponin. We are asked to see her concerning her cardiovascular status. PAST MEDICAL HISTORY: Includes; 1. History of cardiomyopathy. 2. Mitral regurgitation. 3. Hypertension. 4. Hyperlipidemia. 5. Atrial fibrillation. 6. Hypothyroidism, on replacement. MEDICATIONS: Include Synthroid 137 mcg every day, Carafate 1 g a.c. and at bedtime, Bumex 2 mg p.o. every day, aspirin 81 every day, Aldactone 25 every day, Imdur 20 mg p.o. t.i.d., diltiazem 120 mg every day, carvedilol 6.25 b.i.d., amiodarone 200 b.i.d., Xarelto 20 mg p.o. at bedtime. SOCIAL HISTORY: Nonsmoker, nondrinker. Does have trouble with her ADLs by her report. No set exercise. REVIEW OF SYSTEMS: The patient reports easy bruising but reports no swollen glands. The patient reports no fever, no night sweats, no significant weight gain, no significant weight loss. No significant exercise tolerance. The patient reports no dry eyes, no irritation, no vision change. Patient reports no difficulty hearing and no ear pain. Patient reports no frequent nose bleeds or nose and sinus problems. Patient reports on arm pain on exertion. No shortness of breath while lying down. No history of heart murmur. Patient reports no cough, no wheezing or coughing up blood. Patient reports no abdominal pain, no vomiting. Normal appetite. No diarrhea and not vomiting blood. No nausea and no constipation. Patient reports no incontinence. No difficulty urinating. No hematuria. No increased frequency. Patient reports no muscle aches. No weakness, no arthralgias, no back pain. No swelling of the extremities. Patient reports no abnormal mole, no jaundice, no rashes. Reports no loss of consciousness. No weakness and no numbness. No seizures, dizziness, or headaches. The patient reports no depression, no sleep disturbance, feeling safe in a relationship and no alcohol abuse. Patient reports on fatigue. Reports no runny nose or sinus pressure. No itching, no hives, and no frequent sneezing. PHYSICAL EXAMINATION: GENERAL: Pleasant female, in no acute distress, appears stated age. VITAL SIGNS: Blood pressure 130/90, pulse 104 and regular. HEENT: Normocephalic and atraumatic. NECK: No JVD or bruit. CONSULT REPORT [id number] BRENNANAVTAR EDITH HEART: Regular. S3 gallop is noted, II/ systolic ejection murmur. LUNGS: Decreased breath sounds in both bases. ABDOMEN: Soft, nontender, 2+ edema, 2+ pulses. DIAGNOSTIC DATA: EKG shows right bundle branch block and nonspecific ST-T changes. IMPRESSION: Given her symptomatology, over a year from delineation of anatomy and to hopefully to help clear the issue, we will plan for angiography to delineate coronary anatomy and make no underlying ischemia focus. Further recommendations based on clinical course. TRANSINT:[id number] Voice Confirmation ID: [id number] DOCUMENT ID: [id number] 05/13/2020 Edited, changed to consult, dmm. BROOK MENJIVAR MD at 0806 CC: [id number] DICTATION DATE: 05/11/20 1256 THERMOSTAT MAKER: 05/12/20 0043 ADM IN [facility] [address] [place] [address]
--- NOTE | 2020-05-19 08:06 | OP ---
PATIENT NAME: AVTAR AMIN MEDICAL RECORD: [id number] :61 LOCATION:D.M2 D.2118 ADMISSION DATE:05/12/20 SURGEON: BROOK MENJIVAR MD DATE OF OPERATION: 05/12/2020 PROCEDURE: Left heart catheterization, selective coronary angiography, right femoral artery approach. CATHETERS: A 5-Kazakh sheath, 5/4 left and right Love, 5/4 pig. The procedure was well tolerated. The patient returned to the schulte. Sheath removed. ExoSeal device placed. FINDINGS: Left ventriculography, 30-degree GERBER view shows severe global hypokinesis, EF reduced 15%-20%. CORONARY ANATOMY: LEFT MAIN: Left main is free of disease. LAD: Free of disease in the diagonal system. CIRCUMFLEX: Free of disease in the marginal system. RIGHT CORONARY ARTERY: Dominant artery, gives rise to PDA, free of disease. IMPRESSION: Severe nonischemic cardiomyopathy. Continue elevated troponin secondary to renal insufficiency myopathic process. Given marked decrease in function, we will plan to place on Dobutrex tear for the next 24 hours, so hopefully will help mobilize some fluid. Medications obviously limited for myopathic process given her chronic renal insufficiency with creatinine 2.5-2.9. TRANSINT:[id number] Voice Confirmation ID: [id number] DOCUMENT ID: [id number] BROOK MENJIVAR MD at 0806 CC: [id number] DICTATION DATE: 05/12/20 1203 [employer]ARD[employer]ST[employer] CAR: 05/12/20 2200 ADM IN [place] [address] [place] [address]
[2020-05-19 09:00] VITALS: BP 115/73
[2020-05-19 12:00] VITALS: BP 91/47
--- NOTE | 2020-05-19 14:10 | NUR ---
Nutrition Follow-up: Pt reports that her appetite is ok and that she ate >50% of breakfast this AM. States that she has been eating <50% of meals overall, although 100% x 3 meals yesterday recorded. Denies N/V. 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 Diet: Cardiac WT: 236.4# (05/16); 251# (05/13) Labs reviewed Meds noted: Protonix, Carafate, electrolyte protocol -Encourage PO intake and honor food preferences within diet restrictions. -Monitor wt; noted daily wts ordered. -RD following.
[2020-05-19 15:00] VITALS: BP 101/45
--- NOTE | 2020-05-19 19:45 | NUR ---
REPORT RECIEVED AND INITIAL ROUNDS COMPLETED. ASSISTED PT ON/OFF BEDPAN AND PROVIDED CLEANSING FOR LARGE BM. CPOC. SEE ASSESSMENT.
[2020-05-19 21:21] VITALS: BP 109/69
--- NOTE | 2020-05-19 21:51 | NUR ---
CALLED TO PHONE FROM ANOTHER ROOM WHERE BEDTIME MEDS WERE BEING PASSED. DAUGHTER ON PHONE AND UPSET THAT HER MOTHER IS WAITING FOR HER BEDTIME MEDS. EXPLAINED TO DAUGHTER THAT HER MOTHER'S MEDS WERE THE NEXT TO BE GIVEN. BEDTIME MEDS GIVEN AT THIS TIME. DOOR TO ROOM LEFT HALF OPEN AT PT REQUEST, SHE HAD TOLD DAUGHTER THAT PEOPLE WERE SHUTTING HER DOOR AND SHE WANTED IT OPEN. NO OTHER NEEDS VOICED. CLEAN/DRY AND HAS BEEN TOILETED TWICE SINCE THIS NURSE STARTED SHIFT.
[2020-05-20 00:39] VITALS: BP 115/66
--- NOTE | 2020-05-20 06:15 | NUR ---
NO CHANGE FROM INITIAL SHIFT ASSESSMENT. PT HAS HAD 10 EPISODES OF URINARY INCONTINENCE AND CARE HAS BEEN PROVIDED FOR EACH EPISODE. AM MEDS GIVEN. CPOC. CALL LIGHT IN REACH.
[2020-05-20 06:20] LABS: HEMATOCRIT 33.7 % (36.0-48.0); HEMOGLOBIN 9.9 g/dL (12-16); LYMPHOCYTES 15.1 % (15-50); MCH 23.2 pg (26.0-34.0); MCHC 29.4 g/dL (31.0-37.0); MCV 78.9 fL (80.0-100.0); MEAN PLATELET VOLUME 10.7 fL (7.4-10.4); NEUTROPHILS 72.9 % (40-80); PLATELET COUNT 223 10x3/uL (130-400); RBC 4.27 10x6/uL (4.00-5.40); RDW 19.3 % (11.5-14.5); WBC 8.1 10x3/uL (4.8-10.8)
[2020-05-20 06:27] VITALS: BP 124/82
[2020-05-20 08:22] VITALS: BP 124/77
[2020-05-20 10:38] LABS: ANION GAP 5.6 mmol/L (8-16); CALCIUM 8.5 mg/dL (8.5-10.1); CARBON DIOXIDE 34.1 mmol/L (21.0-32.0); CREATININE - SERUM 2.6 mg/dL (0.6-1.3); POTASSIUM - SERUM 3.7 mmol/L (3.5-5.1)
--- NOTE | 2020-05-20 10:54 | NUR ---
ASSUMED CARE OF PATIENT. ON PHONE. DENIES NEEDS AT THIS ITME.
[2020-05-20 11:57] VITALS: BP 97/54
--- NOTE | 2020-05-20 13:00 | MORECARE ---
CASE MANAGEMENT DISCHARGE SUMMARY PATIENT: AVTAR AMIN UNIT: [id number] ADM DATE: 05/12/20 AGE: 54 : 61 SEX: F ROOM/BED: D.4523 AUTHOR: BALJEET,DOC PHYSICIAN: REFERRING PHYSICIAN: ROSE GRANT MD DATE OF SERVICE: 05/20/20 Discharge Plan Patient Name: AVTAR AMIN Facility: [facility]:[place] : 1965 Planned Disposition: Inpatient Rehab Anticipated Discharge Date: Discharge Date: Expected LOS: 0 Initial Reviewer: [email or web address] Initial Review Date: 05/10/2020 Generated: 05/20/20 2:00 pm Comments DCP- Discharge Planning Updated by [id number]: Tamica Ibarra on 05/20/20 11:[address] CM contacted [facility] for assistance with [employer] insurance Skilled bed in . Faxed to [phone], then to [phone]. DCP- Discharge Planning Updated by [id number]: Tamica Ibarra on 05/16/20 4:[address] Grady with [facility] called and stated that their facility is out of network with the patient's insurance. CM contacted Anny Lee to check with her facility, to see who is in network with patient's insurance. DCP- Discharge Planning Updated by [id number]: Tamica Ibarra on 05/16/20 11:[address] Patient's daughter, Felice Lozano (POA), called, update reported. Per Felice, her mother must go into a Rehab/Skilled facility for therapy and after that the patient will go to live with Felice Mio Boothe with [facility], patient's insurance denied her request for [facility]. CM will contact [facility] per patient request. DCPIA - Discharge Planning Initial Assessment Updated by [email or web address]: Tamica Ibarra on 05/14/20 4:51 pm * Is the patient Alert and Oriented? Yes * PCP Dr. Calles * Pharmacy [facility] * Preadmission Environment Home with Family * ADLs Partial Dependent * Partial ADLs (Assistance needed) Ambulation Bathing * Equipment Rolling Walker * Other Equipment Walker, Shower chair * List name and contact numbers for known caregivers / representatives who currently or will assist patient after discharge: Deisy Lozano (dtr) [phone] * Verbal permission to speak to the caregivers and representatives has been obtained from the patient. Yes * Community resources currently utilized Home Health * Please name any agencies selected above. [facility], nursing, aide, PT * Additional services required to return to the preadmission environment? Yes * Can the patient safely return to the preadmission environment? No * Has this patient been hospitalized within the prior 30 days at any hospital? No Coverage Notice Reviewer: [id number] Andrea Hernández Notice Issued Date-Time: 05/11/2020 17:00 Notice Type: Medicare Outpatient Observation Notice Notice Delivered To: Patient Relationship to Patient: Self Police Matron Name: Delivery Method: HAND - Hand Delivered Christine Days: Prior Verbal Notification: Recipient Understood Notice: Yes Recipient Signature: Yes Med Rec Note Co-signed by Attending: Coverage Notice Comment: Reviewer: [id number] Andrea Ibarra Notice Issued Date-Time: 05/14/2020 16:21 Notice Type: Patient Choice Letter Notice Delivered To: Patient Relationship to Patient: Self Police Matron Name: Avtar Amin Delivery Method: HAND - Hand Delivered Christine Days: Prior Verbal Notification: Recipient Understood Notice: Yes Recipient Signature: Yes Med Rec Note Co-signed by Attending: Coverage Notice Comment: Patient choice for Rehab and [facility] Reviewer: [id number] Andrea Ibarra Notice Issued Date-Time: 05/14/2020 16:21 Notice Type: IM Discharge Notice Notice Delivered To: Patient Relationship to Patient: Self Police Matron Name: Avtar Amin Delivery Method: HAND - Hand Delivered Christine Days: Prior Verbal Notification: Recipient Understood Notice: Yes Recipient Signature: Yes Med Rec Note Co-signed by Attending: Coverage Notice Comment: DC IMM signed by patient Last DP export: 05/16/20 5:03 p Patient Name: AVTAR AMIN Page [id number] at 1300 All edits/amendments must be made on the electronic document DICTATION DATE: 05/20/20 1300 OUTPATIENT SERVICES DIRECTOR: LAY 05/20/20 1300 RPT#: [id number] DC DATE: STATUS: ADM IN [facility] [address] [place] [address] END OF REPORT
--- NOTE | 2020-05-20 14:02 | NUR ---
OT NOTE: PT COMPLETED SUPINE TO SIT WITH SBA/CGA. PT COMPLETED SIT TO STAND WITH MIN A. PT COMPLETED ADL MOB WITH RW REQUIRED CGA. PT COMPLETED UB DRESSING WITH SETUP. PT COMPLETED EOB SITTING BALANCE WITH NATALIYA SOCKS WITH MIN/MOD A. PT DID EXHIBIT SLIGHT TREMOR WHILE STANDING UPRIGHT . PT MUCH IMPROVED AND EXHIBITED INCREASE AX TOLERANCE AND I WITH FUNCTIONAL TASKS. PT IS COOPERATIVE AND EAGER TO RETURN TO [facility]. [phone] THANK YOU,JAREK SAMS
[2020-05-20 16:32] VITALS: BP 118/77
--- NOTE | 2020-05-20 19:00 | NUR ---
REPORT RECEIVED, WILL CONTINUE POC. PATIENT IS AAOX4, LYING IN SEMI-FOWLERS POSITION. NO S/S OF DISTRESS OBSERVED, RR EVEN AND UNLABORED ON 2L O2 VIA NC. PATIENT DENIES NEEDS AT THIS TIME. CL IN REACH, BED LOCKED AND LOWERED. WILL CTM.
[2020-05-20 20:00] VITALS: BP 115/68
--- NOTE | 2020-05-21 05:44 | NUR ---
I have reviewed this patient and I concur with the Shift Assessment completed by the Licensed Practical Nurse today this shift.
[2020-05-21 06:28] LABS: ANION GAP 8.4 mmol/L (8-16); BILIRUBIN - TOTAL 1.01 mg/dL (0.2-1.3); CALCIUM 8.6 mg/dL (8.5-10.1); CARBON DIOXIDE 29.2 mmol/L (21.0-32.0); CREATININE - SERUM 2.2 mg/dL (0.6-1.3); POTASSIUM - SERUM 3.6 mmol/L (3.5-5.1)
[2020-05-21 07:04] LABS: HEMATOCRIT 33.8 % (36.0-48.0); HEMOGLOBIN 9.9 g/dL (12-16); LYMPHOCYTES 19.1 % (15-50); MCH 23.2 pg (26.0-34.0); MCHC 29.3 g/dL (31.0-37.0); MCV 79.3 fL (80.0-100.0); MEAN PLATELET VOLUME 10.7 fL (7.4-10.4); NEUTROPHILS 69.8 % (40-80); PLATELET COUNT 200 10x3/uL (130-400); RBC 4.26 10x6/uL (4.00-5.40); RDW 19.6 % (11.5-14.5); WBC 7.2 10x3/uL (4.8-10.8)
[2020-05-21 09:00] VITALS: BP 130/84
[2020-05-21 11:00] VITALS: BP 109/70
[2020-05-21 15:00] VITALS: BP 105/69
--- NOTE | 2020-05-21 15:56 | NUR ---
OT NOTE: PT COMPLETED SUPINE TO SIT WITH CGA/SBA. PT COMPLETED SIT TO STAND WITH SBA/CGA. PT COMPLETED ADL MOB WITH CGA. PT COMPLETED NATALIYA/DOFF GOWN AT EOB WITH SETUP. PT COMPLETED BUE AROM ACTIVITIES WITH FUNCTIONAL TASKS. [phone] THANK YOU,JAREK SAMS
--- NOTE | 2020-05-21 17:52 | NUR ---
RESTS IN BED ON RA. TELEMETRY SR. RESP UL ON RA. WILL CONT PLAN OF CARE.
--- NOTE | 2020-05-21 18:59 | NUR ---
I have reviewed this patient and I concur with the Shift Assessment completed by the Licensed Practical Nurse today this shift.
[2020-05-21 20:00] VITALS: BP 114/62
--- NOTE | 2020-05-21 20:09 | NUR ---
PATIENT IS RESTING COMFORTABLY IN BED. SHE IS ALERT AND ORIENTATED. SHE ASKED FOR A BLANKET FOR HER FEET. SHE ALSO ASKED FOR A SANDWICH. WE WILL CONTINUE TO MONITOR HER RATE AND RHYTHM.
[2020-05-22] VITALS: BP 133/87
[2020-05-22 04:00] VITALS: BP 107/71
--- NOTE | 2020-05-22 04:07 | NUR ---
PATIENT IS SLEEPING COMFORTABLY IN BED. SHE VOIDED ONCE, AND GOT UP TO BEDSIDE COMMODE TO HAVE A BOWEL MOVEMENT. WE WILL CONTINUE TO MONITOR HER HEART RATE AND RHYTHM.
[2020-05-22 06:05] LABS: ANION GAP 11.1 mmol/L (8-16); BILIRUBIN - TOTAL 0.82 mg/dL (0.2-1.3); CALCIUM 8.8 mg/dL (8.5-10.1); CARBON DIOXIDE 28.6 mmol/L (21.0-32.0); CREATININE - SERUM 2.2 mg/dL (0.6-1.3); MAGNESIUM - SERUM 1.9 mg/dL (1.8-2.4); PHOSPHOROUS 2.9 mg/dL (2.5-4.9); POTASSIUM - SERUM 3.7 mmol/L (3.5-5.1); PROTEIN - SERUM 6.8 g/dL (6.4-8.2)
[2020-05-22 06:29] LABS: HEMATOCRIT 32.3 % (36.0-48.0); HEMOGLOBIN 9.5 g/dL (12-16); LYMPHOCYTES 20.7 % (15-50); MCH 23.4 pg (26.0-34.0); MCHC 29.4 g/dL (31.0-37.0); MCV 79.6 fL (80.0-100.0); MEAN PLATELET VOLUME 10.9 fL (7.4-10.4); NEUTROPHILS 64.3 % (40-80); PLATELET COUNT 199 10x3/uL (130-400); RBC 4.06 10x6/uL (4.00-5.40); RDW 19.7 % (11.5-14.5); WBC 7.2 10x3/uL (4.8-10.8)
--- NOTE | 2020-05-22 07:30 | NUR ---
REPORT RECIEVED. PT SITTING SEMI FOWLERS IN BED. RR EVEN AND UNLABORED ON RA. PT HAS A L WRIST PIV THAT IS CURRENTLY SL. BED LOCKED AND IN LOWEST POSITION,CALL LIGHT WITHIN REACH. WILL CTM
[2020-05-22 08:30] VITALS: BP 138/79
[2020-05-22 12:00] VITALS: BP 105/66
--- NOTE | 2020-05-22 12:31 | NUR ---
Nutrition Follow-up: Pt reports appetite not very good; ate <50% of breakfast this AM. Denies N/V. Per renal, plan to restart slow diuresis and need daily standing wts. Diet: Cardiac Wt: 233# (05/22); 248.1# (05/14) Last BM: 05/21 Labs noted: Alb 3.0 Meds noted: Protonix, Carafate, electrolyte protocol -Encourage PO intake and honor food preferences within diet restrictions. -Offer nutrition supplements. -Monitor wt; noted daily wts ordered. -RD following.
--- NOTE | 2020-05-22 13:31 | NUR ---
OT NOTE: PT NOT FEELING GOOD IN PM.. STATED THAT SHE WAS FEELING VERY WEAK AND DID NOT FEEL LIKE SHE COULD GET UP AGAIN. STATED THAT SHE EXERCISED WITH OTHER THERAPIST IN AM, BUT THAT SHE COULD NOT TOLERATE ANY MORE THIS AFTERNOON. ELIZABETH MANUEL, OTR/L
--- NOTE | 2020-05-22 14:25 | MORECARE ---
CASE MANAGEMENT DISCHARGE SUMMARY PATIENT: AVTAR AMIN UNIT: [id number] ADM DATE: 05/12/20 AGE: 54 : 61 SEX: F ROOM/BED: D.3833 AUTHOR: BALJEET,DOC PHYSICIAN: REFERRING PHYSICIAN: ROSE GRANT MD DATE OF SERVICE: 05/22/20 Discharge Plan Patient Name: AVTAR AMIN Facility: [facility]:[place] : 1965 Planned Disposition: Inpatient Rehab Anticipated Discharge Date: 05/23/20 Discharge Date: Expected LOS: 11 Initial Reviewer: [id number] Initial Review Date: 05/10/2020 Generated: 05/22/20 3:24 pm Comments DCP- Discharge Planning Updated by [email or web address]: Tamica Ibarra on 05/20/20 11:[address] CM contacted [facility] for assistance with [employer] insurance Skilled bed in . Faxed to [phone], then to [phone]. DCP- Discharge Planning Updated by [email or web address]: Tamica Ibarra on 05/16/20 4:[address] Grady with [facility] called and stated that their facility is out of network with the patient's insurance. CM contacted Anny Lee to check with her facility, to see who is in network with patient's insurance. DCP- Discharge Planning Updated by [id number]: Tamica Ibarra on 05/16/20 11:[address] Patient's daughter, Felice Lozano (POA), called, update reported. Per Felice, her mother must go into a Rehab/Skilled facility for therapy and after that the patient will go to live with Felice Mio Boothe with [facility], patient's insurance denied her request for [facility]. CM will contact [facility] per patient request. DCPIA - Discharge Planning Initial Assessment Updated by [email or web address]: Tamica Ibarra on 05/14/20 4:51 pm * Is the patient Alert and Oriented? Yes * PCP Dr. Calles * Pharmacy [facility] * Preadmission Environment Home with Family * ADLs Partial Dependent * Partial ADLs (Assistance needed) Ambulation Bathing * Equipment Rolling Walker * Other Equipment Walker, Shower chair * List name and contact numbers for known caregivers / representatives who currently or will assist patient after discharge: Deisy Lozano (dtr) [phone] * Verbal permission to speak to the caregivers and representatives has been obtained from the patient. Yes * Community resources currently utilized Home Health * Please name any agencies selected above. [facility], nursing, aide, PT * Additional services required to return to the preadmission environment? Yes * Can the patient safely return to the preadmission environment? No * Has this patient been hospitalized within the prior 30 days at any hospital? No Coverage Notice Reviewer: [id number] Andrea Hernández Notice Issued Date-Time: 05/11/2020 17:00 Notice Type: Medicare Outpatient Observation Notice Notice Delivered To: Patient Relationship to Patient: Self Compliance Professional Name: Delivery Method: HAND - Hand Delivered Christine Days: Prior Verbal Notification: Recipient Understood Notice: Yes Recipient Signature: Yes Med Rec Note Co-signed by Attending: Coverage Notice Comment: Reviewer: [id number] Andrea Ibarra Notice Issued Date-Time: 05/14/2020 16:21 Notice Type: Patient Choice Letter Notice Delivered To: Patient Relationship to Patient: Self Compliance Professional Name: Avtar Amin Delivery Method: HAND - Hand Delivered Christine Days: Prior Verbal Notification: Recipient Understood Notice: Yes Recipient Signature: Yes Med Rec Note Co-signed by Attending: Coverage Notice Comment: Patient choice for Rehab and [facility] Reviewer: [email or web address] Andrea Ibarra Notice Issued Date-Time: 05/14/2020 16:21 Notice Type: IM Discharge Notice Notice Delivered To: Patient Relationship to Patient: Self Compliance Professional Name: Avtar Amin Delivery Method: HAND - Hand Delivered Christine Days: Prior Verbal Notification: Recipient Understood Notice: Yes Recipient Signature: Yes Med Rec Note Co-signed by Attending: Coverage Notice Comment: DC IMM signed by patient Last DP export: 05/20/20 12:00 p Patient Name: AVTAR AMIN Page [id number] at 1425 All edits/amendments must be made on the electronic document DICTATION DATE: 05/22/20 1424 PRINT MANAGER: LAY 05/22/20 1424 RPT#: [id number] DC DATE: STATUS: ADM IN [facility] [address] [place] [address] END OF REPORT
--- NOTE | 2020-05-22 16:08 | NUR ---
RESTS IN BED WITH CALL LIGHT IN REACH. TELEMETRY SR. MATTY NEEDS AT THIS TIME.
--- NOTE | 2020-05-22 18:47 | NUR ---
OT NOTE: PT SITTING UP IN CHAIR. PT COMPLETED SIT TO STAND WITH CGA. PT COMPLETED ADL MOB WITH HH Sofia. PT COMPLETED FACE AND HAND HYGIENE WITH SETUP. [phone] THANK YOU,JAREK SAMS
[2020-05-22 20:00] VITALS: BP 122/79
[2020-05-22 20:02] LABS: BILIRUBIN NEGATIVE (NEGATIVE); GLUCOSE NEGATIVE (NEGATIVE); KETONE NEGATIVE (NEGATIVE); NITRITE POSITIVE (NEGATIVE); SPECIFIC GRAVITY 1.015 (1.005-1.020); UROBILINOGEN NORMAL (NORMAL)
[2020-05-22 20:11] LABS: RED CELLS - URINE >50 /hpf (0-5); WHITE CELLS - URINE >50 /hpf (NEGATIVE)
[2020-05-22 20:12] LABS: BACTERIA MANY /hpf (NEGATIVE); EPITHELIAL CELLS 0-5 /hpf (0-5)
--- NOTE | 2020-05-22 23:22 | NUR ---
PATIENT IS RESTING IN BED. SHE WAS GIVEN TYLENOL FOR FLANK PAIN. SHE IS ALERT AND ORIENTED. URINE WAS COLLECTED FOR U/A.
[2020-05-23 04:00] VITALS: BP 120/83
--- NOTE | 2020-05-23 04:39 | NUR ---
PATIENT IS SLEEPING IN BED. SHE HAS VOIDED TWICE. SHE HAS NOT PUT OUT ALOT OF URINE. HER U/A WAS COLLECTED AND SHOWED MANY BACTERIA. WE ORDERED A CULTURE AND SENSITIVITY ON THE URINE. SHE WAS GIVEN TYLENOL FOR FLANK PAIN. HER COVID 19 TEST CAME BACK NEGATIVE.
[2020-05-23 05:04] LABS: ANION GAP 8.2 mmol/L (8-16); CALCIUM 8.5 mg/dL (8.5-10.1); CARBON DIOXIDE 28.7 mmol/L (21.0-32.0); CREATININE - SERUM 2.3 mg/dL (0.6-1.3); POTASSIUM - SERUM 3.9 mmol/L (3.5-5.1)
[2020-05-23 05:12] LABS: HEMATOCRIT 32.5 % (36.0-48.0); HEMOGLOBIN 9.6 g/dL (12-16); LYMPHOCYTES 25.8 % (15-50); MCH 23.5 pg (26.0-34.0); MCHC 29.5 g/dL (31.0-37.0); MCV 79.5 fL (80.0-100.0); NEUTROPHILS 63.1 % (40-80); PLATELET COUNT 185 10x3/uL (130-400); RBC 4.09 10x6/uL (4.00-5.40); RDW 19.9 % (11.5-14.5); WBC 6.2 10x3/uL (4.8-10.8)
[2020-05-23 07:00] VITALS: BP 122/79
[2020-05-23 08:00] VITALS: BP 155/98
--- NOTE | 2020-05-23 10:54 | NUR ---
OT NOTE: PT REFUSING THERAPY AGAIN TODAY STATING THAT SHE IS JUST NOT FEELING WELL. STATES THAT SHE FEELS VERY WEAK AND DOES NOT WANT TO GET UP AT THIS TIME. WILL ATTEMPT THIS AFTERNOON. ELIZABETH MANUEL, OTR/L
[2020-05-23 11:10] VITALS: BP 110/66
--- NOTE | 2020-05-23 11:16 | MORECARE ---
CASE MANAGEMENT DISCHARGE SUMMARY PATIENT: AVTAR AMIN UNIT: [id number] ADM DATE: 05/12/20 AGE: 54 : 61 SEX: F ROOM/BED: D.6613 AUTHOR: BALJEET,DOC PHYSICIAN: REFERRING PHYSICIAN: ROSE GRANT MD DATE OF SERVICE: 05/23/20 Discharge Plan Patient Name: AVTAR AMIN Facility: [facility]:[place] : 1965 Planned Disposition: Inpatient Rehab Anticipated Discharge Date: 05/23/20 Discharge Date: Expected LOS: 11 Initial Reviewer: [email or web address] Initial Review Date: 05/10/2020 Generated: 05/23/20 12:16 pm DCP- Discharge Planning Updated by [id number]: Tamica Ibarra on 05/20/20 11:[address] CM contacted [facility] for assistance with Human insurance Skilled bed in . Faxed to [phone], then to [phone]. DCP- Discharge Planning Updated by [id number]: Tamica Ibarra on 05/16/20 4:[address] Grady with [facility] called and stated that their facility is out of network with the patient's insurance. CM contacted Anny Lee to check with her facility, to see who is in network with patient's insurance. DCP- Discharge Planning Updated by [id number]: Tamica Ibarra on 05/16/20 11:[address] Patient's daughter, Felice Lozano (POA), called, update reported. Per Felice, her mother must go into a Rehab/Skilled facility for therapy and after that the patient will go to live with Felice Mio Boothe with [facility], patient's insurance denied her request for [facility]. CM will contact [facility] per patient request. DCPIA - Discharge Planning Initial Assessment Updated by [id number]: Tamica Ibarra on 05/14/20 4:51 pm * Is the patient Alert and Oriented? Yes * PCP Dr. Calles * Pharmacy [facility] * Preadmission Environment Home with Family * ADLs Partial Dependent * Partial ADLs (Assistance needed) Ambulation Bathing * Equipment Rolling Walker * Other Equipment Walker, Shower chair * List name and contact numbers for known caregivers / representatives who currently or will assist patient after discharge: Deisy Lozano (dtr) [phone] * Verbal permission to speak to the caregivers and representatives has been obtained from the patient. Yes * Community resources currently utilized Home Health * Please name any agencies selected above. [facility], nursing, aide, PT * Additional services required to return to the preadmission environment? Yes * Can the patient safely return to the preadmission environment? No * Has this patient been hospitalized within the prior 30 days at any hospital? No External Providers External Provider[facility] Next Contact Date: Service Request Date: Service Type: Resolution: Reviewer: Comments: Coverage Notice Reviewer: [id number] Andrea Hernández Notice Issued Date-Time: 05/11/2020 17:00 Notice Type: Medicare Outpatient Observation Notice Notice Delivered To: Patient Relationship to Patient: Self Laundry Press Operator Name: Delivery Method: HAND - Hand Delivered Christine Days: Prior Verbal Notification: Recipient Understood Notice: Yes Recipient Signature: Yes Med Rec Note Co-signed by Attending: Coverage Notice Comment: Reviewer: [id number] Andrea Ibarra Notice Issued Date-Time: 05/14/2020 16:21 Notice Type: Patient Choice Letter Notice Delivered To: Patient Relationship to Patient: Self Laundry Press Operator Name: Avtar Amin Delivery Method: HAND - Hand Delivered Christine Days: Prior Verbal Notification: Recipient Understood Notice: Yes Recipient Signature: Yes Med Rec Note Co-signed by Attending: Coverage Notice Comment: [facility] Reviewer: [id number] Andrea Ibarra Notice Issued Date-Time: 05/14/2020 16:21 Notice Type: IM Discharge Notice Notice Delivered To: Patient Relationship to Patient: Self Laundry Press Operator Name: Avtar Amin Delivery Method: HAND - Hand Delivered Christine Days: Prior Verbal Notification: Recipient Understood Notice: Yes Recipient Signature: Yes Med Rec Note Co-signed by Attending: Coverage Notice Comment: DC IMM signed by patient Last DP export: 05/22/20 1:25 p Patient Name: AVTAR AMIN Page [id number] at 1116 All edits/amendments must be made on the electronic document DICTATION DATE: 05/23/201115 HYDROELECTRIC PLANT MAINTAINER: LAY 05/23/201115 RPT#: [id number] DC DATE: STATUS: ADM IN [facility] [address] [place] [address] END OF REPORT
--- NOTE | 2020-05-23 12:40 | MORECARE ---
CASE MANAGEMENT DISCHARGE SUMMARY PATIENT: LUZ AMIN UNIT: [id number] ADM DATE: 05/12/20 AGE: 54 : 61 SEX: F ROOM/BED: D.5693 AUTHOR: BALJEET,DOC PHYSICIAN: REFERRING PHYSICIAN: ROSE GRANT MD DATE OF SERVICE: 05/23/20 Discharge Plan Patient Name: LUZ AMIN Facility: [facility]:[place] : 1965 Planned Disposition: Inpatient Rehab Anticipated Discharge Date: 05/23/20 Discharge Date: Expected LOS: 11 Initial Reviewer: HARISH Initial Review Date: 05/10/2020 Generated: 05/23/20 1:40 pm Comments DCP- Discharge Planning Updated by [email or web address]: Tamica Ibarra on 05/23/20 11:[address] Patient is discharging to [facility]/Rehab to a SNF bed, today. DCP- Discharge Planning Updated by [id number]: Tamica Ibarra on 05/20/20 11:[address] CM contacted [facility] for assistance with [employer] insurance Skilled bed in . Faxed to [phone], then to [phone]. DCP- Discharge Planning Updated by [email or web address]: Tamica Ibarra on 05/16/20 4:[address] Grady with [facility] called and stated that their facility is out of network with the patient's insurance. CM contacted Anny Lee to check with her facility, to see who is in network with patient's insurance. DCP- Discharge Planning Updated by [id number]: Tamica Ibarra on 05/16/20 11:[address] Patient's daughter, Felice Lozano (POA), called, update reported. Per Felice, her mother must go into a Rehab/Skilled facility for therapy and after that the patient will go to live with Felice Per Shyann with [facility], patient's insurance denied her request for [facility]. CM will contact [facility] per patient request. DCPIA - Discharge Planning Initial Assessment Updated by [id number]: Tamica Ibarra on 05/14/20 4:51 pm * Is the patient Alert and Oriented? Yes * PCP Dr. Calles * Pharmacy [facility] * Preadmission Environment Home with Family * ADLs Partial Dependent * Partial ADLs (Assistance needed) Ambulation Bathing * Equipment Rolling Walker * Other Equipment Walker, Shower chair * List name and contact numbers for known caregivers / representatives who currently or will assist patient after discharge: Deisy Lozano (dtr) [phone] * Verbal permission to speak to the caregivers and representatives has been obtained from the patient. Yes * Community resources currently utilized Home Health * Please name any agencies selected above. [facility], nursing, aide, PT * Additional services required to return to the preadmission environment? Yes * Can the patient safely return to the preadmission environment? No * Has this patient been hospitalized within the prior 30 days at any hospital? No Coverage Notice Reviewer: [id number] - Ban Hernández Notice Issued Date-Time: 05/11/2020 17:00 Notice Type: Medicare Outpatient Observation Notice Notice Delivered To: Patient Relationship to Patient: Self Public Relations Studies Director Name: Delivery Method: HAND - Hand Delivered Christine Days: Prior Verbal Notification: Recipient Understood Notice: Yes Recipient Signature: Yes Med Rec Note Co-signed by Attending: Coverage Notice Comment: Reviewer: [id number] Ibarra Notice Issued Date-Time: 05/14/2020 16:21 Notice Type: Patient Choice Letter Notice Delivered To: Patient Relationship to Patient: Self Public Relations Studies Director Name: Luz Amin Delivery Method: HAND - Hand Delivered Christine Days: Prior Verbal Notification: Recipient Understood Notice: Yes Recipient Signature: Yes Med Rec Note Co-signed by Attending: Coverage Notice Comment: Patient choice for Rehab and [facility] Reviewer: [id number] Andrea Ibarra Notice Issued Date-Time: 05/14/2020 16:21 Notice Type: IM Discharge Notice Notice Delivered To: Patient Relationship to Patient: Self Public Relations Studies Director Name: Luz Amin Delivery Method: HAND - Hand Delivered Christine Days: Prior Verbal Notification: Recipient Understood Notice: Yes Recipient Signature: Yes Med Rec Note Co-signed by Attending: Coverage Notice Comment: DC IMM signed by patient Reviewer: [id number] Andrea Ibarra Notice Issued Date-Time: 05/23/2020 12:34 Notice Type: IM Discharge Notice Notice Delivered To: Patient Relationship to Patient: Self Public Relations Studies Director Name: Luz Amin Delivery Method: HAND - Hand Delivered Christine Days: Prior Verbal Notification: Recipient Understood Notice: Yes Recipient Signature: Yes Med Rec Note Co-signed by Attending: Coverage Notice Comment: IMM signed by patient, declines a copy. Original to chart. Last DP export: 05/23/20 10:16 a Patient Name: LUZ AMIN Page [phone] at 1240 All edits/amendments must be made on the electronic document DICTATION DATE: 05/23/[address] MAN: LAY 05/23/20 1240 RPT#: [id number] DC DATE: STATUS: ADM IN [facility] [address] [place] [address] END OF REPORT
--- NOTE | 2020-05-23 13:44 | NUR ---
0700 IN BED REPORT RECEIVED VOICES NO C/O PAIN AWAKE ALERT ASSESSMENT COMPLETE
--- NOTE | 2020-05-23 13:46 | NUR ---
0487 CALLED REPORT TO JOSE CRUZ AT [facility] STATED THAT ADULT CROSSING GUARD WILL BE AT 1500
--- NOTE | 2020-05-23 16:16 | MORECARE ---
CASE MANAGEMENT DISCHARGE SUMMARY PATIENT: LUZ AMIN UNIT: [id number] ADM DATE: 05/12/20 AGE: 54 : 61 SEX: F ROOM/BED: D.5343 AUTHOR: BALJEET,DOC PHYSICIAN: REFERRING PHYSICIAN: ROSE GRANT MD DATE OF SERVICE: 05/23/20 Discharge Plan Patient Name: LUZ AMIN Facility: [facility]:[place] : 1965 Planned Disposition: Inpatient Rehab Anticipated Discharge Date: 05/23/20 Discharge Date: Expected LOS: 11 Initial Reviewer: HARISH Initial Review Date: 05/10/2020 Generated: 05/23/20 5:16 pm Comments DCP- Discharge Planning Updated by [id number]: Tamica Ibarra on 05/23/20 11:[address] Patient is discharging to [facility]/Rehab to a SNF bed, today. DCP- Discharge Planning Updated by [id number]: Tamica Ibarra on 05/20/20 11:[address] CM contacted [facility] for assistance with [employer] insurance Skilled bed in . Faxed to [phone], then to [phone]. DCP- Discharge Planning Updated by [id number]: Tamica Ibarra on 05/16/20 4:[address] Grady with [facility] called and stated that their facility is out of network with the patient's insurance. CM contacted Anny Lee to check with her facility, to see who is in network with patient's insurance. DCP- Discharge Planning Updated by [id number]: Tamica Ibarra on 05/16/20 11:[address] Patient's daughter, Felice Lozano (POA), called, update reported. Per Felice, her mother must go into a Rehab/Skilled facility for therapy and after that the patient will go to live with Felice Per Shyann with [facility], patient's insurance denied her request for [facility]. CM will contact [facility] per patient request. DCPIA - Discharge Planning Initial Assessment Updated by [id number]: Tamica Ibarra on 05/14/20 4:51 pm * Is the patient Alert and Oriented? Yes * PCP Dr. Calles * Pharmacy [facility] * Preadmission Environment Home with Family * ADLs Partial Dependent * Partial ADLs (Assistance needed) Ambulation Bathing * Equipment Rolling Walker * Other Equipment Walker, Shower chair * List name and contact numbers for known caregivers / representatives who currently or will assist patient after discharge: Deisy Lozano (dtr) [phone] * Verbal permission to speak to the caregivers and representatives has been obtained from the patient. Yes * Community resources currently utilized Home Health * Please name any agencies selected above. [facility], nursing, aide, PT * Additional services required to return to the preadmission environment? Yes * Can the patient safely return to the preadmission environment? No * Has this patient been hospitalized within the prior 30 days at any hospital? No Coverage Notice Reviewer: [id number] - Ban Hernández Notice Issued Date-Time: 05/11/2020 17:00 Notice Type: Medicare Outpatient Observation Notice Notice Delivered To: Patient Relationship to Patient: Self Patrol Agent Name: Delivery Method: HAND - Hand Delivered Christine Days: Prior Verbal Notification: Recipient Understood Notice: Yes Recipient Signature: Yes Med Rec Note Co-signed by Attending: Coverage Notice Comment: Reviewer: [id number] Ibarra Notice Issued Date-Time: 05/14/2020 16:21 Notice Type: Patient Choice Letter Notice Delivered To: Patient Relationship to Patient: Self Patrol Agent Name: Luz Amin Delivery Method: HAND - Hand Delivered Christine Days: Prior Verbal Notification: Recipient Understood Notice: Yes Recipient Signature: Yes Med Rec Note Co-signed by Attending: Coverage Notice Comment: Patient choice for Rehab and [facility] Reviewer: [id number] Andrea Ibarra Notice Issued Date-Time: 05/14/2020 16:21 Notice Type: IM Discharge Notice Notice Delivered To: Patient Relationship to Patient: Self Patrol Agent Name: Luz Amin Delivery Method: HAND - Hand Delivered Christine Days: Prior Verbal Notification: Recipient Understood Notice: Yes Recipient Signature: Yes Med Rec Note Co-signed by Attending: Coverage Notice Comment: DC IMM signed by patient Reviewer: [id number] Andrea Ibarra Notice Issued Date-Time: 05/23/2020 12:34 Notice Type: IM Discharge Notice Notice Delivered To: Patient Relationship to Patient: Self Patrol Agent Name: Luz Amin Delivery Method: HAND - Hand Delivered Christine Days: Prior Verbal Notification: Recipient Understood Notice: Yes Recipient Signature: Yes Med Rec Note Co-signed by Attending: Coverage Notice Comment: IMM signed by patient, declines a copy. Original to chart. Last DP export: 05/23/20 11:40 a Patient Name: LUZ AMIN Page 84754 at 1616 All edits/amendments must be made on the electronic document DICTATION DATE: 05/23/201615 TRACK HOE OPERATOR: LAY 05/23/201615 RPT#: [id number] DC DATE: STATUS: ADM IN [facility] [address] [place] [address] END OF REPORT
--- NOTE | 2020-05-23 16:30 | NUR ---
1500 TRANSPORT ARRIVED TO TRANSFER PT [facility]
--- NOTE | 2020-05-23 16:56 | NUR ---
OT NOTE: PT COMPLETED BUE AROM AXS WITH FUNCTIONAL TASKS. PT COMPLETED UB HYGIENE TASKS WITH SET UP. PT IS FATIGUED. [phone] DEEJAY KERN COTA
== END 2020-05-23 16:39 | DRG 280 ==
LOC: D.ER 20:30 → OBSVTIME 22:22 → D.M2 22:22
PROVIDERS: Family Medicine; Internal Medicine; Internal Medicine Interventional Cardiology; Internal Medicine Nephrology; ADMIT Family Medicine; ATTEND Family Medicine
PROC: B2151ZZ Fluoroscopy of Left Heart using Low Osmolar Contrast (ICD-10-PCS; 2020-05-12)
PROC: 4A023N7 Measurement of Cardiac Sampling and Pressure, Left Heart, Percutaneous Approach (ICD-10-PCS; 2020-05-12)
PROC: B2111ZZ Fluoroscopy of Multiple Coronary Arteries using Low Osmolar Contrast (ICD-10-PCS; principal; 2020-05-12 11:00)
DX: I13.0 Hypertensive heart and chronic kidney disease with heart failure and stage 1 through stage 4 chronic kidney disease, or unspecified chronic kidney disease (principal); I50.23 Acute on chronic systolic (congestive) heart failure; I21.A1 Myocardial infarction type 2; N17.9 Acute kidney failure, unspecified; N18.4 Chronic kidney disease, stage 4 (severe); N25.81 Secondary hyperparathyroidism of renal origin; I42.8 Other cardiomyopathies; E78.5 Hyperlipidemia, unspecified; I48.91 Unspecified atrial fibrillation; E03.9 Hypothyroidism, unspecified; D63.1 Anemia in chronic kidney disease; D50.9 Iron deficiency anemia, unspecified; I25.10 Atherosclerotic heart disease of native coronary artery without angina pectoris; K21.9 Gastro-esophageal reflux disease without esophagitis; Z86.73 Personal history of transient ischemic attack (TIA), and cerebral infarction without residual deficits; Z95.0 Presence of cardiac pacemaker

== ENCOUNTER 2020-07-05 15:58 | Emergency (ER) | payer MEDICARE, MEDICAID ==
[~2020-07-05] VITALS: Ht 162.6 cm; Wt 105.0 kg
[2020-07-05 16:06] VITALS: Ht 162.6 cm; Wt 105.0 kg
[2020-07-05] MEDS ORDERED: ULTRAM50 MG PO (16:08)
[2020-07-05 16:44] LABS: BASOPHILS 1.1 % (0-2); HEMATOCRIT 34.7 % (36.0-48.0); HEMOGLOBIN 10.5 g/dL (12-16); IMMATURE GRANULOCYTES 0.4 % (0-5); LYMPHOCYTES 24.2 % (15-50); MCH 24.2 pg (26.0-34.0); MCHC 30.3 g/dL (31.0-37.0); MONOCYTES 10.8 % (2-11); NEUTROPHILS 59.5 % (40-80); PLATELET COUNT 143 10x3/uL (130-400); RBC 4.34 10x6/uL (4.00-5.40); RDW 23.1 % (11.5-14.5); WBC 5.3 10x3/uL (4.8-10.8)
[2020-07-05 16:49] LABS: ANION GAP 14.1 mmol/L (8-16); CALCIUM 8.5 mg/dL (8.5-10.1); CARBON DIOXIDE 25.6 mmol/L (21.0-32.0); CREATININE - SERUM 2.4 mg/dL (0.6-1.3); POTASSIUM - SERUM 3.7 mmol/L (3.5-5.1)
[2020-07-05 17:10] LABS: ALBUMIN 3.3 g/dL (3.4-5.0); BILIRUBIN - TOTAL 1.76 mg/dL (0.2-1.3); PROTEIN - SERUM 7.5 g/dL (6.4-8.2)
[2020-07-05 17:17] LABS: TROPONIN-I 0.246 ng/mL (0.000-0.060)
[2020-07-05 18:20] LABS: BILIRUBIN NEGATIVE (NEGATIVE); KETONE NEGATIVE (NEGATIVE); NITRITE NEGATIVE (NEGATIVE); UROBILINOGEN 8 mg/dL (NORMAL)
[2020-07-05 18:21] LABS: BACTERIA MODERATE /hpf (NONE SEEN); EPITHELIAL CELLS 0-5 /hpf (0-5); WHITE CELLS - URINE OCC /hpf (0-5)
[2020-07-05] MEDS ORDERED: PEPCID40 MG PO (20:34)
[2020-07-06] VITALS: BP 150/78
== END 2020-07-06 | disposition home or self-care (01) ==
LOC: D.ER 15:58
PROVIDERS: Family Medicine
DX: R10.13 Epigastric pain (principal); D64.9 Anemia, unspecified; R18.8 Other ascites; R79.89 Other specified abnormal findings of blood chemistry; K29.70 Gastritis, unspecified, without bleeding; J90 Pleural effusion, not elsewhere classified; N18.9 Chronic kidney disease, unspecified; Z86.73 Personal history of transient ischemic attack (TIA), and cerebral infarction without residual deficits; Z95.1 Presence of aortocoronary bypass graft

== ENCOUNTER 2020-08-04 23:24 | Emergency (ER) | payer MEDICARE, MEDICAID ==
[~2020-08-04] VITALS: Ht 162.6 cm; Wt 101.4 kg
[~2020-08-04 23:24] MED LIST changes: +PEPCID40 MG PO; +ULTRAM50 MG PO
[2020-08-04 23:30] VITALS: Ht 162.6 cm; Wt 101.4 kg
[2020-08-05 00:12] LABS: BASOPHILS 1.1 % (0-2); EOSINOPHILS 4.1 % (0-7); HEMATOCRIT 37.4 % (36.0-48.0); HEMOGLOBIN 11.2 g/dL (12-16); IMMATURE GRANULOCYTES 0.4 % (0-5); LYMPHOCYTES 21.1 % (15-50); MCH 24.8 pg (26.0-34.0); MCHC 29.9 g/dL (31.0-37.0); MCV 82.7 fL (80.0-100.0); MONOCYTES 7.1 % (2-11); NEUTROPHILS 66.2 % (40-80); PLATELET COUNT 168 10x3/uL (130-400); RBC 4.52 10x6/uL (4.00-5.40); RDW 21.2 % (11.5-14.5); WBC 5.6 10x3/uL (4.8-10.8)
[2020-08-05 00:18] LABS: CALC OSMOLALITY 278 mosm/kg (275-300); CALCIUM 8.9 mg/dL (8.5-10.1); CARBON DIOXIDE 27.7 mmol/L (21.0-32.0); CHLORIDE - SERUM 104 mmol/L (98-107); CREATININE - SERUM 2.3 mg/dL (0.6-1.3); GLUCOSE 91 mg/dL (74-106); POTASSIUM - SERUM 4.4 mmol/L (3.5-5.1); SODIUM 136 mmol/L (136-145); UREA NITROGEN 32 mg/dL (7-18); eGFR NON AFRICAN AMERICAN 23 mL/min (90-120)
[2020-08-05 00:40] LABS: ALBUMIN 3.5 g/dL (3.4-5.0); ALKALINE PHOSPHATASE 141 U/L (30-120); ALT (SGPT) 24 U/L (10-68); BILIRUBIN - TOTAL 1.39 mg/dL (0.2-1.3); CKMB 0.8 U/L (0.0-3.6); CREATINE KINASE 117 UL (21-215); PRO BNP 2723 pg/mL (0-125)
[2020-08-05 04:32] VITALS: BP 130/97
== END 2020-08-05 04:33 | disposition home or self-care (01) ==
LOC: D.ER 23:24
PROVIDERS: Family Medicine
DX: M54.6 Pain in thoracic spine (principal); I25.10 Atherosclerotic heart disease of native coronary artery without angina pectoris; I42.9 Cardiomyopathy, unspecified; E07.9 Disorder of thyroid, unspecified; I11.0 Hypertensive heart disease with heart failure; I50.9 Heart failure, unspecified; I25.2 Old myocardial infarction; Z86.73 Personal history of transient ischemic attack (TIA), and cerebral infarction without residual deficits; Z95.1 Presence of aortocoronary bypass graft

== ENCOUNTER 2020-08-12 17:09 | Emergency (ER) | payer MEDICARE, MEDICAID ==
[~2020-08-12] VITALS: Ht 162.6 cm; Wt 101.8 kg
[2020-08-12 17:13] VITALS: Ht 162.6 cm; Wt 101.8 kg
[2020-08-12 17:58] LABS: BASOPHILS 1.1 % (0-2); EOSINOPHILS 2.3 % (0-7); HEMOGLOBIN 10.9 g/dL (12-16); IMMATURE GRANULOCYTES 0.2 % (0-5); LYMPHOCYTES 24.9 % (15-50); MCH 25.2 pg (26.0-34.0); MCHC 30.3 g/dL (31.0-37.0); MCV 83.3 fL (80.0-100.0); MONOCYTES 9.2 % (2-11); NEUTROPHILS 62.3 % (40-80); PLATELET COUNT 157 10x3/uL (130-400); RBC 4.32 10x6/uL (4.00-5.40); RDW 20.4 % (11.5-14.5); WBC 5.2 10x3/uL (4.8-10.8)
[2020-08-12 18:06] LABS: ANION GAP 14.3 mmol/L (8-16); CALCIUM 8.9 mg/dL (8.5-10.1); CARBON DIOXIDE 23.6 mmol/L (21.0-32.0); CREATININE - SERUM 2.5 mg/dL (0.6-1.3); POTASSIUM - SERUM 4.9 mmol/L (3.5-5.1)
[2020-08-12 18:12] LABS: BILIRUBIN - TOTAL 1.9 mg/dL (0.2-1.3); PROTEIN - SERUM 7.8 g/dL (6.4-8.2)
[2020-08-12 18:28] LABS: ALBUMIN 3.5 g/dL (3.4-5.0)
[2020-08-12 21:40] LABS: BILIRUBIN NEGATIVE (NEGATIVE); KETONE NEGATIVE (NEGATIVE); NITRITE NEGATIVE (NEGATIVE); UROBILINOGEN NORMAL mg/dL (< 2)
[2020-08-12 22:52] VITALS: BP 141/99
== END 2020-08-12 22:52 | disposition home or self-care (01) ==
LOC: D.ER 17:09
PROVIDERS: Emergency Medicine
DX: M54.9 Dorsalgia, unspecified (principal); R11.0 Nausea; I11.0 Hypertensive heart disease with heart failure; I50.9 Heart failure, unspecified; I25.2 Old myocardial infarction; Z86.73 Personal history of transient ischemic attack (TIA), and cerebral infarction without residual deficits

== ENCOUNTER 2021-01-10 23:43 | Inpatient (IN) | payer MEDICARE, MEDICAID ==
[~2021-01-10] VITALS: Ht 162.6 cm; Wt 110.7 kg
--- NOTE | ~2021-01-10 | EC ---
PATIENT:AVTAR AMIN DATE OF SERVICE: 01/11/21 SEX: F MEDICAL RECORD: [id number] DATE OF : [birth year] LOCATION:D. D.212 AGE OF PATIENT: 55 ADMISSION DATE: 01/11/21 REFERRING PHYSICIAN: INTERPRETING PHYSICIAN: NAV DWYER MD ECHOCARDIOGRAM REPORT ECHO CHARGES 5 ECHO LIMITED Date: 01/11/21 CLINICAL DIAGNOSIS: CHF, ASSESS EF HX OF MVR/CABG ECHOCARDIOGRAPHIC MEASUREMENTS (adult normal given) AC root (d.<3.7cm) cm LV Septum d (<1.2 cm> 1.4 cm Valve Excursion cm LV Septum (systole) 1.5 cm Left Atria (s.<4.0cm> 4.7 cm LVPW d(<1.2cm) 1.7 cm RV (d.<2.3cm) 4.7 cm LVPW (sytole) 1.9 cm LV diastole(<5.6CM) 5.1 cm MV E-F(>70mm/sec) cm LV systole 3.7 cm LVOT Diameter cm MV exc.(>10mm) cm Est.ejection fraction (50-75%) % DOPPLER: LVIT cm/sec A cm/sec E cm/sec LA cm/sec RVSP 40 mmHg LVOT cm/sec AOP1/2T m/s Asc. Ao cm/sec RVOT cm/sec RA cm/sec PA cm/sec AV Gradient Peak mmHg AV Mean mmHg AV Area cm MV Gradient Peak mmHg MV Mean mmHg MV Area cm COMMENTS: Tool Adjuster: 2 BRETT DUENAS Clerical Support Specialist: 5 Dr. Dwyer TAPE# PACS Pericardial Effusion N DATE OF SERVICE: CLINICAL diagnosis: Congestive heart failure. INTERPRETATION: Technically difficult and limited study. Left ventricular chamber size appear normal with severe global LV contractile dysfunction with ejection fraction of 10% to 15%. Left atrial chamber mild dilatation. Right atrial and right ventricular chamber size and function appears normal. Aortic valve not well visualized. Mitral valve prosthesis is not well visualized, but appear normal function. Mild mitral regurgitation. Tricuspid valve appears ECHOCARDIOGRAM REPORT [id number] AVTAR AMIN normal. Moderate tricuspid regurgitation. No pericardial effusion visualized. IMPRESSION: 1. Technically difficult and limited study, overall normal left ventricular chamber size with severe global left ventricular contractile dysfunction, ejection fraction 10% to 15%. 2. Mitral valve prosthesis is not well visualized, but appeared normal function with mild mitral regurgitation. TRANSINT:[id number] Voice Confirmation ID: [id number] DOCUMENT ID: [id number] NAV DWYER MD CC: [id number] DICTATION DATE: 01/11/211444 DOSIMETRIST: 01/11/21 1700 ADM IN [facility] [address] [place] [address]
[~2021-01-10 23:43] MED LIST changes: -CARDIZEM120 MG PO; +DILTIAZEM 24HR120 M3 PO; +FUROSEMIDE40 MG PO; +ISORDIL5 MG PO; +ISOSORBIDE DINI10 MG PO; +JANTOVEN7.5 MG PO; +LEVOXYL125 MCG PO; -LEVOXYL137 MCG PO; +SODIUM BICARBO650 MG PO; +TOPROL XL100 MG PO; +XARELTO10 MG PO; +ZYLOPRIM100 MG PO
[2021-01-11 00:28] LABS: EOSINOPHILS 3.1 % (0-7); HEMATOCRIT 34.1 % (36.0-48.0); HEMOGLOBIN 10.4 g/dL (12-16); IMMATURE GRANULOCYTES 0.2 % (0-5); LYMPHOCYTES 20.8 % (15-50); MCH 25.3 pg (26.0-34.0); MCHC 30.5 g/dL (31.0-37.0); MONOCYTES 7.3 % (2-11); NEUTROPHIL ABS# 3.24 10x3/uL (1.56-6.13); NEUTROPHILS 67.6 % (40-80); PLATELET COUNT 135 10x3/uL (130-400); RBC 4.11 10x6/uL (4.00-5.40); RDW 16.8 % (11.5-14.5); WBC 4.8 10x3/uL (4.8-10.8)
[2021-01-11 00:37] LABS: APTT 26.8 SECONDS (22.8-39.4); INR 1.6 (0.85-1.17); PROTIME 17.7 SECONDS (11.6-15.0)
[2021-01-11 00:41] LABS: CALC OSMOLALITY 285 mosm/kg (275-300); CALCIUM 8.5 mg/dL (8.5-10.1); CARBON DIOXIDE 31.6 mmol/L (21.0-32.0); CHLORIDE - SERUM 101 mmol/L (98-107); CREATININE - SERUM 2.2 mg/dL (0.6-1.3); GLUCOSE 96 mg/dL (74-106); POTASSIUM - SERUM 3.6 mmol/L (3.5-5.1); SODIUM 140 mmol/L (136-145); UREA NITROGEN 31 mg/dL (7-18); eGFR NON AFRICAN AMERICAN 24 mL/min (90-120)
--- NOTE | 2021-01-11 00:41 | NUR ---
PURE WICK PLACED AND ABSORBENT PADS.
[2021-01-11 00:45] VITALS: BP 155/94
[2021-01-11 00:55] LABS: ALBUMIN 3.2 g/dL (3.4-5.0); ALKALINE PHOSPHATASE 140 U/L (30-120); ALT (SGPT) 15 U/L (10-68); BILIRUBIN - TOTAL 1.77 mg/dL (0.2-1.3); CKMB 0.2 U/L (0.0-3.6); CREATINE KINASE 96 UL (21-215); PRO BNP 3053 pg/mL (0-125); PROTEIN - SERUM 7.6 g/dL (6.4-8.2)
[2021-01-11 00:56] LABS: TROPONIN-I 0.201 ng/mL (0.000-0.060)
[2021-01-11 03:44] VITALS: BP 150/96
[2021-01-11 04:54] VITALS: BMI 42.0
[2021-01-11 05:17] VITALS: BP 156/102
[2021-01-11 07:00] VITALS: BP 137/90
--- NOTE | 2021-01-11 07:20 | NUR ---
RECIEVE REPORT. ALERT AND ORIENTED X4. SITTING UP IN BED. CONTROLLED AFIB ON TELEMETRY 83. DENIES ANY NEEDS. CONTINUE PLAN OF CARE AND SAFETY PRECAUTIONS.
[2021-01-11 12:03] LABS: CKMB 0.3 U/L (0.0-3.6); CREATINE KINASE 99 UL (21-215); TROPONIN-I 0.213 ng/mL (0.000-0.060)
--- NOTE | 2021-01-11 14:53 | CN ---
PATIENT NAME:AVTAR AMIN MEDICAL RECORD: [id number] : 61 LOCATION:D. D.2 ADMIT DATE: 01/11/21 ACCOUNT: [id number] CONSULTING PHYSICIAN: NAV PEACOCK MD REFERRING PHYSICIAN: ROSE GRANT MD DATE OF CONSULTATION: 01/11/2021 HISTORY OF PRESENT ILLNESS: The patient is a 55-year-old black Sudanese female with multiple medical problems including chronic CHF, sick sinus syndrome -- permanent pacemaker, atrial fibrillation, hypertension, renal insufficiency, who was admitted with shortness of breath, dyspnea on exertion as well as bilateral lower extremity edema -- CHF decompensated. I asked to evaluate from a cardiovascular standpoint. PAST MEDICAL HISTORY: Significant for; 1. Erpot-fe-ktjtqjx CHF -- decompensated. 2. Atherosclerotic heart disease. 3. Sick sinus syndrome, status post permanent pacemaker. 4. Chronic atrial fibrillation. 5. Hypothyroidism. 6. History of coronary artery bypass grafting. 7. Hypertension. MEDICATIONS: Outpatient: 1. Amiodarone 200 mg b.i.d. 2. Carvedilol 6.25 mg b.i.d. 3. Xarelto 10 mg daily. 4. Bumex 2 mg daily p.r.n. REPORTED MEDICATIONS: Diltiazem 120 mg daily, levothyroxine 125 mg daily, metoprolol 100 mg b.i.d., potassium 10 mEq daily, aspirin 81 mg daily, Imdur 20 mg b.i.d. PHYSICAL EXAMINATION: GENERAL: Pleasant middle-aged black female, in no apparent distress. VITAL SIGNS: Blood pressure 152/100, pulse 80S (irregular). HEENT: Sclerae are muddy; conjunctivae pink. NECK: Supple; no appreciated JVD. HEART: Irregular rhythm and rate. II/ systolic murmur. CHEST: Pacemaker generator upper left chest wall. LUNGS: Basal rales bilaterally. ABDOMEN: Obese. Bowel sounds positive. EXTREMITIES: Pretibial and pedal edema bilaterally. NEUROLOGIC: Nonfocal. LABORATORY DATA: Hemoglobin and hematocrit 10.4 and 34.1, and platelet count 135. Sodium 140, potassium 3.6, BUN 31, creatinine is 2.2. BNP 3000. Troponin 0.201. DIAGNOSTIC DATA: Telemetry, atrial fibrillation, controlled ventricular rate of 70s. MEDICATIONS (CURRENT): 1. Potassium 20 mEq daily. 2. Lasix 40 mg IV q.12 hours. CONSULT REPORT [id number] AVTAR AMIN ASSESSMENT: 1. Efsbk-qu-iuqfrok congestive heart failure -- decompensated. 2. Sick sinus syndrome -- permanent pacemaker. 3. Chronic atrial fibrillation with controlled ventricular rate. 4. Renal insufficiency. 5. Hypertension. 6. Hypothyroidism. PLAN: Continue with current medical management at this time. I would recommend restarting the patient's outpatient home cardiac medications. Further recommendations as clinically indicated. Thank you for allowing us to participate in the care of this patient. TRANSINT:[id number] Voice Confirmation ID: [id number] DOCUMENT ID: [id number] NAV PEACOCK MD at 1453 CC: [id number] DICTATION DATE: 01/11/21828 OVEN DRIER TENDER: 01/11/21 1224 ADM IN [place] [id number] [place] [id number]
[2021-01-11 17:13] VITALS: BP 141/82
[2021-01-11 18:01] LABS: CKMB 0.2 U/L (0.0-3.6); CREATINE KINASE 93 UL (21-215)
[2021-01-11 18:02] LABS: TROPONIN-I 0.221 ng/mL (0.000-0.060)
[2021-01-11 20:58] VITALS: BP 147/78
--- NOTE | 2021-01-11 23:17 | NUR ---
INITIAL ORUNDS COMPLETED AT 1900 HRS. PT RESTING WITH EYES CLOSED. RESP EVEN AND REGULAR. ASSESSMENT COMPLETED AT 2010 HRS. VSS. CAF PER CM HR 80. ALERT AND ORIENTED TO PERSON, PLACE AND TIME. GOODE. IV OT R WRIST SL. LUNGS DIMINISHED IN BASES BILAT. 1+ EDEMA TO BILAT FEET. PM MEDS IGVEN PER ORDERS. PT CURRENTLY WATCHING TV. SR UP X2, CALL LIGHT WITHIN REACH.
[2021-01-11 23:54] LABS: CKMB 0.2 U/L (0.0-3.6); CREATINE KINASE 97 UL (21-215)
[2021-01-11 23:55] LABS: TROPONIN-I 0.218 ng/mL (0.000-0.060)
--- NOTE | 2021-01-12 01:21 | NUR ---
PT REFUSES LASIX AT THIS TIME. STATES WILL TAKE IN AM.
[2021-01-12 03:45] VITALS: BP 152/81
--- NOTE | 2021-01-12 06:47 | NUR ---
VSS THROUGHOUT NIGHT. CAF PER CM. PT RESTED WELL DURING SHIFT. NEEDS MET; WILL CONTINUE TO MONITOR.
--- NOTE | 2021-01-12 07:20 | NUR ---
RECIEVE REPORT. ALERT AND ORIENTED X4. RESTING IN BED. DENIES ANY NEEDS. NO SIGNS OF DISTRESS. CONTROLLED AFIB ON TELEMETRY. CONTINUE PLAN OF CARE AND SAFETY PRECAUTIONS.
[2021-01-12 09:00] VITALS: BP 119/81
[2021-01-12 10:23] LABS: BASOPHILS 1.6 % (0-2); HEMATOCRIT 35.9 % (36.0-48.0); HEMOGLOBIN 10.8 g/dL (12-16); IMMATURE GRANULOCYTES 0.2 % (0-5); LYMPHOCYTES 21.9 % (15-50); MCH 25.2 pg (26.0-34.0); MCHC 30.1 g/dL (31.0-37.0); MCV 83.7 fL (80.0-100.0); MONOCYTES 7.8 % (2-11); NEUTROPHILS 65.5 % (40-80); PLATELET COUNT 144 10x3/uL (130-400); RBC 4.29 10x6/uL (4.00-5.40); RDW 17.2 % (11.5-14.5)
[2021-01-12 10:47] LABS: ALBUMIN 3.4 g/dL (3.4-5.0); ANION GAP 10.5 mmol/L (8-16); BILIRUBIN - TOTAL 2.66 mg/dL (0.2-1.3); CALCIUM 9.1 mg/dL (8.5-10.1); MAGNESIUM - SERUM 1.8 mg/dL (1.8-2.4); POTASSIUM - SERUM 4.5 mmol/L (3.5-5.1); PROTEIN - SERUM 7.6 g/dL (6.4-8.2)
[2021-01-12] MEDS ORDERED: VIBRAMYCIN 100100 MG PO (11:49)
[2021-01-12 12:59] VITALS: Ht 162.6 cm; Wt 110.7 kg
--- NOTE | 2021-01-12 16:55 | NUR ---
ALERT AND ORIENTED X4. SITTING UP IN BED. DISCHARGE INSTRUCTIONS GIVEN VERBALLY AND WRITTEN. DC RT WRIST IV TIP INTACT. DISCHARGE PAPERS SIGNED ON CHART. ESCORT TO RIDE VIA WHEELCHAIR. REMIANS FREE FROM INJURY.
== END 2021-01-12 16:57 | disposition home or self-care (01) | DRG 291 ==
LOC: D.ER 23:43 → D.M2 01-11 01:25 → D.EDHOLD 01-11 01:25 → D.M2 01-11 03:26
PROVIDERS: Emergency Medicine; Family Medicine; ADMIT Family Medicine; ATTEND Family Medicine
DX: I13.0 Hypertensive heart and chronic kidney disease with heart failure and stage 1 through stage 4 chronic kidney disease, or unspecified chronic kidney disease (principal); I50.23 Acute on chronic systolic (congestive) heart failure; N18.9 Chronic kidney disease, unspecified; R77.8 Other specified abnormalities of plasma proteins; N61.0 Mastitis without abscess; I48.91 Unspecified atrial fibrillation; Z79.01 Long term (current) use of anticoagulants; K21.9 Gastro-esophageal reflux disease without esophagitis; E03.9 Hypothyroidism, unspecified; I25.10 Atherosclerotic heart disease of native coronary artery without angina pectoris; G47.33 Obstructive sleep apnea (adult) (pediatric); M79.7 Fibromyalgia; Z86.73 Personal history of transient ischemic attack (TIA), and cerebral infarction without residual deficits; Z95.0 Presence of cardiac pacemaker

== ENCOUNTER 2021-01-14 19:28 | Emergency (ER) | payer MEDICARE, MEDICAID ==
[~2021-01-14] VITALS: Ht 162.6 cm; Wt 104.5 kg
[~2021-01-14 19:28] MED LIST changes: +VIBRAMYCIN 100100 MG PO
[2021-01-14 19:31] VITALS: Ht 162.6 cm; Wt 104.5 kg
[2021-01-14] MEDS ORDERED: TORADOL10 MG PO (21:04)
[2021-01-14 22:03] VITALS: BP 142/94
== END 2021-01-14 22:00 | disposition home or self-care (01) ==
LOC: D.ER 19:28
DX: S80.01XA Contusion of right knee, initial encounter (principal); S39.012A Strain of muscle, fascia and tendon of lower back, initial encounter; W19.XXXA Unspecified fall, initial encounter; Y93.9 Activity, unspecified; Y92.9 Unspecified place or not applicable; Z86.73 Personal history of transient ischemic attack (TIA), and cerebral infarction without residual deficits; I11.0 Hypertensive heart disease with heart failure; I50.9 Heart failure, unspecified; K21.9 Gastro-esophageal reflux disease without esophagitis

== ENCOUNTER 2021-01-20 11:02 | Observation (INO) | payer MEDICARE, MEDICAID ==
[~2021-01-20] VITALS: Ht 162.6 cm; Wt 102.1 kg
[~2021-01-20 11:02] MED LIST changes: +TORADOL10 MG PO
[2021-01-20 11:53] LABS: ANION GAP 7.5 mmol/L (8-16); CALCIUM 9.1 mg/dL (8.5-10.1); CARBON DIOXIDE 32.9 mmol/L (21.0-32.0); CREATININE - SERUM 1.9 mg/dL (0.6-1.3); POTASSIUM - SERUM 3.4 mmol/L (3.5-5.1)
[2021-01-20 11:55] LABS: BASOPHILS 0.7 % (0-2); EOSINOPHILS 1.4 % (0-7); HEMATOCRIT 38.4 % (36.0-48.0); HEMOGLOBIN 12.1 g/dL (12-16); IMMATURE GRANULOCYTES 0.2 % (0-5); LYMPHOCYTE ABS# 0.87 10x3/uL (1.18-3.74); LYMPHOCYTES 15.5 % (15-50); MCH 25.6 pg (26.0-34.0); MCHC 31.5 g/dL (31.0-37.0); MCV 81.2 fL (80.0-100.0); MEAN PLATELET VOLUME 9.8 fL (7.4-10.4); MONOCYTES 6.8 % (2-11); NEUTROPHIL ABS# 4.23 10x3/uL (1.56-6.13); NEUTROPHILS 75.4 % (40-80); PLATELET COUNT 167 10x3/uL (130-400); RBC 4.73 10x6/uL (4.00-5.40); RDW 16.9 % (11.5-14.5); WBC 5.6 10x3/uL (4.8-10.8)
[2021-01-20 12:14] LABS: ALBUMIN 3.7 g/dL (3.4-5.0); BILIRUBIN - TOTAL 2.36 mg/dL (0.2-1.3); PROTEIN - SERUM 8.4 g/dL (6.4-8.2)
[2021-01-20 12:26] LABS: APTT 28.2 SECONDS (22.8-39.4); INR 1.58 (0.85-1.17); PROTIME 17.4 SECONDS (11.6-15.0)
[2021-01-20 12:30] LABS: TROPONIN-I 0.218 ng/mL (0.000-0.060)
--- NOTE | 2021-01-20 12:32 | NUR ---
ERP INFORMED OF TROPONIN OF 0.218
[2021-01-20 12:36] LABS: THYROID STIMULATING HORMONE 122.13 uIU/mL (0.36-3.74)
[2021-01-20 12:40] LABS: BILIRUBIN NEGATIVE (NEGATIVE); KETONE NEGATIVE (NEGATIVE); NITRITE NEGATIVE (NEGATIVE)
[2021-01-20 13:53] LABS: T4 THYROXIN - FREE 0.58 ng/dL (0.76-1.46)
[2021-01-20 14:13] VITALS: BP 144/97
--- NOTE | 2021-01-20 15:12 | NUR ---
PATIENT W JERKING MOVEMENTS OF EXTREMITIES, BEDPAN SPILLED IN BED. LINEN CHANGED.
[2021-01-20 16:33] VITALS: BP 154/97
--- NOTE | 2021-01-20 20:00 | NUR ---
REPORT RECEIEVED, WILL CONT POC. PT A&O, RESTING IN BED. NO S/S OF DISTRESSED OBSERVED. RR EVEN AND UNLABORED ON RA. BED LOCKED AND LOWERED. CL IN REACH. ASSESSMENT COMPLETED AT THIS TIME. WILL CONT TO MONITOR.
[2021-01-20 21:00] VITALS: BP 136/91
[2021-01-20 21:08] VITALS: BP 136/91
[2021-01-21] VITALS (7 sets, daily range): BP systolic 107–125; BP diastolic 70–76; Ht 162.6 cm; Wt 102.1 kg
[2021-01-21 05:17] LABS: APTT 25.8 SECONDS (22.8-39.4); INR 1.65 (0.85-1.17); PROTIME 18.1 SECONDS (11.6-15.0)
[2021-01-21 05:18] LABS: HEMOGLOBIN 10.5 g/dL (12-16); LYMPHOCYTES 15.8 % (15-50); MCH 25.7 pg (26.0-34.0); MEAN PLATELET VOLUME 10.8 fL (7.4-10.4); NEUTROPHILS 73.2 % (40-80); PLATELET COUNT 178 10x3/uL (130-400); RBC 4.08 10x6/uL (4.00-5.40); RDW 17.9 % (11.5-14.5); WBC 5.1 10x3/uL (4.8-10.8)
[2021-01-21 05:20] LABS: MCV 85.8 fL (80.0-100.0)
[2021-01-21 05:40] LABS: ANION GAP 8.6 mmol/L (8-16); BILIRUBIN - TOTAL 2.12 mg/dL (0.2-1.3); CALCIUM 8.7 mg/dL (8.5-10.1); CARBON DIOXIDE 31.9 mmol/L (21.0-32.0); CREATININE - SERUM 1.9 mg/dL (0.6-1.3); POTASSIUM - SERUM 3.5 mmol/L (3.5-5.1); PROTEIN - SERUM 7.2 g/dL (6.4-8.2)
--- NOTE | 2021-01-21 07:55 | NUR ---
AM MEDS GIVEN AT THIS TIME PER EMAR. PT SITTING UP IN BED, RR EVEN NON LABORED ON ROOM AIR. PT AAOX3, PLEASANT AND ANSWERS QUESTIONS APPROP. FRESH DRINK AT BEDSIDE, NO FURTHER NEEDS VOICED. CLWR.
--- NOTE | 2021-01-21 10:51 | NUR ---
CALLED [facility] AT THIS TIME PER DARRYL PETIT FOR PT PACEMAKER INTEREGATION.
--- NOTE | 2021-01-21 14:20 | NUR ---
EKG PERFORMED PER ORDER.
--- NOTE | 2021-01-21 17:39 | NUR ---
PT SITTING UP IN BED EATING DINNER TRAY AT THIS TIME. RR EVEN NON LABORED. NO NEEDS VOICED AT THIS TIME. CLWR.
--- NOTE | 2021-01-21 19:35 | NUR ---
REPORT RECEIEVED, WILL CONT POC. PT UP IN BED, WATCHING TV. C/O PAIN AT THE MIDDILE OF DIAPHRAGM AND NAUSEA. ADMINISTERED MORPHINE AND ZOFRAN PER EMAR. NO S/S OF DISTRESS OBSERVED. RR EVEN AND UNLABORED ON RA. BED LOCKED AND LOWERED, CL IN REACH. ASSESSMENT COMPLETED AT THIS TIME. WILL CONT TO MONITOR.
[2021-01-22 00:51] VITALS: BP 99/66
[2021-01-22 04:08] LABS: ANION GAP 8.5 mmol/L (8-16); BILIRUBIN - TOTAL 1.77 mg/dL (0.2-1.3); CALCIUM 8.8 mg/dL (8.5-10.1); CARBON DIOXIDE 33.1 mmol/L (21.0-32.0); CREATININE - SERUM 2.3 mg/dL (0.6-1.3); PROTEIN - SERUM 6.9 g/dL (6.4-8.2)
[2021-01-22 04:11] LABS: BASOPHILS 1.7 % (0-2); HEMOGLOBIN 10.1 g/dL (12-16); LYMPHOCYTE ABS# 1.08 10x3/uL (1.18-3.74); LYMPHOCYTES 22.9 % (15-50); MCH 25.2 pg (26.0-34.0); MCHC 30.6 g/dL (31.0-37.0); MEAN PLATELET VOLUME 10.5 fL (7.4-10.4); MONOCYTES 9.8 % (2-11); NEUTROPHIL ABS# 2.95 10x3/uL (1.56-6.13); NEUTROPHILS 62.6 % (40-80); PLATELET COUNT 171 10x3/uL (130-400); RBC 4.01 10x6/uL (4.00-5.40); RDW 17.1 % (11.5-14.5); WBC 4.7 10x3/uL (4.8-10.8)
[2021-01-22 04:18] LABS: MCV 82.3 fL (80.0-100.0)
[2021-01-22 04:26] LABS: POTASSIUM - SERUM 4.6 mmol/L (3.5-5.1)
[2021-01-22 04:54] VITALS: BP 97/62
[2021-01-22 10:36] VITALS: BP 97/58
--- NOTE | 2021-01-22 12:03 | MORECARE ---
CASE MANAGEMENT DISCHARGE SUMMARY PATIENT: AVTRA AMIN UNIT: [id number] ADM DATE: 01/20/21 AGE: 55 : 61 SEX: F ROOM/BED: D.2105 AUTHOR: KADE DELONG PHYSICIAN: REFERRING PHYSICIAN: JEIMY OWENS MD DATE OF SERVICE: 01/22/21 Case Management Discharge Planning Summary DCP REVIEW SUMMARY ANTICIPATED D/C DATE: EXPECTED LOS : CASE STATUS: DCP Initiated INITIAL REVIEW: 01/20/2021 INITIAL REVIEWER: Ban Hernández FINAL DISCHARGE DISPOSITION: : FINAL REVIEWER: FINAL REVIEW DATE: DCP Focus Questions & Answers DCP REV -DCP Review Added on: 01/22/21 12:17 am QUESTION: ANSWER DCP Screen High Risk Factors: : 3 or more ED visits within the last 60 days DCP Evaluation Patient's ability to cope with chronic illness : c. Inadequate (3+ ED visits in 6 mos., readmits within 30 days, 2+ hospital admissions in 1 yr.) Mental health screen: : No mental health history Would patient like to participate in any Care Coordination programs (if applicable): : Not applicable Patient gives permission to discuss discharge plans with: (name, relationship and number) : RAYMOND LINDSEY -DAUGHTER- [phone] Physical Status: : Partial care dependence Partial Dependence, assistance required for: : Ambulation / Mobility Partial Dependence, assistance required for: : Bathing Partial Dependence, assistance required for: : Dressing Baseline cognitive status: : *Oriented to person, place, situation, time and present Family / Caregiver's ability to cope with chronic illness: : b. Minimal (occasionally not dependable to meet pt's. needs, can meet pt's. basic ADL's) Living Arrangements: : Home with Extended Family Living arrangements comments: : patient lives at home with daughter and family Medication Management: : Patient states they do have transportation to pharmacy picking tech medications Pharm[facility] Does Patient have transportation to get home and to follow-up medical appointments when discharged from the hospital? : Yes Comments: : patient states that her daughter can take her to appointments if she isn't working Does the patient have electricity at home? : Yes Does the patient have running water in their house? : Yes Equipment in use: : Walker - Rolling Abuse/Neglect: : None Resources / Services in place: : None Patient's current cognitive status: : Confused DCP Re-evaluation Would patient like to participate in any Care Coordination programs (if applicable): : Not applicable PATIENT: AVTAR AMIN ENCOUNTER: [id number] MEDICAL RECORD#: [id number] ADMISSION DATE: 01/20/2021 DISCHARGE DATE: ATTENDING MD: JEIMY PINTO : AGE: 55 MARITAL STATUS: S DC PLAN ID: [id number] FACILITY: [facility] PRINTED ON: 01/22/21 12:03 CT All edits/amendments must be made on the electronic document DICTATION DATE: 01/22/211202 COCOA ROASTER: LAY 01/22/211202 RPT#: [id number] DC DATE: STATUS: ADM IN [facility] [address] [place] [address] END OF REPORT
[2021-01-22 12:49] VITALS: BP 111/55
--- NOTE | 2021-01-22 14:16 | MORECARE ---
CASE MANAGEMENT DISCHARGE SUMMARY PATIENT: AVTAR AMIN UNIT: [id number] ADM DATE: 01/20/21 AGE: 55 : 61 SEX: F ROOM/BED: D.2102 AUTHOR: BALJEET,DOC PHYSICIAN: REFERRING PHYSICIAN: JEIMY OWENS MD DATE OF SERVICE: 01/22/21 Case Management Discharge Planning Summary COMMENTS ENTERED DATE: 01/22/21 14:04 CT COMMENT TYPE: Discharge Planning REVIEWER: Milagro Childers Patient's insurance denied inpatient rehab, she would like a referral to [facility]. I have faxed clinical and notified Anny Lee. CM will continue to follow and assist with discharge planning/needs. DCP REVIEW SUMMARY ANTICIPATED D/C DATE: EXPECTED LOS : CASE STATUS: DCP Initiated INITIAL REVIEW: 01/20/2021 INITIAL REVIEWER: Ban Hernández FINAL DISCHARGE DISPOSITION: : FINAL REVIEWER: FINAL REVIEW DATE: DCP Focus Questions & Answers DCP REV -DCP Review Added on: 01/22/21 12:17 am QUESTION: ANSWER DCP Screen High Risk Factors: : 3 or more ED visits within the last 60 days DCP Evaluation Patient's ability to cope with chronic illness : c. Inadequate (3+ ED visits in 6 mos., readmits within 30 days, 2+ hospital admissions in 1 yr.) Mental health screen: : No mental health history Would patient like to participate in any Care Coordination programs (if applicable): : Not applicable Patient gives permission to discuss discharge plans with: (name, relationship and number) : RAYMOND LINDSEY -DAUGHTER- [phone] Physical Status: : Partial care dependence Partial Dependence, assistance required for: : Ambulation / Mobility Partial Dependence, assistance required for: : Bathing Partial Dependence, assistance required for: : Dressing Baseline cognitive status: : *Oriented to person, place, situation, time and present Family / Caregiver's ability to cope with chronic illness: : b. Minimal (occasionally not dependable to meet pt's. needs, can meet pt's. basic ADL's) Living Arrangements: : Home with Extended Family Living arrangements comments: : patient lives at home with daughter and family Medication Management: : Patient states they do have transportation to flower buncher or picker medications Pharmacy [facility](s): [facility] Does Patient have transportation to get home and to follow-up medical appointments when discharged from the hospital? : Yes Comments: : patient states that her daughter can take her to appointments if she isn't working Does the patient have electricity at home? : Yes Does the patient have running water in their house? : Yes Equipment in use: : Walker - Rolling Abuse/Neglect: : None Resources / Services in place: : None Patient's current cognitive status: : Confused DCP Re-evaluation Would patient like to participate in any Care Coordination programs (if applicable): : Not applicable PATIENT: AVTAR AMIN ENCOUNTER: [id number] MEDICAL RECORD#: [id number] ADMISSION DATE: 01/20/2021 DISCHARGE DATE: ATTENDING MD: JEIMY PINTO : AGE: 55 MARITAL STATUS: S DC PLAN ID: [id number] FACILITY: [facility] PRINTED ON: 01/22/21 14:15 CT All edits/amendments must be made on the electronic document DICTATION DATE: 01/22/211414 RESEARCH SUPPORT SPECIALIST: LAY 01/22/21 141 RPT#: [id number] DC DATE: STATUS: ADM IN [facility] [address] [place] [address] END OF REPORT
[2021-01-22 16:24] VITALS: BP 96/69
--- NOTE | 2021-01-22 19:00 | NUR ---
LYING IN BED AWAKE, ALERT, ORIENTED. RESP EVEN AND UNLABORED ON RA. NO DISTRESS NOTED. NO NEEDS VOICED AT THIS TIME.
[2021-01-22 20:00] VITALS: BP 101/62
[2021-01-23 01:30] VITALS: BP 96/58
[2021-01-23 04:16] LABS: EOSINOPHILS 3.1 % (0-7); HEMATOCRIT 35.1 % (36.0-48.0); HEMOGLOBIN 10.7 g/dL (12-16); IMMATURE GRANULOCYTES 0.2 % (0-5); LYMPHOCYTE ABS# 0.89 10x3/uL (1.18-3.74); LYMPHOCYTES 18.2 % (15-50); MCH 25.1 pg (26.0-34.0); MCHC 30.5 g/dL (31.0-37.0); MCV 82.2 fL (80.0-100.0); MONOCYTES 7.6 % (2-11); NEUTROPHIL ABS# 3.41 10x3/uL (1.56-6.13); NEUTROPHILS 69.9 % (40-80); PLATELET COUNT 181 10x3/uL (130-400); RBC 4.27 10x6/uL (4.00-5.40); WBC 4.9 10x3/uL (4.8-10.8)
[2021-01-23 04:35] LABS: ALBUMIN 3.1 g/dL (3.4-5.0); ANION GAP 8.2 mmol/L (8-16); BILIRUBIN - TOTAL 1.67 mg/dL (0.2-1.3); CALCIUM 8.6 mg/dL (8.5-10.1); CARBON DIOXIDE 32.3 mmol/L (21.0-32.0); CREATININE - SERUM 2.7 mg/dL (0.6-1.3); POTASSIUM - SERUM 4.5 mmol/L (3.5-5.1); PROTEIN - SERUM 7.4 g/dL (6.4-8.2)
--- NOTE | 2021-01-23 05:02 | NUR ---
CALL WALKER ALARMING, PT C/O NAUSEA--ZOFRAN IVP ADMINISTERED/ORDER PT TOLERATED ALL WELL. PT DENIES ANY FURTHER NEEDS AT THIS TIME.
--- NOTE | 2021-01-23 08:06 | MORECARE ---
CASE MANAGEMENT DISCHARGE SUMMARY PATIENT: AVTAR AMIN UNIT: [id number] ADM DATE: 01/20/21 AGE: 55 : 61 SEX: F ROOM/BED: D.2204 AUTHOR: BALJEET,DOC PHYSICIAN: REFERRING PHYSICIAN: JEIMY OWENS MD DATE OF SERVICE: 01/23/21 Case Management Discharge Planning Summary COMMENTS ENTERED DATE: 01/22/21 14:04 CT COMMENT TYPE: Discharge Planning REVIEWER: Milagro Childers Patient's insurance denied inpatient rehab, she would like a referral to [facility]. I have faxed clinical and notified Anny Lee. CM will continue to follow and assist with discharge planning/needs. DCP REVIEW SUMMARY ANTICIPATED D/C DATE: EXPECTED LOS : CASE STATUS: DCP Complete INITIAL REVIEW: 01/20/2021 INITIAL REVIEWER: Ban Hernández FINAL DISCHARGE DISPOSITION: : FINAL REVIEWER: FINAL REVIEW DATE: DCP Focus Questions & Answers DCP REV -DCP Review Added on: 01/22/21 12:17 am QUESTION: ANSWER DCP Screen High Risk Factors: : 3 or more ED visits within the last 60 days DCP Evaluation Patient's ability to cope with chronic illness : c. Inadequate (3+ ED visits in 6 mos., readmits within 30 days, 2+ hospital admissions in 1 yr.) Mental health screen: : No mental health history Would patient like to participate in any Care Coordination programs (if applicable): : Not applicable Patient gives permission to discuss discharge plans with: (name, relationship and number) : RAYMOND LINDSEY -DAUGHTER- [phone] Physical Status: : Partial care dependence Partial Dependence, assistance required for: : Ambulation / Mobility Partial Dependence, assistance required for: : Bathing Partial Dependence, assistance required for: : Dressing Baseline cognitive status: : *Oriented to person, place, situation, time and present Family / Caregiver's ability to cope with chronic illness: : b. Minimal (occasionally not dependable to meet pt's. needs, can meet pt's. basic ADL's) Living Arrangements: : Home with Extended Family Living arrangements comments: : patient lives at home with daughter and family Medication Management: : Patient states they do have transportation to pharmacy picking tech medications Pharm[facility] Does Patient have transportation to get home and to follow-up medical appointments when discharged from the hospital? : Yes Comments: : patient states that her daughter can take her to appointments if she isn't working Does the patient have electricity at home? : Yes Does the patient have running water in their house? : Yes Equipment in use: : Walker - Rolling Abuse/Neglect: : None Resources / Services in place: : None Patient's current cognitive status: : Confused DCP Re-evaluation Would patient like to participate in any Care Coordination programs (if applicable): : Not applicable PATIENT: AVTAR AMIN ENCOUNTER: [id number] MEDICAL RECORD#: [id number] ADMISSION DATE: 01/20/2021 DISCHARGE DATE: ATTENDING MD: JEIMY PINTO : AGE: 55 MARITAL STATUS: S DC PLAN ID: [id number] FACILITY: [facility] PRINTED ON: 01/23/21 8:06 CT All edits/amendments must be made on the electronic document DICTATION DATE: 01/23/21805 CLOCK REPAIR TECHNICIAN: LAY 01/23/21805 RPT#: [id number] DC DATE: STATUS: ADM IN [facility] [address] [place] [address] END OF REPORT
--- NOTE | 2021-01-23 09:19 | NUR ---
ALERT AND ORIENTED. ASSESSMENT COMPLETE. DENIES NEEDS. BED LOW. CALL WALKER AND PERSONAL ITEMS IN REACH. WILL CONTINUE TO MONITOR.
[2021-01-23] MEDS ORDERED: K-DUR20 MEQ PO (11:22)
[2021-01-23] MEDS ORDERED: ISOSORBIDE DINI20 MG PO (11:22)
[2021-01-23] MEDS ORDERED: PROTONIX40 MG PO (11:23)
[2021-01-23] MEDS ORDERED: LEVOTHYROXINE100 MCG PO (11:23)
[2021-01-23] MEDS ORDERED: TIAZAC/CARDIZEM CD PO (11:23)
[2021-01-23] MEDS ORDERED: Bumex PO (11:23)
[2021-01-23 12:37] VITALS: BP 115/73
--- NOTE | 2021-01-23 13:02 | NUR ---
Nutrition Follow-up: Diet: Low Sodium PO intake: ~50% average x last 4 meals Last BM: none recorded since admit Wt: 225# (01/21/21) Meds noted: bumex, miralax, k-dur Labs noted: BUN 31(H), Cr 2.7(H), GFR 23(L) Recommend continue current diet. Will continue to honor food preferences within diet restrictions. RD will follow-up 01/27/21.
--- NOTE | 2021-01-23 13:35 | NUR ---
PATIENT SLEEPING. SPOKE WITH OT AND PT WHO BOTH STATE PATIENT IS ABLE TO TRAVEL BY WHEELCHAIR TO [facility].
--- NOTE | 2021-01-23 13:49 | NUR ---
REPORT CALLED TO SUE SHERIFF. NURSE DENIES FURTHER QUESTIONS OR CONCERS. DC EDUCATION PROVIDED BOTH WRITTEN AND VERBAL TO PATIENT. DENIES QUESTIONS. IV REMOVED FROM LEFT WRIST WITH TIP INTACT. TRANSPORT EN ROUTE TO HOSPITAL TO ELECTRIC LOCOMOTIVE CRANE OPERATOR PATIENT. PATIENT PACKED TO LEAVE AND DRESSED IN NIGHT GOWN SHE CAME IN.
--- NOTE | 2021-01-23 14:17 | MORECARE ---
CASE MANAGEMENT DISCHARGE SUMMARY PATIENT: AVTAR AMIN UNIT: [id number] ADM DATE: 01/20/21 AGE: 55 : 61 SEX: F ROOM/BED: D.2204 AUTHOR: BALJEET,DOC PHYSICIAN: REFERRING PHYSICIAN: JEIMY OWENS MD DATE OF SERVICE: 01/23/21 Case Management Discharge Planning Summary COMMENTS ENTERED DATE: 01/23/21 14:13 CT COMMENT TYPE: Discharge Planning REVIEWER: Muriel Andrews PATIENT HAS BEEN ACCEPTED TO [facility] TO A SKILLED BED THEY ARE PICKING HER UP TODAY ENTERED DATE: 01/22/21 14:04 CT COMMENT TYPE: Discharge Planning REVIEWER: Milagro Childers Patient's insurance denied inpatient rehab, she would like a referral to [facility]. I have faxed clinical and notified Anny Lee. CM will continue to follow and assist with discharge planning/needs. DCP REVIEW SUMMARY ANTICIPATED D/C DATE: EXPECTED LOS : CASE STATUS: DCP Complete INITIAL REVIEW: 01/20/2021 INITIAL REVIEWER: Ban Hernández FINAL DISCHARGE DISPOSITION: : FINAL REVIEWER: FINAL REVIEW DATE: DCP Focus Questions & Answers DCP REV -DCP Review Added on: 01/22/21 12:17 am QUESTION: ANSWER DCP Screen High Risk Factors: : 3 or more ED visits within the last 60 days DCP Evaluation Patient's ability to cope with chronic illness : c. Inadequate (3+ ED visits in 6 mos., readmits within 30 days, 2+ hospital admissions in 1 yr.) Mental health screen: : No mental health history Would patient like to participate in any Care Coordination programs (if applicable): : Not applicable Patient gives permission to discuss discharge plans with: (name, relationship and number) : RAYMOND LINDSEY -DAUGHTER- [phone] Physical Status: : Partial care dependence Partial Dependence, assistance required for: : Ambulation / Mobility Partial Dependence, assistance required for: : Bathing Partial Dependence, assistance required for: : Dressing Baseline cognitive status: : *Oriented to person, place, situation, time and present Family / Caregiver's ability to cope with chronic illness: : b. Minimal (occasionally not dependable to meet pt's. needs, can meet pt's. 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 : Yes Comments: : patient states that her daughter can take her to appointments if she isn't working Does the patient have electricity at home? : Yes Does the patient have running water in their house? : Yes Equipment in use: : Walker - Rolling Abuse/Neglect: : None Resources / Services in place: : None Patient's current cognitive status: : Confused DCP Re-evaluation Would patient like to participate in any Care Coordination programs (if applicable): : Not applicable PATIENT: AVTAR AMIN ENCOUNTER: [id number] MEDICAL RECORD#: [id number] ADMISSION DATE: 01/20/2021 DISCHARGE DATE: ATTENDING MD: JEIMY PINTO : AGE: 55 MARITAL STATUS: S DC PLAN ID: [id number] FACILITY: [facility] PRINTED ON: 01/23/21 14:17 CT All edits/amendments must be made on the electronic document DICTATION DATE: 01/23/211416 COVER MAKING MACHINE OPERATOR: LAY 01/23/211416 RPT#: [id number] DC DATE: STATUS: ADM IN [facility] [address] [place] [address] END OF REPORT
--- NOTE | 2021-01-23 14:35 | NUR ---
PATIENT DC TO [facility] WITH ALL BELONGINGS.
--- NOTE | 2021-01-23 15:47 | NUR ---
OT NOTE: PT COMPLETED SUPINE TO SIT WITH MIN A. PT COMPLETED SIT TO STAND WITH MIN A. PT COMPLETED SIDE STEPS WITH MIN A. PT COMPLETED BUE AROM EXS SEATED AT EOB WITH SBA-CGA. PT STATED SHE HAD STOMACH PAIN. NURSING AWARE. [phone] THANK YOU,JAREK SAMS
--- NOTE | 2021-01-23 16:36 | MORECARE ---
CASE MANAGEMENT DISCHARGE SUMMARY PATIENT: AVTAR AMIN UNIT: [id number] ADM DATE: 01/20/21 AGE: 55 : 61 SEX: F ROOM/BED: D.2204 AUTHOR: BALJEET,DOC PHYSICIAN: REFERRING PHYSICIAN: JEIMY OWENS MD DATE OF SERVICE: 01/23/21 Case Management Discharge Planning Summary COMMENTS ENTERED DATE: 01/23/21 14:13 CT COMMENT TYPE: Discharge Planning REVIEWER: Muriel Andrews PATIENT HAS BEEN ACCEPTED TO [facility] TO A SKILLED BED THEY ARE PICKING HER UP TODAY ENTERED DATE: 01/22/21 14:04 CT COMMENT TYPE: Discharge Planning REVIEWER: Milagro Childers Patient's insurance denied inpatient rehab, she would like a referral to [facility]. I have faxed clinical and notified Anny Lee. CM will continue to follow and assist with discharge planning/needs. DCP REVIEW SUMMARY ANTICIPATED D/C DATE: EXPECTED LOS : CASE STATUS: DCP Complete INITIAL REVIEW: 01/20/2021 INITIAL REVIEWER: Ban Hernández FINAL DISCHARGE DISPOSITION: : FINAL REVIEWER: FINAL REVIEW DATE: DCP Focus Questions & Answers DCP REV -DCP Review Added on: 01/22/21 12:17 am QUESTION: ANSWER DCP Screen High Risk Factors: : 3 or more ED visits within the last 60 days DCP Evaluation Patient's ability to cope with chronic illness : c. Inadequate (3+ ED visits in 6 mos., readmits within 30 days, 2+ hospital admissions in 1 yr.) Mental health screen: : No mental health history Would patient like to participate in any Care Coordination programs (if applicable): : Not applicable Patient gives permission to discuss discharge plans with: (name, relationship and number) : RAYMOND LINDSEY -DAUGHTER- [phone] Physical Status: : Partial care dependence Partial Dependence, assistance required for: : Ambulation / Mobility Partial Dependence, assistance required for: : Bathing Partial Dependence, assistance required for: : Dressing Baseline cognitive status: : *Oriented to person, place, situation, time and present Family / Caregiver's ability to cope with chronic illness: : b. Minimal (occasionally not dependable to meet pt's. needs, can meet pt's. basic ADL's) Living Arrangements: : Home with Extended Family Living arrangements comments: : patient lives at home with daughter and family Medication Management: : Patient states they do have transportation to bulk picker medications Pharm[facility] Does Patient have transportation to get home and to follow-up medical appointments when discharged from the hospital? : Yes Comments: : patient states that her daughter can take her to appointments if she isn't working Does the patient have electricity at home? : Yes Does the patient have running water in their house? : Yes Equipment in use: : Walker - Rolling Abuse/Neglect: : None Resources / Services in place: : None Patient's current cognitive status: : Confused DCP Re-evaluation Would patient like to participate in any Care Coordination programs (if applicable): : Not applicable PATIENT: AVTAR AMIN ENCOUNTER: [id number] MEDICAL RECORD#: [id number] ADMISSION DATE: 01/20/2021 DISCHARGE DATE: 01/23/2021 ATTENDING MD: JEIMY PINTO : AGE: 55 MARITAL STATUS: S DC PLAN ID: [id number] FACILITY: [facility] PRINTED ON: 01/23/21 16:36 CT All edits/amendments must be made on the electronic document DICTATION DATE: 01/23/211635 MANUFACTURING CLERK: LAY 01/23/21 163 RPT#: [id number] DC DATE:01/23/21 STATUS: DIS IN [facility] [address] [place] [address] END OF REPORT
--- NOTE | 2021-01-25 21:34 | MORECARE ---
CASE MANAGEMENT DISCHARGE SUMMARY PATIENT: AVTAR AMIN UNIT: [id number] ADM DATE: 01/20/21 AGE: 55 : 61 SEX: F ROOM/BED: D.2204 AUTHOR: BALJEET,DOC PHYSICIAN: REFERRING PHYSICIAN: JEIMY OWENS MD DATE OF SERVICE: 01/25/21 Case Management Discharge Planning Summary COMMENTS ENTERED DATE: 01/25/21 21:23 CT COMMENT TYPE: Discharge Planning REVIEWER: Ban Hernández LATE ENTRY 01/20/21 CM spoke with patient to complete initial dc planning assessment. CM educated patient on the CM role and verbal consent given by patient to complete assessment. Patient lives at home with family. Patient is dependent upon her daughter on most ADL's. At discharge patient plans to go to rehab or SNF for strengthening and feels this is a safe discharge. ELIZ signed for Inpatient Rehab [facility] and any SNF that will accept insurance. Patient denied known discharge needs at this time. CM will continue to follow and will assist as needed with dc plans/needs. ENTERED DATE: 01/23/21 14:13 CT COMMENT TYPE: Discharge Planning REVIEWER: Muriel Darryl PATIENT HAS BEEN ACCEPTED TO [facility] TO A SKILLED BED THEY ARE PICKING HER UP TODAY ENTERED DATE: 01/22/21 14:04 CT COMMENT TYPE: Discharge Planning REVIEWER: Milagro Childers Patient's insurance denied inpatient rehab, she would like a referral to [facility]. I have faxed clinical and notified Anny Lee. CM will continue to follow and assist with discharge planning/needs. DCP REVIEW SUMMARY ANTICIPATED D/C DATE: EXPECTED LOS : CASE STATUS: DCP Complete INITIAL REVIEW: 01/20/2021 INITIAL REVIEWER: Ban Hernández FINAL DISCHARGE DISPOSITION: : FINAL REVIEWER: FINAL REVIEW DATE: DCP Focus Questions & Answers DCP REV -DCP Review Added on: 01/22/21 12:17 am QUESTION: ANSWER DCP Screen High Risk Factors: : 3 or more ED visits within the last 60 days DCP Evaluation Patient's ability to cope with chronic illness : c. Inadequate (3+ ED visits in 6 mos., readmits within 30 days, 2+ hospital admissions in 1 yr.) Mental health screen: : No mental health history Would patient like to participate in any Care Coordination programs (if applicable): : Not applicable Patient gives permission to discuss discharge plans with: (name, relationship and number) : RAYMOND LINDSEY -DAUGHTER- [phone] Physical Status: : Partial care dependence Partial Dependence, assistance required for: : Ambulation / Mobility Partial Dependence, assistance required for: : Bathing Partial Dependence, assistance required for: : Dressing Baseline cognitive status: : *Oriented to person, place, situation, time and present Family / Caregiver's ability to cope with chronic illness: : b. Minimal (occasionally not dependable to meet pt's. needs, can meet pt's. 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 : Yes Comments: : patient states that her daughter can take her to appointments if she isn't working Does the patient have electricity at home? : Yes Does the patient have running water in their house? : Yes Equipment in use: : Walker - Rolling Abuse/Neglect: : None Resources / Services in place: : None Patient's current cognitive status: : Confused DCP Re-evaluation Would patient like to participate in any Care Coordination programs (if applicable): : Not applicable PATIENT: AVTAR AMIN ENCOUNTER: [id number] MEDICAL RECORD#: [id number] ADMISSION DATE: 01/20/2021 DISCHARGE DATE: 01/23/2021 ATTENDING MD: JEIMY PINTO : AGE: 55 MARITAL STATUS: S DC PLAN ID: [id number] FACILITY: [facility] PRINTED ON: 01/25/21 21:33 CT All edits/amendments must be made on the electronic document DICTATION DATE: 01/25/212132 ORTHOPEDIC PHYSICIAN ASSISTANT: LAY 01/25/212132 RPT#: [id number] DC DATE:01/23/21 STATUS: DIS IN [facility] [address] [place] [address] END OF REPORT
== END 2021-01-23 14:35 ==
LOC: D.ER 11:02 → D.M2 15:03 → OBSVTIME 15:03 → D.M2 15:03 → D.MS 01-23 07:45
PROVIDERS: Emergency Medicine; ADMIT Emergency Medicine; ATTEND Emergency Medicine
DX: I13.0 Hypertensive heart and chronic kidney disease with heart failure and stage 1 through stage 4 chronic kidney disease, or unspecified chronic kidney disease (principal); Z86.73 Personal history of transient ischemic attack (TIA), and cerebral infarction without residual deficits; J45.909 Unspecified asthma, uncomplicated; K21.9 Gastro-esophageal reflux disease without esophagitis; N18.9 Chronic kidney disease, unspecified; M79.7 Fibromyalgia; E03.9 Hypothyroidism, unspecified; I42.8 Other cardiomyopathies; E78.5 Hyperlipidemia, unspecified; J44.1 Chronic obstructive pulmonary disease with (acute) exacerbation; I50.23 Acute on chronic systolic (congestive) heart failure

== ENCOUNTER 2021-01-26 10:13 | Inpatient (IN) | payer MEDICARE, MEDICAID ==
[~2021-01-26] VITALS: Ht 162.6 cm; Wt 101.6 kg
[~2021-01-26 10:13] MED LIST changes: +Bumex PO; +LEVOTHYROXINE100 MCG PO
[2021-01-26 11:00] VITALS: BP 113/72
[2021-01-26 11:12] LABS: BASOPHILS 0.5 % (0-2); EOSINOPHILS 1.7 % (0-7); HEMATOCRIT 34.7 % (36.0-48.0); HEMOGLOBIN 10.8 g/dL (12-16); IMMATURE GRANULOCYTES 0.2 % (0-5); LYMPHOCYTES 16.6 % (15-50); MCH 25.3 pg (26.0-34.0); MCHC 31.1 g/dL (31.0-37.0); MCV 81.3 fL (80.0-100.0); MEAN PLATELET VOLUME 10.2 fL (7.4-10.4); MONOCYTES 11.8 % (2-11); NEUTROPHIL ABS# 4.19 10x3/uL (1.56-6.13); NEUTROPHILS 69.2 % (40-80); PLATELET COUNT 188 10x3/uL (130-400); RBC 4.27 10x6/uL (4.00-5.40); RDW 17.2 % (11.5-14.5)
[2021-01-26 11:16] LABS: ANION GAP 14.4 mmol/L (8-16); CALCIUM 9.7 mg/dL (8.5-10.1); CARBON DIOXIDE 28.6 mmol/L (21.0-32.0); CREATININE - SERUM 5.4 mg/dL (0.6-1.3)
[2021-01-26 11:22] LABS: ALBUMIN 3.4 g/dL (3.4-5.0); BILIRUBIN - TOTAL 2.36 mg/dL (0.2-1.3); PROTEIN - SERUM 7.7 g/dL (6.4-8.2)
[2021-01-26 12:00] VITALS: BP 117/74
[2021-01-26 12:04] LABS: APTT 40.3 SECONDS (22.8-39.4)
[2021-01-26 12:28] LABS: INR 6.19 (0.85-1.17); PROTIME 51.3 SECONDS (11.6-15.0)
[2021-01-26 13:00] VITALS: BP 110/78
--- NOTE | 2021-01-26 15:44 | NUR ---
PT ARRIVED VIA STRETCHER AT THIS TIME. PT TRANSFERRED TO HOSPITAL X4 ASSIST. PT AWAKE AND ALERT, RR EVEN NON LABORED. IV INFUSING WITHOUT DIFFICULTY. NO NEEDS VOICED AT THIS TIME.
[2021-01-26 16:19] VITALS: BP 128/83; BMI 38.5
--- NOTE | 2021-01-26 16:33 | NUR ---
TELE AND SCDS PLACED ON PT. PT GIVEN PRN ZOFRAN D/T NAUSEA. PT EYES CLOSED, RR EVEN NON LABORED. PT AWAKENS AND ANSWERS QUESTIONS. NO NEEDS VOICED. CLWR.
--- NOTE | 2021-01-26 17:17 | NUR ---
PT DAUGHTER AT BEDSIDE, SPOKE WITH DAUGHTER REGARDING TREATMENT PLAN AND PLAN OF CARE. WARM BLANKET GIVEN TO PT. NO FURTHER NEEDS VOICED. CLWR.
[2021-01-26 20:20] VITALS: BP 137/76
[2021-01-27 00:40] VITALS: BP 119/75
[2021-01-27 02:17] LABS: BASOPHILS 0.3 % (0-2); EOSINOPHILS 1.7 % (0-7); HEMATOCRIT 33.1 % (36.0-48.0); HEMOGLOBIN 10.2 g/dL (12-16); IMMATURE GRANULOCYTES 0.2 % (0-5); LYMPHOCYTE ABS# 0.82 10x3/uL (1.18-3.74); LYMPHOCYTES 13.8 % (15-50); MCH 25.1 pg (26.0-34.0); MCHC 30.8 g/dL (31.0-37.0); MCV 81.5 fL (80.0-100.0); MEAN PLATELET VOLUME 10.6 fL (7.4-10.4); MONOCYTES 10.4 % (2-11); NEUTROPHIL ABS# 4.39 10x3/uL (1.56-6.13); NEUTROPHILS 73.6 % (40-80); PLATELET COUNT 163 10x3/uL (130-400); RBC 4.06 10x6/uL (4.00-5.40)
[2021-01-27 03:23] VITALS: BP 143/84
--- NOTE | 2021-01-27 04:53 | NUR ---
Patient complained of a headache that was managed with the prescribed pain medication, she has had several bloody stools, she appeared to have slept well through the night.
[2021-01-27 05:14] LABS: PROTIME 39.4 SECONDS (11.6-15.0)
[2021-01-27 05:15] LABS: INR 4.43 (0.85-1.17)
[2021-01-27 05:20] LABS: HEMATOCRIT 31.9 % (36.0-48.0); HEMOGLOBIN 9.9 g/dL (12-16); LYMPHOCYTES 17.1 % (15-50); MCH 26.2 pg (26.0-34.0); MCV 84.4 fL (80.0-100.0); MEAN PLATELET VOLUME 10.8 fL (7.4-10.4); NEUTROPHILS 69.1 % (40-80); PLATELET COUNT 150 10x3/uL (130-400); RBC 3.78 10x6/uL (4.00-5.40); WBC 5.1 10x3/uL (4.8-10.8)
[2021-01-27 05:31] LABS: ALBUMIN 3.2 g/dL (3.4-5.0); BILIRUBIN - TOTAL 1.98 mg/dL (0.2-1.3); CARBON DIOXIDE 27.3 mmol/L (21.0-32.0); CREATININE - SERUM 5.1 mg/dL (0.6-1.3); MAGNESIUM - SERUM 2.7 mg/dL (1.8-2.4); PROTEIN - SERUM 7.2 g/dL (6.4-8.2); URIC ACID 11.8 mg/dL (2.6-7.2)
[2021-01-27 05:33] LABS: ANION GAP 14.1 mmol/L (8-16); POTASSIUM - SERUM 4.4 mmol/L (3.5-5.1)
--- NOTE | 2021-01-27 07:28 | NUR ---
ASSISTED TO BEDPAN PATIENT STATES THAT SHE DOES NOT GET UP. URINE COLLECTED AND SENT TO LAB ORDERED. PATIENT HAS A PACEMAKER TO LEFT UPPER CHEST. ON HEART MONITOR SHOWING PACED, PACED BEATS 60. ON ROOM AIR. LEFT AC SEEN WITH NS INFUSING AT 50 CC/HR. IV SITE LOOKS PATENT WITH NO PROBLEMS. BILATERAL SCD'S ON AND IN USE. CALL LIGHT ON ABDOMEN.
[2021-01-27 07:50] LABS: BILIRUBIN NEGATIVE (NEGATIVE); KETONE NEGATIVE (NEGATIVE); NITRITE NEGATIVE (NEGATIVE); UROBILINOGEN NORMAL mg/dL (< 2)
[2021-01-27 07:53] LABS: AMORPHOUS SEDIMENT <1+ LPF (NONE SEEN); BACTERIA MODERATE HPF (NONE SEEN); SQUAMOUS EPITHELIAL 0-5 HPF (0-4); WHITE CELLS - URINE 0-5 HPF (0-4)
[2021-01-27 08:00] VITALS: BP 122/78
--- NOTE | 2021-01-27 09:12 | NUR ---
B/P IS 115/50. I CALLED TOMEKA MYERS TO SEE ABOUT ISORDIL AND TOPROL XL. HE STATES TO HOLD THEM AT THIS TIME.
--- NOTE | 2021-01-27 10:27 | NUR ---
BOTELLO CATH PLACED USING STERILE TECHNIQUE. URINE SENT FOR C AND S IT IS SLIGHTLY CLOUDY. RETURN OF URINE IS 350 CC.
[2021-01-27 11:00] VITALS: BP 134/74
--- NOTE | 2021-01-27 11:59 | NUR ---
FSBS IS 97, NO INSULIN PER SLIDE SCALE.
--- NOTE | 2021-01-27 12:11 | NUR ---
COMPLAINTS OF CHEST DISCOMFORT OFF AND ON, NO SHARPNESS. LOOKED AT MONITOR AND SHOWING PACED BEATS, HR 60. THIS IS RELAYED TO THE PATIENT WHO SAID "THAT MAKES ME FEEL BETTER".
[2021-01-27 15:00] VITALS: BP 122/72
--- NOTE | 2021-01-27 16:46 | NUR ---
DAUGHTER TO CALL AND CHECK ON HER.
--- NOTE | 2021-01-27 18:31 | NUR ---
RESTING WITH EYES CLOSED AT THIS TIME.
--- NOTE | 2021-01-27 19:10 | NUR ---
RECEIVED SHIFT REPORT FROM RK CHRISTIANSON RN, INFORMED PT THAT I WILL BE BACK SHORTLY TO DO ASSESSMENT, PER VERBALIZES UNDERSTANDING, DENIES NEEDS AT THIS TIME
--- NOTE | 2021-01-27 20:15 | NUR ---
ASSESSMENT PER FLOW SHEET, VS OBTAINED PER MACHINE HEEL SEAT FITTER, IV IN LEFT AC INTACT WITH NO REDNESS OR EDEMA INFUSING VIA PUMP NS AT 50ML/HR, PT DENIES FLATUS, NO BM, AND BOTELLO CATH INTACT DRAINING DARK YELLOW URINE, EMPTIED 100MLS FROM BOTELLO CHAMBER TO BOTELLO BAG, TELEMETRY IN PLACE, PT INST ON AND DEMONSTRATED I.S., SCD'S ON AND WORKING PROPERLY, PT DENIES NEEDS OR PAIN AT THIS TIME, FALL PRECUATIONS IN PLACE
[2021-01-27 21:17] VITALS: BP 116/72
--- NOTE | 2021-01-27 21:40 | NUR ---
PT RESTING WITH EYES CLOSED, AROUSES TO SOFT VERBAL STIMULATION, OBTAINED FSBS, INFORMED PT THAT I WILL BE BACK WITH HER MEDICINES, PT VERBALIZES UNDERSTANDING, REQUESTS FRESH H20 WHEN I COME BACK
--- NOTE | 2021-01-27 22:17 | NUR ---
PT RESTING WITH EYES CLOSED, AROUSES TO SOFT VERBAL STIMULATION, ADM 2100 MEDS PER MD ORDERS, SEE EMAR, WITH FRESH H20, PT DENIES FURTHER NEEDS OR PAIN
--- NOTE | 2021-01-28 | NUR ---
PT RESTING WITH EYES CLOSED, RESP QUIET, NO DISTRESS NOTED, LEFT UNDISTURBED AT THIS TIME
[2021-01-28 01:46] VITALS: BP 122/72
--- NOTE | 2021-01-28 02:00 | NUR ---
PT RESTING WITH EYES CLOSED, RESP QUIET, NO DISTRESS NOTED, LEFT UNDISTURBED AT THIS TIME
--- NOTE | 2021-01-28 04:31 | NUR ---
PT RESTING WITH EYES CLOSED, RESP QUIET, NO DISTRESS NOTED, LEFT UNDISTURBED AT THIS TIME
--- NOTE | 2021-01-28 04:44 | NUR ---
VS OBTAINED PER GLOBAL MARKETING MANAGER, SEE FLOW SHEET, NEW BAG OF NS HUNG PER MD ORDERS, SEE EMAR, PT REQUESTED AND PROVIDED WARM BLANKET AND FRESH H20, PT DENIES FURTHER NEEDS
[2021-01-28 05:40] VITALS: BP 134/61
[2021-01-28 05:59] LABS: BASOPHILS 0.4 % (0-2); EOSINOPHILS 2.9 % (0-7); HEMATOCRIT 32.6 % (36.0-48.0); HEMOGLOBIN 9.9 g/dL (12-16); IMMATURE GRANULOCYTES 0.2 % (0-5); LYMPHOCYTES 22.2 % (15-50); MCHC 30.4 g/dL (31.0-37.0); MEAN PLATELET VOLUME 10.2 fL (7.4-10.4); MONOCYTES 9.1 % (2-11); NEUTROPHIL ABS# 2.94 10x3/uL (1.56-6.13); NEUTROPHILS 65.2 % (40-80); PLATELET COUNT 157 10x3/uL (130-400); RBC 3.96 10x6/uL (4.00-5.40); RDW 17.2 % (11.5-14.5); WBC 4.5 10x3/uL (4.8-10.8)
--- NOTE | 2021-01-28 06:07 | NUR ---
PT AWAKE, OBTAINED FSBS AND ADM 0600 MEDS PER MD ORDERS, SEE EMAR, WITH FRESH H20, PT REPOSITIONED IN BED, DEMONSTRATED I.S. WITH GOOD EFFORT, DENIES FURTHER NEEDS OR PAIN
[2021-01-28 06:19] LABS: MCV 82.3 fL (80.0-100.0)
[2021-01-28 06:33] LABS: ALBUMIN 2.9 g/dL (3.4-5.0); ANION GAP 7.7 mmol/L (8-16); BILIRUBIN - TOTAL 1.54 mg/dL (0.2-1.3); CALCIUM 8.5 mg/dL (8.5-10.1); CARBON DIOXIDE 32.2 mmol/L (21.0-32.0); CREATININE - SERUM 4.2 mg/dL (0.6-1.3); MAGNESIUM - SERUM 2.4 mg/dL (1.8-2.4); PHOSPHOROUS 4.3 mg/dL (2.5-4.9); POTASSIUM - SERUM 3.9 mmol/L (3.5-5.1)
[2021-01-28 06:35] LABS: INR 2.35 (0.85-1.17); PROTIME 23.9 SECONDS (11.6-15.0)
--- NOTE | 2021-01-28 07:00 | NUR ---
SHIFT REPORT TO DAY SHIFT
--- NOTE | 2021-01-28 07:13 | NUR ---
RECEIVE BEDSIDE SHIFT REPORT. RESTING IN BED WITH EYES CLOSED. NO S/S OF DISTRESS PRESENT AT THIS TIME. WILL CONTINUE POC AND SAFETY PRECAUTIONS. SCD'S ON. CALL LIGHT IN REACH.
[2021-01-28 07:54] VITALS: BP 125/72
[2021-01-28 11:32] VITALS: BP 117/75
[2021-01-28 14:07] VITALS: Ht 162.6 cm; Wt 101.6 kg
--- NOTE | 2021-01-28 14:56 | NUR ---
RECIEVED REPORT FROM AUSTEN WHO WAS PULLED TO [facility]. ASSESSMENT COMPLETED. A&0 X4. LIMITED MOBILITY AND BEDFAST PER PATIENT. ABDOMEN ROUND WITH TENDERNESS IN LQ. BREATH SOUNDS DEMINISHED UPPER AND LOWER. PULSES PRESENT ALL FOUR EXTREMITIES. NO EDEMA IN ANY EXTREMITIES. SKIN INTACT. PLEASANT IN CONVERSATION WITH NURSE.
[2021-01-28 15:59] VITALS: BP 122/80
[2021-01-29 01:08] VITALS: BP 125/70
--- NOTE | 2021-01-29 04:43 | NUR ---
PT HAS BEEN SLEEPING IN BED. HAS COMPLAINED OF BACK PAIN AND WAS GIVEN A TYLENOL WHICH HAS HELPED. NO OTHER COMPLAINTS AT THIS TIME. NO DISTRESS NOTED. BED IN LOWEST POSITION WITH CALL LIGHT IN REACH
[2021-01-29 05:33] VITALS: BP 110/71
[2021-01-29 05:39] LABS: BASOPHILS 0.2 % (0-2); EOSINOPHILS 2.5 % (0-7); HEMATOCRIT 33.5 % (36.0-48.0); HEMOGLOBIN 10.3 g/dL (12-16); IMMATURE GRANULOCYTES 0.2 % (0-5); LYMPHOCYTE ABS# 0.94 10x3/uL (1.18-3.74); LYMPHOCYTES 18.4 % (15-50); MCH 25.3 pg (26.0-34.0); MCHC 30.7 g/dL (31.0-37.0); MCV 82.3 fL (80.0-100.0); MEAN PLATELET VOLUME 9.9 fL (7.4-10.4); MONOCYTES 8.6 % (2-11); NEUTROPHIL ABS# 3.58 10x3/uL (1.56-6.13); NEUTROPHILS 70.1 % (40-80); PLATELET COUNT 156 10x3/uL (130-400); RBC 4.07 10x6/uL (4.00-5.40); RDW 17.3 % (11.5-14.5); WBC 5.1 10x3/uL (4.8-10.8)
[2021-01-29 06:04] LABS: INR 1.71 (0.85-1.17); PROTIME 19.1 SECONDS (11.6-15.0)
[2021-01-29 06:08] LABS: ANION GAP 8.4 mmol/L (8-16); BILIRUBIN - TOTAL 1.6 mg/dL (0.2-1.3); CALCIUM 8.7 mg/dL (8.5-10.1); CARBON DIOXIDE 31.4 mmol/L (21.0-32.0); CREATININE - SERUM 3.3 mg/dL (0.6-1.3); MAGNESIUM - SERUM 2.4 mg/dL (1.8-2.4); PHOSPHOROUS 3.8 mg/dL (2.5-4.9); POTASSIUM - SERUM 3.8 mmol/L (3.5-5.1); PROTEIN - SERUM 7.2 g/dL (6.4-8.2)
--- NOTE | 2021-01-29 07:13 | NUR ---
RECEIVE SHIFT REPORT. PATIENT IN SURGERY.
[2021-01-29 09:04] VITALS: BP 143/82
--- NOTE | 2021-01-29 10:29 | NUR ---
OT NOTE: PT NOT IN ROOM SECONDARY TO PROCEDURE. THANK YOU,JAREK STEVENSON
--- NOTE | 2021-01-29 11:22 | NUR ---
DOWN TO DIALYSIS
[2021-01-29 11:46] VITALS: BP 131/83
[2021-01-29 16:11] VITALS: BP 136/77
[2021-01-29 20:00] VITALS: BP 113/82
[2021-01-30 04:00] VITALS: BP 133/82
[2021-01-30 05:33] LABS: BASOPHILS 0.9 % (0-2); EOSINOPHILS 2.6 % (0-7); HEMATOCRIT 35.8 % (36.0-48.0); HEMOGLOBIN 10.8 g/dL (12-16); IMMATURE GRANULOCYTES 0.2 % (0-5); LYMPHOCYTE ABS# 0.94 10x3/uL (1.18-3.74); LYMPHOCYTES 17.2 % (15-50); MCH 25.2 pg (26.0-34.0); MCHC 30.2 g/dL (31.0-37.0); MCV 83.6 fL (80.0-100.0); MEAN PLATELET VOLUME 10.2 fL (7.4-10.4); MONOCYTES 9.5 % (2-11); NEUTROPHIL ABS# 3.81 10x3/uL (1.56-6.13); NEUTROPHILS 69.6 % (40-80); PLATELET COUNT 149 10x3/uL (130-400); RBC 4.28 10x6/uL (4.00-5.40); RDW 17.5 % (11.5-14.5); WBC 5.5 10x3/uL (4.8-10.8)
[2021-01-30 05:41] LABS: INR 1.58 (0.85-1.17); PROTIME 17.5 SECONDS (11.6-15.0)
[2021-01-30 05:49] LABS: ANION GAP 7.6 mmol/L (8-16); BILIRUBIN - TOTAL 1.67 mg/dL (0.2-1.3); CALCIUM 8.5 mg/dL (8.5-10.1); CARBON DIOXIDE 30.2 mmol/L (21.0-32.0); MAGNESIUM - SERUM 2.3 mg/dL (1.8-2.4); PHOSPHOROUS 3.2 mg/dL (2.5-4.9); POTASSIUM - SERUM 3.8 mmol/L (3.5-5.1); PROTEIN - SERUM 7.3 g/dL (6.4-8.2)
[2021-01-30 05:56] LABS: CREATININE - SERUM 2.3 mg/dL (0.6-1.3)
[2021-01-30 08:25] VITALS: BP 128/83
[2021-01-30 11:12] LABS: HEPATITIS C ANTIBODY <0.1 S/CO RAT (0.0-0.9)
[2021-01-30 11:35] VITALS: BP 105/71
--- NOTE | 2021-01-30 12:41 | NUR ---
OT NOTE: PT INITIALLY VERY LETHARGIC BUT AGREEABLE TO PARTICIPATE IN THERAPY. ABLE TO PERFORM BED MOB INCLUDING SUPINE TO SIT WITH MIN ASSIST AND EXT TIME; EOB SITTING WITH GOOD BALANCE. ABLE TO PERFORM SIMPLE HYGIENE TASKS INCLUDING WASHING FACE AND HANDS, AND UES.. MAX ASSIST WITH BACK; MAX ASSIST TO NATALIYA SOCKS. PT ABLE TO PERFORM SIT TO STAND WITH STOCKROOM ATTENDANT X 2 (WITH MIN ASSIST). BACK TO BED WITH MOD/MAX ASSIST. VERY FATIGUED FOLLOWING TMT ELIZABETH MANUEL, OTR/L [phone]
--- NOTE | 2021-01-30 13:08 | NUR ---
Nutrition Follow-up: Pt sleeping soundly at time of visit this AM. Noted 0% of breakfast eaten per record. POD 1 hemosplit placement. HD yesterday (-1000 mL). Diet: Renal, Nepro TID No new wt; last wt: 224# (01/28) Labs noted: K+ 3.8, PO4 3.2, Alb 3.0 Meds noted: Nephrovite, Protonix, NS @ 50 -Encourage PO intake and honor food preferences within diet restrictions. -Need new wt. -RD will follow up within 3-4 days.
[2021-01-30 14:51] VITALS: BP 132/84
--- NOTE | 2021-01-30 16:14 | NUR ---
D/C BOTELLO CATHETER PER ORDERS, WITHDREW 9ML FROM BALLOON. EMPTIED 400ML FROM BOTELLO BAG.
[2021-01-30 21:44] VITALS: BP 143/83
[2021-01-31 01:07] VITALS: BP 123/84
[2021-01-31 05:36] VITALS: BP 158/85
[2021-01-31 05:40] LABS: BASOPHILS 0.8 % (0-2); EOSINOPHILS 2.8 % (0-7); HEMATOCRIT 34.1 % (36.0-48.0); HEMOGLOBIN 10.5 g/dL (12-16); IMMATURE GRANULOCYTES 0.2 % (0-5); LYMPHOCYTE ABS# 1.06 10x3/uL (1.18-3.74); LYMPHOCYTES 19.9 % (15-50); MCH 25.6 pg (26.0-34.0); MCHC 30.8 g/dL (31.0-37.0); MCV 83.2 fL (80.0-100.0); MEAN PLATELET VOLUME 9.3 fL (7.4-10.4); MONOCYTES 9.4 % (2-11); NEUTROPHIL ABS# 3.56 10x3/uL (1.56-6.13); NEUTROPHILS 66.9 % (40-80); RDW 17.6 % (11.5-14.5); WBC 5.3 10x3/uL (4.8-10.8)
[2021-01-31 05:41] LABS: PLATELET COUNT 114 10x3/uL (130-400)
[2021-01-31 05:59] LABS: INR 1.59 (0.85-1.17); PROTIME 17.6 SECONDS (11.6-15.0)
[2021-01-31 06:06] LABS: ALBUMIN 2.8 g/dL (3.4-5.0); ANION GAP 10.6 mmol/L (8-16); BILIRUBIN - TOTAL 1.63 mg/dL (0.2-1.3); CALCIUM 8.6 mg/dL (8.5-10.1); CARBON DIOXIDE 28.6 mmol/L (21.0-32.0); CREATININE - SERUM 1.9 mg/dL (0.6-1.3); MAGNESIUM - SERUM 2.2 mg/dL (1.8-2.4); PHOSPHOROUS 2.8 mg/dL (2.5-4.9); POTASSIUM - SERUM 4.2 mmol/L (3.5-5.1)
--- NOTE | 2021-01-31 07:50 | NUR ---
LYING IN BED, AWAKE/ALERT/ORIENTED, T/R SELF AD LI, CONT OF B/B WITH USE OF BEDPAN/BSC AD LI, DENIES PAIN/OTHER DISCOMFORT AT THIS TIME, NO S/S OF ACUTE DISTRESS OBSERVED.
[2021-01-31 08:16] VITALS: BP 156/85
[2021-01-31 11:25] VITALS: BP 144/87
[2021-01-31 16:36] VITALS: BP 157/96
--- NOTE | 2021-01-31 17:47 | MORECARE ---
CASE MANAGEMENT DISCHARGE SUMMARY PATIENT: AVTAR AMIN UNIT: [id number] ADM DATE: 01/27/21 AGE: 55 : 61 SEX: F ROOM/BED: D.1358 AUTHOR: BALJEET,DOC PHYSICIAN: REFERRING PHYSICIAN: MADELINE BLUM MD DATE OF SERVICE: 01/31/21 Case Management Discharge Planning Summary CT Patient Name: AVTAR AMIN Attending MD : TRISTEN BLUM, Medical Record: [id number] Encounter : [id number] Facility : [address] [place] [address] Admission Date : 113:10 Center Discharge Date : [address] [place] [address] Date of : DC Plan ID : [id number] Age/Sex/Martia : 55/ F/S Printed on : 01/31/21 17:46 CT DCP Review Details Anticipated D/C: Expected LOS : Case Status : INITIATED - Initial Reviewe: [id number] Andrea Childers Initial Review: 01/31/2021 Planned Disposi: 03 - Discharged/Trans to SNF with Medicare Certification in Anticipation of Skilled Care Final Discharge: - Final Reviewer : : Final Review : DCP Focus Questions & Answers DCP Screen High Risk Factors: 3 or more ED visits within the last 60 days DCP Evaluation Patient gives permission to discuss discharge [facility]oz[facility] - [phone] plans with: (name, relationship and number) Patient's current cognitive status: *Oriented to person, place, situation, time and present Family / Caregiver's ability to cope with chronic a. Adequate (ability to meet patient's illness: medical needs, ensures patient attends medical appts.) Patient's ability to cope with chronic illness c. Inadequate (3+ ED visits in 6 mos., readmits within 30 days, 2+ hospital admissions in 1 yr.) Physical Status: Compromised nutritional status Physical Status: Compromised skin integrity Physical Status: Mobility impaired Physical Status: Partial care dependence Family / Caregiver's ability to cope with chronic a. Adequate (ability to meet patient's illness: medical needs, ensures patient attends medical appts.) Functional screen assessment: New onset in weakness or paralysis Does the patient have the ability to pay for or Yes attain post discharge needs / services? Partial Dependence, assistance required for: Ambulation / Mobility Partial Dependence, assistance required for: Bathing Partial Dependence, assistance required for: Dressing Living Arrangements: Senior Care Facility Is there a likelihood that the patient will Yes require additional services to return to the preadmission environment? Baseline cognitive status: *Oriented to person, place, situation, time and present Living arrangements comments: Had been at [facility], but would like to go to [facility] Patient with capacity for self-care or can be Yes cared for in same environment as prior to hospitalization? Results of this evaluation have been discussed Patient with: Facility / Agency name and contact information [facility] from Question 3 (if applicable): Preadmission facility can/cannot provide post Can - at same level of care as preadmission hospital level of care needs: Medication Management: Patient states can afford medications Pharmacy name(s): [facility] [address] Does Patient have transportation to get home and Yes to follow-up medical appointments when discharged from the hospital? Comments: Will refer to [facility] for SNF Would patient like to participate in any Care Not applicable Coordination programs (if applicable): Does the patient have electricity at home? Yes Does the patient have running water in their Yes house? Equipment in use: Walker - Rolling Mental health screen: No mental health history Psychosocial status: Adult with physical limitations Contact information for resources in use: May need new OP dialysis chair set up in [facility] Re-evaluation Reassessment due to: New discovery of admission to an acute inpatient facility within 30 days Patient's current cognitive status: *Oriented to person, place, situation, time and present Patient and/or caregiver agree upon recommended Yes discharge plan? Patient gives permission to discuss discharge Felice Mendez DTR plans with: (name, relationship and number) Functional screen assessment: Unable to manage ADLs without immediate ongoing assistance Equipment needed for post hospitalization: None Patient with capacity for self-care or can be Yes cared for in same environment as prior to hospitalization? Preadmission facility can/cannot provide post Can - at same level of care as preadmission hospital level of care needs: Patient and/or Caregiver notified that they can Yes request a re-evaluation of the discharge plan at any time. Physical environment modification needed / No anticipated for discharge: Physical environment referral comments (if May need OP dialysis chair time applicable): Planned post hospital services available for Yes patient? Planned post hospital services covered by Yes insurance plan? Would patient like to participate in any Care Not applicable Coordination programs (if applicable): [facility] AVTAR AMIN MR#: [id number] /Age/Sex/[id number]-89 /55/F /S Attending Physician Name: KULWANT [id number] Patient Account:[id number] [facility] Page -1 of 1 All edits/amendments must be made on the electronic document DICTATION DATE: 01/31/211745 SHORT PIECE HANDLER: LAY 01/31/211745 RPT#: [id number] DC DATE: STATUS: ADM IN [facility] [address] [place] [address] END OF REPORT
--- NOTE | 2021-01-31 19:50 | NUR ---
INITIAL ROUNDS AND ASSESSMENT COMPLETED. PT RESTING IN BED WITH NO DISTRESS. PLAN OF CARE REVIEWED. CALL LIGHT IN REACH.
[2021-01-31 21:44] VITALS: BP 142/82
--- NOTE | 2021-02-01 00:27 | NUR ---
IV ABT COMPLETED AND IV SALINE LOCKED. PT C/O PAIN, MEDICATED WITH IV MORPHINE AND IV ZOFRAN FOR PAIN/NAUSEA. HAS BEEN ON/OFF BEDPAN WITH ONE FORMED BM.
[2021-02-01 01:35] VITALS: BP 126/60
[2021-02-01 04:58] VITALS: BP 145/91
[2021-02-01 05:09] LABS: BASOPHILS 0.5 % (0-2); EOSINOPHILS 3.2 % (0-7); HEMATOCRIT 34.4 % (36.0-48.0); HEMOGLOBIN 10.4 g/dL (12-16); IMMATURE GRANULOCYTES 0.2 % (0-5); LYMPHOCYTE ABS# 1.43 10x3/uL (1.18-3.74); LYMPHOCYTES 25.2 % (15-50); MCHC 30.2 g/dL (31.0-37.0); MCV 82.7 fL (80.0-100.0); MEAN PLATELET VOLUME 9.8 fL (7.4-10.4); MONOCYTES 9.5 % (2-11); NEUTROPHIL ABS# 3.48 10x3/uL (1.56-6.13); NEUTROPHILS 61.4 % (40-80); PLATELET COUNT 134 10x3/uL (130-400); RBC 4.16 10x6/uL (4.00-5.40); RDW 17.4 % (11.5-14.5); WBC 5.7 10x3/uL (4.8-10.8)
[2021-02-01 05:29] LABS: INR 1.61 (0.85-1.17); PROTIME 17.7 SECONDS (11.6-15.0)
[2021-02-01 05:52] LABS: ALBUMIN 2.9 g/dL (3.4-5.0); ANION GAP 11.6 mmol/L (8-16); BILIRUBIN - TOTAL 1.6 mg/dL (0.2-1.3); CALCIUM 9.2 mg/dL (8.5-10.1); CARBON DIOXIDE 27.7 mmol/L (21.0-32.0); CREATININE - SERUM 1.8 mg/dL (0.6-1.3); MAGNESIUM - SERUM 2.1 mg/dL (1.8-2.4); PHOSPHOROUS 2.6 mg/dL (2.5-4.9); POTASSIUM - SERUM 4.3 mmol/L (3.5-5.1); PROTEIN - SERUM 7.2 g/dL (6.4-8.2)
[2021-02-01 05:53] LABS: THYROID STIMULATING HORMONE 121.79 uIU/mL (0.36-3.74)
[2021-02-01 07:45] VITALS: BP 138/96
[2021-02-01 15:16] VITALS: BP 150/93
--- NOTE | 2021-02-01 15:21 | NUR ---
PT AWAKE AN DORIENTED, TOOK ALL MEDICATIONS WITHOUT COMPLICATIONS. NO COMPLAINTS OR CONCERNS, STATES SHE MAY START USING THE BEDSIDE COMMODE TOMORROW BUT TODAY FEELS MORE COMFORTABLE USING THE BED ZAMAN. SISTER CAME AND VISITED. CL IN REACH, SRX2.
--- NOTE | 2021-02-01 16:31 | NUR ---
I have reviewed this patient and I concur with the Shift Assessment completed by the Licensed Practical Nurse today this shift.
[2021-02-01 19:00] VITALS: BP 145/85
--- NOTE | 2021-02-01 20:00 | NUR ---
INITIAL ROUNDS AND ASSESSMENT COMPLETED. PT ALERT/ORIENTED. RESTING IN BED. NONLABORED RESPIRATIONS ON ROOM AIR. RIGHT CHEST WALL HEMOSPLIT CAPPED AND CLAMPED. PACED ON TELEMETRY. VSS. REVIEW PLAN OF CARE. CALL LIGHT IN REACH.
--- NOTE | 2021-02-01 21:18 | NUR ---
BEDTIME MEDS GIVEN. IV ABT UP AND INFUSING. ASSISTED TO REPOSITION. INCENTIVE SPIROMETER 500.
--- NOTE | 2021-02-01 22:53 | NUR ---
IV ABT COMPLETE AND SITE NOTED TO HAVE INFILTRATED. REMOVED OLD IV. WILL ATTEMPT RESITE BEFORE NEXT IV ABT DUE.
[2021-02-02] VITALS: BP 153/88
[2021-02-02 04:00] VITALS: BP 150/88
--- NOTE | 2021-02-02 04:25 | NUR ---
SITED NEW 22G TO RIGHT HAND. PT NOW RESTING. CALL LIGHT IN REACH.
[2021-02-02 05:43] LABS: BASOPHILS 0.7 % (0-2); EOSINOPHILS 3.6 % (0-7); HEMATOCRIT 33.4 % (36.0-48.0); HEMOGLOBIN 10.1 g/dL (12-16); IMMATURE GRANULOCYTES 0.2 % (0-5); LYMPHOCYTE ABS# 1.17 10x3/uL (1.18-3.74); LYMPHOCYTES 20.2 % (15-50); MCH 25.2 pg (26.0-34.0); MCHC 30.2 g/dL (31.0-37.0); MCV 83.3 fL (80.0-100.0); NEUTROPHIL ABS# 3.89 10x3/uL (1.56-6.13); NEUTROPHILS 67.3 % (40-80); PLATELET COUNT 116 10x3/uL (130-400); RBC 4.01 10x6/uL (4.00-5.40); RDW 17.2 % (11.5-14.5); WBC 5.8 10x3/uL (4.8-10.8)
[2021-02-02 05:52] LABS: INR 1.34 (0.85-1.17); PROTIME 15.3 SECONDS (11.6-15.0)
[2021-02-02 06:17] LABS: ALBUMIN 2.7 g/dL (3.4-5.0); BILIRUBIN - TOTAL 1.27 mg/dL (0.2-1.3); CARBON DIOXIDE 27.4 mmol/L (21.0-32.0); CREATININE - SERUM 1.6 mg/dL (0.6-1.3); POTASSIUM - SERUM 4.4 mmol/L (3.5-5.1); PROTEIN - SERUM 6.7 g/dL (6.4-8.2); T4 THYROXIN - FREE 0.66 ng/dL (0.76-1.46)
[2021-02-02 08:00] VITALS: BP 127/91
--- NOTE | 2021-02-02 09:12 | NUR ---
PT AWAKE AND ORIETNED, LYING IN BED C/O GENERALIZED PAIN. STATES SHE IS WILLING TO PARTICIPATE IN PHYSICAL THERAPY MORE TODAY. NO COMPLAINTS OR CONCERNS AT THIS TIME. TOOK ALL MEDICATIONS WITHOUT COMPLICATIONS. CL IN REACH, SRX2, NO FAMILY AT BEDSIDE.
[2021-02-02 11:00] VITALS: BP 120/66
--- NOTE | 2021-02-02 12:54 | NUR ---
Nutrition Reassessment/Follow-up: Good PO intake reported this AM (100%). HD on hold. Diet: Renal, AHA, Mech Soft, Nepro TID No new wt; last wt: 224# (01/28)Adj. BW: 146# Labs noted: K+ 4.4, BUN 18, Cre 1.6, GFR 43, Alb 2.7 Meds noted: Nephrovite, Protonix Est needs: 3873-2468 kcal/day (25-30 kcal/kg adj BW) 60-80 g protein/day (0.6-0.8 g/kg actual BW - GFR 43 - not on HD) -Encourage PO intake and honor food preferences within diet restrictions. -Need new wt. -RD will follow up within 3 days.
[2021-02-02 13:09] LABS: SPE - A/G RATIO 0.8 (0.7-1.7); SPE - ALBUMIN 3.2 g/dL (2.9-4.4); SPE - ALPHA-1 GLOBULIN 0.2 g/dL (0.0-0.4); SPE - ALPHA-2 GLOBULIN 0.6 g/dL (0.4-1.0); SPE - BETA GLOBULIN 1.2 g/dL (0.7-1.3); SPE - GAMMA GLOBULIN 1.8 g/dL (0.4-1.8); SPE - M-SPIKE Not Observed g/dL (Not Observed)
--- NOTE | 2021-02-02 16:45 | NUR ---
OT NOTE: PT COMPLETED SUPINE TO SIT WITH MIN A. PT COMPLETED SITTING AT EOB WITH SBA. PT COMPLETED BED TO CHAIR TSF WITH CGA. PT COMPLETED FACE HYGIENE WITH SETUP. PT COMPLETED ORAL HYGIENE WITH SETUP. PT REQUIRED MOD A FOR LB CARE TASKS. [phone] THANK YOU,JAREK SAMS
--- NOTE | 2021-02-02 17:32 | MORECARE ---
CASE MANAGEMENT DISCHARGE SUMMARY PATIENT: AVTAR AMIN UNIT: [id number] ADM DATE: 01/27/21 AGE: 55 : 61 SEX: F ROOM/BED: D.3560 AUTHOR: BALJEET,DOC PHYSICIAN: REFERRING PHYSICIAN: MADELINE BLUM MD DATE OF SERVICE: 02/02/21 Case Management Discharge Planning Summary CT Patient Name: AVTAR AMIN Attending MD : TRISTEN BLUM, Medical Record: [id number] Encounter : [id number] Facility : [address] [place] [address] Admission Date : 113:10 Center Discharge Date : [address] [place] [address] Date of : DC Plan ID : [id number] Age/Sex/Martia : 55/ F/S Printed on : 02/02/21 17:31 CT DCP Review Details Anticipated D/C: Expected LOS : Case Status : INITIATED - Initial Reviewe: [id number] - Milagro Childres Initial Review: 01/31/2021 Planned Disposi: 03 - Discharged/Trans to SNF with Medicare Certification in Anticipation of Skilled Care Final Discharge: - Final Reviewer : : Final Review : Comments CT Entered Date Type Reviewer 02/02/21 17:01 CT Discharge Planning Milagro Childers Comment PENDING AUTH FOR [facility]. I SPOKE WITH BRIDGER TODAY ABOUT REFERRAL. 01/31/21 17:43 CT Discharge Planning Milagro Childers Comment CM met with patient to discuss discharge planning/needs. She is a readmit for ARF. Her last admit she was in observation status for muscle weakness and tremors. She had gone to [facility] SNF for strengthening and only there a few days before returning in ARF. She states that she does not want to go back to [facility]. She states that she has family members that work at [facility] and would like a referral there. She has an OT and PT evaluation on the chart. I will fax a referral to [facility]. Mel is aware of possible chair placement in [place]. CM will continue to follow and assist with discharge planning/needs. DCP Focus Questions & Answers DCP Screen High Risk Factors: 3 or more ED visits within the last 60 days DCP Evaluation Patient's ability to cope with chronic illness c. Inadequate (3+ ED visits in 6 mos., readmits within 30 days, 2+ hospital admissions in 1 yr.) Family / Caregiver's ability to cope with chronic a. Adequate (ability to meet patient's illness: medical needs, ensures patient attends medical appts.) Patient's current cognitive status: *Oriented to person, place, situation, time and present Patient gives permission to discuss discharge [facility] Loz[facility] - [phone] plans with: (name, relationship and number) Does the patient have the ability to pay for or Yes attain post discharge needs / services? Functional screen assessment: New onset in weakness or paralysis Family / Caregiver's ability to cope with chronic a. Adequate (ability to meet patient's illness: medical needs, ensures patient attends medical appts.) Physical Status: Partial care dependence Physical Status: Mobility impaired Physical Status: Compromised skin integrity Physical Status: Compromised nutritional status Is there a likelihood that the patient will Yes require additional services to return to the preadmission environment? Living Arrangements: Custodial Facility Partial Dependence, assistance required for: Dressing Partial Dependence, assistance required for: Bathing Partial Dependence, assistance required for: Ambulation / Mobility Results of this evaluation have been discussed Patient with: Patient with capacity for self-care or can be Yes cared for in same environment as prior to hospitalization? Living arrangements comments: Had been at [facility], but would like to go to [facility] Baseline cognitive status: *Oriented to person, place, situation, time and present Preadmission facility can/cannot provide post Can - at same level of care as preadmission hospital level of care needs: Facility / Agency name and contact information [facility] from Question 3 (if applicable): Medication Management: Patient states can afford medications Pharmacy name(s): [facility] [place] Does Patient have transportation to get home and Yes to follow-up medical appointments when discharged from the hospital? Would patient like to participate in any Care Not applicable Coordination programs (if applicable): Comments: Will refer to [facility] for SNF Does the patient have electricity at home? Yes Does the patient have running water in their Yes house? Equipment in use: Walker - Rolling Mental health screen: No mental health history Psychosocial status: Adult with physical limitations Contact information for resources in use: May need new OP dialysis chair set up in [facility] Re-evaluation Patient and/or caregiver agree upon recommended Yes discharge plan? Patient's current cognitive status: *Oriented to person, place, situation, time and present Reassessment due to: New discovery of admission to an acute inpatient facility within 30 days Functional screen assessment: Unable to manage ADLs without immediate ongoing assistance Patient gives permission to discuss discharge Felice Mendez DTR plans with: (name, relationship and number) Equipment needed for post hospitalization: None Patient with capacity for self-care or can be Yes cared for in same environment as prior to hospitalization? Patient and/or Caregiver notified that they can Yes request a re-evaluation of the discharge plan at any time. Preadmission facility can/cannot provide post Can - at same level of care as preadmission hospital level of care needs: Physical environment modification needed / No anticipated for discharge: Physical environment referral comments (if May need OP dialysis chair time applicable): Planned post hospital services available for Yes patient? Planned post hospital services covered by Yes insurance plan? Would patient like to participate in any Care Not applicable Coordination programs (if applicable): [facility] AVTAR AMIN MR#: [id number] /Age/Sex/[id number] //F /S Attending Physician Name: KULWANT [id number] Patient Account:[id number] [facility] Page -1 of 1 All edits/amendments must be made on the electronic document DICTATION DATE: 02/02/211730 DEVELOPMENT AND HOUSING DIRECTOR: LAY 02/02/211730 RPT#: [id number] DC DATE: STATUS: ADM IN [facility] [address] [place] [address] END OF REPORT
--- NOTE | 2021-02-02 18:00 | NUR ---
I have reviewed this patient and I concur with the Shift Assessment completed by the Licensed Practical Nurse today this shift.
--- NOTE | 2021-02-02 19:30 | NUR ---
PT LYING IN BED RESTING WITH EYES CLOSED, WITHOUT DISTRESS. CL IN REACH
[2021-02-02 20:45] VITALS: BP 153/88
--- NOTE | 2021-02-03 04:30 | NUR ---
PT LYING IN BED SLEEPING WITHOUT DISTRESS, CL IN REACH
[2021-02-03 04:48] VITALS: BP 153/88
[2021-02-03 06:23] LABS: BASOPHILS 0.7 % (0-2); EOSINOPHILS 3.8 % (0-7); HEMATOCRIT 33.7 % (36.0-48.0); HEMOGLOBIN 10.3 g/dL (12-16); IMMATURE GRANULOCYTES 0.2 % (0-5); LYMPHOCYTE ABS# 0.98 10x3/uL (1.18-3.74); LYMPHOCYTES 17.6 % (15-50); MCH 25.5 pg (26.0-34.0); MCHC 30.6 g/dL (31.0-37.0); MCV 83.4 fL (80.0-100.0); MEAN PLATELET VOLUME 10.5 fL (7.4-10.4); MONOCYTES 8.8 % (2-11); NEUTROPHIL ABS# 3.85 10x3/uL (1.56-6.13); NEUTROPHILS 68.9 % (40-80); PLATELET COUNT 100 10x3/uL (130-400); RBC 4.04 10x6/uL (4.00-5.40); RDW 17.4 % (11.5-14.5); WBC 5.6 10x3/uL (4.8-10.8)
[2021-02-03 06:33] LABS: INR 1.52 (0.85-1.17)
[2021-02-03 06:37] LABS: ALBUMIN 2.8 g/dL (3.4-5.0); ANION GAP 10.3 mmol/L (8-16); BILIRUBIN - TOTAL 1.12 mg/dL (0.2-1.3); CALCIUM 8.8 mg/dL (8.5-10.1); CARBON DIOXIDE 26.3 mmol/L (21.0-32.0); CREATININE - SERUM 1.4 mg/dL (0.6-1.3); MAGNESIUM - SERUM 2.1 mg/dL (1.8-2.4); POTASSIUM - SERUM 4.6 mmol/L (3.5-5.1); PROTEIN - SERUM 6.9 g/dL (6.4-8.2)
[2021-02-03 08:00] VITALS: BP 122/78
[2021-02-03] MEDS ORDERED: TOPROL XL25 MG PO (10:27)
[2021-02-03] MEDS ORDERED: LEVOTHYROXINE150 MCG PO (10:29)
[2021-02-03] MEDS ORDERED: NEPHRO-VITE RX1 TAB PO (10:30)
[2021-02-03 11:00] VITALS: BP 120/75
--- NOTE | 2021-02-03 13:58 | CN ---
PATIENT NAME:AVTAR AMIN MEDICAL RECORD: [id number] : 61 LOCATION:D[address] D.2109 ADMIT DATE: 01/27/21 ACCOUNT: [id number] CONSULTING PHYSICIAN: BROOK MENJIVAR MD REFERRING PHYSICIAN: MADELINE BLUM MD DATE OF CONSULTATION: 02/02/2021 HISTORY OF PRESENT ILLNESS: A 55-year-old female well known to me with a history of nonischemic cardiomyopathy, history of sick sinus syndrome, status post pacemaker placement, admitted with acute renal failure actually requiring dialysis for a short period. Renal function was recovering nicely. She has had a marked constitutional symptomatology with her cardiomyopathy, even at times of euvolemia, subsequently found to be hypothyroid. We were asked to see her concerning her cardiovascular status. PAST MEDICAL HISTORY: Includes; 1. History of hypertension. 2. Hyperlipidemia. 3. Chronic with more recent acute renal insufficiency. 4. Hypothyroidism. ALLERGIES: INCLUDE IODINE, PENICILLIN, OXYCODONE. SOCIAL HISTORY: Nonsmoker, nondrinker. Able to take care of her ADLs, but no set exercise program. REVIEW OF SYSTEMS: The patient reports easy bruising but reports no swollen glands. The patient reports no fever, no night sweats, no significant weight gain, no significant weight loss. No significant exercise tolerance. The patient reports no dry eyes, no irritation, no vision change. Patient reports no difficulty hearing and no ear pain. Patient reports no frequent nose bleeds or nose and sinus problems. Patient reports on arm pain on exertion. No shortness of breath while lying down. No history of heart murmur. Patient reports no cough, no wheezing or coughing up blood. Patient reports no abdominal pain, no vomiting. Normal appetite. No diarrhea and not vomiting blood. No nausea and no constipation. Patient reports no incontinence. No difficulty urinating. No hematuria. No increased frequency. Patient reports no muscle aches. No weakness, no arthralgias, no back pain. No swelling of the extremities. Patient reports no abnormal mole, no jaundice, no rashes. Reports no loss of consciousness. No weakness and no numbness. No seizures, dizziness, or headaches. The patient reports no depression, no sleep disturbance, feeling safe in a relationship and no alcohol abuse. Patient reports on fatigue. Reports no runny nose or sinus pressure. No itching, no hives, and no frequent sneezing. MEDICATIONS: Xarelto 10 mg daily, Cordarone 200 b.i.d., metoprolol 100 b.i.d., Imdur 20 b.i.d., aspirin 81 every day, Protonix 40 every day, Synthroid 100 mcg every day. PHYSICAL EXAMINATION: GENERAL: Pleasant, in no acute distress, appears stated age. VITAL SIGNS: Blood pressure 127/91, pulse 80 and regular. HEENT: Normocephalic, atraumatic. NECK: No JVD or bruit. HEART: Regular. Questionable S3 gallop. CONSULT REPORT [id number] AVTAR AMIN LUNGS: Good air excursion. ABDOMEN: Soft and nontender. Pulses 2+. EXTREMITIES: No edema. IMPRESSION: At this point in time, certainly concur with stopping amiodarone, typically given relatively a young age of 55. She is on DOAC for cerebrovascular accident prophylaxis. Constitutional symptomatology in fact left ventricular function may improve with improvement to a more euthyroid state. Thank you for the consultation. I would not replace antiarrhythmic unless there is evidence of recurrence of arrhythmias in the future. TRANSINT:[id number] Voice Confirmation ID: [id number] DOCUMENT ID: [id number] BROOK MENJIVAR MD at 1358 CC: [id number] DICTATION DATE: 02/02/21 1118 HOOP FLARING MACHINE OPERATOR HELPER: 02/02/21 1449 ADM IN [facility] [id number] [place] [address]
--- NOTE | 2021-02-03 15:02 | NUR ---
REPORT CALLED TO TASIA MONTANEZ.
--- NOTE | 2021-02-03 17:24 | NUR ---
OT NOTE: PT COMPLETED BUE AROM EXS TOLERATED . PT COMPLETED SIDE ROLLING WITH SBA. PT COMPLETED FACE AND ORAL HYGIENE WITH SETUP. NOTIFIED NURSING OF LUE EDEMA. NURSING EXAMINED. [phone] THANK YOU,JAREK SAMS
--- NOTE | 2021-02-03 17:28 | NUR ---
saline lock taken out of right hand. dressing applied. dressed and transfered to w/c. left with oncore.
--- NOTE | 2021-02-03 17:56 | MORECARE ---
CASE MANAGEMENT DISCHARGE SUMMARY PATIENT: AVTAR AMIN UNIT: [id number] ADM DATE: 01/27/21 AGE: 55 : 61 SEX: F ROOM/BED: D.0700 AUTHOR: BALJEET,DOC PHYSICIAN: REFERRING PHYSICIAN: MADELINE BLUM MD DATE OF SERVICE: 02/03/21 Case Management Discharge Planning Summary CT Patient Name: AVTAR AMIN Attending MD : TRISTEN BLUM, Medical Record: [id number] Encounter : [id number] Facility : [address] [place] [address] Admission Date : 113:10 Center Discharge Date : 02/03/2021 [facility] [place] [address] Date of : DC Plan ID : [id number] Age/Sex/Martia : 55/ F/S Printed on : 02/03/21 17:55 CT DCP Review Details Anticipated D/C: Expected LOS : Case Status : INITIATED - Initial Reviewe: [id number] - Milagro Childers Initial Review: 01/31/2021 Planned Disposi: 03 - Discharged/Trans to SNF with Medicare Certification in Anticipation of Skilled Care Final Discharge: - Final Reviewer : : Final Review : Comments CT Entered Date Type Reviewer 02/02/21 17:01 CT Discharge Planning Milagro Childers Comment PENDING AUTH FOR [facility]. I SPOKE WITH BR[facility] TODAY ABOUT REFERRAL. 01/31/21 17:43 CT Discharge Planning Milagro Childers Comment CM met with patient to discuss discharge planning/needs. She is a readmit for ARF. Her last admit she was in observation status for muscle weakness and tremors. She had gone to [facility] SNF for strengthening and only there a few days before returning in ARF. She states that she does not want to go back to [facility]. She states that she has family members that work at [facility] and would like a referral there. She has an OT and PT evaluation on the chart. I will fax a referral to [facility]. Mel is aware of possible chair placement in [place]. CM will continue to follow and assist with discharge planning/needs. DCP Focus Questions & Answers DCP Screen High Risk Factors: 3 or more ED visits within the last 60 days DCP Evaluation Patient's ability to cope with chronic illness c. Inadequate (3+ ED visits in 6 mos., readmits within 30 days, 2+ hospital admissions in 1 yr.) Family / Caregiver's ability to cope with chronic a. Adequate (ability to meet patient's illness: medical needs, ensures patient attends medical appts.) Patient's current cognitive status: *Oriented to person, place, situation, time and present Patient gives permission to discuss discharge Felice Lozano [facility] - [phone] plans with: (name, relationship and number) Does the patient have the ability to pay for or Yes attain post discharge needs / services? Functional screen assessment: New onset in weakness or paralysis Family / Caregiver's ability to cope with chronic a. Adequate (ability to meet patient's illness: medical needs, ensures patient attends medical appts.) Physical Status: Partial care dependence Physical Status: Mobility impaired Physical Status: Compromised skin integrity Physical Status: Compromised nutritional status Is there a likelihood that the patient will Yes require additional services to return to the preadmission environment? Living Arrangements: [facility] Facility Partial Dependence, assistance required for: Dressing Partial Dependence, assistance required for: Bathing Partial Dependence, assistance required for: Ambulation / Mobility Results of this evaluation have been discussed Patient with: Patient with capacity for self-care or can be Yes cared for in same environment as prior to hospitalization? Living arrangements comments: Had been at [facility], but would like to go to [facility] Baseline cognitive status: *Oriented to person, place, situation, time and present Preadmission facility can/cannot provide post Can - at same level of care as preadmission hospital level of care needs: Facility / Agency name and contact information [facility] from Question 3 (if applicable): Medication Management: Patient states can afford medications Pharmacy name(s): [facility] Does Patient have transportation to get home and Yes to follow-up medical appointments when discharged from the hospital? Would patient like to participate in any Care Not applicable Coordination programs (if applicable): Comments: Will refer to [facility] for SNF Does the patient have electricity at home? Yes Does the patient have running water in their Yes house? Equipment in use: Walker - Rolling Mental health screen: No mental health history Psychosocial status: Adult with physical limitations Contact information for resources in use: May need new OP dialysis chair set up in [facility] Re-evaluation Patient and/or caregiver agree upon recommended Yes discharge plan? Patient's current cognitive status: *Oriented to person, place, situation, time and present Reassessment due to: New discovery of admission to an acute inpatient facility within 30 days Functional screen assessment: Unable to manage ADLs without immediate ongoing assistance Patient gives permission to discuss discharge Felice Mendez DTR plans with: (name, relationship and number) Equipment needed for post hospitalization: None Patient with capacity for self-care or can be Yes cared for in same environment as prior to hospitalization? Patient and/or Caregiver notified that they can Yes request a re-evaluation of the discharge plan at any time. Preadmission facility can/cannot provide post Can - at same level of care as preadmission hospital level of care needs: Physical environment modification needed / No anticipated for discharge: Physical environment referral comments (if May need OP dialysis chair time applicable): Planned post hospital services available for Yes patient? Planned post hospital services covered by Yes insurance plan? Would patient like to participate in any Care Not applicable Coordination programs (if applicable): [facility] AVTAR AMIN MR#: [id number] /Age/Sex/Pldtod02-Kut-53 //F /S Attending Physician Name: KULWANT [id number] Patient Account:[id number] [facility] Page -1 of 1 All edits/amendments must be made on the electronic document DICTATION DATE: 02/03/211754 VOCATIONAL NURSE LVN: LAY 02/03/211754 RPT#: [id number] DC DATE:02/03/21 STATUS: DIS IN [facility] [address] [place] [address] END OF REPORT
--- NOTE | 2021-02-03 18:55 | MORECARE ---
CASE MANAGEMENT DISCHARGE SUMMARY PATIENT: AVTAR AMIN UNIT: [id number] ADM DATE: 01/27/21 AGE: 55 : 61 SEX: F ROOM/BED: D.2872 AUTHOR: BALJEET,DOC PHYSICIAN: REFERRING PHYSICIAN: MADELINE BLUM MD DATE OF SERVICE: 02/03/21 Case Management Discharge Planning Summary CT Patient Name: AVTAR AMIN Attending MD : TRISTEN BLUM, Medical Record: [id number] Encounter : [id number] Facility : [address] [place] [address] Admission Date : 113:10 Center Discharge Date : 02/03/[address] [place] [address] Date of : DC Plan ID : [id number] Age/Sex/Martia : 55/ F/S Printed on : 02/03/21 18:54 CT DCP Review Details Anticipated D/C: Expected LOS : Case Status : INITIATED - Initial Reviewe: [id number] - Milagro Childers Initial Review: 01/31/2021 Planned Disposi: 03 - Discharged/Trans to SNF with Medicare Certification in Anticipation of Skilled Care Final Discharge: - Final Reviewer : : Final Review : Comments CT Entered Date Type Reviewer 02/03/21 18:41 CT Discharge Planning Ban Hernández Comment CM received call from Yes[facility] with [facility] and they have received auth for patient. CM spoke with patient IMM signed. [facility] will pick patient up via van and nursing to call report. CM faxed d/c to [facility]. CM will continue to follow and assist as needed. 02/02/21 17:01 CT Discharge Planning Milagro Childers Comment PENDING AUTH FOR [facility]. I SPOKE WITH YESI TODAY ABOUT REFERRAL. 01/31/21 17:43 CT Discharge Planning Milagro Childers Comment CM met with patient to discuss discharge planning/needs. She is a readmit for ARF. Her last admit she was in observation status for muscle weakness and tremors. She had gone to [facility] SNF for strengthening and only there a few days before returning in ARF. She states that she does not want to go back to [facility]. She states that she has family members that work at [facility] and would like a referral there. She has an OT and PT evaluation on the chart. I will fax a referral to [facility]. Mel is aware of possible chair placement in [place]. CM will continue to follow and assist with discharge planning/needs. DCP Focus Questions & Answers DCP Screen High Risk Factors: 3 or more ED visits within the last 60 days DCP Evaluation Patient's ability to cope with chronic illness c. Inadequate (3+ ED visits in 6 mos., readmits within 30 days, 2+ hospital admissions in 1 yr.) Family / Caregiver's ability to cope with chronic a. Adequate (ability to meet patient's illness: medical needs, ensures patient attends medical appts.) Patient's current cognitive status: *Oriented to person, place, situation, time and present Patient gives permission to discuss discharge Fel[facility] Lozano [facility] - [phone] plans with: (name, relationship and number) Does the patient have the ability to pay for or Yes attain post discharge needs / services? Functional screen assessment: New onset in weakness or paralysis Family / Caregiver's ability to cope with chronic a. Adequate (ability to meet patient's illness: medical needs, ensures patient attends medical appts.) Physical Status: Partial care dependence Physical Status: Mobility impaired Physical Status: Compromised skin integrity Physical Status: Compromised nutritional status Is there a likelihood that the patient will Yes require additional services to return to the preadmission environment? Living Arrangements: Prison Facility Partial Dependence, assistance required for: Dressing Partial Dependence, assistance required for: Bathing Partial Dependence, assistance required for: Ambulation / Mobility Results of this evaluation have been discussed Patient with: Patient with capacity for self-care or can be Yes cared for in same environment as prior to hospitalization? Living arrangements comments: Had been at [facility], but would like to go to [facility] Baseline cognitive status: *Oriented to person, place, situation, time and present Preadmission facility can/cannot provide post Can - at same level of care as preadmission hospital level of care needs: Facility / Agency name and contact information [facility] from Question 3 (if applicable): Medication Management: Patient states can afford medications Pharmacy name(s): [facility] Does Patient have transportation to get home and Yes to follow-up medical appointments when discharged from the hospital? Would patient like to participate in any Care Not applicable Coordination programs (if applicable): Comments: Will refer to [facility] for SNF Does the patient have electricity at home? Yes Does the patient have running water in their Yes house? Equipment in use: Walker - Rolling Mental health screen: No mental health history Psychosocial status: Adult with physical limitations Contact information for resources in use: May need new OP dialysis chair set up in [place] DCP Re-evaluation Patient and/or caregiver agree upon recommended Yes discharge plan? Patient's current cognitive status: *Oriented to person, place, situation, time and present Reassessment due to: New discovery of admission to an acute inpatient facility within 30 days Functional screen assessment: Unable to manage ADLs without immediate ongoing assistance Patient gives permission to discuss discharge Felice Mendez DTR plans with: (name, relationship and number) Equipment needed for post hospitalization: None Patient with capacity for self-care or can be Yes cared for in same environment as prior to hospitalization? Patient and/or Caregiver notified that they can Yes request a re-evaluation of the discharge plan at any time. Preadmission facility can/cannot provide post Can - at same level of care as preadmission hospital level of care needs: Physical environment modification needed / No anticipated for discharge: Physical environment referral comments (if May need OP dialysis chair time applicable): Planned post hospital services available for Yes patient? Planned post hospital services covered by Yes insurance plan? Would patient like to participate in any Care Not applicable Coordination programs (if applicable): [facility] AVTAR AMIN MR#: [id number] /Age/Sex/Hctiqa28-Pce-79 /55/F /S Attending Physician Name: KULWANT [id number] Patient Account:[id number] [facility] Page -1 of 1 All edits/amendments must be made on the electronic document DICTATION DATE: 02/03/211853 METAL HANGER: LAY 02/03/211853 RPT#: [id number] DC DATE:02/03/21 STATUS: DIS IN [facility] [address] [place] [address] END OF REPORT
--- NOTE | 2021-02-05 03:29 | MORECARE ---
CASE MANAGEMENT DISCHARGE SUMMARY PATIENT: AVTAR AMIN UNIT: [id number] ADM DATE: 01/27/21 AGE: 55 : 61 SEX: F ROOM/BED: D.9365 AUTHOR: BALJEET,DOC PHYSICIAN: REFERRING PHYSICIAN: MADELINE BLUM MD DATE OF SERVICE: 02/05/21 Case Management Discharge Planning Summary CT Patient Name: AVTAR AMIN Attending MD : TRISTEN BLUM, Medical Record: [id number] Encounter : [id number] Facility : [address] [place] [address] Admission Date : 113:10 Center Discharge Date : 02/03/[address] [place] [address] Date of : DC Plan ID : [id number] Age/Sex/Martia : 55/ F/S Printed on : 02/05/21 3:28 CT DCP Review Details Anticipated D/C: Expected LOS : Case Status : INITIATED - Initial Reviewe: [id number] - Milagro Childers Initial Review: 01/31/2021 Planned Disposi: 03 - Discharged/Trans to SNF with Medicare Certification in Anticipation of Skilled Care Final Discharge: 03 - Discharged/Trans to SNF with Medicare Certification in Anticipation of Skilled Care Final Reviewer : [id number] : Ban Hernández Final Review : 02/05/[address] Entered Date Type Reviewer 02/03/21 18:41 CT Discharge Planning Ban Hernández Comment CM received call from Yesi with [facility] and they have received auth for patient. CM spoke with patient IMM signed. [facility] will pick patient up via van and nursing to call report. CM faxed d/c to [facility]. CM will continue to follow and assist as needed. 02/02/21 17:01 CT Discharge Planning Milagro Childers Comment PENDING AUTH FOR [facility]. I SPOKE WITH YESI TODAY ABOUT REFERRAL. 01/31/21 17:43 CT Discharge Planning Milagro Childers Comment CM met with patient to discuss discharge planning/needs. She is a readmit for ARF. Her last admit she was in observation status for muscle weakness and tremors. She had gone to [facility] for strengthening and only there a few days before returning in ARF. She states that she does not want to go back to [facility]. She states that she has family members that work at [facility] and would like a referral there. She has an OT and PT evaluation on the chart. I will fax a referral to [facility]. Mel is aware of possible chair placement in [place]. CM will continue to follow and assist with discharge planning/needs. DCP Focus Questions & Answers DCP Screen High Risk Factors: 3 or more ED visits within the last 60 days DCP Evaluation Patient gives permission to discuss discharge Felice Lozano - R - [phone] plans with: (name, relationship and number) Patient's current cognitive status: *Oriented to person, place, situation, time and present Family / Caregiver's ability to cope with chronic a. Adequate (ability to meet patient's illness: medical needs, ensures patient attends medical appts.) Patient's ability to cope with chronic illness c. Inadequate (3+ ED visits in 6 mos., readmits within 30 days, 2+ hospital admissions in 1 yr.) Physical Status: Compromised nutritional status Physical Status: Compromised skin integrity Physical Status: Mobility impaired Physical Status: Partial care dependence Family / Caregiver's ability to cope with chronic a. Adequate (ability to meet patient's illness: medical needs, ensures patient attends medical appts.) Functional screen assessment: New onset in weakness or paralysis Does the patient have the ability to pay for or Yes attain post discharge needs / services? Partial Dependence, assistance required for: Ambulation / Mobility Partial Dependence, assistance required for: Bathing Partial Dependence, assistance required for: Dressing Living Arrangements: Jail Facility Is there a likelihood that the patient will Yes require additional services to return to the preadmission environment? Baseline cognitive status: *Oriented to person, place, situation, time and present Living arrangements comments: Had been at [facility], but would like to go to [facility] Patient with capacity for self-care or can be Yes cared for in same environment as prior to hospitalization? Results of this evaluation have been discussed Patient with: Facility / Agency name and contact information [facility] from Question 3 (if applicable): Preadmission facility can/cannot provide post Can - at same level of care as preadmission hospital level of care needs: Medication Management: Patient states can afford medications Pharmacy name(s): [facility] Does Patient have transportation to get home and Yes to follow-up medical appointments when discharged from the hospital? Comments: Will refer to [facility] for SNF Would patient like to participate in any Care Not applicable Coordination programs (if applicable): Does the patient have electricity at home? Yes Does the patient have running water in their Yes house? Equipment in use: Walker - Rolling Mental health screen: No mental health history Psychosocial status: Adult with physical limitations Contact information for resources in use: May need new OP dialysis chair set up in [facility] Re-evaluation Reassessment due to: New discovery of admission to an acute inpatient facility within 30 days Patient's current cognitive status: *Oriented to person, place, situation, time and present Patient and/or caregiver agree upon recommended Yes discharge plan? Patient gives permission to discuss discharge Felice Mendez DTR plans with: (name, relationship and number) Functional screen assessment: Unable to manage ADLs without immediate ongoing assistance Equipment needed for post hospitalization: None Patient with capacity for self-care or can be Yes cared for in same environment as prior to hospitalization? Preadmission facility can/cannot provide post Can - at same level of care as preadmission hospital level of care needs: Patient and/or Caregiver notified that they can Yes request a re-evaluation of the discharge plan at any time. Physical environment modification needed / No anticipated for discharge: Physical environment referral comments (if May need OP dialysis chair time applicable): Planned post hospital services available for Yes patient? Planned post hospital services covered by Yes insurance plan? Would patient like to participate in any Care Not applicable Coordination programs (if applicable): [facility] AVTAR AMIN MR#: [id number] /Age/Sex/Hnurxo02-Dre-38 /55/F /S Attending Physician Name: KULWANT [id number] Patient Account:[id number] [facility] Page -1 of 1 All edits/amendments must be made on the electronic document DICTATION DATE: 02/05/21327 BORING MACHINE SET UP OPERATOR: LAY 02/05/21327 RPT#: [id number] [place] DATE:02/03/21 STATUS: DIS IN [facility] [address] [place] [address] END OF REPORT
--- NOTE | 2021-02-05 09:50 | MORECARE ---
CASE MANAGEMENT DISCHARGE SUMMARY PATIENT: AVTAR AMIN UNIT: [id number] ADM DATE: 01/27/21 AGE: 55 : 61 SEX: F ROOM/BED: D.4383 AUTHOR: BALJEET,DOC PHYSICIAN: REFERRING PHYSICIAN: MADELINE BLUM MD DATE OF SERVICE: 02/05/21 Case Management Discharge Planning Summary CT Patient Name: AVTAR AMIN Attending MD : TRISTEN BLUM, Medical Record: [id number] Encounter : [id number] Facility : [address] [place] [address] Admission Date : 113:10 Center Discharge Date : 02/03/[address] [place] [address] Date of : DC Plan ID : [id number] Age/Sex/Martia : 55/ F/S Printed on : 02/05/21 9:48 CT DCP Review Details Anticipated D/C: Expected LOS : Case Status : INITIATED - Initial Reviewe: [id number] - Milagro Childers Initial Review: 01/31/2021 Planned Disposi: 03 - Discharged/Trans to SNF with Medicare Certification in Anticipation of Skilled Care Final Discharge: 03 - Discharged/Trans to SNF with Medicare Certification in Anticipation of Skilled Care Final Reviewer : [id number] : Ban Hernández Final Review : 02/05/[address] Entered Date Type Reviewer 02/03/21 18:41 CT Discharge Planning Ban Hernández Comment CM received call from [facility] with [facility] and they have received auth for patient. CM spoke with patient IMM signed. [facility] will pick patient up via van and nursing to call report. CM faxed d/c to [facility]. CM will continue to follow and assist as needed. 02/02/21 17:01 CT Discharge Planning Milagro Childers Comment PENDING AUTH FOR [facility]. I SPOKE WITH [facility] TODAY ABOUT REFERRAL. 01/31/21 17:43 CT Discharge Planning Milagro Childers Comment CM met with patient to discuss discharge planning/needs. She is a readmit for ARF. Her last admit she was in observation status for muscle weakness and tremors. She had gone to [facility] for strengthening and only there a few days before returning in ARF. She states that she does not want to go back to [facility]. She states that she has family members that work at [facility] and would like a referral there. She has an OT and PT evaluation on the chart. I will fax a referral to [facility]. Mel is aware of possible chair placement in [place]. CM will continue to follow and assist with discharge planning/needs. DCP Focus Questions & Answers DCP Screen High Risk Factors: 3 or more ED visits within the last 60 days DCP Evaluation Patient's ability to cope with chronic illness c. Inadequate (3+ ED visits in 6 mos., readmits within 30 days, 2+ hospital admissions in 1 yr.) Family / Caregiver's ability to cope with chronic a. Adequate (ability to meet patient's illness: medical needs, ensures patient attends medical appts.) Patient's current cognitive status: *Oriented to person, place, situation, time and present Patient gives permission to discuss discharge Felice Lozano - DTR - [phone] plans with: (name, relationship and number) Does the patient have the ability to pay for or Yes attain post discharge needs / services? Functional screen assessment: New onset in weakness or paralysis Family / Caregiver's ability to cope with chronic a. Adequate (ability to meet patient's illness: medical needs, ensures patient attends medical appts.) Physical Status: Partial care dependence Physical Status: Mobility impaired Physical Status: Compromised skin integrity Physical Status: Compromised nutritional status Is there a likelihood that the patient will Yes require additional services to return to the preadmission environment? Living Arrangements: [facility] Partial Dependence, assistance required for: Dressing Partial Dependence, assistance required for: Bathing Partial Dependence, assistance required for: Ambulation / Mobility Results of this evaluation have been discussed Patient with: Patient with capacity for self-care or can be Yes cared for in same environment as prior to hospitalization? Living arrangements comments: Had been at [facility], but would like to go to [facility] Baseline cognitive status: *Oriented to person, place, situation, time and present Preadmission facility can/cannot provide post Can - at same level of care as preadmission hospital level of care needs: Facility / Agency name and contact information [facility] from Question 3 (if applicable): Medication Management: Patient states can afford medications Pharmacy name(s): [facility] Does Patient have transportation to get home and Yes to follow-up medical appointments when discharged from the hospital? Would patient like to participate in any Care Not applicable Coordination programs (if applicable): Comments: Will refer to [facility] for SNF Does the patient have electricity at home? Yes Does the patient have running water in their Yes house? Equipment in use: Walker - Rolling Mental health screen: No mental health history Psychosocial status: Adult with physical limitations Contact information for resources in use: May need new OP dialysis chair set up in [place] Re-evaluation Patient and/or caregiver agree upon recommended Yes discharge plan? Patient's current cognitive status: *Oriented to person, place, situation, time and present Reassessment due to: New discovery of admission to an acute inpatient facility within 30 days Functional screen assessment: Unable to manage ADLs without immediate ongoing assistance Patient gives permission to discuss discharge Felice Mendez DTR plans with: (name, relationship and number) Equipment needed for post hospitalization: None Patient with capacity for self-care or can be Yes cared for in same environment as prior to hospitalization? Patient and/or Caregiver notified that they can Yes request a re-evaluation of the discharge plan at any time. Preadmission facility can/cannot provide post Can - at same level of care as preadmission hospital level of care needs: Physical environment modification needed / No anticipated for discharge: Physical environment referral comments (if May need OP dialysis chair time applicable): Planned post hospital services available for Yes patient? Planned post hospital services covered by Yes insurance plan? Would patient like to participate in any Care Not applicable Coordination programs (if applicable): [facility] AVTAR AMIN MR#: [id number] /Age/Sex/[id number] /55/F /S Attending Physician Name: KUWLANT [id number] Patient Account:[id number] [facility] Page -1 of 1 All edits/amendments must be made on the electronic document DICTATION DATE: 02/05/21947 OVERLOCK SLEEVE SETTER: LAY 02/05/21947 RPT#: [id number] UT DATE:02/03/21 STATUS: DIS IN [facility] [address] [place] [address] END OF REPORT
== END 2021-02-03 17:30 | DRG 683 ==
LOC: D.ER 10:13 → D.M2 14:55 → OBSVTIME 14:56 → D.M2 01-27 13:10
PROVIDERS: Family Medicine; Internal Medicine Nephrology; Surgery; ADMIT Family Medicine; ATTEND Family Medicine
PROC: 05HM33Z Insertion of Infusion Device into Right Internal Jugular Vein, Percutaneous Approach (ICD-10-PCS; principal; 2021-01-29 07:00)
PROC: 05PY33Z Removal of Infusion Device from Upper Vein, Percutaneous Approach (ICD-10-PCS; 2021-02-02)
DX: N17.9 Acute kidney failure, unspecified (principal); K92.2 Gastrointestinal hemorrhage, unspecified; I13.2 Hypertensive heart and chronic kidney disease with heart failure and with stage 5 chronic kidney disease, or end stage renal disease; R18.8 Other ascites; I50.22 Chronic systolic (congestive) heart failure; N39.0 Urinary tract infection, site not specified; N18.6 End stage renal disease; I48.91 Unspecified atrial fibrillation; I25.10 Atherosclerotic heart disease of native coronary artery without angina pectoris; J45.909 Unspecified asthma, uncomplicated; K21.9 Gastro-esophageal reflux disease without esophagitis; D63.1 Anemia in chronic kidney disease; E87.5 Hyperkalemia; J44.9 Chronic obstructive pulmonary disease, unspecified; E03.9 Hypothyroidism, unspecified; D52.9 Folate deficiency anemia, unspecified; E66.9 Obesity, unspecified; T46.2X5A Adverse effect of other antidysrhythmic drugs, initial encounter; Z68.38 Body mass index [BMI] 38.0-38.9, adult; Z86.73 Personal history of transient ischemic attack (TIA), and cerebral infarction without residual deficits

== ENCOUNTER 2021-02-07 18:55 | Emergency (ER) | payer MEDICARE, MEDICAID ==
[~2021-02-07] VITALS: Ht 162.6 cm; Wt 100.0 kg
[~2021-02-07 18:55] MED LIST changes: +NEPHRO-VITE RX1 TAB PO; +TOPROL XL25 MG PO
[2021-02-07 18:57] VITALS: Ht 162.6 cm; Wt 100.0 kg
[2021-02-07 19:18] LABS: BASOPHILS 0.6 % (0-2); HEMATOCRIT 31.1 % (36.0-48.0); HEMOGLOBIN 9.4 g/dL (12-16); IMMATURE GRANULOCYTES 0.2 % (0-5); LYMPHOCYTE ABS# 0.96 10x3/uL (1.18-3.74); LYMPHOCYTES 15.1 % (15-50); MCH 25.3 pg (26.0-34.0); MCHC 30.2 g/dL (31.0-37.0); MCV 83.8 fL (80.0-100.0); MEAN PLATELET VOLUME 10.8 fL (7.4-10.4); MONOCYTES 6.4 % (2-11); NEUTROPHIL ABS# 4.81 10x3/uL (1.56-6.13); NEUTROPHILS 75.7 % (40-80); PLATELET COUNT 118 10x3/uL (130-400); RBC 3.71 10x6/uL (4.00-5.40); RDW 17.1 % (11.5-14.5); WBC 6.4 10x3/uL (4.8-10.8)
[2021-02-07 19:27] LABS: ANION GAP 10.9 mmol/L (8-16); CALCIUM 8.7 mg/dL (8.5-10.1); CARBON DIOXIDE 27.5 mmol/L (21.0-32.0); CREATININE - SERUM 1.4 mg/dL (0.6-1.3); POTASSIUM - SERUM 4.4 mmol/L (3.5-5.1)
[2021-02-07 19:48] LABS: BILIRUBIN - TOTAL 1.57 mg/dL (0.2-1.3)
[2021-02-07 19:49] LABS: TROPONIN-I 0.158 ng/mL (0.000-0.060)
[2021-02-07 21:35] LABS: KETONE NEGATIVE (NEGATIVE); NITRITE NEGATIVE (NEGATIVE)
[2021-02-07 21:36] LABS: BILIRUBIN NEGATIVE (NEGATIVE); WHITE CELLS - URINE 0-5 HPF (0-4)
[2021-02-07 21:38] LABS: BACTERIA FEW HPF (NONE SEEN); SQUAMOUS EPITHELIAL 0-5 HPF (0-4)
[2021-02-07 22:54] VITALS: BP 129/81
== END 2021-02-07 22:55 ==
LOC: D.ER 18:55
PROVIDERS: Family Medicine
DX: K59.00 Constipation, unspecified (principal); R10.9 Unspecified abdominal pain; I11.0 Hypertensive heart disease with heart failure; I50.9 Heart failure, unspecified; Z86.73 Personal history of transient ischemic attack (TIA), and cerebral infarction without residual deficits; K21.9 Gastro-esophageal reflux disease without esophagitis

== ENCOUNTER → 2021-02-27 13:23 | Outpatient (CLI) | payer MEDICARE, MEDICAID ==
[2021-02-07 18:57] VITALS: BMI 37.8
[2021-02-27 14:33] LABS: ANION GAP 14.4 mmol/L (8-16); CALCIUM 9.3 mg/dL (8.5-10.1); CREATININE - SERUM 1.8 mg/dL (0.6-1.3); POTASSIUM - SERUM 4.4 mmol/L (3.5-5.1); THYROID STIMULATING HORMONE 3.76 uIU/mL (0.36-3.74)
== END | disposition home or self-care (01) ==
LOC: D.LAB 13:23
PROVIDERS: ATTEND Family Medicine Adult Medicine
DX: I50.23 Acute on chronic systolic (congestive) heart failure (principal); E87.5 Hyperkalemia; E03.9 Hypothyroidism, unspecified

== ENCOUNTER 2021-03-20 10:40 | Inpatient (IN) | payer MEDICARE, MEDICAID ==
[2021-03-20] VITALS (9 sets, daily range): BP systolic 124–176; BP diastolic 78–97; BMI 39.2
[~2021-03-20] VITALS: Ht 162.6 cm; Wt 110.9 kg
--- NOTE | 2021-03-20 11:00 | NUR ---
ARRIVED VIA EMS WITH C/O OF CP AND SOB. PT ON ROOM AIR AND SATS ARE AT 98%. EKG SHOWS ACCELERATED JUNCTIONAL RHYTHM. ADMISSION VITALS ARE 130/95 84 98% 14
[2021-03-20 12:10] LABS: ALBUMIN 3.2 g/dL (3.4-5.0); BILIRUBIN - TOTAL 3.11 mg/dL (0.2-1.3); CALCIUM 8.6 mg/dL (8.5-10.1); CARBON DIOXIDE 30.7 mmol/L (21.0-32.0); CREATININE - SERUM 2.2 mg/dL (0.6-1.3)
[2021-03-20 12:11] LABS: ANION GAP 11.2 mmol/L (8-16)
[2021-03-20 12:14] LABS: POTASSIUM - SERUM 2.9 mmol/L (3.5-5.1); TROPONIN-I 0.166 ng/mL (0.000-0.060)
--- NOTE | 2021-03-20 14:02 | NUR ---
REPORT CALLED TO SHANTELL ON M2.
--- NOTE | 2021-03-20 14:55 | NUR ---
PATIENT AAOX4, RESP EVEN AND NON LABORED, NO S/S OF DISTRESS, MEDICATIONS ADMINISTERED WITH NO COMPLICATIONS, NO FURTHER NEEDS AT THIS TIME, CLIR, BLP
[2021-03-20 15:01] LABS: BASOPHILS 2.1 % (0-2); EOSINOPHILS 2.2 % (0-7); HEMATOCRIT 30.6 % (36.0-48.0); HEMOGLOBIN 9.4 g/dL (12-16); IMMATURE GRANULOCYTES 0.2 % (0-5); LYMPHOCYTE ABS# 1.02 10x3/uL (1.18-3.74); LYMPHOCYTES 17.5 % (15-50); MCHC 30.7 g/dL (31.0-37.0); MCV 78.3 fL (80.0-100.0); MEAN PLATELET VOLUME 11.1 fL (7.4-10.4); MONOCYTES 12.4 % (2-11); NEUTROPHIL ABS# 3.82 10x3/uL (1.56-6.13); NEUTROPHILS 65.6 % (40-80); RBC 3.91 10x6/uL (4.00-5.40); RDW 18.2 % (11.5-14.5); WBC 5.8 10x3/uL (4.8-10.8)
[2021-03-20 15:02] LABS: PLATELET COUNT 223 10x3/uL (130-400)
--- NOTE | 2021-03-20 20:00 | NUR ---
INITIAL ROUNDS AND ASSESSMENT COMPLETED. PT RESTING IN BED. CAF PER TELEMETRY. ALSO HAS PACEMAKER. APPLIED O2 AT 2L/NC D/T O2 SAT 88%. NO SCDS/ON XARELTO. PIV TO LEFT A/C SALINE LOCKED. CALL LIGHT IN REACH. SR UP X 2.
--- NOTE | 2021-03-20 22:42 | NUR ---
BEDTIME MEDS GIVEN. O2 @ 2L/NC IN PLACE. NO DISTRESS. CALL LIGHT IN REACH.
[2021-03-21 00:33] VITALS: BP 147/81
--- NOTE | 2021-03-21 01:00 | NUR ---
PT WITH C/O CHRONIC BACK PAIN. MEDICATED WITH TORADOL 15MG SIVP. SR UP X 2, CALL LIGHT IN REACH.
[2021-03-21 01:17] LABS: CKMB 0.5 U/L (0.0-3.6); CREATINE KINASE 104 UL (21-215); THYROID STIMULATING HORMONE 8.09 uIU/mL (0.36-3.74)
[2021-03-21 01:18] LABS: TROPONIN-I 0.157 ng/mL (0.000-0.060)
--- NOTE | 2021-03-21 08:20 | NUR ---
PT ALERT AND ORIENTED LYING IN BED RESTING. WOKE EASILY TO LIGHT VERBAL STIMULI. TOOK ALL MEDICATIONS WITHOUT COMPLICATIONS NOTED OR REPORTED. PROVIDED ICE CREAM. NO COMPLAINTS OR CONCERNS AT THIST MEÑO. CL IN REACH, SRX2.
[2021-03-21 08:26] VITALS: BP 119/80
[2021-03-21 09:19] LABS: EOSINOPHILS 2.4 % (0-7); HEMATOCRIT 31.1 % (36.0-48.0); HEMOGLOBIN 9.6 g/dL (12-16); IMMATURE GRANULOCYTES 0.2 % (0-5); LYMPHOCYTE ABS# 1.07 10x3/uL (1.18-3.74); LYMPHOCYTES 19.7 % (15-50); MCH 24.1 pg (26.0-34.0); MCHC 30.9 g/dL (31.0-37.0); MCV 78.1 fL (80.0-100.0); MEAN PLATELET VOLUME 11.1 fL (7.4-10.4); MONOCYTES 11.3 % (2-11); NEUTROPHIL ABS# 3.49 10x3/uL (1.56-6.13); NEUTROPHILS 64.4 % (40-80); PLATELET COUNT 264 10x3/uL (130-400); RBC 3.98 10x6/uL (4.00-5.40); RDW 18.2 % (11.5-14.5); WBC 5.4 10x3/uL (4.8-10.8)
[2021-03-21 09:45] LABS: ALBUMIN 3.5 g/dL (3.4-5.0); ALKALINE PHOSPHATASE 163 U/L (30-120); BILIRUBIN - TOTAL 3.65 mg/dL (0.2-1.3); CALC OSMOLALITY 290 mosm/kg (275-300); CALCIUM 8.9 mg/dL (8.5-10.1); CARBON DIOXIDE 30.5 mmol/L (21.0-32.0); CHLORIDE - SERUM 105 mmol/L (98-107); CKMB 0.7 U/L (0.0-3.6); CREATINE KINASE 116 UL (21-215); CREATININE - SERUM 2.1 mg/dL (0.6-1.3); GLUCOSE 84 mg/dL (74-106); MAGNESIUM - SERUM 1.4 mg/dL (1.8-2.4); PHOSPHOROUS 3.1 mg/dL (2.5-4.9); POTASSIUM - SERUM 3.2 mmol/L (3.5-5.1); PROTEIN - SERUM 8.5 g/dL (6.4-8.2); SODIUM 144 mmol/L (136-145); UREA NITROGEN 26 mg/dL (7-18); eGFR NON AFRICAN AMERICAN 26 mL/min (90-120)
[2021-03-21 09:48] LABS: ALT (SGPT) 22 U/L (10-68)
[2021-03-21 09:49] LABS: TROPONIN-I 0.191 ng/mL (0.000-0.060)
--- NOTE | 2021-03-21 11:41 | NUR ---
PT RESTING PEACEFULLY, EYES CLOSED BREATHS EVEN/REGULAR/UNLABORED. NO SIGNS OR SYMPTOMS OF ACUTE DISTRESS NOTED AT THIS TIME. CL IN REACH, SRX2.
--- NOTE | 2021-03-21 12:50 | NUR ---
I have reviewed this patient and I concur with the Shift Assessment completed by the Licensed Practical Nurse today this shift.
[2021-03-21 13:00] VITALS: Ht 162.6 cm; Wt 110.9 kg
[2021-03-21 14:07] LABS: CKMB 0.9 U/L (0.0-3.6); CREATINE KINASE 111 UL (21-215)
[2021-03-21 14:12] LABS: TROPONIN-I 0.172 ng/mL (0.000-0.060)
--- NOTE | 2021-03-21 15:27 | NUR ---
PT ALERT AND ORIENTED, LYING IN BED WATCHING TV. C/O LASIX BEING GIVEN TOO LATE IN THE DAY CAUSING HER TO URINATE FREQUENTLY WHEN SHE'S TRYING TO SLEEP. CL IN REACH, SRX2.
[2021-03-21 16:00] VITALS: BP 130/70
--- NOTE | 2021-03-21 18:27 | NUR ---
PT ALERT AND ORIENTED, LYING IN BED WATCHING T/V. NO COMPLAINTS OR CONCERNS. CL IN REACH, SRX2.
--- NOTE | 2021-03-21 19:49 | NUR ---
INITIAL ROUNDS AND ASSESSMENT COMPLETED. PT RESTING IN BED. NONLABORED RESPIRATIONS WITH O2 @ 2L/NC. DENIES PAIN OR DISCOMFORT. CALL LIGHT IN REACH.
--- NOTE | 2021-03-22 04:47 | NUR ---
RESTING IN BED WITH NO DISTRESS. EYES CLOSED. CALL LIGHT IN REACH.
--- NOTE | 2021-03-22 05:22 | NUR ---
AM LASIX GIVEN. AM PILLS GIVEN. CALL LIGHT IN REACH.
[2021-03-22 05:43] VITALS: BP 150/78
--- NOTE | 2021-03-22 06:50 | NUR ---
BEDSIDE REPORT GIVEN. RESIDENT AWAKE ALERT AND ORIENTED. NO CURRENT PAIN OR DISTRESS NOTED. RESIDENT ABLE TO MAKE NEEDS KNOWN. SALINE LOCK IV TO LEFT AC.
[2021-03-22 07:48] LABS: BASOPHILS 1.3 % (0-2); EOSINOPHILS 2.3 % (0-7); HEMOGLOBIN 9.1 g/dL (12-16); IMMATURE GRANULOCYTES 0.2 % (0-5); LYMPHOCYTE ABS# 0.77 10x3/uL (1.18-3.74); LYMPHOCYTES 12.7 % (15-50); MCH 24.4 pg (26.0-34.0); MCHC 31.4 g/dL (31.0-37.0); MCV 77.7 fL (80.0-100.0); MEAN PLATELET VOLUME 10.2 fL (7.4-10.4); MONOCYTES 10.4 % (2-11); NEUTROPHIL ABS# 4.44 10x3/uL (1.56-6.13); NEUTROPHILS 73.1 % (40-80); PLATELET COUNT 209 10x3/uL (130-400); RBC 3.73 10x6/uL (4.00-5.40); RDW 18.4 % (11.5-14.5); WBC 6.1 10x3/uL (4.8-10.8)
[2021-03-22 08:00] VITALS: BP 111/58
[2021-03-22 08:14] LABS: ALBUMIN 3.1 g/dL (3.4-5.0); ANION GAP 13.2 mmol/L (8-16); BILIRUBIN - TOTAL 2.88 mg/dL (0.2-1.3); CALCIUM 8.4 mg/dL (8.5-10.1); CARBON DIOXIDE 28.9 mmol/L (21.0-32.0); CREATININE - SERUM 1.9 mg/dL (0.6-1.3); MAGNESIUM - SERUM 1.3 mg/dL (1.8-2.4); PHOSPHOROUS 2.8 mg/dL (2.5-4.9); POTASSIUM - SERUM 3.1 mmol/L (3.5-5.1); PROTEIN - SERUM 7.7 g/dL (6.4-8.2)
--- NOTE | 2021-03-22 10:02 | NUR ---
PATIENT AWAKE AND ALERT. NO CURRENT VERBALIZED COMPLAINTS. RESP EVEN AND UNLABORED. ON ROOM AIR O2 SAT 99. O2 2L USED PRN FOR SHORTNESS OF BREATH. HEART SOUNDS REGULAR RATE AND RYTHYM. TELE SR WITH OCCASIONAL AFIB. RESIDENT UP AT LI WITH WALKER. BALANCED AND STABLE. LASIX ADMINISTERED BID FOR FLUID RETENTION, NO EDEMA NOTED AT THIS TIME. IV SALINE LOCKED TO LEFT AC PATENT AND FLUSES WELL.
[2021-03-22 12:00] VITALS: BP 111/63
--- NOTE | 2021-03-22 13:53 | NUR ---
I have reviewed this patient and I concur with the Shift Assessment completed by the Licensed Practical Nurse today this shift.
[2021-03-22 16:01] VITALS: BP 141/88
[2021-03-22 20:00] VITALS: BP 143/86
--- NOTE | 2021-03-22 20:08 | NUR ---
INITIAL ROUNDS AND ASSESMENT COMPLETED. PT RESTING IN BED. SHOWING SOME IMPROVED STRENGTH, BRIGHTER AFFECT. NONLABORED RESPIRATIONS. ONLY WEARING O2 PRN AND IS ON ROOM AIR AT THIS TIME. CALL LIGHT IN REACH. CALLS FOR SUPERVISION USING HER WALKER TO GET UP AND GO TO THE BATHROOM.
--- NOTE | 2021-03-22 21:30 | NUR ---
BEDTIME MEDS GIVEN. PT C/O BACK PAIN/DISCOMFORT. ALSO GAVE IV TORADOL FOR PAIN, TO PROMOTE OPTIMAL LEVEL OF COMFORT.
--- NOTE | 2021-03-22 21:45 | MORECARE ---
CASE MANAGEMENT DISCHARGE SUMMARY PATIENT: AVTAR AMIN UNIT: [id number] ADM DATE: 03/20/21 AGE: 55 : 61 SEX: F ROOM/BED: [facility] AUTHOR: BALJEET,DOC PHYSICIAN: REFERRING PHYSICIAN: JEIMY OWENS MD DATE OF SERVICE: 03/22/21 Case Management Discharge Planning Summary DCP REVIEW SUMMARY ANTICIPATED D/C DATE: EXPECTED LOS : CASE STATUS: DCP Initiated INITIAL REVIEW: 03/20/2021 INITIAL REVIEWER: Ban Hernández FINAL DISCHARGE DISPOSITION: : FINAL REVIEWER: FINAL REVIEW DATE: DCP Focus Questions & Answers DCP Screen QUESTION: ANSWER High Risk Factors: : Hosp related to CHF, COPD, DM, End Stage Ds, CVA, CA DCP Evaluation QUESTION: ANSWER Patient's ability to cope with chronic illness : d. No chronic illness Would patient like to participate in any Care Coordination programs (if applicable): : Not applicable Mental health screen: : No mental health history DCP Re-evaluation QUESTION: ANSWER Would patient like to participate in any Care Coordination programs (if applicable): : Not applicable PATIENT: AVTAR AMIN ENCOUNTER: [id number] MEDICAL RECORD#: [id number] ADMISSION DATE: 03/20/2021 DISCHARGE DATE: ATTENDING MD: JEIMY PINTO : AGE: 55 MARITAL STATUS: S DC PLAN ID: [id number] FACILITY: [facility] PRINTED ON: 03/22/21 21:45 CT All edits/amendments must be made on the electronic document DICTATION DATE: 03/22/212144 MARKETING PROGRAM MANAGER: DM 03/22/212144 RPT#: [id number] DC DATE: STATUS: ADM IN [facility] [address] [place] [address] END OF REPORT
--- NOTE | 2021-03-22 21:55 | MORECARE ---
CASE MANAGEMENT DISCHARGE SUMMARY PATIENT: AVTAR AMIN UNIT: [id number] ADM DATE: 03/20/21 AGE: 55 : 61 SEX: F ROOM/BED: D.6826 AUTHOR: KADE DELONG PHYSICIAN: REFERRING PHYSICIAN: JEIMY OWENS MD DATE OF SERVICE: 03/22/21 Case Management Discharge Planning Summary DCP REVIEW SUMMARY ANTICIPATED D/C DATE: EXPECTED LOS : CASE STATUS: DCP Initiated INITIAL REVIEW: 03/20/2021 INITIAL REVIEWER: Ban Hernández FINAL DISCHARGE DISPOSITION: : FINAL REVIEWER: FINAL REVIEW DATE: DCP Focus Questions & Answers DCP Screen QUESTION: ANSWER High Risk Factors: : Hosp related to CHF, COPD, DM, End Stage Ds, CVA, CA DCP Evaluation QUESTION: ANSWER Patient gives permission to discuss discharge plans with: (name, relationship and number) : MARISOL - DTR- [phone] Patient's ability to cope with chronic illness : d. No chronic illness Patient's current cognitive status: : *Oriented to person, place, situation, time and present Physical Status: : Independent with ADL's Does the patient have the ability to pay for or attain post discharge needs / services? : N/A Living Arrangements: : Home with Extended Family Is there a likelihood that the patient will require additional services to return to the preadmission environment? : N/A Baseline cognitive status: : *Oriented to person, place, situation, time and present Patient with capacity for self-care or can be cared for in same environment as prior to hospitalization? : Yes Medication Management: : Patient states can read and understand medication labels Pharm[facility] name(s): : [facility] Does Patient have transportation to get home and to follow-up medical appointments when discharged from the hospital? : Yes Would patient like to participate in any Care Coordination programs (if applicable): : Not applicable Does the patient have electricity at home? : Yes Does the patient have running water in their house? : Yes Equipment in use: : Shower Chair Equipment in use: : Walker - Rolling Equipment in use: : Wheelchair Mental health screen: : No mental health history Psychosocial status: : Independent adult (18-64) Resources / Services in place: : Home health Contact information for resources in use: : [facility] DCP Re-evaluation QUESTION: ANSWER Would patient like to participate in any Care Coordination programs (if applicable): : Not applicable PATIENT: AVTAR AMIN ENCOUNTER: [id number] MEDICAL RECORD#: [id number] ADMISSION DATE: 03/20/2021 DISCHARGE DATE: ATTENDING MD: JEIMY PINTO : AGE: 55 MARITAL STATUS: S DC PLAN ID: [id number] FACILITY: [facility] PRINTED ON: 03/22/21 21:55 CT All edits/amendments must be made on the electronic document DICTATION DATE: 03/22/212154 SALESMAN/OWNER: LAY 03/22/212154 RPT#: [id number] DC DATE: STATUS: ADM IN [facility] [address] [place] [address] END OF REPORT
--- NOTE | 2021-03-22 22:07 | MORECARE ---
CASE MANAGEMENT DISCHARGE SUMMARY PATIENT: AVTAR AMIN UNIT: [id number] ADM DATE: 03/20/21 AGE: 55 : 61 SEX: F ROOM/BED: D.5924 AUTHOR: KADE DELONG PHYSICIAN: REFERRING PHYSICIAN: JEIMY OWENS MD DATE OF SERVICE: 03/22/21 Case Management Discharge Planning Summary COMMENTS ENTERED DATE: 03/22/21 21:54 CT COMMENT TYPE: Discharge Planning REVIEWER: Ban Hernández CM spoke with patient to complete initial dc planning assessment. CM educated patient on the CM role and verbal consent given by patient to complete assessment. Patient lives at home with family. Patient is independent. At discharge patient plans to return home and feels this is a safe discharge. CM discussed availability of home health, rehab services, and medical equipment. Patient states that she currently has home health services with [facility] and plans to resume care with them at discharge. Patient will have family to transport home. Patient denied known discharge needs at this time. CM will continue to follow and will assist as needed with dc plans/needs. DCP REVIEW SUMMARY ANTICIPATED D/C DATE: EXPECTED LOS : CASE STATUS: DCP Initiated INITIAL REVIEW: 03/20/2021 INITIAL REVIEWER: Ban Hernández FINAL DISCHARGE DISPOSITION: : FINAL REVIEWER: FINAL REVIEW DATE: DCP Focus Questions & Answers DCP Screen QUESTION: ANSWER High Risk Factors: : Hosp related to CHF, COPD, DM, End Stage Ds, CVA, CA DCP Evaluation QUESTION: ANSWER Patient's current cognitive status: : *Oriented to person, place, situation, time and present Patient's ability to cope with chronic illness : d. No chronic illness Patient gives permission to discuss discharge plans with: (name, relationship and number) : MARISOL - DTR- [phone] Does the patient have the ability to pay for or attain post discharge needs / services? : N/A Physical Status: : Independent with ADL's Is there a likelihood that the patient will require additional services to return to the preadmission environment? : N/A Living Arrangements: : Home with Extended Family Patient with capacity for self-care or can be cared for in same environment as prior to hospitalization? : Yes Baseline cognitive status: : *Oriented to person, place, situation, time and present Medication Management: : Patient states can read and understand medication labels Pharmacy name(s): : [facility] Does Patient have transportation to get home and to follow-up medical appointments when discharged from the hospital? : Yes Would patient like to participate in any Care Coordination programs (if applicable): : Not applicable Does the patient have electricity at home? : Yes Does the patient have running water in their house? : Yes Equipment in use: : Wheelchair Equipment in use: : Walker - Rolling Equipment in use: : Shower Chair Mental health screen: : No mental health history Psychosocial status: : Independent adult (18-64) Resources / Services in place: : Home health Contact information for resources in use: : [facility] DCP Re-evaluation QUESTION: ANSWER Would patient like to participate in any Care Coordination programs (if applicable): : Not applicable PATIENT: AVTAR AMIN ENCOUNTER: [id number] MEDICAL RECORD#: [id number] ADMISSION DATE: 03/20/2021 DISCHARGE DATE: ATTENDING MD: JEIMY PINTO : AGE: 55 MARITAL STATUS: S DC PLAN ID: [id number] FACILITY: [facility] PRINTED ON: 03/22/21 22:06 CT All edits/amendments must be made on the electronic document DICTATION DATE: 03/22/212205 AGRICULTURE INTERN: LAY 03/22/212205 RPT#: [id number] DC DATE: STATUS: ADM IN [facility] [address] [place] [address] END OF REPORT
[2021-03-23 01:26] VITALS: BP 153/78
--- NOTE | 2021-03-23 02:00 | NUR ---
PT RESTING WITH EYES CLOSED. NO DISTRESS. NONLABORED RESPIRATIONS. CALL LIGHT IN REACH.
[2021-03-23 05:25] VITALS: BP 148/91
[2021-03-23 07:25] LABS: ALBUMIN 3.3 g/dL (3.4-5.0); ANION GAP 10.2 mmol/L (8-16); BILIRUBIN - TOTAL 2.64 mg/dL (0.2-1.3); CALCIUM 8.3 mg/dL (8.5-10.1); CARBON DIOXIDE 30.8 mmol/L (21.0-32.0); MAGNESIUM - SERUM 1.3 mg/dL (1.8-2.4); PHOSPHOROUS 3.1 mg/dL (2.5-4.9)
[2021-03-23 07:43] LABS: EOSINOPHILS 3.1 % (0-7); HEMATOCRIT 28.5 % (36.0-48.0); HEMOGLOBIN 8.9 g/dL (12-16); LYMPHOCYTE ABS# 0.92 10x3/uL (1.18-3.74); LYMPHOCYTES 16.1 % (15-50); MCH 24.2 pg (26.0-34.0); MCHC 31.2 g/dL (31.0-37.0); MCV 77.4 fL (80.0-100.0); MEAN PLATELET VOLUME 10.7 fL (7.4-10.4); MONOCYTES 10.7 % (2-11); NEUTROPHIL ABS# 3.95 10x3/uL (1.56-6.13); NEUTROPHILS 69.1 % (40-80); PLATELET COUNT 218 10x3/uL (130-400); RBC 3.68 10x6/uL (4.00-5.40); RDW 18.3 % (11.5-14.5); WBC 5.7 10x3/uL (4.8-10.8)
--- NOTE | 2021-03-23 08:33 | NUR ---
AM MEDS GIVEN AT THIS TIME, PT SITTING UP IN BED AWAKE AND ALERT, RR EVEN NON LABORED ON ROOM AIR. PT EATING BREAKFAST TRAY, NO PAIN OR NEEDS VOICED. CLWR.
[2021-03-23 10:10] VITALS: BP 150/85
[2021-03-23] MEDS ORDERED: SYNTHROID175 MCG PO (12:19)
--- NOTE | 2021-03-23 14:05 | MORECARE ---
CASE MANAGEMENT DISCHARGE SUMMARY PATIENT: AVTAR AMIN UNIT: [id number] ADM DATE: 03/20/21 AGE: 55 : 61 SEX: F ROOM/BED: D.9824 AUTHOR: BALJEET,DOC PHYSICIAN: REFERRING PHYSICIAN: JEIMY OWENS MD DATE OF SERVICE: 03/23/21 Case Management Discharge Planning Summary COMMENTS ENTERED DATE: 03/23/21 13:51 CT COMMENT TYPE: Discharge Planning REVIEWER: Mary Ann Howard IMM SIGNED AND COPY PLACED ON CHART. PATIENT PLANS TO DC TOHOME TODAY AND STATES DAUGHTER WILL PICK HER UP. CM TO FOLLOW AND ASSIST NEEDED. ENTERED DATE: 03/22/21 21:54 CT COMMENT TYPE: Discharge Planning REVIEWER: Ban Hernández CM spoke with patient to complete initial dc planning assessment. CM educated patient on the CM role and verbal consent given by patient to complete assessment. Patient lives at home with family. Patient is independent. At discharge patient plans to return home and feels this is a safe discharge. CM discussed availability of home health, rehab services, and medical equipment. Patient states that she currently has home health services with [facility] and plans to resume care with them at discharge. Patient will have family to transport home. Patient denied known discharge needs at this time. CM will continue to follow and will assist as needed with dc plans/needs. DCP REVIEW SUMMARY ANTICIPATED D/C DATE: EXPECTED LOS : CASE STATUS: DCP Initiated INITIAL REVIEW: 03/20/2021 INITIAL REVIEWER: Ban Hernández FINAL DISCHARGE DISPOSITION: : FINAL REVIEWER: FINAL REVIEW DATE: DCP Focus Questions & Answers DCP Screen QUESTION: ANSWER High Risk Factors: : Hosp related to CHF, COPD, DM, End Stage Ds, CVA, CA DCP Evaluation QUESTION: ANSWER Patient's current cognitive status: : *Oriented to person, place, situation, time and present Patient gives permission to discuss discharge plans with: (name, relationship and number) : MARISOL - DTR- [phone] Patient's ability to cope with chronic illness : d. No chronic illness Does the patient have the ability to pay for or attain post discharge needs / services? : N/A Physical Status: : Independent with ADL's Is there a likelihood that the patient will require additional services to return to the preadmission environment? : N/A Living Arrangements: : Home with Extended Family Patient with capacity for self-care or can be cared for in same environment as prior to hospitalization? : Yes Baseline cognitive status: : *Oriented to person, place, situation, time and present Medication Management: : Patient states can read and understand medication labels [facility]acy name(s): [facility] Does Patient have transportation to get home and to follow-up medical appointments when discharged from the hospital? : Yes Would patient like to participate in any Care Coordination programs (if applicable): : Not applicable Does the patient have electricity at home? : Yes Does the patient have running water in their house? : Yes Equipment in use: : Wheelchair Equipment in use: : Walker - Rolling Equipment in use: : Shower Chair Mental health screen: : No mental health history Psychosocial status: : Independent adult (18-64) Resources / Services in place: : Home health Contact information for resources in use: : [facility] DCP Re-evaluation QUESTION: ANSWER Would patient like to participate in any Care Coordination programs (if applicable): : Not applicable PATIENT: AVTAR AMIN ENCOUNTER: [id number] MEDICAL RECORD#: [id number] ADMISSION DATE: 03/20/2021 DISCHARGE DATE: ATTENDING MD: JEIMY PINTO : AGE: 55 MARITAL STATUS: S DC PLAN ID: [id number] FACILITY: [facility] PRINTED ON: 03/23/21 14:04 CT All edits/amendments must be made on the electronic document DICTATION DATE: 03/23/211403 DENTAL SERVICES DIRECTOR: DM 03/23/211403 RPT#: [id number] DC DATE: STATUS: ADM IN [facility] [address] [place] [address] END OF REPORT
--- NOTE | 2021-03-23 14:59 | NUR ---
PT SPOKE WITH NURSE REGARDING D/C PLAN. PT WILL HAVE TO WAIT FOR HER DAUGHTER TO GET OFF WORK THIS EVENING FOR TRANSPORTATION. PT LYING IN BED WITH HOB RAISED , RR EVEN NON LABORED. NO NEEDS VOICED. CLWR.
--- NOTE | 2021-03-23 16:14 | NUR ---
OT NOTE: PT COMPLETED SUPINE TO SIT WITH MIN A. PT COMPLETED SITTING AT EOB. WHEN PT ATTEMPTED SIT TO STAND HER LES BEGAN SHAKING. PT SIDE SCOOTED UP TO HEAD OF BED WITH SBA. NO SHAKING NOTED WITH THIS TASK. NURSING AWARE OF SHAKING. PT REQUIRED MIN A FOR SIT TO SUPINE. [address]
--- NOTE | 2021-03-23 17:39 | NUR ---
PT LYING IN BED WITH HOB RAISED, RR EVEN NON LABORED. PT DENIES ANY NEEDS AT THIS TIME. CLWR.
--- NOTE | 2021-03-23 20:29 | NUR ---
DC INSTRUCTIONS GIVEN TP PT, IV TO LEFT AC REMOVED, TIP INTACT. ASSISTED PT WITH GETTING DRESSED.
--- NOTE | 2021-03-23 20:38 | MORECARE ---
CASE MANAGEMENT DISCHARGE SUMMARY PATIENT: AVTAR AMIN UNIT: [id number] ADM DATE: 03/20/21 AGE: 55 : 61 SEX: F ROOM/BED: D.8449 AUTHOR: BALJEET,DOC PHYSICIAN: REFERRING PHYSICIAN: JEIMY OWENS MD DATE OF SERVICE: 03/23/21 Case Management Discharge Planning Summary COMMENTS ENTERED DATE: 03/23/21 13:51 CT COMMENT TYPE: Discharge Planning REVIEWER: Mary Ann Howard IMM SIGNED AND COPY PLACED ON CHART. PATIENT PLANS TO DC TOHOME TODAY AND STATES DAUGHTER WILL PICK HER UP. CM TO FOLLOW AND ASSIST NEEDED. ENTERED DATE: 03/22/21 21:54 CT COMMENT TYPE: Discharge Planning REVIEWER: Ban Hernández CM spoke with patient to complete initial dc planning assessment. CM educated patient on the CM role and verbal consent given by patient to complete assessment. Patient lives at home with family. Patient is independent. At discharge patient plans to return home and feels this is a safe discharge. CM discussed availability of home health, rehab services, and medical equipment. Patient states that she currently has home health services with [facility] and plans to resume care with them at discharge. Patient will have family to transport home. Patient denied known discharge needs at this time. CM will continue to follow and will assist as needed with dc plans/needs. DCP REVIEW SUMMARY ANTICIPATED D/C DATE: EXPECTED LOS : CASE STATUS: DCP Initiated INITIAL REVIEW: 03/20/2021 INITIAL REVIEWER: Ban Hernández FINAL DISCHARGE DISPOSITION: : FINAL REVIEWER: FINAL REVIEW DATE: DCP Focus Questions & Answers DCP Screen QUESTION: ANSWER High Risk Factors: : Hosp related to CHF, COPD, DM, End Stage Ds, CVA, CA DCP Evaluation QUESTION: ANSWER Patient's current cognitive status: : *Oriented to person, place, situation, time and present Patient gives permission to discuss discharge plans with: (name, relationship and number) : MARISOL - DTR- [phone] Patient's ability to cope with chronic illness : d. No chronic illness Does the patient have the ability to pay for or attain post discharge needs / services? : N/A Physical Status: : Independent with ADL's Is there a likelihood that the patient will require additional services to return to the preadmission environment? : N/A Living Arrangements: : Home with Extended Family Patient with capacity for self-care or can be cared for in same environment as prior to hospitalization? : Yes Baseline cognitive status: : *Oriented to person, place, situation, time and present Medication Management: : Patient states can read and understand medication labels Pharmacy name(s): : [facility] Does Patient have transportation to get home and to follow-up medical appointments when discharged from the hospital? : Yes Would patient like to participate in any Care Coordination programs (if applicable): : Not applicable Does the patient have electricity at home? : Yes Does the patient have running water in their house? : Yes Equipment in use: : Wheelchair Equipment in use: : Walker - Rolling Equipment in use: : Shower Chair Mental health screen: : No mental health history Psychosocial status: : Independent adult (18-64) Resources / Services in place: : Home health Contact information for resources in use: : [facility] DCP Re-evaluation QUESTION: ANSWER Would patient like to participate in any Care Coordination programs (if applicable): : Not applicable PATIENT: AVTAR AMIN ENCOUNTER: [id number] MEDICAL RECORD#: [id number] ADMISSION DATE: 03/20/2021 DISCHARGE DATE: 03/23/2021 ATTENDING MD: JEIMY PINTO : AGE: 55 MARITAL STATUS: S DC PLAN ID: [id number] FACILITY: [facility] PRINTED ON: 03/23/21 20:38 CT All edits/amendments must be made on the electronic document DICTATION DATE: 03/23/212036 MOTOR VEHICLE SALESPERSON: LAY 03/23/212036 RPT#: [id number] DC DATE:03/23/21 STATUS: DIS IN [facility] [address] [place] [address] END OF REPORT
--- NOTE | 2021-03-25 09:29 | MORECARE ---
CASE MANAGEMENT DISCHARGE SUMMARY PATIENT: AVTAR AMIN UNIT: [id number] ADM DATE: 03/20/21 AGE: 55 : 61 SEX: F ROOM/BED: D.4817 AUTHOR: BALJEET,DOC PHYSICIAN: REFERRING PHYSICIAN: JEIMY OWENS MD DATE OF SERVICE: 03/25/21 Case Management Discharge Planning Summary COMMENTS ENTERED DATE: 03/23/21 13:51 CT COMMENT TYPE: Discharge Planning REVIEWER: Mary Ann Howard IMM SIGNED AND COPY PLACED ON CHART. PATIENT PLANS TO DC TOHOME TODAY AND STATES DAUGHTER WILL PICK HER UP. CM TO FOLLOW AND ASSIST NEEDED. ENTERED DATE: 03/22/21 21:54 CT COMMENT TYPE: Discharge Planning REVIEWER: Ban Hernández CM spoke with patient to complete initial dc planning assessment. CM educated patient on the CM role and verbal consent given by patient to complete assessment. Patient lives at home with family. Patient is independent. At discharge patient plans to return home and feels this is a safe discharge. CM discussed availability of home health, rehab services, and medical equipment. Patient states that she currently has home health services with [facility] and plans to resume care with them at discharge. Patient will have family to transport home. Patient denied known discharge needs at this time. CM will continue to follow and will assist as needed with dc plans/needs. DCP REVIEW SUMMARY ANTICIPATED D/C DATE: EXPECTED LOS : CASE STATUS: DCP Initiated INITIAL REVIEW: 03/20/2021 INITIAL REVIEWER: Ban Hernández FINAL DISCHARGE DISPOSITION: : FINAL REVIEWER: FINAL REVIEW DATE: DCP Focus Questions & Answers DCP Screen QUESTION: ANSWER High Risk Factors: : Hosp related to CHF, COPD, DM, End Stage Ds, CVA, CA DCP Evaluation QUESTION: ANSWER Patient's current cognitive status: : *Oriented to person, place, situation, time and present Patient gives permission to discuss discharge plans with: (name, relationship and number) : MARISOL - DTR- [phone] Patient's ability to cope with chronic illness : d. No chronic illness Does the patient have the ability to pay for or attain post discharge needs / services? : N/A Physical Status: : Independent with ADL's Is there a likelihood that the patient will require additional services to return to the preadmission environment? : N/A Living Arrangements: : Home with Extended Family Patient with capacity for self-care or can be cared for in same environment as prior to hospitalization? : Yes Baseline cognitive status: : *Oriented to person, place, situation, time and present Medication Management: : Patient states can read and understand medication labels Pharmacy name(s): : [facility] Does Patient have transportation to get home and to follow-up medical appointments when discharged from the hospital? : Yes Would patient like to participate in any Care Coordination programs (if applicable): : Not applicable Does the patient have electricity at home? : Yes Does the patient have running water in their house? : Yes Equipment in use: : Wheelchair Equipment in use: : Walker - Rolling Equipment in use: : Shower Chair Mental health screen: : No mental health history Psychosocial status: : Independent adult (18-64) Resources / Services in place: : Home health Contact information for resources in use: : [facility] DCP Re-evaluation QUESTION: ANSWER Would patient like to participate in any Care Coordination programs (if applicable): : Not applicable PATIENT: AVTAR AMIN ENCOUNTER: [id number] MEDICAL RECORD#: [id number] ADMISSION DATE: 03/20/2021 DISCHARGE DATE: 03/23/2021 ATTENDING MD: JEIMY PINTO : AGE: 55 MARITAL STATUS: S DC PLAN ID: [id number] FACILITY: PRINTED ON: 03/25/21 9:29 CT All edits/amendments must be made on the electronic document DICTATION DATE: 03/25/21928 RAISE MINER: DM 03/25/21928 RPT#: [id number] DC DATE:03/23/21 STATUS: DIS IN [address] [place] [address] END OF REPORT
== END 2021-03-23 20:35 | disposition home health service (06) | DRG 292 ==
LOC: D.ER 10:40 → D.M2 12:52
PROVIDERS: Family Medicine; ADMIT Emergency Medicine; ATTEND Emergency Medicine
DX: I13.0 Hypertensive heart and chronic kidney disease with heart failure and stage 1 through stage 4 chronic kidney disease, or unspecified chronic kidney disease (principal); I50.22 Chronic systolic (congestive) heart failure; I48.20 Chronic atrial fibrillation, unspecified; N18.4 Chronic kidney disease, stage 4 (severe); I42.8 Other cardiomyopathies; E87.6 Hypokalemia; I50.9 Heart failure, unspecified; I48.91 Unspecified atrial fibrillation; I25.10 Atherosclerotic heart disease of native coronary artery without angina pectoris; E66.9 Obesity, unspecified; Z68.39 Body mass index [BMI] 39.0-39.9, adult; E03.9 Hypothyroidism, unspecified; M79.7 Fibromyalgia; D52.9 Folate deficiency anemia, unspecified; E83.42 Hypomagnesemia; Z95.0 Presence of cardiac pacemaker; Z86.73 Personal history of transient ischemic attack (TIA), and cerebral infarction without residual deficits; G47.33 Obstructive sleep apnea (adult) (pediatric); J45.909 Unspecified asthma, uncomplicated

== ENCOUNTER → 2021-05-05 15:32 | Outpatient (CLI) | payer MEDICARE, MEDICAID ==
[2021-03-21 13:00] VITALS: BMI 41.2
[~2021-05-05 15:32] MED LIST changes: +SYNTHROID175 MCG PO
[2021-05-05 15:55] LABS: INR 1.6 (0.85-1.17); PROTIME 17.7 SECONDS (11.6-15.0)
== END | disposition home or self-care (01) ==
LOC: D.LABREF 15:32
PROVIDERS: ATTEND Family Medicine Adult Medicine
DX: Z79.01 Long term (current) use of anticoagulants (principal)